=== PATIENT | male | born 1955 | race Caucasian/White ===

== ENCOUNTER 2017-07-07 16:06 | Emergency (ER) | payer SELFPAY ==
[2017-07-07 16:09] VITALS: BP 144/80; PULSE 77; RESP 12; TEMP 98.1; O2SAT 98
--- NOTE | 2017-07-07 19:18 | PD ---
HPI Chief Complaint: Skin Problem Time Seen by Provider: 19:14 Travel History International Travel<30 days: No Contact w/Intl Traveler<30days: No Traveled to known affect area: No History of Present Illness HPI The patient does smoke and drink. 61-year-old white male presents to emergency department with complains of a painful sore on his tongue now for at least 1-2 months. He states that he just decided to come in tonight because he was tired of the pain. He denies any fever chills. No difficulty swallowing. Pain is moderate. Worse with local irritation. No alleviating factors. PFSH Past Medical History Medical History: Denies Significant Hx Social History Alcohol Use: Yes Tobacco Use: Yes Review of Systems General / Constitutional: No: Fever Eyes: No: Visual changes HENT: No: Headaches Cardiovascular: No: Chest Pain or Discomfort Respiratory: No: Shortness of Breath Gastrointestinal: No: Abdominal Pain Genitourinary: No: Dysuria Musculoskeletal: No: Pain Skin: No Rash Neurologic: No: Weakness Psychiatric: No: Depression Endocrine: No: Polydipsia Hematologic/Lymphatic: No: Easy Bruising Physical Exam Narrative GENERAL: Well-developed, well-nourished in no acute distress. Nontoxic appearing. HEAD: Normocephalic, atraumatic. EYES: Pupils equal round and reactive. Extraocular motions intact. No scleral icterus. No injection or drainage. ENT: TMs clear without erythema. The external auditory canals clear. Nose: clear . Posterior pharynx is pink and moist. No tonsillar edema or exudate. Uvula midline. Airway patent. Patient has an ulcerative lesion to the lateral aspect of the mid tongue. It measures approximately 1.5 x 1.5 cm. It is hypertrophied and mildly erythematous. NECK: Trachea midline.Supple, nontender, moves head freely. No central bony tenderness or spasm. CARDIOVASCULAR: Regular rate and rhythm without murmurs, gallops, or rubs. RESPIRATORY: Clear to auscultation. Breath sounds equal bilaterally. No wheezes , rales, or rhonchi. GASTROINTESTINAL: Abdomen soft, non-tender, nondistended. No hepato-splenomegaly , or palpable masses. No guarding. EXTREMITIES: No clubbing, cyanosis, or edema. No joint tenderness, effusion, or edema noted. BACK: Nontender without deformity or crepitance. No flank tenderness. Data Data Last Documented VS Vital Signs Date Time Temp Pulse Resp B/P (MAP) Pulse Ox O2 Delivery O2 Flow Rate FiO2 07/07/17 16:09 98.1 77 12 144/80 (101) 98 MDM Medical Decision Making Medical Screen Exam Complete: Yes Emergency Medical Condition: No Medical Record Reviewed: No Differential Diagnosis MDM: High Differential diagnoses: Abscess, folliculitis, cellulitis, lymphangitis, abrasion, contact dermatitis, oral cancer Narrative Course A medical screening exam was performed: At the time of evaluation the presenting medical condition was determined not to be of an emergent nature. The patient was given the option of receiving additional care, but declined. Patient was given options for additional community resources from which to obtain care. The Patient Has Been advised to seek medical attention for their presenting complaint. The patient has been advised to return to the ER at any time if an emergent condition develops. Diagnosis Primary Impression: Encounter for medical screening examination Condition: Stable Yogesh Callaway Jul 07, 2017 19:17
== END 2017-07-07 19:19 | disposition left against medical advice (07) ==
LOC: NEPK 16:06
DX: K14.6 Glossodynia (principal)
CPT/HCPCS: 99281

== ENCOUNTER 2017-08-30 14:36 | Inpatient (IN) | payer BC ==
[~2017-08-30] VITALS: Ht 162.6 cm; Wt 55.0 kg
[2017-08-30] MEDS ORDERED: IOHEXOL 350 MG/ML 10 ML VIAL (for RAD DIAG) IVCONTRAST ONE (14:37)
[2017-08-30 16:10] VITALS: BP 147/80; PULSE 78; RESP 18; TEMP 99.7; O2SAT 97
--- NOTE | 2017-08-30 16:34 | PD ---
HPI Chief Complaint: Facial Pain or Swelling Time Seen by Provider: 16:19 Travel History International Travel<30 days: No Contact w/Intl Traveler<30days: No Traveled to known affect area: No History of Present Illness HPI This is a 61-year-old male who presents to the emergency department with 2 months of swelling in his left tongue that's extended now to involve his left neck, constant, moderate severity making it difficult for him to eat and drink. He says he's lost 10 pounds. He denies any fevers or chills. He said he was seen here in the emergency department in June and told to follow-up at [facility] which he did. There he was prescribed antibiotics and referred to [facility]. He says he has a referral to Dr. Rush who is an oncologist but he says he's never had any imaging of his neck. His insurance just set in yesterday. PFSH Social History Alcohol Use: Yes Tobacco Use: Yes Review of Systems Except as stated in HPI: all other systems reviewed are Neg Physical Exam Narrative GENERAL:Well appearing, no acute distress SKIN: Focused skin assessment warm and dry. HEAD: Atraumatic. Normocephalic. EYES: Pupils equal and round. No injection or drainage. ENT: Moist mucous membranes. Fungating mass involving the left tongue. Some hoarse voice. Speaking full sentences and handling secretions NECK: Firm fullness involving the left neck. CARDIOVASCULAR: Regular rate and rhythm. No murmur appreciated. RESPIRATORY: Clear to auscultation. Breath sounds equal bilaterally. GASTROINTESTINAL: Abdomen soft, non-tender, nondistended. MUSCULOSKELETAL: No obvious deformities. NEUROLOGICAL: Awake and alert. No obvious cranial nerve deficits. Moving all extremities PSYCHIATRIC: Appropriate mood and affect; insight and judgment normal. Data Data Orders Orders Complete Blood Count With Diff (08/30/17 16:24) Basic Metabolic Panel (Bmp) (08/30/17 16:24) ^ Insert Iv (08/30/17 16:24) Ct Soft Tiss Neck W Iv Cont (08/30/17 ) Ct Facial Bones W Iv Contrast (08/30/17 ) Labs Laboratory Tests Test 08/30/17 16:54 White Blood Count 15.5 TH/MM3 Red Blood Count 4.77 MIL/MM3 Hemoglobin 14.8 GM/DL Hematocrit 44.5 % Mean Corpuscular Volume 93.3 FL Mean Corpuscular Hemoglobin 31.1 PG Mean Corpuscular Hemoglobin Concent 33.4 % Red Cell Distribution Width 14.0 % Platelet Count 357 TH/MM3 Mean Platelet Volume 8.1 FL Neutrophils (%) (Auto) 68.0 % Lymphocytes (%) (Auto) 22.8 % Monocytes (%) (Auto) 7.7 % Eosinophils (%) (Auto) 0.8 % Basophils (%) (Auto) 0.7 % Neutrophils # (Auto) 10.6 TH/MM3 Lymphocytes # (Auto) 3.5 TH/MM3 Monocytes # (Auto) 1.2 TH/MM3 Eosinophils # (Auto) 0.1 TH/MM3 Basophils # (Auto) 0.1 TH/MM3 CBC Comment DIFF FINAL Differential Comment MDM Medical Decision Making Medical Screen Exam Complete: Yes Emergency Medical Condition: Yes Differential Diagnosis Cancer, abscess, cellulitis Narrative Course This is a 61-year-old male who presents to the emergency department with increasing swelling in his left neck and some increasing difficulty swallowing and eating. He has an impressive exam with a fungating mass on his left tongue and swelling along the left side of the neck. Plan for CT imaging to evaluate the extent of tumor. Disposition will be made based on CT results. Patient likely will be able to follow-up as an outpatient. Sally Barboza MD Aug 30, 2017 16:34
[2017-08-30 16:58] LABS: AUTOMATED NEUTROPHIL # 10.6 TH/MM3 (1.8-7.7); BASOPHIL # 0.1 TH/MM3 (0-0.2); BASOPHIL % 0.7 % (0.0-2.0); EOSINOPHIL # 0.1 TH/MM3 (0-0.4); EOSINOPHIL % 0.8 % (0.0-4.0); HEMATOCRIT 44.5 % (39.0-51.0); HEMOGLOBIN 14.8 GM/DL (13.0-17.0); LYMPH % 22.8 % (9.0-44.0); LYMPHOCYTE # 3.5 TH/MM3 (1.0-4.8); MEAN CELL VOLUME 93.3 FL (80.0-100.0); MEAN CORPUSCULAR HEMOGLOBIN 31.1 PG (27.0-34.0); MEAN CORPUSCULAR HGB CONC 33.4 % (32.0-36.0); MEAN PLATELET VOLUME 8.1 FL (7.0-11.0); MONO % 7.7 % (0.0-8.0); MONOCYTE # 1.2 TH/MM3 (0-0.9); PLATELET COUNT 357 TH/MM3 (150-450); RED BLOOD COUNT 4.77 MIL/MM3 (4.50-5.90); WHITE BLOOD COUNT 15.5 TH/MM3 (4.0-11.0)
[2017-08-30 17:15] LABS: BICARBONATE 28.8 MEQ/L (21.0-32.0); CALCIUM 10.1 MG/DL (8.5-10.1); CREATININE 0.88 MG/DL (0.60-1.30)
--- NOTE | 2017-08-30 18:19 | RADRPT ---
EXAM DATE/TIME: 08/30/2017 17:53 [facility] COMPARISON: No previous studies available for comparison. INDICATIONS : Patient complains of swelling left side of neck. IV CONTRAST: 75 cc Omnipaque 350 (iohexol) IV RADIATION DOSE: 18.0 CTDIvol (mGy) MEDICAL HISTORY : None SURGICAL HISTORY : None. ENCOUNTER: Initial ACUITY: 2 months PAIN SCALE: 0/10 LOCATION: Left neck TECHNIQUE: Volumetric scanning of the neck was performed. Using automated exposure control and a djustment of the mA and/or kV according to patient size, radiation dose was kept as low as reasonably achievable to obtain optimal diagnostic quality images. DICOM format image data is available elect ronically for review and comparison. FINDINGS: NASOPHARYNX: The nasopharyngeal airway has a normal configuration. No mucosal thickening or mass is seen. OROPHARYNX: Heterogeneous masslike density along the left side of the tongue measures 6.0 x 2.9 c m with central necrosis. LARYNX: The supraglottic, glottic, and infraglottic structures are intact. PARAPHARYNGEAL: The parapharyngeal space is intact. SALIVARY GLANDS: The parotid and submandibular glands are intact. LYMPH NODES: Large necrotic appearing lymph node along the undersurface of the left sternocleidom astoid musculature which is heterogeneous in appearance and measures 3.8 x 2.8 cm.. THYROID: Homogeneous enhancement without evidence of nodule. BONES: Unremarkable. Minimal ground glass densities in upper lobes and mild emphysema. CONCLUSION: 1. Heterogeneous masslike density along the left side of the tongue measures 6.0 x 2.9 cm. This could be mass or abscess. 2. Large necrotic lymph node underneath the sternocleidomastoid musculature measuring 3.8 x 2.8 cm li dede metastatic. This is amenable to percutaneous biopsy. Misael Boateng MD on August 30, 2017 at 18:12 Board Certified Radiologist. This report was verified electronically.
--- NOTE | 2017-08-30 19:48 | PD ---
Physical Exam Narrative Patient signed out to me by Dr. Barboza. Please see her documentation for complete details. Briefly, Patient is a 61 year old male who complains of a mass to his tongue and side of his neck. He has had this for the past 3 months, but says he is concerned because the neck mass has grown in size. He says he is unable to eat because of it and has lost 20 pounds. Exam shows fungating mass to the tongue and large swelling to the left side of the neck. No airway compromise. Data Data Last Documented VS Vital Signs Date Time Temp Pulse Resp B/P (MAP) Pulse Ox O2 Delivery O2 Flow Rate FiO2 08/30/17 16:10 99.7 78 18 147/80 (102) 97 Room Air Orders Orders Complete Blood Count With Diff (08/30/17 16:24) Basic Metabolic Panel (Bmp) (08/30/17 16:24) ^ Insert Iv (08/30/17 16:24) Ct Soft Tiss Neck W Iv Cont (08/30/17 ) Iohexol 350 Inj (Omnipaque 350 Inj) (08/30/17 14:37) Admit Order (Ed Use Only) (08/30/17 ) Labs Laboratory Tests Test 08/30/17 16:54 White Blood Count 15.5 TH/MM3 Red Blood Count 4.77 MIL/MM3 Hemoglobin 14.8 GM/DL Hematocrit 44.5 % Mean Corpuscular Volume 93.3 FL Mean Corpuscular Hemoglobin 31.1 PG Mean Corpuscular Hemoglobin Concent 33.4 % Red Cell Distribution Width 14.0 % Platelet Count 357 TH/MM3 Mean Platelet Volume 8.1 FL Neutrophils (%) (Auto) 68.0 % Lymphocytes (%) (Auto) 22.8 % Monocytes (%) (Auto) 7.7 % Eosinophils (%) (Auto) 0.8 % Basophils (%) (Auto) 0.7 % Neutrophils # (Auto) 10.6 TH/MM3 Lymphocytes # (Auto) 3.5 TH/MM3 Monocytes # (Auto) 1.2 TH/MM3 Eosinophils # (Auto) 0.1 TH/MM3 Basophils # (Auto) 0.1 TH/MM3 CBC Comment DIFF FINAL Differential Comment Blood Urea Nitrogen 17 MG/DL Creatinine 0.88 MG/DL Random Glucose 100 MG/DL Calcium Level 10.1 MG/DL Sodium Level 139 MEQ/L Potassium Level 4.8 MEQ/L Chloride Level 105 MEQ/L Carbon Dioxide Level 28.8 MEQ/L Anion Gap 5 MEQ/L Estimat Glomerular Filtration Rate 87 ML/MIN MDM Supervised Visit with MALOU: No Narrative Course CT of the neck shows a mass to the tongue and likely metastatic, necrotic lymph node to the left side of the neck. Patient states he is unable to swallow. Will be admitted for further management. Diagnosis Primary Impression: Neck mass Additional Impression: Swallowing difficulty Qualified Codes: R13.10 - Dysphagia, unspecified Admitting Information Admitting Physician Requests: it Michelle Pina MD Aug 30, 2017 19:48
[2017-08-30] MEDS ORDERED: NALOXONE HCL 0.4 MG/ML AMP IV PUSH PRN (20:15)
[2017-08-30] MEDS ORDERED: ACETAMINOPHEN 325 MG TAB PO PRN (20:15)
[2017-08-30] MEDS ORDERED: SENNOSIDES 8.6 MG TAB PO PRN (20:15)
[2017-08-30] MEDS ORDERED: ONDANSETRON HCL 4 MG/2 ML VIAL IVP PRN (20:15)
[2017-08-30] MEDS ORDERED: MAGNESIUM HYDROXIDE SUSP 30 ML CUP PO PRN (20:15)
[2017-08-30] MEDS ORDERED: LACTULOSE SYRUP 20 GM/30 ML CUP PO PRN (20:15)
[2017-08-30] MEDS ORDERED: BISACODYL 10 MG SUPP RECTAL PRN (20:15)
[2017-08-30] MEDS ORDERED: SODIUM CHLORIDE 0.9% FLUSH 10 ML FLUSH IV FLUSH PRN (20:15)
[2017-08-30] MEDS: DOCUSATE SODIUM 50 MG/SENNA 8.6 MG TAB PO SCH (21:00)
[2017-08-30] MEDS: SODIUM CHLORIDE 0.9% FLUSH 10 ML FLUSH IV FLUSH SCH (21:00)
[2017-08-30 21:16] VITALS: BP 136/72; PULSE 76; RESP 16; O2SAT 97
[2017-08-30] MEDS ORDERED: LORazepam 2 MG/ML VIAL IV PUSH PRN ×4 (22:00)
[2017-08-30] MEDS ORDERED: LORazepam 1 MG TAB PO PRN (22:00)
[2017-08-30] MEDS ORDERED: LORazepam 2 MG TAB PO PRN (22:00)
[2017-08-30] MEDS ORDERED: FLUMAZENIL 0.5 MG/5 ML VIAL IV PUSH PRN (22:00)
--- NOTE | 2017-08-30 22:08 | HHI.HP ---
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 The patient reports that he noticed a lesion on the left side of his tongue approximately 2 months ago. He states the lesion was painful and it began to progressively enlarge. He reports an increase in left-sided neck swelling with a palpable left sided neck mass. He reports associated dysphagia and states that he is unable to eat secondary to the pain and fullness he experiences. He denies any difficulty breathing. Neck CT significant for heterogeneous masslike density along the left side of the tongue with large necrotic lymph node underneath the sternocleidomastoid musculature that is likely metastatic. Review of Systems Denies fever or chills Denies blurry vision, otorrhea, rhinorrhea Denies sore throat and cough No chest pain, palpitations, shortness of breath No abdominal pain Denies constipation/diarrhea/nausea/vomiting Denies muscle pain/weakness No rashes Past Family Social History Past Medical History None Past Surgical History None Reported Medications None Allergies: Coded Allergies: No Known Allergies (Unverified , 08/30/17) Family History Denies family history of CAD/DM Social History Smokes approximately one pack per day 50 years. Drinks approximately 4-5 mixed drinks and beers daily. Denies marijuana or illicit drugs. Physical Exam Vital Signs Vital Signs Date Time Temp Pulse Resp B/P (MAP) Pulse Ox O2 Delivery O2 Flow Rate FiO2 08/30/17 21:16 76 16 136/72 (93) 97 Room Air 08/30/17 16:10 99.7 78 18 147/80 (102) 97 Room Air Physical Exam GENERAL: male lying in bed SKIN: No rashes, ecchymoses or lesions. Cool and dry. HEAD: Atraumatic. Normocephalic. No temporal or scalp tenderness. EYES: Pupils equal round and reactive. Extraocular motions intact. No scleral icterus. No injection or drainage. ENT: Nose without bleeding, purulent drainage or septal hematoma. Throat without erythema, tonsillar hypertrophy or exudate. Airway patent. 6 x 3 cm mass on the left lateral tongue. NECK: Trachea midline. No JVD or lymphadenopathy. Supple, nontender, no meningeal signs. Left-sided neck fullness with palpable mass. CARDIOVASCULAR: Regular rate and rhythm without murmurs, gallops, or rubs. RESPIRATORY: Clear to auscultation. Breath sounds equal bilaterally. No wheezes , rales, or rhonchi. GASTROINTESTINAL: Abdomen soft, non-tender, nondistended. No hepato-splenomegaly , or palpable masses. No guarding. MUSCULOSKELETAL: Extremities without clubbing, cyanosis, or edema. No joint tenderness, effusion, or edema noted. No calf tenderness. NEUROLOGICAL: Awake and alert. Cranial nerves II through XII intact. Motor and sensory grossly within normal limits. Normal speech. Laboratory Laboratory Tests Test 08/30/17 16:54 White Blood Count 15.5 Red Blood Count 4.77 Hemoglobin 14.8 Hematocrit 44.5 Mean Corpuscular Volume 93.3 Mean Corpuscular Hemoglobin 31.1 Mean Corpuscular Hemoglobin Concent 33.4 Red Cell Distribution Width 14.0 Platelet Count 357 Mean Platelet Volume 8.1 Neutrophils (%) (Auto) 68.0 Lymphocytes (%) (Auto) 22.8 Monocytes (%) (Auto) 7.7 Eosinophils (%) (Auto) 0.8 Basophils (%) (Auto) 0.7 Neutrophils # (Auto) 10.6 Lymphocytes # (Auto) 3.5 Monocytes # (Auto) 1.2 Eosinophils # (Auto) 0.1 Basophils # (Auto) 0.1 CBC Comment DIFF FINAL Differential Comment Blood Urea Nitrogen 17 Creatinine 0.88 Random Glucose 100 Calcium Level 10.1 Sodium Level 139 Potassium Level 4.8 Chloride Level 105 Carbon Dioxide Level 28.8 Anion Gap 5 Estimat Glomerular Filtration Rate 87 Result Diagram: 08/30/174 08/30/171653 Caprini VTE Risk Assessment Caprini VTE Risk Assessment: Mod/High Risk (score >= 2) Caprini Risk Assessment Model Point Value = 1 Point Value = 2 Point Value = 3 Point Value = 5 Age 41-60 Minor surgery BMI > 25 kg/m2 Swollen legs Varicose veins or History of unexplained or recurrent spontaneous Oral contraceptives or hormone replacement Sepsis (< 1 month) Serious lung disease, including pneumonia (< 1 month) Abnormal pulmonary function Acute myocardial infarction Congestive heart failure (< 1 month) History of inflammatory bowel disease Medical patient at bed rest Age 61-74 Arthroscopic surgery Major open surgery (> 45 min) Laparoscopic surgery (> 45 min) Malignancy Confined to bed (> 72 hours) Immobilizing plaster cast Central venous access Age >= 75 History of VTE Family history of VTE Factor V Leiden Prothrombin [id number] Lupus anticoagulant Anticardiolipin antibodies Elevated serum homocysteine Heparin-induced thrombocytopenia Other congenital or acquired thrombophilia Stroke (< 1 month) Elective arthroplasty Hip, pelvis, or leg fracture Acute spinal cord injury (< 1 month) Prophylaxis Regimen Total Risk Factor Score Risk Level Prophylaxis Regimen 0-1 Low Early ambulation 2 Moderate Order ONE of the following: *Sequential Compression Device (SCD) *Heparin 5000 units SQ BID 3-4 Higher Order ONE of the following medications: *Heparin 5000 units SQ TID *Enoxaparin/Lovenox 40 mg SQ daily (WT < 150 kg, CrCl > 30 mL/min) *Enoxaparin/Lovenox 30 mg SQ daily (WT < 150 kg, CrCl > 10-29 mL/min) *Enoxaparin/Lovenox 30 mg SQ BID (WT < 150 kg, CrCl > 30 mL/min) AND/OR *Sequential Compression Device (SCD) 5 or more Highest Order ONE of the following medications: *Heparin 5000 units SQ TID (Preferred with Epidurals) *Enoxaparin/Lovenox 40 mg SQ daily (WT < 150 kg, CrCl > 30 mL/min) *Enoxaparin/Lovenox 30 mg SQ daily (WT < 150 kg, CrCl > 10-29 mL/min) *Enoxaparin/Lovenox 30 mg SQ BID (WT < 150 kg, CrCl > 30 mL/min) AND *Sequential Compression Device (SCD) Assessment and Plan Assessment and Plan Assessment/plan: 1. Tongue lesion/neck mass Neck CT significant for heterogeneous masslike density along the left side of the tongue with large necrotic lymph node underneath the sternocleidomastoid musculature that is likely metastatic Consult ENT, medical oncology - appreciate recommendations Monitor for signs of airway compromise Case management consulted as patient will need close follow-up 2. Alcohol abuse CIWA protocol Folate/vitamin/multivitamins Monitor for signs of withdrawal FEN Regular diet Electrolytes: Replete when necessary Holding pharmacologic anticoagulation for possible procedure SCDs Physician Certification 2 Midnight Certification Type: Admission for Inpatient Services Order for Inpatient Services The services are ordered in accordance with Medicare regulations or non- Medicare payer requirements, as applicable. In the case of services not specified as inpatient-only, they are appropriately provided as inpatient services in accordance with the 2-midnight benchmark. Estimated LOS (days): 2 2 days is the estimated time the patient will need to remain in the hospital, assuming treatment plan goals are met and no additional complications. Post-Hospital Plan: Not yet determined Ambreen Oliver MD Aug 30, 2017 22:08
[2017-08-30 23:30] VITALS: BP 162/82; PULSE 70; RESP 15; TEMP 98.4; O2SAT 98
[2017-08-30] MEDS: THIAMINE INJ 100 MG in SODIUM CHLORIDE 0.9% INJ 100 ML IV SCH (23:32)
[2017-08-30] MEDS: MULTIVITAMIN INJ 10 ML, FOLIC ACID INJ 1 MG in SODIUM CHLORID 0.9% 500 ML INJ 500 ML IV SCH (23:32)
[2017-08-31 04:00] VITALS: BP 138/79; PULSE 66; RESP 18; TEMP 97.5; O2SAT 97
[2017-08-31 05:55] LABS: AUTOMATED NEUTROPHIL # 7.9 TH/MM3 (1.8-7.7); BASOPHIL # 0.1 TH/MM3 (0-0.2); BASOPHIL % 0.4 % (0.0-2.0); EOSINOPHIL # 0.2 TH/MM3 (0-0.4); EOSINOPHIL % 1.8 % (0.0-4.0); HEMATOCRIT 42.2 % (39.0-51.0); HEMOGLOBIN 14.5 GM/DL (13.0-17.0); LYMPHOCYTE # 3.4 TH/MM3 (1.0-4.8); MEAN CELL VOLUME 93.2 FL (80.0-100.0); MEAN CORPUSCULAR HGB CONC 34.3 % (32.0-36.0); MEAN PLATELET VOLUME 8.4 FL (7.0-11.0); MONO % 7.8 % (0.0-8.0); PLATELET COUNT 360 TH/MM3 (150-450); RED BLOOD COUNT 4.53 MIL/MM3 (4.50-5.90); RED CELL DISTRIBUTION WIDTH 14.1 % (11.6-17.2); WHITE BLOOD COUNT 12.6 TH/MM3 (4.0-11.0)
[2017-08-31 06:08] LABS: BICARBONATE 27.3 MEQ/L (21.0-32.0); CALCIUM 9.6 MG/DL (8.5-10.1); CREATININE 0.74 MG/DL (0.60-1.30)
[2017-08-31 08:00] VITALS: BP 150/86; PULSE 71; RESP 18; TEMP 96.8; O2SAT 96
[2017-08-31] MEDS: SODIUM CHLORIDE 0.9% FLUSH 10 ML FLUSH IV FLUSH SCH ×2 (08:38→21:39)
[2017-08-31] MEDS: DOCUSATE SODIUM 50 MG/SENNA 8.6 MG TAB PO SCH ×2 (08:38→21:39)
[2017-08-31] MEDS ORDERED: PNEUMOCOCCAL POLYVALENT INJ 25 MCG/0.5 ML SYR IM ONE (09:00)
[2017-08-31] MEDS ORDERED: INFLUENZA VIRUS VACCINE (QUADRIVALENT) 0.5 ML SYR IM ONE (09:00)
[2017-08-31] MEDS: MORPHINE SULFATE ORAL SOLN 10 MG/0.5 ML SYRINGE PO PRN ×2 (10:38→22:35)
[2017-08-31 12:00] VITALS: BP 142/75; PULSE 72; RESP 18; TEMP 96.7; O2SAT 98
[2017-08-31] MEDS: BENZOCAINE 6 MG/MENTHOL 10 MG LOZENGE BUCCAL PRN ×2 (12:18→22:33)
--- NOTE | 2017-08-31 13:09 | HHI.PR ---
Subjective Remarks The patient said that his mouth pain was still up to a 6 out of 10 in severity. He said he still smokes cigarettes. He said he always has a white coat on his tongue. He said that swallowing hurts. Discussed with nursing. Objective Vitals Vital Signs Date Time Temp Pulse Resp B/P (MAP) Pulse Ox O2 Delivery O2 Flow Rate FiO2 08/31/17 08:00 96.8 71 18 150/86 (107) 96 08/31/17 04:00 97.5 66 18 138/79 (98) 97 08/30/17 23:30 98.4 70 15 162/82 (108) 98 08/30/17 21:16 76 16 136/72 (93) 97 Room Air 08/30/17 16:10 99.7 78 18 147/80 (102) 97 Room Air I/O 08/30/17 08/30/17 08/30/17 08/31/17 08/31/17 08/31/17 07:00 15:00 23:00 07:00 15:00 23:00 Intake Total 610 ml Balance 610 ml Intake IV Total 610 ml Result Diagram: 08/31/17 0430 08/31/17 0430 Imaging Last Impressions Neck CT 08/30/17 0000 Signed Impressions: Service Date/Time: Wednesday, August 30, 2017 17:53 - CONCLUSION: 1. Heterogeneous masslike density along the left side of the tongue measures 6.0 x 2.9 cm. This could be mass or abscess. 2. Large necrotic lymph node underneath the sternocleidomastoid musculature measuring 3.8 x 2.8 cm likely metastatic. This is amenable to percutaneous biopsy. Misael Boateng MD Objective Remarks GENERAL: Resting comfortably. SKIN: No rashes, ecchymoses or lesions. Cool and dry. HEAD: Atraumatic. Normocephalic. No temporal or scalp tenderness. EYES: Pupils equal round and reactive. Extraocular motions intact. No scleral icterus. No injection or drainage. ENT: 6 x 3 cm mass on the left lateral tongue. Oral thrush noted. NECK: Trachea midline. No JVD or lymphadenopathy. Supple, nontender, no meningeal signs. Left-sided neck fullness with palpable mass. CARDIOVASCULAR: Regular rate and rhythm without murmurs, gallops, or rubs. RESPIRATORY: Clear to auscultation. Breath sounds equal bilaterally. No wheezes , rales, or rhonchi. GASTROINTESTINAL: Abdomen soft, non-tender, nondistended. No hepato-splenomegaly , or palpable masses. No guarding. MUSCULOSKELETAL: Extremities without clubbing, cyanosis, or edema. No joint tenderness, effusion, or edema noted. No calf tenderness. NEUROLOGICAL: Awake and alert. Cranial nerves II through XII intact. Motor and sensory grossly within normal limits. Normal speech. PSYCH: Mood and affect appropriate. Medications and IVs Current Medications Medications (Trade) Dose Ordered Sig/Shaila Route Start Time Stop Time Status Last Admin (NS Flush) 2 ml UNSCH PRN IV FLUSH 08/30/17 20:15 (NS Flush) 2 ml BID IV FLUSH 08/30/17 21:00 08/31/17 08:38 (Tylenol) 650 mg Q4H PRN PO 08/30/17 20:15 08/30/17 23:31 (Zofran Inj) 4 mg Q6H PRN IVP 08/30/17 20:15 (Narcan Inj) 0.4 mg UNSCH PRN IV PUSH 08/30/17 20:15 (Betsy-Colace) 1 tab BID PO 08/30/17 21:00 08/30/17 21:00 (Milk Of Magnesia Liq) 30 ml Q12H PRN PO 08/30/17 20:15 (Senokot) 17.2 mg Q12H PRN PO 08/30/17 20:15 (Dulcolax Supp) 10 mg DAILY PRN RECTAL 08/30/17 20:15 (Lactulose Liq) 30 ml DAILY PRN PO 08/30/17 20:15 Multivitamins 10 ml/Folic Acid 1 mg/Sodium Chloride 510.2 ml @ 125 mls/hr Q24H IV 08/30/17 23:00 09/04/17 22:59 08/30/17 23:32 Thiamine HCl 100 mg/Sodium Chloride 101 ml @ 100 mls/hr Q24H IV 08/30/17 23:00 09/02/17 22:59 08/30/17 23:32 (Vitamin B1) 100 mg DAILY PO 09/03/17 09:00 (Romazicon Inj) 0.2 mg Q1M PRN IV PUSH 08/30/17 22:00 (Ativan) 1 mg Q4H PRN PO 08/30/17 22:00 (Ativan Inj) 1 mg Q4H PRN IV PUSH 08/30/17 22:00 (Ativan) 2 mg Q2H PRN PO 08/30/17 22:00 (Ativan Inj) 2 mg Q2H PRN IV PUSH 08/30/17 22:00 (Ativan Inj) 2 mg Q1H PRN IV PUSH 08/30/17 22:00 (Ativan Inj) 2 mg Q15M PRN IV PUSH 08/30/17 22:00 (Roxanol Liq) 5 mg Q4H PRN PO 08/31/17 10:00 (Roxanol Liq) 10 mg Q4H PRN PO 08/31/17 10:00 08/31/17 10:38 (Chloraseptic Mukul) 1 lozenge UNSCH PRN BUCCAL 08/31/17 10:00 08/31/17 12:18 Clindamycin/ Sodium Chloride 50 ml @ 100 mls/hr Q8H IV 08/31/17 13:15 UNV (Lactinex Pkt) 1 gm TID PO 08/31/17 18:00 (Morphine Inj) 4 mg Q4H PRN IV PUSH 08/31/17 14:00 (Toradol Inj) 30 mg ONCE ONCE IV PUSH 08/31/17 14:00 08/31/17 14:01 UNV (Magic Mouthwash Adult Liq) 10 ml QID SWISH-SWAL 08/31/17 14:00 UNV A/P Assessment and Plan Tongue lesion/neck mass CT showed: Heterogeneous masslike density along the left side of the tongue measures 6.0 x 2.9 cm; This could be mass or abscess; Large necrotic lymph node underneath the sternocleidomastoid musculature measuring 3.8 x 2.8 cm, likely metastatic. - ENT, medical oncology consults requested. - Monitor for signs of airway compromise. - pain control. Add Toradol and Magic Mouthwash. - start IV clindamycin. - Case management consulted as patient will need close follow-up. Tobacco abuse The pt continues to smoke. - cessation instruction. - nicotine patch if needed. Alcohol abuse The pt drinks daily. - CIWA protocol. - Folate/vitamin/multivitamins. - seizure precautions. - cessation instruction. PPx: Yamil Mac DO Aug 31, 2017 13:09
[2017-08-31] MEDS ORDERED: MORPHINE SULFATE 2 MG/ML INJ IV PUSH PRN (14:00)
[2017-08-31] MEDS ORDERED: KETOROLAC TROMETHAMINE 30 MG/ML (IVP) VIAL IV PUSH ONE (14:00)
[2017-08-31] MEDS: CLINDAMYCIN 600 MG/NS PREMIX 50 ML IV SCH ×2 (14:23→21:41)
[2017-08-31] MEDS: NYSTAT/DIPHENHY/LIDO MOUTHWASH (Adult) 120ML SWISH-SWAL SCH ×3 (14:23→21:39)
[2017-08-31] MEDS: LACTOBACILLUS ACIDOPHILUS 1 GM PACKET PO SCH (17:33)
[2017-08-31 20:00] VITALS: BP 135/69; PULSE 72; RESP 17; TEMP 97.6; O2SAT 95
[2017-08-31] MEDS: MULTIVITAMIN INJ 10 ML, FOLIC ACID INJ 1 MG in SODIUM CHLORID 0.9% 500 ML INJ 500 ML IV SCH (22:42)
[2017-08-31] MEDS: THIAMINE INJ 100 MG in SODIUM CHLORIDE 0.9% INJ 100 ML IV SCH (22:42)
[2017-08-31 23:30] VITALS: BP 116/67; PULSE 63; RESP 17; TEMP 97; O2SAT 92
[2017-09-01 03:47] VITALS: BP 160/76; PULSE 79; RESP 17; TEMP 97.1; O2SAT 97
[2017-09-01] MEDS: CLINDAMYCIN 600 MG/NS PREMIX 50 ML IV SCH ×2 (05:48→14:12)
--- NOTE | 2017-09-01 05:57 | MB ---
cc: ROBIN WEISS DATE OF CONSULTATION August 31, 2017 REASON FOR CONSULTATION Patient with tongue lesion suspicious for oral cancer. HISTORY OF PRESENT ILLNESS This is a 61-year-old male who has not had medical care in the past. He has a history of tobacco abuse and alcohol abuse. He does not have a primary care physician. He presented to the emergency department with a tongue lesion and left-sided neck swelling. He noticed the tongue lesion approximately 2 months ago. It continued to grow and recently became more painful. He also experienced dysphagia, weight loss and anorexia. He has not had any hemoptysis. No chest pain, no shortness of breath, no abdominal pain. No lower extremity edema or pain. He denies any headaches. He represented in the emergency room. A CT scan of the neck was obtained which revealed a heterogeneous mass-like density along the left side of the tongue measuring 6 x 2.9 cm. There was a large necrotic lymph node under the sternocleidomastoid musculature measuring 3.8 x 2.8 cm. The patient was admitted to the hospital. REVIEW OF SYSTEMS A comprehensive 14-point review of systems was completed which is negative except as described in the HPI. PAST MEDICAL HISTORY Tobacco abuse. Alcohol abuse. PAST SURGICAL HISTORY None. MEDICATIONS He has not been taking medications at home. Inpatient medications were reviewed which include- 1. Thiamine. 2. Lactobacillus. 3. Clindamycin. 4. Morphine sulfate 4 mg IV q.4 hours p.r.n. 5. Magic mouthwash. 6. Benzocaine. 7. Menthol lozenges. 8. Ativan p.r.n. 9. Senna. 10. Docusate. 11. Magnesium hydroxide. 12. Sennosides. 13. Bisacodyl. 14. Lactulose p.r.n. ALLERGIES No known drug allergies. FAMILY HISTORY Reviewed and is noncontributory to this admission. SOCIAL HISTORY He has more than 50 pack-years of smoking. He drinks 5-6 cans of beer on a daily basis. He denies any illicit drug use. PHYSICAL EXAMINATION VITAL SIGNS: Blood pressure is 116/67, pulse in the 60s, temperature is 97, O2 sats are 92% on room air. GENERAL: Ill-appearing male in no apparent distress. HEENT: Pupils equal, round, reactive to light. EOMI. No thrush. No lesions. Tongue mass is seen in the left lateral tongue. NECK: Supple. No JVD, no bruits. Shotty lymph nodes are palpated bilaterally neck. There is a large mass which is palpated below the sternocleidomastoid. CHEST: Clear to auscultation bilaterally. CARDIAC: S1-S2. Regular rate and rhythm. ABDOMEN: Soft, nontender, nondistended. Bowel sounds are present. EXTREMITIES: No cyanosis, edema, erythema or cyanosis. SKIN: Without any petechiae, lesion or bruises. NEURO: No focal deficits. PSYCHIATRIC: Mood and affect is appropriate. LABORATORY DATA WBCs 12.6, hemoglobin is 14.5, MCV is 93.2, platelet count is 360. Serum chemistries show sodium of 141, potassium 3.9, chloride 107, CO2 27.3, anion gap is 7, BUN 15, creatinine 0.74, GFR is 107. IMAGING STUDIES Reviewed in the EMR. ASSESSMENT AND PLAN This is a 61-year-old male who presents with a large tongue mass and a cervical and sternocleidomastoid lymphadenopathy. 1. Tongue mass with regional lymphadenopathy. This is highly concerning for tongue carcinoma. His risk factors are alcohol abuse and tobacco abuse. We need to obtain biopsy of this mass. I would recommend consulting ENT. We will start staging of the disease. This would include CT of the chest, abdomen and pelvis with contrast. He may also require an outpatient PET scan depending on the findings of the CT scan. Different treatment modalities were discussed. These include surgical resection and neck dissection, the possibility of neoadjuvant chemotherapy followed by concurrent chemotherapy and radiation was also discussed. It was explained that an ENT evaluation needs to be completed first. The patient will need to follow up in the oncology clinic. Thank you for allowing me to participate in the care of this patient. I will continue to follow this patient along. MD MALOU Decker/JAGDEEP /1:06 AM /5:24 AM ARMANDO
[2017-09-01] MEDS: BENZOCAINE 6 MG/MENTHOL 10 MG LOZENGE BUCCAL PRN (06:46)
[2017-09-01] MEDS: MORPHINE SULFATE ORAL SOLN 10 MG/0.5 ML SYRINGE PO PRN ×2 (06:47→14:23)
[2017-09-01 07:26] LABS: AUTOMATED NEUTROPHIL # 14.2 TH/MM3 (1.8-7.7); BASOPHIL # 0.1 TH/MM3 (0-0.2); BASOPHIL % 0.4 % (0.0-2.0); EOSINOPHIL # 0.1 TH/MM3 (0-0.4); EOSINOPHIL % 0.8 % (0.0-4.0); HEMATOCRIT 40.3 % (39.0-51.0); HEMOGLOBIN 13.6 GM/DL (13.0-17.0); LYMPHOCYTE # 1.9 TH/MM3 (1.0-4.8); MEAN CELL VOLUME 92.8 FL (80.0-100.0); MEAN CORPUSCULAR HEMOGLOBIN 31.4 PG (27.0-34.0); MEAN CORPUSCULAR HGB CONC 33.9 % (32.0-36.0); MEAN PLATELET VOLUME 8.7 FL (7.0-11.0); MONOCYTE # 0.9 TH/MM3 (0-0.9); NEUT % 82.8 % (16.0-70.0); PLATELET COUNT 317 TH/MM3 (150-450); RED BLOOD COUNT 4.34 MIL/MM3 (4.50-5.90); RED CELL DISTRIBUTION WIDTH 13.8 % (11.6-17.2); WHITE BLOOD COUNT 17.1 TH/MM3 (4.0-11.0)
[2017-09-01 08:00] VITALS: BP 121/65; PULSE 78; RESP 18; TEMP 97; O2SAT 96
--- NOTE | 2017-09-01 09:34 | RADRPT ---
EXAM DATE/TIME: 09/01/2017 09:00 [facility] COMPARISON: No previous studies available for comparison. INDICATIONS : Tongue mass, neck mass. Evaluate for metastasis disease. IV CONTRAST: 92 cc Omnipaque 350 (iohexol) IV ; Cumulative dose for multiple exams. RADIATION DOSE: 6.55 CTDIvol (mGy) ; Combined studies - Thorax/Abdomen/Pelvis MEDICAL HISTORY : Mouth cancer SURGICAL HISTORY : ENCOUNTER: Initial ACUITY: 1 day PAIN SCALE: 0/10 LOCATION: TECHNIQUE: Volumetric scanning of the chest was performed. Using automated exposure control and adjustment of t he mA and/or kV according to patient size, radiation dose was kept as low as reasonably achievable to obtain optimal diagnostic quality images. DICOM format image data is available electronically for review and comparison. Follow-up recommendations for detected pulmonary nodules are based at a minimum on nodule size and pa tient risk factors according to Fleischner Society Guidelines. FINDINGS: The lungs are clear without infiltrate, nodule, or mass. There is no pleural effusion. No appreciab le pathological adenopathy is seen within the mediastinum. There is old healed fracture of the right distal clavicle and there is deformity of the left sixth costochondral junction probably traumatic as well. Parenchymal infiltrate is present in the left upper lobe has the appearance of pneumonia part of it appears nodular. Coronary artery calcifications are seen typically seen with CAD and need to be evaluated clinically. CONCLUSION: Left upper lobe parenchymal process characteristic of pneumonia, repeat noncontrast chest CT is suggested in 2 months as a conservative follow up after appropriate clinical therapy. Adwoa Pillai MD on September 01, 2017 at 9:27 Board Certified Radiologist. This report was verified electronically.
[2017-09-01] MEDS ORDERED: IOHEXOL 350 MG/ML 10 ML VIAL (for RAD DIAG) IVCONTRAST ONE (09:41)
--- NOTE | 2017-09-01 09:53 | RADRPT ---
EXAM DATE/TIME: 09/01/2017 09:00 [facility] COMPARISON: No previous studies available for comparison. INDICATIONS : Tongue mass, neck mass. Evaluate for metastatic disease. IV CONTRAST: 92 cc Omnipaque 350 (iohexol) IV ; Cumulative dose for multiple exams. ORAL CONTRAST: No oral contrast ingested. RADIATION DOSE: 6.55 CTDIvol (mGy) ; Combined studies - Thorax/Abdomen/Pelvis MEDICAL HISTORY : Mouth cancer SURGICAL HISTORY : None. ENCOUNTER: Initial ACUITY: 1 day PAIN SCALE: 0/10 LOCATION: TECHNIQUE: Volumetric scanning of the abdomen and pelvis was performed. Using automated exposure control and adjustment of the mA and/or kV according to patient size, radiation dose was kept as low as reasonably achievable to obtain optimal diagnostic quality images. DICOM format image data is av ailable electronically for review and comparison. FINDINGS: CT Abdomen: The liver, spleen, pancreas, adrenals are unremarkable. There are small cysts in both kid neys the largest on the left measures 1.7 cm in size and there is punctate vascular calcification in the right kidney as well. There is no evidence for any appreciable pathological adenopathy, free flui d, or bowel obstruction. There are findings in the visualized lower chest discussed on the patient's chest CT. Chronic vascular calcifications are present involving the aorta, iliac arteries without an y significant stenosis or aneurysmal dilatations for technique. CT pelvis: There is no evidence for mass, abscess formation, or any significant adenopathy within the pelvis. The prostate gland is inhomogeneous and measures 4.1 x 5.3 cm in AP and transverse diameters and nonspecific with calcifications. CONCLUSION: No evidence for metastatic disease. Adwoa Pillai MD on September 01, 2017 at 9:44 Board Certified Radiologist. This report was verified electronically.
[2017-09-01] MEDS: DOCUSATE SODIUM 50 MG/SENNA 8.6 MG TAB PO SCH ×2 (09:56→21:24)
[2017-09-01] MEDS: SODIUM CHLORIDE 0.9% FLUSH 10 ML FLUSH IV FLUSH SCH ×2 (09:57→21:00)
[2017-09-01] MEDS: LACTOBACILLUS ACIDOPHILUS 1 GM PACKET PO SCH ×3 (09:57→18:18)
[2017-09-01] MEDS: NYSTAT/DIPHENHY/LIDO MOUTHWASH (Adult) 120ML SWISH-SWAL SCH ×4 (10:45→21:25)
[2017-09-01 12:00] VITALS: BP 111/54; PULSE 84; RESP 18; TEMP 96.5; O2SAT 96
[2017-09-01] MEDS: KETOROLAC TROMETHAMINE 30 MG/ML (IVP) VIAL IV PUSH SCH ×2 (15:29→21:24)
[2017-09-01] MEDS: AMPICILLIN-SULBACTAM INJ 3 GM in SODIUM CHLORIDE 0.9% INJ 100 ML IV SCH ×2 (15:30→21:26)
[2017-09-01 16:00] VITALS: BP 116/66; PULSE 67; RESP 18; TEMP 95.6; O2SAT 97
--- NOTE | 2017-09-01 16:13 | HHI.PR ---
Subjective Remarks The patient requested extra pain medication. He said the Magic mouthwash helps a little bit. He said his cough was at baseline. Discussed with his friend and nursing at the bedside. Objective Vitals Vital Signs Date Time Temp Pulse Resp B/P (MAP) Pulse Ox O2 Delivery O2 Flow Rate FiO2 09/01/17 12:00 96.5 84 18 111/54 (73) 96 09/01/17 08:00 97.0 78 18 121/65 (83) 96 09/01/17 03:47 97.1 79 17 160/76 (104) 97 08/31/17 23:30 97.0 63 17 116/67 (83) 92 08/31/17 20:00 97.6 72 17 135/69 (91) 95 I/O 08/31/17 08/31/17 08/31/17 09/01/17 09/01/17 09/01/17 07:00 15:00 23:00 07:00 15:00 23:00 Intake Total 610 ml 720 ml 290 ml 240 ml Balance 610 ml 720 ml 290 ml 240 ml Intake Oral 720 ml 240 ml 240 ml IV Total 610 ml 50 ml # Voids 3 2 1 # Bowel Movements 0 0 Result Diagram: 09/01/17 0557 08/31/17 0430 Imaging Last Impressions Abdomen/Pelvis CT 09/01/17 0800 Signed Impressions: Service Date/Time: August 09:00 - CONCLUSION: No evidence for metastatic disease. Adwoa Pillai MD Chest CT 09/01/17 0700 Signed Impressions: Service Date/Time: August 09:00 - CONCLUSION: Left upper lobe parenchymal process characteristic of pneumonia, repeat noncontrast chest CT is suggested in 2 months as a conservative follow up after appropriate clinical therapy. Adwoa Pillai MD Neck CT 08/30/17 0000 Signed Impressions: Service Date/Time: Wednesday, August 30, 2017 17:53 - CONCLUSION: 1. Heterogeneous masslike density along the left side of the tongue measures 6.0 x 2.9 cm. This could be mass or abscess. 2. Large necrotic lymph node underneath the sternocleidomastoid musculature measuring 3.8 x 2.8 cm likely metastatic. This is amenable to percutaneous biopsy. Misael Boateng MD Objective Remarks GENERAL: Resting comfortably. SKIN: No rashes, ecchymoses or lesions. Cool and dry. HEAD: Atraumatic. Normocephalic. No temporal or scalp tenderness. EYES: Pupils equal round and reactive. Extraocular motions intact. No scleral icterus. No injection or drainage. ENT: 6 x 3 cm mass on the left lateral tongue. Oral thrush noted. NECK: Trachea midline. No JVD or lymphadenopathy. Supple, nontender, no meningeal signs. Left-sided neck fullness with palpable mass. CARDIOVASCULAR: Regular rate and rhythm without murmurs, gallops, or rubs. RESPIRATORY: Clear to auscultation. Breath sounds equal bilaterally. No wheezes , rales, or rhonchi. GASTROINTESTINAL: Abdomen soft, non-tender, nondistended. No hepato-splenomegaly , or palpable masses. No guarding. MUSCULOSKELETAL: Extremities without clubbing, cyanosis, or edema. No joint tenderness, effusion, or edema noted. No calf tenderness. NEUROLOGICAL: Awake and alert. Cranial nerves II through XII intact. Motor and sensory grossly within normal limits. Normal speech. PSYCH: Mood and affect appropriate. Procedures Tongue lesion biopsy Medications and IVs Current Medications Medications (Trade) Dose Ordered Sig/Shaila Route Start Time Stop Time Status Last Admin (NS Flush) 2 ml UNSCH PRN IV FLUSH 08/30/17 20:15 (NS Flush) 2 ml BID IV FLUSH 08/30/17 21:00 09/01/17 09:57 (Tylenol) 650 mg Q4H PRN PO 08/30/17 20:15 08/30/17 23:31 (Zofran Inj) 4 mg Q6H PRN IVP 08/30/17 20:15 (Narcan Inj) 0.4 mg UNSCH PRN IV PUSH 08/30/17 20:15 (Betsy-Colace) 1 tab BID PO 08/30/17 21:00 09/01/17 09:56 (Milk Of Magnesia Liq) 30 ml Q12H PRN PO 08/30/17 20:15 (Senokot) 17.2 mg Q12H PRN PO 08/30/17 20:15 (Dulcolax Supp) 10 mg DAILY PRN RECTAL 08/30/17 20:15 (Lactulose Liq) 30 ml DAILY PRN PO 08/30/17 20:15 Multivitamins 10 ml/Folic Acid 1 mg/Sodium Chloride 510.2 ml @ 125 mls/hr Q24H IV 08/30/17 23:00 09/04/17 22:59 08/31/17 22:42 Thiamine HCl 100 mg/Sodium Chloride 101 ml @ 100 mls/hr Q24H IV 08/30/17 23:00 09/02/17 22:59 08/31/17 22:42 (Vitamin B1) 100 mg DAILY PO 09/03/17 09:00 (Romazicon Inj) 0.2 mg Q1M PRN IV PUSH 08/30/17 22:00 (Ativan) 1 mg Q4H PRN PO 08/30/17 22:00 (Ativan Inj) 1 mg Q4H PRN IV PUSH 08/30/17 22:00 (Ativan) 2 mg Q2H PRN PO 08/30/17 22:00 (Ativan Inj) 2 mg Q2H PRN IV PUSH 08/30/17 22:00 (Ativan Inj) 2 mg Q1H PRN IV PUSH 08/30/17 22:00 (Ativan Inj) 2 mg Q15M PRN IV PUSH 08/30/17 22:00 (Roxanol Liq) 5 mg Q4H PRN PO 08/31/17 10:00 09/01/17 06:47 (Roxanol Liq) 10 mg Q4H PRN PO 08/31/17 10:00 09/01/17 14:23 (Chloraseptic Mukul) 1 lozenge UNSCH PRN BUCCAL 08/31/17 10:00 09/01/17 06:46 (Lactinex Pkt) 1 gm TID PO 08/31/17 18:00 09/01/17 14:12 (Morphine Inj) 4 mg Q4H PRN IV PUSH 08/31/17 14:00 (Magic Mouthwash Adult Liq) 10 ml QID SWISH-SWAL 08/31/17 14:00 09/01/17 14:12 Ampicillin Sodium/ Sulbactam Sodium 3 gm/Sodium Chloride 100 ml @ 200 mls/hr Q6H IV 09/01/17 15:00 09/01/17 15:30 Azithromycin 500 mg/Sodium Chloride 250 ml @ 250 mls/hr Q24H IV 09/01/17 16:00 (Toradol Inj) 30 mg Q6H IV PUSH 09/01/17 15:00 09/03/17 09:01 09/01/17 15:29 A/P Assessment and Plan Tongue lesion/neck mass CT showed: Heterogeneous masslike density along the left side of the tongue measures 6.0 x 2.9 cm; This could be mass or abscess; Large necrotic lymph node underneath the sternocleidomastoid musculature measuring 3.8 x 2.8 cm, likely metastatic. ENT, medical oncology consults appreciated. Status post biopsy 11/13. - Monitor for signs of airway compromise. - pain control. Add Toradol and Magic Mouthwash. - Antibiotics. - Case management consulted as patient will need close follow-up. Pneumonia Noted on CT of the chest. - Change antibiotics to IV Unasyn and azithromycin. - Sputum culture. - Oxygen and nebs as needed. - Incentive spirometry. Tobacco abuse The pt continues to smoke. - cessation instruction. - nicotine patch if needed. Alcohol abuse The pt drinks daily. - CIWA protocol. - Folate/vitamin/multivitamins. - seizure precautions. - cessation instruction. PPx: Yamil Mac DO Sep 01, 2017 16:13
[2017-09-01] MEDS: AZITHROMYCIN INJ 500 MG in SODIUM CHLOR 0.9% 250 ML INJ 250 ML IV SCH (16:16)
[2017-09-01] MEDS ORDERED: RESP: ALBUTEROL 2.5 MG/IPRATROPIUM 0.5 MG NEB (PRN) NEB (18:00)
[2017-09-01 20:15] VITALS: BP 110/65; PULSE 70; RESP 17; TEMP 96.6; O2SAT 95
[2017-09-01] MEDS: THIAMINE INJ 100 MG in SODIUM CHLORIDE 0.9% INJ 100 ML IV SCH (23:17)
[2017-09-01] MEDS: MULTIVITAMIN INJ 10 ML, FOLIC ACID INJ 1 MG in SODIUM CHLORID 0.9% 500 ML INJ 500 ML IV SCH (23:53)
[2017-09-02 00:40] VITALS: BP 125/55; PULSE 63; RESP 16; TEMP 97; O2SAT 95
[2017-09-02] MEDS: KETOROLAC TROMETHAMINE 30 MG/ML (IVP) VIAL IV PUSH SCH ×3 (02:13→16:33)
[2017-09-02] MEDS: AMPICILLIN-SULBACTAM INJ 3 GM in SODIUM CHLORIDE 0.9% INJ 100 ML IV SCH ×3 (02:13→16:47)
[2017-09-02 08:00] VITALS: BP 128/72; PULSE 67; RESP 18; TEMP 96.6; O2SAT 98
[2017-09-02] MEDS: LACTOBACILLUS ACIDOPHILUS 1 GM PACKET PO SCH ×3 (09:32→18:00)
[2017-09-02] MEDS: DOCUSATE SODIUM 50 MG/SENNA 8.6 MG TAB PO SCH (09:32)
[2017-09-02] MEDS: SODIUM CHLORIDE 0.9% FLUSH 10 ML FLUSH IV FLUSH SCH (09:33)
[2017-09-02] MEDS: NYSTAT/DIPHENHY/LIDO MOUTHWASH (Adult) 120ML SWISH-SWAL SCH ×3 (11:02→18:00)
[2017-09-02 12:00] VITALS: BP 112/68; PULSE 76; RESP 18; TEMP 95.7; O2SAT 96
[2017-09-02] MEDS ORDERED: AZIT500T2 PO (15:24)
[2017-09-02] MEDS ORDERED: MAGICADU2 SWISH-SWAL (15:24)
[2017-09-02] MEDS ORDERED: IBUP-232 PO (15:24)
[2017-09-02] MEDS ORDERED: CEFU1TAB20 PO (15:24)
[2017-09-02] MEDS ORDERED: MORP1SOL3 PO (15:24)
--- NOTE | 2017-09-02 15:25 | HHI.DCPOC ---
Discharge Care Plan Diagnosis: (1) Squamous cell cancer of tongue (2) Pneumonia (3) Swallowing difficulty Goals to Promote Your Health * To prevent worsening of your condition and complications * To maintain your health at the optimal level Directions to Meet Your Goals Take your medications as prescribed Follow your dietary instruction Follow activity as directed Keep your appointments as scheduled Take your immunizations and boosters as scheduled If your symptoms worsen call your PCP, if no PCP go to Urgent Care Center or Emergency Room Smoking is Dangerous to Your Health. Avoid second hand smoke Call the 24-hour hour crisis hotline for domestic abuse at Yamil Spears DO Sep 02, 2017 15:25
[2017-09-02 16:04] VITALS: BP 156/93; PULSE 68; RESP 18; TEMP 95.6; O2SAT 99
[2017-09-02 16:20] LABS: AUTOMATED NEUTROPHIL # 8.1 TH/MM3 (1.8-7.7); BASOPHIL # 0.1 TH/MM3 (0-0.2); BASOPHIL % 0.8 % (0.0-2.0); EOSINOPHIL # 0.2 TH/MM3 (0-0.4); HEMATOCRIT 37.1 % (39.0-51.0); HEMOGLOBIN 12.3 GM/DL (13.0-17.0); LYMPHOCYTE # 2.9 TH/MM3 (1.0-4.8); MEAN CELL VOLUME 92.4 FL (80.0-100.0); MEAN CORPUSCULAR HEMOGLOBIN 30.5 PG (27.0-34.0); MEAN CORPUSCULAR HGB CONC 33.1 % (32.0-36.0); MEAN PLATELET VOLUME 8.1 FL (7.0-11.0); MONO % 6.1 % (0.0-8.0); MONOCYTE # 0.7 TH/MM3 (0-0.9); NEUT % 67.1 % (16.0-70.0); PLATELET COUNT 315 TH/MM3 (150-450); RED BLOOD COUNT 4.02 MIL/MM3 (4.50-5.90); RED CELL DISTRIBUTION WIDTH 13.9 % (11.6-17.2)
[2017-09-02] MEDS: AZITHROMYCIN INJ 500 MG in SODIUM CHLOR 0.9% 250 ML INJ 250 ML IV SCH (16:33)
--- NOTE | 2017-09-02 16:34 | HHI.DS ---
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 The patient reports that he noticed a lesion on the left side of his tongue approximately 2 months ago. He states the lesion was painful and it began to progressively enlarge. He reports an increase in left-sided neck swelling with a palpable left sided neck mass. He reports associated dysphagia and states that he is unable to eat secondary to the pain and fullness he experiences. He denies any difficulty breathing. Neck CT significant for heterogeneous masslike density along the left side of the tongue with large necrotic lymph node underneath the sternocleidomastoid musculature that is likely metastatic. CBC/BMP: 09/02/17 1605 08/31/17 0430 Significant Findings Laboratory Tests Test 08/30/17 16:54 08/31/17 04:30 09/01/17 05:57 09/02/17 16:05 White Blood Count 15.5 TH/MM3 (4.0-11.0) 12.6 TH/MM3 (4.0-11.0) 17.1 TH/MM3 (4.0-11.0) 12.0 TH/MM3 (4.0-11.0) Neutrophils # (Auto) 10.6 TH/MM3 (1.8-7.7) 7.9 TH/MM3 (1.8-7.7) 14.2 TH/MM3 (1.8-7.7) 8.1 TH/MM3 (1.8-7.7) Monocytes # (Auto) 1.2 TH/MM3 (0-0.9) 1.0 TH/MM3 (0-0.9) Estimat Glomerular Filtration Rate 87 ML/MIN (>89) Red Blood Count 4.34 MIL/MM3 (4.50-5.90) 4.02 MIL/MM3 (4.50-5.90) Neutrophils (%) (Auto) 82.8 % (16.0-70.0) Hemoglobin 12.3 GM/DL (13.0-17.0) Hematocrit 37.1 % (39.0-51.0) Imaging Last Impressions Abdomen/Pelvis CT 09/01/17 0800 Signed Impressions: Service Date/Time: August 09:00 - CONCLUSION: No evidence for metastatic disease. Adwoa Pillai MD Chest CT 09/01/17 0700 Signed Impressions: Service Date/Time: August 09:00 - CONCLUSION: Left upper lobe parenchymal process characteristic of pneumonia, repeat noncontrast chest CT is suggested in 2 months as a conservative follow up after appropriate clinical therapy. Adwoa Pillai MD Neck CT 08/30/17 0000 Signed Impressions: Service Date/Time: Wednesday, August 30, 2017 17:53 - CONCLUSION: 1. Heterogeneous masslike density along the left side of the tongue measures 6.0 x 2.9 cm. This could be mass or abscess. 2. Large necrotic lymph node underneath the sternocleidomastoid musculature measuring 3.8 x 2.8 cm likely metastatic. This is amenable to percutaneous biopsy. Misael Boateng MD PE at Discharge GENERAL: Resting comfortably. SKIN: No rashes, ecchymoses or lesions. Cool and dry. HEAD: Atraumatic. Normocephalic. No temporal or scalp tenderness. EYES: Pupils equal round and reactive. Extraocular motions intact. No scleral icterus. No injection or drainage. ENT: 6 x 3 cm mass on the left lateral tongue. Oral thrush noted. NECK: Trachea midline. No JVD or lymphadenopathy. Supple, nontender, no meningeal signs. Left-sided neck fullness with palpable mass. CARDIOVASCULAR: Regular rate and rhythm without murmurs, gallops, or rubs. RESPIRATORY: Clear to auscultation. Breath sounds equal bilaterally. No wheezes , rales, or rhonchi. GASTROINTESTINAL: Abdomen soft, non-tender, nondistended. No hepato-splenomegaly , or palpable masses. No guarding. MUSCULOSKELETAL: Extremities without clubbing, cyanosis, or edema. No joint tenderness, effusion, or edema noted. No calf tenderness. NEUROLOGICAL: Awake and alert. Cranial nerves II through XII intact. Motor and sensory grossly within normal limits. Normal speech. PSYCH: Mood and affect appropriate. Pt update on day of discharge The patient said that his pain control is a lot better and he was swallowing well. He wanted to make sure he would have enough pain medications for home. Discussed with nursing at the bedside. Hospital Course Tongue lesion/neck mass CT showed: Heterogeneous masslike density along the left side of the tongue measures 6.0 x 2.9 cm; This could be mass or abscess; Large necrotic lymph node underneath the sternocleidomastoid musculature measuring 3.8 x 2.8 cm, likely metastatic. ENT and medical oncology were consulted. Status post biopsy which shows well differentiated squamous cell cancer. He received pain control with Toradol, Roxanol and Magic Mouthwash. He will follow up with oncology and ENT as an outpt. Pneumonia Noted on CT of the chest. We changed antibiotics to IV Unasyn and azithromycin. He received incentive spirometry. He will complete a course of Ceftin and azithromycin. Tobacco abuse The pt continues to smoke. He received cessation instruction. Alcohol abuse The pt drinks daily. He was placed on CIWA protocol. He received folate/ vitamin/multivitamins. He was placed on seizure precautions. He received cessation instruction. Pt Condition on Discharge: Stable Discharge Disposition: Discharge Home Discharge Time: > 30 minutes Discharge Instructions DIET: Follow Instructions for: As Tolerated, No Restrictions Activities you can perform: Regular-No Restrictions Follow up Referrals: Ear Nose Throat - [address] Lorenzana Oncology - [address] Newton PCP Follow-up - 1 Week New Medications: Azithromycin (Azithromycin) 500 Mg Tab 500 MG PO DAILY for Infection, #3 TAB 0 Refills Cefuroxime (Cefuroxime) 500 Mg Tab 500 MG PO BID for Infection for 5 Days, #10 TAB 0 Refills Ibuprofen (Ibuprofen) 600 Mg Tab 600 MG PO Q8HR PRN for PAIN, #45 TAB 0 Refills Morphine Liq (Morphine Liq) 10 Mg/5 Ml Liq 5 MG PO Q4HR PRN for Pain Management, #100 ML 0 Refills Dcoiomby-Mwchlwchyuutekc-Eompladcn Liq (Magic Mouthwash Adult Liq) 120 Ml Susp 10 ML SWISH-SWAL QID for mouth pain, #1 Yamil Greco DO Sep 02, 2017 16:34
[2017-09-03] MEDS ORDERED: THIAMINE HCL 100 MG TAB PO SCH (09:00)
--- NOTE | 2017-09-04 13:20 | MB ---
cc: LAVERNE LORENZANA M.D.,ARNAUD Santana MD DATE OF CONSULTATION: 08/31/2017. REASON FOR CONSULTATION: Neoplastic lesion of tongue with metastasis to left neck. REQUESTING PHYSICIAN: Dr. Back. HISTORY OF PRESENT ILLNESS: Harshad Barron is a 51-year-old man with a long history of tobacco use and alcohol abuse. He had noticed development of a lesion involving his left tongue over the preceding several months. He had made a few attempts for treatment at urgent care centers and mentions a facility called the [facility] where he went. At both locations, he was just given pain medicine or antibiotics and told to follow up as an outpatient. He presented to the emergency room at [facility] on August 30 with the above history and was found to have a large approximately 3 x 6 cm obvious malignant lesion involving the left lateral tongue and with a 6-cm nodule deep to the left sternocleidomastoid muscle. He complains of deep pain in the tongue and difficulty with swallowing. He has lost several pounds due to his inability to maintain normal nutritional intake. PAST MEDICAL HISTORY: He denies any significant medical history. MEDICATIONS: He takes no medications. ALLERGIES: HE DENIES DRUG ALLERGIES. PHYSICAL EXAMINATION: GENERAL: On examination, he is alert and cooperative. HEAD: Normocephalic and atraumatic. ORAL CAVITY: A large grossly malignant lesion involving the left tongue extending down into the tongue base. NECK: Large mass left lateral neck deep to the sternocleidomastoid muscle. This is firm and fixed. It is nontender. NOSE: Patent bilaterally without purulence, polyps or rhinorrhea. EARS: Normal auricles, ear canals and tympanic membranes. 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 PLAN: Discussed these findings with Mr. Barron and his associate, took a biopsy of the lesion at its anterior margin on the left side and submitted these for histology. Advised him that this almost certainly a squamous cell carcinoma that has become quite advanced. When the diagnosis is confirmed by the biopsy, can discuss treatment options. Will follow with him in-house. Laverne Lorenzana [place] [facility] [place] /12:20 PM 12:59 PM
== END 2017-09-02 19:12 | disposition home or self-care (01) | DRG 146 ==
LOC: NEPD 14:36 → NEDA 19:38 → N06B 23:09
PROVIDERS: ADMIT Hospitalist; ATTEND Hospitalist
PROC: 0CB7XZX Excision of Tongue, External Approach, Diagnostic (ICD-10-PCS; principal; 2017-08-31)
DX: C02.9 Malignant neoplasm of tongue, unspecified (principal); J18.9 Pneumonia, unspecified organism; C77.0 Secondary and unspecified malignant neoplasm of lymph nodes of head, face and neck; R13.10 Dysphagia, unspecified; R63.0 Anorexia; R63.4 Abnormal weight loss; F10.10 Alcohol abuse, uncomplicated; F17.210 Nicotine dependence, cigarettes, uncomplicated; Z23 Encounter for immunization; Z68.20 Body mass index [BMI] 20.0-20.9, adult
CPT/HCPCS: 70491; 71260; 74177; 80048; 85025; 88305; 90471; 90472; 90686; 90732; 94150; G0008; G0009; J0295; J0456; J1885; J3411; J7040; J7050; Q2038; Q9967

== ENCOUNTER 2017-09-22 06:45 | Day surgery (SDC) | payer BC ==
[~2017-09-22] VITALS: Ht 160 cm; Wt 56.8 kg
[~2017-09-22 06:45] MED LIST: AZIT500T2 PO; CEFU1TAB20 PO; IBUP-232 PO; MAGICADU2 SWISH-SWAL; MORP1SOL3 PO
[2017-09-22 06:58] VITALS: BP 137/102; PULSE 96; RESP 20; TEMP 98.7; O2SAT 95
[2017-09-22] MEDS ORDERED: SODIUM CHLORIDE 0.9% 1000 ML IV SCH (07:00)
[2017-09-22] MEDS ORDERED: HYDR-4107 PO (07:13)
[2017-09-22 07:21] LABS: AUTOMATED NEUTROPHIL # 11.1 TH/MM3 (1.8-7.7); BASOPHIL # 0.1 TH/MM3 (0-0.2); BASOPHIL % 0.5 % (0.0-2.0); EOSINOPHIL # 0.2 TH/MM3 (0-0.4); EOSINOPHIL % 0.9 % (0.0-4.0); HEMATOCRIT 41.8 % (39.0-51.0); HEMOGLOBIN 14.3 GM/DL (13.0-17.0); LYMPHOCYTE # 4.2 TH/MM3 (1.0-4.8); MEAN CELL VOLUME 90.7 FL (80.0-100.0); MEAN CORPUSCULAR HGB CONC 34.2 % (32.0-36.0); MEAN PLATELET VOLUME 7.6 FL (7.0-11.0); MONOCYTE # 1.2 TH/MM3 (0-0.9); NEUT % 66.6 % (16.0-70.0); PLATELET COUNT 526 TH/MM3 (150-450); RED BLOOD COUNT 4.61 MIL/MM3 (4.50-5.90); RED CELL DISTRIBUTION WIDTH 14.2 % (11.6-17.2); WHITE BLOOD COUNT 16.6 TH/MM3 (4.0-11.0)
[2017-09-22 07:30] LABS: INTERNATIONAL NORMALIZED RATIO 1.1 RATIO; PROTHROMBIN TIME - PATIENT 10.9 SEC (9.8-11.6)
[2017-09-22] MEDS ORDERED: POVIDONE IODINE 5% (ANTISEPSIS KIT) 4 APPLICATIONS EACH NARE SCH (07:30)
[2017-09-22] MEDS ORDERED: CHLORHEXIDINE GLUCONATE 2 % 1 PACK (2 CLOTHS) TOPICAL SCH (07:30)
[2017-09-22] MEDS ORDERED: VANCOMYCIN 1000 MG/NS 250 ML - implanted port/tunneled catheter IV SCH ×2 (07:45)
[2017-09-22] MEDS ORDERED: ceFAZolin 2 GM PREMIX 50 ML - implanted port/tunneled catheter insertion IV SCH (07:45)
[2017-09-22] MEDS ORDERED: fentaNYL CITRATE 250 MCG/5 ML AMP ONE (08:38)
[2017-09-22] MEDS ORDERED: MIDAZOLAM HCL 2 MG/2 ML VIAL ONE (08:38)
--- NOTE | 2017-09-22 09:25 | PD.RAD ---
Post Procedure Progress Note Pre Procedure Diagnosis: (1) Squamous cell cancer of tongue Post Procedure Diagnosis: (1) Squamous cell cancer of tongue Procedure Date: Sep 22, 2017 Supervising Radiologist: Greg Sanches Proceduralist/Assist: Dedra Chicas RT(R), Brian Nair RT(R) Anesthesia: Conscious Sedation Plan of Activity Patient to Unit: [facility]U Patient Condition: Good See PACS Report for procedural detail/treatment Greg Sanches MD Sep 22, 2017 09:25
[2017-09-22 09:35] VITALS: BP 151/96; PULSE 73; RESP 18; TEMP 97.9; O2SAT 96
[2017-09-22 09:50] VITALS: BP 139/91; PULSE 76; RESP 18; O2SAT 96
--- NOTE | 2017-09-22 10:03 | RADRPT ---
EXAM DATE/TIME: 09/22/2017 08:41 [facility] COMPARISON: No previous studies available for comparison. INDICATIONS : Patient with a history of tongue lesion with large neck mass. MEDICAL HISTORY : Tongue cancer SURGICAL HISTORY : None ENCOUNTER: Initial ACUITY: 2 weeks PAIN SCORE: 4/10 LOCATION: Mouth FLUORO TIME: 0.1 minutes IMAGE SERIES: 1 SEDATION TIME: 30 minutes ACCESS: Right internal jugular vein SEDATION: 1.) 2 mg midazolam (Versed) IV 2.) 100 mcg fentanyl (Sublimaze) IV Prophylactic antibiotics were administered with appropriate pre-procedure timing. Vancomycin within 2 hours of procedure, Ancef (or alternative) within 1 hour of procedure. DEVICE: 1. 8 Algerian single lumen Bard Power Port PROCEDURE : 1. Continuous pulse oximetry and EKG monitoring. 2. Intravenous conscious sedation. 3. Ultrasound guidance for venous access. 4. Fluoroscopic guided implantable central venous port placement. The patient was placed supine. The neck was prepped in sterile fashion. Full sterile technique was u sed, including cap, mask, sterile gloves and gown, and a large sterile sheet. Hand hygiene and 2% ch lorhexidine Betadine was utilized per protocol for cutaneous antisepsis with appropriate dry time for site. Sterile gel and sterile probe cover were utilized for ultrasound guidance. The skin and sub cutaneous tissues were infiltrated with local anesthetic solution. Under direct ultrasound guidance, central venous access was accomplished in the targeted vessel. The ultrasound images depicting access guidance were stored and saved to PACS for permanent record. A s ubcutaneous pocket was created using blunt dissection. The port was introduced to the pocket. The c atheter tubing was fed through a subcutaneous tunnel to the venotomy site. The catheter tubing was c ut to a suitable length and then was introduced through a valved Peel-Away sheath and positioned with catheter tubing tip at the cavo-atrial junction level. The pocket incision was closed with subcutic ular Vicryl suture. Steri-Strips were applied. The port was flushed and locked with heparin solutio n per protocol. Sterile dressing was applied to the site. The patient tolerated the procedure well. Conscious sedation was performed with the prescribed dosages and duration as above in the presence of an independent trained radiology nurse to assist in the monitoring of the patient. EKG and oximetry remained stable throughout the procedure. The patient tolerated the procedure well and there were no complications. The patient was sent to post anesthesia recovery in stable condition. CONCLUSION: Uncomplicated ultrasound and fluoroscopic guided implanted central venous port catheter placement as described in detail above. An 8 Algerian Power port was placed. Greg Sanches MD on September 22, 2017 at 10:00 Board Certified Radiologist. This report was verified electronically.
[2017-09-22 10:20] VITALS: BP 141/87; PULSE 74; RESP 18; O2SAT 93
[2017-09-22 10:50] VITALS: BP 148/81; PULSE 68; RESP 18; O2SAT 94
== END 2017-09-22 11:30 | disposition home or self-care (01) ==
LOC: HRIP 06:45 → HROP 06:45
PROVIDERS: ATTEND Internal Medicine
DX: Z45.2 Encounter for adjustment and management of vascular access device (principal); C02.9 Malignant neoplasm of tongue, unspecified
CPT/HCPCS: 36561; 76937; 77001; 85025; 85610; 85730; 99152; 99153; C1788; J0690; J1642; J2250; J3010; J3370; J7030; J7050

== ENCOUNTER 2017-09-30 07:05 | Day surgery (SDC) | payer BC ==
[2017-09-30] VITALS (7 sets, daily range): BP systolic 134–146; BP diastolic 75–86; PULSE 61–75; RESP 18–20; TEMP 98–98.3; O2SAT 89–95
[~2017-09-30] VITALS: Ht 162.6 cm; Wt 52.7 kg
[~2017-09-30 07:05] MED LIST changes: -AZIT500T2 PO; -CEFU1TAB20 PO; +HYDR-4107 PO; -MAGICADU2 SWISH-SWAL; -MORP1SOL3 PO
[2017-09-30] MEDS ORDERED: MORP1TAB24 PO (07:34)
[2017-09-30] MEDS ORDERED: SODIUM CHLORIDE 0.9% FLUSH 10 ML FLUSH IV FLUSH PRN (07:45)
[2017-09-30] MEDS ORDERED: ceFAZolin 2 GM PREMIX 50 ML ONE (08:03)
[2017-09-30] MEDS ORDERED: MIDAZOLAM HCL 2 MG/2 ML VIAL ONE (08:08)
[2017-09-30] MEDS ORDERED: GLUCAGON 1 MG/ML VIAL ONE (08:46)
[2017-09-30] MEDS ORDERED: LIDOCAINE HCL 1% 20 ML VIAL ONE (09:27)
--- NOTE | 2017-09-30 10:24 | PD.RAD ---
Post CT Procedure Prog Note Pre Procedure Diagnosis: (1) Squamous cell cancer of tongue Post Procedure Diagnosis: (1) Squamous cell cancer of tongue Procedure Date: Sep 30, 2017 Supervising Radiologist: Greg Sanches Anesthesia: Conscious Sedation Plan of Activity Patient to Unit: [facility] Patient Condition: Good See PACS Report for procedural detail/treatment Greg Sanches MD Sep 30, 2017 10:24
--- NOTE | 2017-09-30 12:42 | RADRPT ---
EXAM DATE/TIME: 09/30/2017 09:46 [facility] COMPARISON: No previous studies available for comparison. INDICATIONS : 61-year-old male with history of tongue CA and dysphagia requiring gastrostomy catheter placement. Fl uoroscopic guided placement was aborted due to difficulty with identifying a gastric window. Patient was brought to CT for potential CT-guided placement. SEDATION TIME: 20 minutes MEDICATION(S): 1.) 3.5 mg midazolam (Versed) IV 2.) 175 mcg fentanyl (Sublimaze) IV MEDICAL HISTORY : Head and neck cancer SURGICAL HISTORY : None. ENCOUNTER: Initial ACUITY: 1 day PAIN SCORE: 0/10 LOCATION: upper quadrant PROCEDURE: 1.) Conscious sedation with continuous EKG and oximetry monitoring. PROCEDURE : CT guided gastrostomy catheter placement The risks, benefits and alternatives to the procedure were explained and verbal and written consent w as obtained. Using automated exposure control and adjustment of the mA and/or kV according to patien t size, radiation dose was kept as low as reasonably achievable to obtain optimal diagnostic quality images. The site was prepped in sterile fashion. Full sterile technique was used, including cap, ma sk, sterile gloves and gown and a large sterile sheet. Hand hygiene and 2% chlorhexidine and/or beta dine/alcohol prep was utilized per protocol for cutaneous antisepsis. The skin and subcutaneous tiss ues were infiltrated with local anesthetic solution. DICOM format image data is available electronic ally for review and comparison. Patient was placed supine. Air was instilled into the stomach via the previously placed nasogastric c atheter. An appropriate window was identified with CT. Skin over this region was prepped and draped i n usual sterile fashion. 2 gastropexy T-fasteners were then deployed into the stomach under careful C T guidance. Next, an 18 gauge needle was advanced between the gastropexy fasteners into the stomach a nd a Ramirez wire was advanced through the needle. This was confirmed with CT. Tract was then sterilely dilated and an 18 Vietnamese OSCAR type gastrostomy catheter was placed. Again, position was confirmed wit h CT. Catheter was then secured into place. Patient tolerated the procedure there were no immediate post procedure palpitations. CONCLUSION: 1. Uncomplicated CT-guided placement of percutaneous gastrostomy catheter, as above. Greg Sanches MD on September 30, 2017 at 11:31 Board Certified Radiologist. This report was verified electronically.
--- NOTE | 2017-09-30 12:45 | RADRPT ---
EXAM DATE/TIME: 09/30/2017 07:54 [facility] COMPARISON: No previous studies available for comparison. INDICATIONS : Patient presents with tongue cancer in need of gastrostomy tube placement for nutrition. MEDICAL HISTORY : Tongue cancer Neck cancer Intermittent hemorrhoids SURGICAL HISTORY : Tonsillectomy Port placement ENCOUNTER: Initial ACUITY: 4-6 days PAIN SCORE: 0/10 LOCATION: N/A FLUORO TIME: 3.3 minutes IMAGE SERIES: 1 PROCEDURE : 1. Limited abdominal ultrasound. 2. Fluoroscopically guided nasogastric catheter placement The risks, benefits and alternatives to the procedure were explained and verbal and written consent w as obtained. The site was prepped in sterile fashion. Full sterile technique was used, including ca p, mask, sterile gloves and gown and a large sterile sheet. Hand hygiene and 2% chlorhexidine and/or betadine/alcohol prep was utilized per protocol for cutaneous antisepsis. The skin and subcutaneous tissues were infiltrated with local anesthetic solution. Sterile gel and sterile probe cover were u tilized for ultrasound guidance. Ultrasound was used to roberto the position of the liver. The stomach was insufflated with room air. Th ere is colonic interposition and a definite gastric window was not identified. Therefore, decision wa s made to attempt CT-guided placement. Patient was transferred to CT. CONCLUSION: 1. No definite gastrostomy window identified with fluoroscopy. Patient will be transferred to CT for potential CT-guided placement. Greg Sanches MD on September 30, 2017 at 12:40 Board Certified Radiologist. This report was verified electronically.
== END 2017-09-30 14:20 | disposition home or self-care (01) ==
LOC: HROP 07:05 → HRIP 07:08 → HROP 14:20
PROVIDERS: ATTEND Radiology Radiation Oncology
DX: C02.9 Malignant neoplasm of tongue, unspecified (principal); R13.10 Dysphagia, unspecified
CPT/HCPCS: 49440; 76000; 99152; 99153; C1769; C1887; J0690; J1610; J2250; J3010

== ENCOUNTER 2017-10-21 15:03 | Inpatient (IN) | payer BC ==
[2017-10-21] VITALS (8 sets, daily range): BP systolic 113–128; BP diastolic 63–87; PULSE 80–104; RESP 14–18; TEMP 98.6–99.4; O2SAT 95–98
[~2017-10-21] VITALS: Ht 180.3 cm; Wt 49.7 kg
[~2017-10-21 15:03] MED LIST changes: -HYDR-4107 PO; -IBUP-232 PO; +MORP1TAB24 PO
[2017-10-21] MEDS ORDERED: SODIUM CHLOR 0.9% 1000 ML INJ 1,000 ML IV SCH ×3 (15:42→21:00)
[2017-10-21 16:23] LABS: AUTOMATED NEUTROPHIL # 0.9 TH/MM3 (1.8-7.7); BASOPHIL % 0.3 % (0.0-2.0); EOSINOPHIL % 0.1 % (0.0-4.0); HEMATOCRIT 33.8 % (39.0-51.0); HEMOGLOBIN 11.7 GM/DL (13.0-17.0); LYMPH % 44.5 % (9.0-44.0); LYMPHOCYTE # 0.9 TH/MM3 (1.0-4.8); MEAN CELL VOLUME 88.1 FL (80.0-100.0); MEAN CORPUSCULAR HEMOGLOBIN 30.5 PG (27.0-34.0); MEAN CORPUSCULAR HGB CONC 34.6 % (32.0-36.0); MEAN PLATELET VOLUME 8.8 FL (7.0-11.0); MONO % 10.6 % (0.0-8.0); MONOCYTE # 0.2 TH/MM3 (0-0.9); NEUT % 44.5 % (16.0-70.0); PLATELET COUNT 118 TH/MM3 (150-450); RED BLOOD COUNT 3.84 MIL/MM3 (4.50-5.90); RED CELL DISTRIBUTION WIDTH 14.2 % (11.6-17.2); WHITE BLOOD COUNT 1.9 TH/MM3 (4.0-11.0)
--- NOTE | 2017-10-21 16:28 | RADRPT ---
EXAM DATE/TIME: 10/21/2017 16:07 [facility] COMPARISON: CT THORAX W CONTRAST, September 01, 2017, 9:00. INDICATIONS : Fever. MEDICAL HISTORY : None. SURGICAL HISTORY : Port placement. ENCOUNTER: Initial ACUITY: 1 day PAIN SCORE: Non-responsive. LOCATION: Bilateral chest FINDINGS: Right Rrctyy-z-Ozlr catheter tip projects in the right atrium. No evidence of pneumothorax stop the there are some patchy acinar opacities in the upper outer right lung which are a new finding compared to prior chest CT in August 2017. The left lung is clear. Both hemidiaphragms are well delineated . The heart is normal in size. Stable deformity of the lateral right clavicle. CONCLUSION: 1. Cbijdk-b-Hkwl catheter tip in right atrium. No evidence of pneumothorax. 2. Interval development of some patchy acinar infiltrates in the upper lateral right lung. Tashi Monique MD on October 21, 2017 at 16:19 Board Certified Radiologist. This report was verified electronically.
[2017-10-21 16:38] LABS: INTERNATIONAL NORMALIZED RATIO 1.4 RATIO; PROTHROMBIN TIME - PATIENT 13.9 SEC (9.8-11.6)
[2017-10-21] MEDS ORDERED: VANCOMYCIN INJ 1,000 MG in SODIUM CHLOR 0.9% 250 ML INJ 250 ML IV ONE (16:45)
[2017-10-21] MEDS ORDERED: PIPERACIL-TAZO 3.375 GM PREMIX 50 ML IV ONE (16:45)
[2017-10-21 16:49] LABS: BACTERIA, URINE MANY /hpf; BILIRUBIN, URINE NEG (NEG); BLOOD, URINE SMALL (NEG); GLUCOSE,URINE NEG (NEG); HYALINE CAST, URINE 24 /lpf (RARE); KETONE, URINE NEG (NEG); MUCUS URINE FEW /lpf (OCC); NITRITE,URINE NEG (NEG); PH, URINE 5.5 (5.0-8.5); SQUAMOUS EPITHELIAL CELL URINE 4 /hpf (0-5); URINE COLOR YELLOW (YELLW/STRAW); URINE LEUKOCYTE ESTERASE MOD (NEG)
[2017-10-21 16:58] LABS: ALBUMIN 2.1 GM/DL (3.4-5.0); ALT (GPT) 26 U/L (12-78); AST (GOT) 8 U/L (15-37); BICARBONATE 28.7 MEQ/L (21.0-32.0); BLOOD UREA NITROGEN 55 MG/DL (7-18); CALCIUM 8.3 MG/DL (8.5-10.1); CHLORIDE 101 MEQ/L (98-107); CREATININE 1.22 MG/DL (0.60-1.30); GLOMERULAR FILTRATION RATE 60 ML/MIN (>89); GLUCOSE,RANDOM 135 MG/DL (74-106); MAGNESIUM 2.2 MG/DL (1.5-2.5); SODIUM (NA) 139 MEQ/L (136-145)
[2017-10-21] MEDS ORDERED: SODIUM CHLOR 0.9% 1000 ML INJ 1,000 ML IV ONE (17:00)
[2017-10-21 17:10] LABS: BANDS 9 % (0-6); LYMPHOCYTES 42 % (9-44); METAMYELOCYTES 2 % (0-1); MONOCYTES 8 % (0-8); POLYS (SEG NEUTROPHILS) 39 % (16-70)
[2017-10-21 17:15] LABS: ALKALINE PHOSPHATASE 63 U/L (45-117); TOTAL BILIRUBIN ADULT 0.5 MG/DL (0.2-1.0); TOTAL PROTEIN 6.4 GM/DL (6.4-8.2)
[2017-10-21] MEDS ORDERED: POTASSIUM CHLORIDE 20 MEQ PWD PACKET PO ONE (17:30)
--- NOTE | 2017-10-21 18:31 | RADRPT ---
EXAM DATE/TIME: 10/21/2017 17:22 [facility] COMPARISON: CT THORAX W CONTRAST, September 01, 2017, 9:00. INDICATIONS : General weakness,Pneumonia, difficulty speaking, frail, home condistions poor. RADIATION DOSE: 4.39 CTDIvol (mGy) MEDICAL HISTORY : Carcinoma, oral cavity. ETOH SURGICAL HISTORY : None. ENCOUNTER: Initial ACUITY: 1 day PAIN SCALE: 0/10 LOCATION: chest TECHNIQUE: Volumetric scanning of the chest was performed. Using automated exposure control and adjustment of t he mA and/or kV according to patient size, radiation dose was kept as low as reasonably achievable to obtain optimal diagnostic quality images. DICOM format image data is available electronically for r eview and comparison. Follow-up recommendations for detected pulmonary nodules are based at a minimum on nodule size and pa tient risk factors according to Fleischner Society Guidelines. FINDINGS: LUNGS: Near interval resolution of patchy airspace disease in the left upper lobe. Interval development of p atchy nodular airspace disease throughout the right upper lobe in a tree in bud appearance but more p rominent. PLEURAE: There is no pleural thickening or pleural effusion. MEDIASTINUM: Coronary artery calcifications. Heart is grossly unremarkable without pericardial effusion. No gross adenopathy. Right IJ Iqrpbt-e-Ttma in stable position. AXILLAE: Within normal limits. No lymphadenopathy. MUSCULOSKELETAL: Redemonstration of old healed fracture of the right distal clavicle and deformity of the left sixth c ostochondral junction. MISCELLANEOUS: Gastrostomy catheter in place. Otherwise, unremarkable. CONCLUSION: 1. Near interval resolution of patchy airspace disease in the left upper lobe. 2. Interval development of patchy nodular airspace disease throughout the right upper lobe. Although this likely reflects pneumonia, consider atypical infection +/- aspiration. Followup to resolution is recommended. Greg Sanches MD on October 21, 2017 at 18:26 Board Certified Radiologist. This report was verified electronically.
--- NOTE | 2017-10-21 18:51 | PD ---
HPI Chief Complaint: General Weakness Time Seen by Provider: 15:39 Travel History International Travel<30 days: No Contact w/Intl Traveler<30days: No Traveled to known affect area: No History of Present Illness HPI 62-year-old male that presents to the ED for evaluation of generalized weakness. Patient himself is somewhat of a poor historian. He has significant history of tongue cancer that has metastasized to his lymph nodes of the neck and he had a recent feeding tube placement on his abdomen to help him eat. Patient apparently was found to be living on poor conditions. Patient himself is very tachypneic and doesn't appear to be taking care of himself well. He currently gets chemotherapy and follows with Dr. Newton the cancer. Apparently he had chemotherapy recently. He denies any abdominal pain. Has been able to use his feeding tube. No BM or urinary symptoms. History is limited mainly as the patient cannot talk secondary to his mouth cancer and mainly answers yes or no questions. PFSH Past Medical History Cancer: Yes (TONGUE AND NECK CA) Cardiovascular Problems: No Diabetes: No Endocrine: No Gastrointestinal Disorders: No Genitourinary: No Hepatitis: No Immune Disorder: No Medical other: No Musculoskeletal: No Neurologic: No Psychiatric: No Reproductive: No Respiratory: No Immunizations Current: No Thyroid Disease: No ?: Not Past Surgical History AICD: No Joint Replacement: No Oral Surgery: Yes (TONSILS REMOVED) Pacemaker: No Other Surgery: Yes Social History Alcohol Use: Yes (DAILY) Tobacco Use: Yes (1 PPD) Substance Use: No Allergies-Medications (Allergen,Severity, Reaction): Coded Allergies: No Known Allergies (Unverified , 09/22/17) Reported Meds & Prescriptions Reported Meds & Active Scripts Active Reported Morphine ER (Morphine Sulfate) 15 Mg Tab 15 Mg PO Q8H Review of Systems ROS Limitations: Poor Historian Except as stated in HPI: all other systems reviewed are Neg Physical Exam Exam Limitations: Poor Historian Narrative GENERAL: SKIN: Warm and dry. Very anorexic HEAD: Atraumatic. Normocephalic. EYES: Pupils equal and round. No scleral icterus. No injection or drainage. ENT: No nasal bleeding or discharge. Mucous membranes pink and moist. Tongue has deformity but no sign of airway compromise. NECK: Trachea midline. No JVD. CARDIOVASCULAR: Regular rate and rhythm. RESPIRATORY: No accessory muscle use. Clear to auscultation. Breath sounds equal bilaterally. GASTROINTESTINAL: Abdomen soft, non-tender, nondistended. Hepatic and splenic margins not palpable. MUSCULOSKELETAL: Extremities without clubbing, cyanosis, or edema. No obvious deformities. Full Motion of the upper and lower extremities bilaterally. 2+ pulses bilaterally. NEUROLOGICAL: Awake and alert. No obvious cranial nerve deficits. Motor grossly within normal limits. Five out of 5 muscle strength in the arms and legs. Normal speech. PSYCHIATRIC: Appropriate mood and affect; insight and judgment normal. Data Data Last Documented VS Vital Signs Date Time Temp Pulse Resp B/P (MAP) Pulse Ox O2 Delivery O2 Flow Rate FiO2 10/21/17 18:29 80 18 128/77 (94) 95 Room Air 10/21/17 15:37 98.6 Orders Orders Electrocardiogram (10/21/17 15:42) Complete Blood Count With Diff (10/21/17 15:42) Comprehensive Metabolic Panel (10/21/17 15:42) Creatine Kinase (Cpk) (10/21/17 15:42) Prothrombin Time / Inr (Pt) (10/21/17 15:42) Act Partial Throm Time (Ptt) (10/21/17 15:42) Blood Culture (10/21/17 15:42) Lipase (10/21/17 15:42) Urinalysis - C+S If Indicated (10/21/17 15:42) Magnesium (Mg) (10/21/17 15:42) Thyroid Stimulating Hormone (10/21/17 15:42) Chest, Single Ap (10/21/17 15:42) Iv Access Insert/Monitor (10/21/17 15:42) Ecg Monitoring (10/21/17 15:42) Oximetry (10/21/17 15:42) Lactic Acid (10/21/17 15:42) Sodium Chlor 0.9% 1000 Ml Inj (Ns 1000 M (10/21/17 15:42) Piperacil-Tazo 3.375 Gm Premix (Zosyn 3. (10/21/17 16:45) Vancomycin Inj (Vancomycin Inj) (10/21/17 16:45) Sodium Chlor 0.9% 1000 Ml Inj (Ns 1000 M (10/21/17 17:00) Ct Thorax/ Chest Wo Iv Contras (10/21/17 ) Urine Culture (10/21/17 16:03) Potassium Chloride Powder (Kcl Powder) (10/21/17 17:30) Admit Order (Ed Use Only) (10/21/17 18:24) Labs Laboratory Tests Test 10/21/17 16:03 White Blood Count 1.9 TH/MM3 Red Blood Count 3.84 MIL/MM3 Hemoglobin 11.7 GM/DL Hematocrit 33.8 % Mean Corpuscular Volume 88.1 FL Mean Corpuscular Hemoglobin 30.5 PG Mean Corpuscular Hemoglobin Concent 34.6 % Red Cell Distribution Width 14.2 % Platelet Count 118 TH/MM3 Mean Platelet Volume 8.8 FL Neutrophils (%) (Auto) 44.5 % Lymphocytes (%) (Auto) 44.5 % Monocytes (%) (Auto) 10.6 % Eosinophils (%) (Auto) 0.1 % Basophils (%) (Auto) 0.3 % Neutrophils # (Auto) 0.9 TH/MM3 Lymphocytes # (Auto) 0.9 TH/MM3 Monocytes # (Auto) 0.2 TH/MM3 Eosinophils # (Auto) 0.0 TH/MM3 Basophils # (Auto) 0.0 TH/MM3 CBC Comment AUTO DIFF Differential Total Cells Counted 100 Neutrophils % (Manual) 39 % Band Neutrophils % 9 % Lymphocytes % 42 % Monocytes % 8 % Neutrophils # (Manual) 1.0 TH/MM3 Metamyelocytes 2 % Differential Comment FINAL DIFF MANUAL Platelet Estimate LOW Platelet Morphology Comment NORMAL Prothrombin Time 13.9 SEC Prothromb Time International Ratio 1.4 RATIO Activated Partial Thromboplast Time 24.0 SEC Urine Color YELLOW Urine Turbidity HAZY Urine pH 5.5 Urine Specific Sherrill 1.025 Urine Protein 30 mg/dL Urine Glucose (UA) NEG mg/dL Urine Ketones NEG mg/dL Urine Occult Blood SMALL Urine Nitrite NEG Urine Bilirubin NEG Urine Urobilinogen LESS THAN 2.0 MG/DL Urine Leukocyte Esterase MOD Urine RBC 2 /hpf Urine WBC 34 /hpf Urine Squamous Epithelial Cells 4 /hpf Urine Bacteria MANY /hpf Urine Hyaline Casts 24 /lpf Urine Mucus FEW /lpf Microscopic Urinalysis Comment CULTURE INDICATED Blood Urea Nitrogen 55 MG/DL Creatinine 1.22 MG/DL Random Glucose 135 MG/DL Total Protein 6.4 GM/DL Albumin 2.1 GM/DL Calcium Level 8.3 MG/DL Magnesium Level 2.2 MG/DL Alkaline Phosphatase 63 U/L Aspartate Amino Transf (AST/SGOT) 8 U/L Alanine Aminotransferase (ALT/SGPT) 26 U/L Total Bilirubin 0.5 MG/DL Sodium Level 139 MEQ/L Potassium Level 2.7 MEQ/L Chloride Level 101 MEQ/L Carbon Dioxide Level 28.7 MEQ/L Anion Gap 9 MEQ/L Estimat Glomerular Filtration Rate 60 ML/MIN Lactic Acid Level 1.4 mmol/L Total Creatine Kinase 28 U/L Lipase 59 U/L Thyroid Stimulating Hormone 3rd Gen 1.640 uIU/ML MDM Medical Decision Making Medical Screen Exam Complete: Yes Emergency Medical Condition: Yes Medical Record Reviewed: Yes Interpretation(s) CBC & BMP Diagram 10/21/17 16:03 Total Protein 6.4, Albumin 2.1 L, Calcium Level 8.3 L, Magnesium Level 2.2, Alkaline Phosphatase 63, Aspartate Amino Transf (AST/SGOT) 8 L, Alanine Aminotransferase (ALT/SGPT) 26, Total Bilirubin 0.5 UA shows leukerase esterase with bacteria lactic acid WNL troponin and CKMB WNL Last Impressions Chest X-Ray 10/21/17 1542 Signed Impressions: Service Date/Time: Saturday, October 21, 2017 16:07 - CONCLUSION: 1. Dyqkok-z-Rxqa catheter tip in right atrium. No evidence of pneumothorax. 2. Interval development of some patchy acinar infiltrates in the upper lateral right lung. Tashi Monique MD Chest CT 10/21/17 0000 Signed Impressions: Service Date/Time: Saturday, October 21, 2017 17:22 - CONCLUSION: 1. Near interval resolution of patchy airspace disease in the left upper lobe. 2. Interval development of patchy nodular airspace disease throughout the right upper lobe. Although this likely reflects pneumonia, consider atypical infection ++/- aspiration. Followup to resolution is recommended. Greg Sanches MD Differential Diagnosis sepsis vs pneumonia vs dehydration vs neutrophenia vs inability to take care of self vs reaction to chemotherapy vs weakness Narrative Course 62-year-old male that presents to the ED for evaluation of generalized weakness and inability to take care of self. Patient was properly examined and was found to have signs and symptoms consistent appears to be ill his weakness. Indentation is very anorexic. He is not able to take care of self. He was initially tachycardic and appears to be dehydrated. Labs and imaging were ordered. Labs and imaging did show possible pneumonia and low WBCs. Urine show possible UTI as well. Patient does have elevated BUN of 50. This is new for him. This time because of patient's weakness and symptoms of possible pneumonia on chemotherapy do recommend admission for further evaluation. Patient agrees with this. Case discussed with Dr. Srinivasan who agrees to admission. Diagnosis Primary Impression: Pneumonia Qualified Codes: J18.9 - Pneumonia, unspecified organism Additional Impressions: Weakness generalized Squamous cell cancer of tongue Admitting Information Admitting Physician Requests: Admit Brian Jeffery Oct 21, 2017 18:51
[2017-10-21] MEDS ORDERED: NALOXONE HCL 0.4 MG/ML AMP IV PUSH PRN (19:30)
[2017-10-21] MEDS ORDERED: BISACODYL 10 MG SUPP RECTAL PRN (19:30)
[2017-10-21] MEDS ORDERED: LACTULOSE SYRUP 20 GM/30 ML CUP PO PRN (19:30)
[2017-10-21] MEDS ORDERED: ONDANSETRON HCL 4 MG/2 ML VIAL IVP PRN ×2 (19:30→20:00)
[2017-10-21] MEDS ORDERED: MAGNESIUM HYDROXIDE SUSP 30 ML CUP PO PRN (19:30)
[2017-10-21] MEDS ORDERED: SODIUM CHLORIDE 0.9% FLUSH 10 ML FLUSH IV FLUSH PRN ×2 (19:30→20:00)
[2017-10-21] MEDS ORDERED: SENNOSIDES 8.6 MG TAB PO PRN (19:30)
[2017-10-21] MEDS ORDERED: MORPHINE SULFATE 2 MG/ML INJ IV PUSH PRN (20:00)
[2017-10-21] MEDS ORDERED: ACETAMINOPHEN 325 MG TAB PO PRN (20:00)
[2017-10-21] MEDS ORDERED: ACETAMINOPHEN/HYDROcodone 325 MG/5 MG TAB PO PRN (20:00)
[2017-10-21] MEDS ORDERED: Vancomycin Consult Pharmacy 1 EA OTHER SCH (20:00)
[2017-10-21] MEDS ORDERED: SODIUM CHLORIDE 0.9% FLUSH 10 ML FLUSH IV FLUSH SCH (21:00)
[2017-10-21] MEDS ORDERED: VANCOMYCIN 500 MG/NS 100 ML IV ONE ×2 (21:00)
[2017-10-21] MEDS: DOCUSATE SODIUM 50 MG/SENNA 8.6 MG TAB PO SCH (21:00)
--- NOTE | 2017-10-21 21:15 | HHI.HP ---
HPI Service [facility] Primary Care Physician Unknown Admission Diagnosis Weakness, cancer patient, pneumonia, dehydration Diagnoses: (1) PNA (pneumonia) Diagnosis: Principal (2) Neutropenia Diagnosis: Principal (3) Hypokalemia Diagnosis: Principal (4) UTI (urinary tract infection) Diagnosis: Principal (5) Thrombocytopenia Diagnosis: Principal (6) Generalized weakness Diagnosis: Principal (7) Squamous cell cancer of tongue Diagnosis: Principal Travel History International Travel<30 Days: No Contact w/Intl Traveler <30 Da: No Traveled to Known Affected Are: No History of Present Illness This is a 62-year-old male with a PMH of 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 Pt poor historian due to speech difficulty, able to nod yes/no. Per report, pt found living in extremely poor conditions, lives alone, difficulty taking care of self. Follows w/ Dr. Newton as outpatient, states he recently started on Chemo approx 1wk ago. On arrival, BP 113/84, HR 104, O2 sat 96% on RA, Afebrile. WBC 1.9. Hemoglobin 11.7. Platelets 118. K= 2.7. Lactic Acid 1.4. INR 1.4. Positive for UTI. CXR with [id number] right atrium, no pneumothorax, patchy acinar infiltrates upper lateral right lung. CT Chest with patchy nodular airspace disease throughout right upper lobe likely pneumonia. S/p Vanc/Zosyn in ER. Review of Systems Except as stated in HPI: all other systems reviewed are Neg ROS: 14 point review of systems otherwise negative. Past Family Social History Past Medical History PMH: Squamous Cell CA of Tongue s/p PEG Past Surgical History PAST SURGICAL HISTORY: Tonsillectomy, PEG Tube, Xduakz-[id number] Allergies: Coded Allergies: No Known Allergies (Unverified , 09/22/17) Family History PAST FAMILY HISTORY: Reviewed. No h/o DM or CAD Social History PAST SOCIAL HISTORY: Positive for alcohol, unable to quantify. Smokes 1ppd. Negative for drugs. Physical Exam Vital Signs Vital Signs Date Time Temp Pulse Resp B/P (MAP) Pulse Ox O2 Delivery O2 Flow Rate FiO2 10/21/17 20:16 89 14 115/63 (80) 95 Room Air 10/21/17 18:29 80 18 128/77 (94) 95 Room Air 10/21/17 17:08 90 18 113/87 (96) 98 Room Air 10/21/17 16:11 96 18 98 Room Air 10/21/17 16:10 18 98 Room Air 10/21/17 15:37 98.6 104 18 113/84 (94) 96 Room Air Physical Exam PE: GENERAL: Thin, frail, chronically ill appearing middle-aged male in no acute distress. HEENT: PERRLA, EOMI. No scleral icterus or conjunctival pallor. No lid lag or facial droop. No airway compromise. CARDIOVASCULAR: Regular rate and rhythm. No obvious murmurs to auscultation. No chest tenderness to palpation. RESPIRATORY: No obvious rhonchi or wheezing. Clear to auscultation. Breath sounds equal bilaterally. GASTROINTESTINAL: Abdomen soft, non-tender, nondistended. BS normal. PEG tube MUSCULOSKELETAL: Extremities without clubbing, cyanosis, or edema. No obvious deformities. NEUROLOGICAL: Awake, alert and oriented x4. No focal neurologic deficits. Moving both upper and lower extremities spontaneously. Laboratory Laboratory Tests Test 10/21/17 16:03 White Blood Count 1.9 Red Blood Count 3.84 Hemoglobin 11.7 Hematocrit 33.8 Mean Corpuscular Volume 88.1 Mean Corpuscular Hemoglobin 30.5 Mean Corpuscular Hemoglobin Concent 34.6 Red Cell Distribution Width 14.2 Platelet Count 118 Mean Platelet Volume 8.8 Neutrophils (%) (Auto) 44.5 Lymphocytes (%) (Auto) 44.5 Monocytes (%) (Auto) 10.6 Eosinophils (%) (Auto) 0.1 Basophils (%) (Auto) 0.3 Neutrophils # (Auto) 0.9 Lymphocytes # (Auto) 0.9 Monocytes # (Auto) 0.2 Eosinophils # (Auto) 0.0 Basophils # (Auto) 0.0 CBC Comment AUTO DIFF Differential Total Cells Counted 100 Neutrophils % (Manual) 39 Band Neutrophils % 9 Lymphocytes % 42 Monocytes % 8 Neutrophils # (Manual) 1.0 Metamyelocytes 2 Differential Comment FINAL DIFF MANUAL Platelet Estimate LOW Platelet Morphology Comment NORMAL Prothrombin Time 13.9 Prothromb Time International Ratio 1.4 Activated Partial Thromboplast Time 24.0 Urine Color YELLOW Urine Turbidity HAZY Urine pH 5.5 Urine Specific [place] 1.025 Urine Protein 30 Urine Glucose (UA) NEG Urine Ketones NEG Urine Occult Blood SMALL Urine Nitrite NEG Urine Bilirubin NEG Urine Urobilinogen LESS THAN 2.0 Urine Leukocyte Esterase MOD Urine RBC 2 Urine WBC 34 Urine Squamous Epithelial Cells 4 Urine Bacteria MANY Urine Hyaline Casts 24 Urine Mucus FEW Microscopic Urinalysis Comment CULTURE INDICATED Blood Urea Nitrogen 55 Creatinine 1.22 Random Glucose 135 Total Protein 6.4 Albumin 2.1 Calcium Level 8.3 Magnesium Level 2.2 Alkaline Phosphatase 63 Aspartate Amino Transf (AST/SGOT) 8 Alanine Aminotransferase (ALT/SGPT) 26 Total Bilirubin 0.5 Sodium Level 139 Potassium Level 2.7 Chloride Level 101 Carbon Dioxide Level 28.7 Anion Gap 9 Estimat Glomerular Filtration Rate 60 Lactic Acid Level 1.4 Total Creatine Kinase 28 Lipase 59 Thyroid Stimulating Hormone 3rd Gen 1.640 Date/Time Source Procedure Growth Status 10/21/17 16:03 Blood Peripheral Aerobic Blood Culture Pending Received 10/21/17 16:03 Blood Peripheral Anaerobic Blood Culture Pending Received 10/21/17 16:03 Urine Clean Catch Urine Culture Pending Received Result Diagram: 10/21/17 1603 10/21/17 1603 Caprini VTE Risk Assessment Caprini VTE Risk Assessment: No/Low Risk (score <= 1) Caprini Risk Assessment Model Point Value = 1 Point Value = 2 Point Value = 3 Point Value = 5 Age 41-60 Minor surgery BMI > 25 kg/m2 Swollen legs Varicose veins or History of unexplained or recurrent spontaneous Oral contraceptives or hormone replacement Sepsis (< 1 month) Serious lung disease, including pneumonia (< 1 month) Abnormal pulmonary function Acute myocardial infarction Congestive heart failure (< 1 month) History of inflammatory bowel disease Medical patient at bed rest Age 61-74 Arthroscopic surgery Major open surgery (> 45 min) Laparoscopic surgery (> 45 min) Malignancy Confined to bed (> 72 hours) Immobilizing plaster cast Central venous access Age >= 75 History of VTE Family history of VTE Factor V Leiden Prothrombin [id number] Lupus anticoagulant Anticardiolipin antibodies Elevated serum homocysteine Heparin-induced thrombocytopenia Other congenital or acquired thrombophilia Stroke (< 1 month) Elective arthroplasty Hip, pelvis, or leg fracture Acute spinal cord injury (< 1 month) Prophylaxis Regimen Total Risk Factor Score Risk Level Prophylaxis Regimen 0-1 Low Early ambulation 2 Moderate Order ONE of the following: *Sequential Compression Device (SCD) *Heparin 5000 units SQ BID 3-4 Higher Order ONE of the following medications: *Heparin 5000 units SQ TID *Enoxaparin/Lovenox 40 mg SQ daily (WT < 150 kg, CrCl > 30 mL/min) *Enoxaparin/Lovenox 30 mg SQ daily (WT < 150 kg, CrCl > 10-29 mL/min) *Enoxaparin/Lovenox 30 mg SQ BID (WT < 150 kg, CrCl > 30 mL/min) AND/OR *Sequential Compression Device (SCD) 5 or more Highest Order ONE of the following medications: *Heparin 5000 units SQ TID (Preferred with Epidurals) *Enoxaparin/Lovenox 40 mg SQ daily (WT < 150 kg, CrCl > 30 mL/min) *Enoxaparin/Lovenox 30 mg SQ daily (WT < 150 kg, CrCl > 10-29 mL/min) *Enoxaparin/Lovenox 30 mg SQ BID (WT < 150 kg, CrCl > 30 mL/min) AND *Sequential Compression Device (SCD) Assessment and Plan Problem List: (1) PNA (pneumonia) ICD Code: J18.9 - Pneumonia, unspecified organism (2) UTI (urinary tract infection) ICD Code: N39.0 - Urinary tract infection, site not specified (3) Neutropenia ICD Code: D70.9 - Neutropenia, unspecified (4) Squamous cell cancer of tongue ICD Code: C02.9 - Malignant neoplasm of tongue, unspecified (5) Thrombocytopenia ICD Code: D69.6 - Thrombocytopenia, unspecified (6) Hypokalemia ICD Code: E87.6 - Hypokalemia (7) Generalized weakness ICD Code: R53.1 - Weakness Assessment and Plan A/P: 1. PNA: CXR w/ RUL infiltrates, CT Chest w/ new RUL patchy disease, images reviewed by me. S/p Vanc/Janel in ER. Follow up blood cultures, continue w/ IV Abx, DuoNeb prn, check Sputum Cultures. 2. UTI: U/a positive for UTI, follow up urine cultures, continue IV Abx, IVF for hydration. 3. Neutropenia: WBC 1.9, previously 16.6 on 09/22/17, s/p chemo approx 1wk ago. Monitor closely. Neutropenic precautions. Repeat labs in am. Consult Dr. Newton for further evaluation. 4. Thrombocytopenia: Platelets 118, previously 526 and 09/22/17. No active bleeding at this time. We will monitor closely, repeat labs in a.m. 5. Squamous Cell CA Tongue: Follows w/ Dr. Newton as outpatient, recently started on Chemo. Will consult for further eval/recommendations, likely poor prognosis, may need Palliative Care eval. 6. Hypokalemia: K+ 2.7, s/p replacement in ER, will repeat labs, replace as needed. Telemetry. 7. Generalized Weakness: likely combination of underlying malignancy w/ physical deconditioning and acute infection. PT for eval/tx. Will consult Needle Valve Operator for further recommendations due to malnutrition. 8. DVT Prophylaxis: SCD/teds. 9. Social work for DC planning as needed, will likely need assistance with placement as patient lives alone and currently unable to care for self. 10. Case discussed at length with ER physician, lab/records/imaging reviewed by me. Physician Certification 2 Midnight Certification Type: Admission for Inpatient Services Order for Inpatient Services The services are ordered in accordance with Medicare regulations or non- Medicare payer requirements, as applicable. In the case of services not specified as inpatient-only, they are appropriately provided as inpatient services in accordance with the 2-midnight benchmark. Estimated LOS (days): 2 days is the estimated time the patient will need to remain in the hospital, assuming treatment plan goals are met and no additional complications. Post-Hospital Plan: Not yet determined Bernadette Woodward MD Oct 21, 2017 21:15
[2017-10-21] MEDS: SODIUM CHLORIDE 0.9% FLUSH 10 ML FLUSH IV FLUSH SCH (22:58)
--- NOTE | 2017-10-21 23:13 | EKG ---
Date Performed: 10/21/2017 Time Performed: 16:16:37 PTAGE: 62 years EKG: Sinus rhythm NONSPECIFIC ST & T-WAVE ABNORMALITY PROLONGED QT INTERVAL ABNORMAL ECG NO PREVIOUS TRACING DOCTOR: Andrew Peralta Interpretating Date/Time 10/21/2017 23:12:35
[2017-10-22] VITALS (22 sets, daily range): BP systolic 109–118; BP diastolic 69–82; PULSE 74–105; RESP 16–22; TEMP 97.5–100; O2SAT 95–100
[2017-10-22 06:02] LABS: HEMATOCRIT 29.2 % (39.0-51.0); HEMOGLOBIN 9.9 GM/DL (13.0-17.0); MEAN CELL VOLUME 89.6 FL (80.0-100.0); MEAN CORPUSCULAR HEMOGLOBIN 30.4 PG (27.0-34.0); MEAN CORPUSCULAR HGB CONC 33.9 % (32.0-36.0); MEAN PLATELET VOLUME 8.7 FL (7.0-11.0); PLATELET COUNT 130 TH/MM3 (150-450); RED BLOOD COUNT 3.26 MIL/MM3 (4.50-5.90); RED CELL DISTRIBUTION WIDTH 13.9 % (11.6-17.2); WHITE BLOOD COUNT 1.2 TH/MM3 (4.0-11.0)
[2017-10-22 06:10] LABS: BICARBONATE 22.9 MEQ/L (21.0-32.0); CALCIUM 8.1 MG/DL (8.5-10.1); CREATININE 0.96 MG/DL (0.60-1.30)
[2017-10-22] MEDS ORDERED: POTASSIUM CHLORIDE 25 MEQ EFFERVESCENT TAB PO ONE (06:30)
[2017-10-22] MEDS: POTASSIUM CHLOR 20 MEQ PREMIX 100 ML IV SCH ×2 (06:49→09:56)
[2017-10-22 07:48] LABS: BANDS 9 % (0-6); LYMPHOCYTES 31 % (9-44); MONOCYTES 3 % (0-8); NEUTROPHIL # MANUAL DIFF 0.8 TH/MM3 (1.8-7.7); POLYS (SEG NEUTROPHILS) 57 % (16-70)
[2017-10-22] MEDS: CEFEPIME INJ 1,000 MG in SODIUM CHLORIDE 0.9% INJ 100 ML IV SCH ×2 (08:58→21:59)
[2017-10-22] MEDS: SODIUM CHLORIDE 0.9% FLUSH 10 ML FLUSH IV FLUSH SCH ×2 (09:00→20:50)
[2017-10-22] MEDS: DOCUSATE SODIUM 50 MG/SENNA 8.6 MG TAB PO SCH ×2 (09:00→20:50)
--- NOTE | 2017-10-22 12:24 | HHI.PR ---
Subjective Remarks Patient is hungry. No other complaints. Overnight platelets have increased the neutrophil counts have decreased. Hypokalemia is present this morning. Objective Vital Signs Date Time Temp Pulse Resp B/P (MAP) Pulse Ox O2 Delivery O2 Flow Rate FiO2 10/22/17 11:37 97.5 83 18 115/72 (86) 96 10/22/17 08:18 98.0 94 20 113/76 (88) 98 10/22/17 08:00 97 10/22/17 06:09 92 10/22/17 05:00 98 10/22/17 04:21 98.3 99 16 109/71 (84) 95 10/22/17 04:02 104 10/22/17 03:00 100 10/22/17 02:00 100 10/22/17 01:00 104 10/22/17 00:08 103 10/22/17 00:07 100.0 105 19 109/69 (82) 98 10/21/17 23:41 104 10/21/17 22:09 92 10/21/17 21:52 99.4 88 16 114/70 (85) 97 10/21/17 21:45 10/21/17 20:16 89 14 115/63 (80) 95 Room Air 10/21/17 18:29 80 18 128/77 (94) 95 Room Air 10/21/17 17:08 90 18 113/87 (96) 98 Room Air 10/21/17 16:11 96 18 98 Room Air 10/21/17 16:10 18 98 Room Air 10/21/17 15:37 98.6 104 18 113/84 (94) 96 Room Air I/O 10/21/17 10/21/17 10/21/17 10/22/17 10/22/17 10/22/17 06:59 14:59 22:59 06:59 14:59 22:59 Intake Total 340 ml 100 ml Balance 340 ml 100 ml Intake IV Total 100 ml Other 340 ml # Voids 3 # Bowel Movements 3 Result Diagram: 10/22/17 0506 10/22/17 0506 Objective Remarks GENERAL: NAD, A&Ox2, cachexia HEAD: Normocephalic. NECK: Supple, trachea midline. No lymphadenopathy. EYES: No scleral icterus. No injection or drainage. CARDIOVASCULAR: Regular rate and rhythm without murmurs, gallops, or rubs. RESPIRATORY: Breath sounds equal bilaterally. No accessory muscle use. GASTROINTESTINAL: Abdomen soft, non-tender, nondistended. MUSCULOSKELETAL: No cyanosis, or edema. SKIN: Warm and dry. NEURO: No focal neurological deficitis. Global weakness. A/P Problem List: (1) PNA (pneumonia) ICD Code: J18.9 - Pneumonia, unspecified organism (2) UTI (urinary tract infection) ICD Code: N39.0 - Urinary tract infection, site not specified (3) Thrombocytopenia ICD Code: D69.6 - Thrombocytopenia, unspecified (4) Neutropenia ICD Code: D70.9 - Neutropenia, unspecified (5) Generalized weakness ICD Code: R53.1 - Weakness (6) Hypokalemia ICD Code: E87.6 - Hypokalemia (7) Squamous cell cancer of tongue ICD Code: C02.9 - Malignant neoplasm of tongue, unspecified Assessment and Plan 62-year-old male admitted secondary to pneumonia and urinary tract infection with neutropenia and thrombocytopenia Pneumonia Continue vancomycin and Zosyn Follow blood cultures Follow sputum culture Monitor for improvement Caution due to immunocompromise Urinary tract infection Continue Zosyn Follow urine cultures Neutropenia Thrombocytopenia Follow CBC Hematology/oncology following Upward trend and platelets today Downward trends in neutrophils Squamous cell cancer of the tongue Follow with oncology Continue tube feeds Hypokalemia Monitor and replace as needed Generalized weakness Physical therapy Nutrition consult DVT prophylaxis SCDs Discharge planning Care facility needed at discharge Bernardo Lobo MD Oct 22, 2017 12:24
[2017-10-22] MEDS: POTASSIUM CHLORIDE INJ 40 MEQ in LACTATED RINGER'S 1000 ML INJ 1,000 ML IV SCH ×2 (14:00→14:26)
[2017-10-22] MEDS: FILGRASTIM 480 MCG/1.6 ML VIAL SQ SCH (14:34)
[2017-10-22] MEDS: VANCOMYCIN 1,000 MG/NS 250 ML IV SCH ×2 (20:46)
[2017-10-23] VITALS (18 sets, daily range): BP systolic 121–140; BP diastolic 79–92; PULSE 74–97; RESP 16–24; TEMP 97.5–99; O2SAT 97–100
[2017-10-23] MEDS: POTASSIUM CHLORIDE INJ 40 MEQ in LACTATED RINGER'S 1000 ML INJ 1,000 ML IV SCH (02:30)
[2017-10-23 06:10] LABS: AUTOMATED NEUTROPHIL # 2.4 TH/MM3 (1.8-7.7); BASOPHIL % 0.1 % (0.0-2.0); EOSINOPHIL % 0.5 % (0.0-4.0); HEMATOCRIT 26.4 % (39.0-51.0); HEMOGLOBIN 8.7 GM/DL (13.0-17.0); LYMPH % 31.4 % (9.0-44.0); LYMPHOCYTE # 1.2 TH/MM3 (1.0-4.8); MEAN CELL VOLUME 90.7 FL (80.0-100.0); MEAN CORPUSCULAR HGB CONC 33.1 % (32.0-36.0); MEAN PLATELET VOLUME 8.7 FL (7.0-11.0); MONO % 4.9 % (0.0-8.0); MONOCYTE # 0.2 TH/MM3 (0-0.9); NEUT % 63.1 % (16.0-70.0); PLATELET COUNT 149 TH/MM3 (150-450); RED BLOOD COUNT 2.91 MIL/MM3 (4.50-5.90); RED CELL DISTRIBUTION WIDTH 14.6 % (11.6-17.2); WHITE BLOOD COUNT 3.8 TH/MM3 (4.0-11.0)
--- NOTE | 2017-10-23 06:21 | MB ---
cc: ROBIN WEISS DATE OF CONSULTATION: 10/22/2017 REASON FOR CONSULTATION: History of base of the tongue carcinoma who presents to the emergency room with lethargy, nausea, poor intake. HISTORY OF PRESENT ILLNESS This is a 62-year-old male who has a history of locally advanced squamous cell carcinoma of the tongue with bulky lymphadenopathy. Initially he had presented with dysphagia, weight loss and anorexia in the fall of 2016. CT scan of the neck revealed a large mass at the base of the tongue which was at least 6 x 2.9 cm. Additional lymphadenopathy was visualized in the sternocleidomastoid musculature which was 3.8 x 2.8 cm. There was also a large left neck mass. A biopsy confirmed invasive well-differentiated squamous cell carcinoma. The malignancy was not amenable to resection due to bulky disease. He is currently getting neoadjuvant treatment consisting of the TPF regimen. He has received one cycle of treatment with significant reduction in his lymphadenopathy and primary tumor mass. He does have significant dysphagia due to bulky disease and has PEG tube in place. He now presents to the emergency department with lethargy, feeling unwell. In the emergency department a chest x-ray and CT scan of the chest was obtained which showed pneumonia in the right upper lobe. On admission he was found to be leukopenic with a neutrophil count of 900. His hemoglobin was 11.7 and platelet count was 118. He was hypokalemic with a potassium of 2.7. The patient was admitted to the hospital. He was started on antibiotics consisting of vancomycin and Zosyn. He was also found to have a UTI. Urine cultures were pending. The patient is lethargic and weak. He has had severe dysphagia. Oral intake is poor. REVIEW OF SYSTEMS A comprehensive 14-point review of systems was completed which is negative except as described in the HPI. PAST MEDICAL HISTORY Squamous cell carcinoma of the tongue. Tobacco abuse. PAST SURGICAL HISTORY: 1. History of tonsillectomy. 2. PEG tube placement. 3. Badgss-R-Lefg placement. FAMILY HISTORY: Reviewed, noncontributory to this admission. SOCIAL HISTORY: History of excessive alcohol intake. History of smoking. Denies illicit drug use. MEDICATIONS 1. Vancomycin. 2. Cefepime. 3. Docusate. 4. Zofran. 5. Tylenol. 6. Treichlers. 7. Milk of Magnesia p.r.n. 8. Senna p.r.n. 9. Bisacodyl p.r.n. ALLERGIES NO KNOWN DRUG ALLERGIES. PHYSICAL EXAMINATION: Vital signs: Blood pressure is 113/74, pulse is in the 80s, temperature is 97.6. General: Chronically ill-appearing male in no apparent distress. HEENT: Pupils are equal, round, reactive to light. EOMI. No oral thrush. There is a large mass in the base of the tongue with some ulceration. Neck: Lymphadenopathy in the cervical area, level 2 on the left. There has been significant reduction in the amount of lymphadenopathy. Chest: Clear to auscultation bilaterally. Cardiac: S1-S2, regular rate and rhythm. Abdomen: Soft, non-tender, non-distended. Bowel sounds are present. Extremities: Without edema, erythema, cyanosis. Skin: Without petechiae. No bruises. Neuro: No focal deficit. Psychiatric: Mood and affect is appropriate. LABORATORY DATA WBC 1.2, hemoglobin 9.9, platelet count 130. Serum chemistries: sodium 146, potassium 2.5, CO2 113, BUN is 39, creatinine is 0.96, GFR is 79, lactic acid is 1.4, calcium is 8.1. Coags: PT is 13.9, INR is 1.4, PTT 24. ASSESSMENT/PLAN This is a 62 year-old male with a past medical history of locally advanced squamous cell carcinoma of the tongue, history of tobacco abuse, who presents to the emergency room with lethargy and feeling unwell. 1. Pneumonia, based on the CT scan, I agree with antibiotics. He is on vancomycin and cefepime. Follow up blood cultures. 2. UTI. Urine culture shows gram-negative rods. Further speciation and susceptibility studies are pending. He is on broad-spectrum antibiotics. 3. Leukopenia with down-trending ANC. I will start him on Neupogen. 4. Anemia secondary to chemotherapy and malignancy. We will check anemia studies. 5. Mild thrombocytopenia. He is asymptomatic. We will continue to monitor. 6. Hyponatremia. Replace electrolytes. 7. Locally advanced base of the tongue carcinoma. He will resume neoadjuvant chemotherapy with TPF regimen once he is discharged from the hospital. 8. Dysphagia due to malignancy, resume tube feeds through the PEG tube. Consult dietition. Thank you for allowing me to participate in the care of this patient. I will continue to follow this patient along. MD MALOU Decker/YASMIN /12:37 AM /5:07 AM
[2017-10-23 06:34] LABS: ALBUMIN 1.6 GM/DL (3.4-5.0); ALKALINE PHOSPHATASE 53 U/L (45-117); ALT (GPT) 35 U/L (12-78); AST (GOT) 29 U/L (15-37); BICARBONATE 24.3 MEQ/L (21.0-32.0); BLOOD UREA NITROGEN 30 MG/DL (7-18); CALCIUM 8.1 MG/DL (8.5-10.1); CHLORIDE 122 MEQ/L (98-107); GLOMERULAR FILTRATION RATE 97 ML/MIN (>89); GLUCOSE,RANDOM 126 MG/DL (74-106); SODIUM (NA) 153 MEQ/L (136-145); TOTAL BILIRUBIN ADULT 0.2 MG/DL (0.2-1.0); TOTAL PROTEIN 5.2 GM/DL (6.4-8.2)
[2017-10-23] MEDS: DOCUSATE SODIUM 50 MG/SENNA 8.6 MG TAB PO SCH ×2 (09:00→21:00)
[2017-10-23] MEDS ORDERED: POTASSIUM CHLORIDE 20 MEQ PWD PACKET PO ONE (09:00)
[2017-10-23] MEDS: SODIUM CHLORIDE 0.9% FLUSH 10 ML FLUSH IV FLUSH SCH ×2 (09:00→22:21)
[2017-10-23] MEDS: CEFEPIME INJ 1,000 MG in SODIUM CHLORIDE 0.9% INJ 100 ML IV SCH ×2 (09:05→22:20)
--- NOTE | 2017-10-23 09:32 | PD.ONC.PN ---
Subjective Subjective Remarks Afebrile overnight. Patient resting in bed, asking for water. feeling fatigued, lethargic. tolerating tube feeds. Objective Data Date Time Temp Pulse Resp B/P (MAP) Pulse Ox O2 Delivery O2 Flow Rate FiO2 10/23/17 08:01 98.5 94 16 121/81 (94) 97 10/23/17 06:00 84 10/23/17 05:00 80 10/23/17 04:31 79 10/23/17 04:06 97.5 83 18 121/79 (93) 97 10/23/17 03:00 76 10/23/17 02:00 74 10/23/17 01:00 76 10/23/17 00:06 75 10/22/17 23:50 97.6 81 16 113/74 (87) 98 10/22/17 23:03 83 10/22/17 22:00 74 10/22/17 21:00 74 10/22/17 20:38 76 10/22/17 19:50 98.3 79 16 118/77 (91) 98 10/22/17 19:00 88 10/22/17 16:41 98.0 82 22 114/82 (93) 100 10/22/17 16:00 85 10/22/17 12:00 82 10/22/17 11:37 97.5 83 18 115/72 (86) 96 10/23/17 10/23/17 10/23/17 07:00 15:00 23:00 Intake Total 955 ml Balance 955 ml Result Diagram: 10/23/17 0535 10/23/17 0535 Laboratory Results Laboratory Tests Test 10/23/17 05:35 White Blood Count 3.8 TH/MM3 Red Blood Count 2.91 MIL/MM3 Hemoglobin 8.7 GM/DL Hematocrit 26.4 % Mean Corpuscular Volume 90.7 FL Mean Corpuscular Hemoglobin 30.0 PG Mean Corpuscular Hemoglobin Concent 33.1 % Red Cell Distribution Width 14.6 % Platelet Count 149 TH/MM3 Mean Platelet Volume 8.7 FL Neutrophils (%) (Auto) 63.1 % Lymphocytes (%) (Auto) 31.4 % Monocytes (%) (Auto) 4.9 % Eosinophils (%) (Auto) 0.5 % Basophils (%) (Auto) 0.1 % Neutrophils # (Auto) 2.4 TH/MM3 Lymphocytes # (Auto) 1.2 TH/MM3 Monocytes # (Auto) 0.2 TH/MM3 Eosinophils # (Auto) 0.0 TH/MM3 Basophils # (Auto) 0.0 TH/MM3 CBC Comment AUTO DIFF Blood Urea Nitrogen 30 MG/DL Creatinine 0.80 MG/DL Random Glucose 126 MG/DL Total Protein 5.2 GM/DL Albumin 1.6 GM/DL Calcium Level 8.1 MG/DL Alkaline Phosphatase 53 U/L Aspartate Amino Transf (AST/SGOT) 29 U/L Alanine Aminotransferase (ALT/SGPT) 35 U/L Total Bilirubin 0.2 MG/DL Sodium Level 153 MEQ/L Potassium Level 3.3 MEQ/L Chloride Level 122 MEQ/L Carbon Dioxide Level 24.3 MEQ/L Anion Gap 7 MEQ/L Estimat Glomerular Filtration Rate 97 ML/MIN Culture Results Microbiology Date/Time Source Procedure Growth Status 10/21/17 16:03 Blood Peripheral Aerobic Blood Culture - Preliminary NO GROWTH IN 1 DAY Resulted 10/21/17 16:03 Blood Peripheral Anaerobic Blood Culture - Preliminary NO GROWTH IN 1 DAY Resulted 10/21/17 15:55 Blood Peripheral Aerobic Blood Culture - Preliminary NO GROWTH IN 1 DAY Resulted 10/21/17 15:55 Blood Peripheral Anaerobic Blood Culture - Preliminary NO GROWTH IN 1 DAY Resulted 10/21/17 16:03 Urine Clean Catch Urine Culture - Preliminary Gram Negative Ronan Resulted Administered Medications Medications (Trade) Dose Ordered Sig/Shaila Route PRN Reason Start Time Stop Time Status Last Admin Dose Admin Sodium Chloride (NS Flush) 2 ml BID IV FLUSH 10/21/17 21:00 10/22/17 09:00 Cefepime HCl 1000 mg/Sodium Chloride 100 ml @ 200 mls/hr Q12H IV 10/22/17 09:00 10/22/17 21:59 Potassium Chloride 40 meq/ Lactated Ringer's 1,020 ml @ 100 mls/hr [id number] IV 10/22/17 06:30 10/23/17 02:30 Vancomycin HCl 1000 mg/Sodium Chloride 250 ml @ 250 mls/hr Q24H IV 10/22/17 20:00 10/22/17 20:46 Filgrastim (Neupogen Inj) 480 mcg DAILY@14 SQ 10/22/17 14:00 10/22/17 14:34 Objective Remarks GENERAL: Middle aged male, chronically ill appearing and malnourished, lying supine with bed at 45 degree incline. he appears weak and lethargic, but in nad. SKIN: Warm and dry. HEAD: Normocephalic. EYES: No injection or drainage. NECK: Supple, trachea midline. CARDIOVASCULAR: Regular rate and rhythm RESPIRATORY: Breath sounds equal bilaterally. No accessory muscle use. GASTROINTESTINAL: Abdomen concave, peg tube in place, receiving tube feeds. soft , non-tender. EXTREMITIES: No cyanosis MUSCULOSKELETAL: generalized muscle wasting. NEUROLOGICAL: awake, lethargic. no obvious focal deficit. Assessment/Plan Problem List: (1) PNA (pneumonia) ICD Codes: J18.9 - Pneumonia, unspecified organism Plan: --on vancomycin and cefepime. --BC no growth (2) UTI (urinary tract infection) ICD Codes: N39.0 - Urinary tract infection, site not specified Plan: --Urine culture shows gram-negative rods --on Vanco + Cefepime. (3) Thrombocytopenia ICD Codes: D69.6 - Thrombocytopenia, unspecified Plan: --is asymptomatic. continue to monitor. (4) Neutropenia ICD Codes: D70.9 - Neutropenia, unspecified Plan: --monitor, on Neupogen (5) Squamous cell cancer of tongue ICD Codes: C02.9 - Malignant neoplasm of tongue, unspecified Plan: --Locally advanced base of the tongue carcinoma. --will resume neoadjuvant chemotherapy with TPF regimen once he is discharged from the hospital. (6) Malnutrition ICD Codes: E46 - Unspecified protein-calorie malnutrition Plan: --d/t dysphagia from bulky disease --started on tube feeds (7) Hypernatremia ICD Codes: E87.0 - Hyperosmolality and hypernatremia Plan: --monitor IVF Assessment 62y/o male with base of the tongue carcinoma admitted with lethargy, nausea, poor intake. HPI (brought forward from initial consult for continuity of care): Initially presented with dysphagia, weight loss and anorexia in the fall of 2017. CT neck revealed a large mass at the base of the tongue 6 x 2.9 cm. Additional lymphadenopathy was visualized in the sternocleidomastoid musculature which was 3.8 x 2.8 cm. +large left neck mass. biopsy confirmed invasive well- differentiated squamous cell carcinoma. malignancy was not amenable to resection due to bulky disease. currently getting neoadjuvant treatment consisting of the TPF regimen. has received one cycle of treatment with significant reduction in his lymphadenopathy and primary tumor mass. + significant dysphagia due to bulky disease and has PEG tube in place. In the emergency department a chest x-ray and CT scan of the chest was obtained which showed pneumonia in the right upper lobe. Plan 1. await handmade tile artist consult 2. continue Neupogen 3. monitor electrolytes. Attending Statement The exam, history, and the medical decision-making described in the above note were completed with the assistance of the mid-level provider. I reviewed and agree with the findings presented. I attest that I had a [id number] encounter with the patient on the same day, and personally performed and documented my assessment and findings in the medical record. head and neck cancer neutropenia on Neupogen regular diet start tube feeds elevated sodium 1/2 NS stop lactate ringer IVF handmade tile artist consult pending aspiration risk on neck thick diet d/w rn o/n events reviewed Problem Qualifiers (1) Neutropenia: Qualified Codes: D70.1 - Agranulocytosis secondary to cancer chemotherapy; T45.1X5A - Adverse effect of antineoplastic and immunosuppressive drugs, initial encounter (2) Malnutrition: Manuela Da Silva Oct 23, 2017 09:32 Bon Newton MD Oct 23, 2017 11:40
[2017-10-23 09:57] LABS: BANDS 18 % (0-6); LYMPHOCYTES 23 % (9-44); MONOCYTES 8 % (0-8); NEUTROPHIL # MANUAL DIFF 2.6 TH/MM3 (1.8-7.7); POLYS (SEG NEUTROPHILS) 51 % (16-70); TOXIC GRANULATION 2+ (NORMAL)
[2017-10-23] MEDS: SODIUM CHLOR 0.45% 1000 ML INJ 1,000 ML IV SCH ×2 (11:00→22:26)
[2017-10-23 13:01] LABS: SODIUM,RANDOM URINE 21 MEQ/L
[2017-10-23 13:36] LABS: OSMOLALITY,URINE 833 MOSM/KG (300-1300)
--- NOTE | 2017-10-23 14:39 | HHI.PR ---
Subjective Remarks Patient tolerating tube feeds. His upper trend in neutrophils and white blood cell count. Potassium levels improved but not yet stabilized or normal. Objective Vital Signs Date Time Temp Pulse Resp B/P (MAP) Pulse Ox O2 Delivery O2 Flow Rate FiO2 10/23/17 08:01 98.5 94 16 121/81 (94) 97 10/23/17 06:00 84 10/23/17 05:00 80 10/23/17 04:31 79 10/23/17 04:06 97.5 83 18 121/79 (93) 97 10/23/17 03:00 76 10/23/17 02:00 74 10/23/17 01:00 76 10/23/17 00:06 75 10/22/17 23:50 97.6 81 16 113/74 (87) 98 10/22/17 23:03 83 10/22/17 22:00 74 10/22/17 21:00 74 10/22/17 20:38 76 10/22/17 19:50 98.3 79 16 118/77 (91) 98 10/22/17 19:00 88 10/22/17 16:41 98.0 82 22 114/82 (93) 100 10/22/17 16:00 85 I/O 10/22/17 10/22/17 10/22/17 10/23/17 10/23/17 10/23/17 07:00 15:00 23:00 07:00 15:00 23:00 Intake Total 340 ml 200 ml 955 ml Balance 340 ml 200 ml 955 ml Intake IV Total 200 ml 367 ml Tube Feeding 588 ml Other 340 ml # Voids 3 2 1 # Bowel Movements 3 2 1 Result Diagram: 10/23/17 0535 10/23/17 0535 Objective Remarks GENERAL: NAD, A&Ox2, cachexia HEAD: Normocephalic. NECK: Supple, trachea midline. No lymphadenopathy. EYES: No scleral icterus. No injection or drainage. CARDIOVASCULAR: Regular rate and rhythm without murmurs, gallops, or rubs. RESPIRATORY: Breath sounds equal bilaterally. No accessory muscle use. GASTROINTESTINAL: Abdomen soft, non-tender, nondistended. MUSCULOSKELETAL: No cyanosis, or edema. SKIN: Warm and dry. NEURO: No focal neurological deficitis. Global weakness. A/P Problem List: (1) PNA (pneumonia) ICD Code: J18.9 - Pneumonia, unspecified organism (2) UTI (urinary tract infection) ICD Code: N39.0 - Urinary tract infection, site not specified (3) Thrombocytopenia ICD Code: D69.6 - Thrombocytopenia, unspecified (4) Neutropenia ICD Code: D70.9 - Neutropenia, unspecified (5) Generalized weakness ICD Code: R53.1 - Weakness (6) Hypokalemia ICD Code: E87.6 - Hypokalemia (7) Squamous cell cancer of tongue ICD Code: C02.9 - Malignant neoplasm of tongue, unspecified Assessment and Plan 62-year-old male admitted secondary to pneumonia and urinary tract infection with neutropenia and thrombocytopenia. Patient states she does not feel well but he is having some signs of improving infection with treatment. Labs reviewed. Upward trends in neutrophils, improving potassium levels. Continue to monitor labs. Labs ordered for further monitoring. Pneumonia Continue vancomycin and Zosyn Follow blood cultures Follow sputum culture Monitor for improvement Caution due to immunocompromise Urinary tract infection Continue Zosyn Follow urine cultures Neutropenia Thrombocytopenia Follow CBC Hematology/oncology following Upward trend and platelets today Downward trends in neutrophils Squamous cell cancer of the tongue Follow with oncology Continue tube feeds Hypokalemia Monitor and replace as needed Generalized weakness Physical therapy Nutrition consult DVT prophylaxis SCDs Discharge planning Care facility needed at discharge Problem Qualifiers (1) Neutropenia: Qualified Codes: D70.1 - Agranulocytosis secondary to cancer chemotherapy; T45.1X5A - Adverse effect of antineoplastic and immunosuppressive drugs, initial encounter Bernardo Lobo MD Oct 23, 2017 14:39
[2017-10-23] MEDS: FILGRASTIM 480 MCG/1.6 ML VIAL SQ SCH (14:48)
[2017-10-23] MEDS ORDERED: ALUMINUM/MAGNESIUM/SIMETH 30 ML CUP PO ONE (17:30)
[2017-10-23] MEDS: VANCOMYCIN 1,000 MG/NS 250 ML IV SCH ×2 (20:50)
[2017-10-24] VITALS (21 sets, daily range): BP systolic 109–147; BP diastolic 60–86; PULSE 74–87; RESP 18–20; TEMP 97.3–98.5; O2SAT 98–100
[2017-10-24 05:15] LABS: BASOPHIL % 0.2 % (0.0-2.0); EOSINOPHIL % 0.6 % (0.0-4.0); HEMATOCRIT 24.7 % (39.0-51.0); HEMOGLOBIN 8.4 GM/DL (13.0-17.0); LYMPH % 27.6 % (9.0-44.0); LYMPHOCYTE # 1.7 TH/MM3 (1.0-4.8); MEAN CELL VOLUME 89.9 FL (80.0-100.0); MEAN CORPUSCULAR HEMOGLOBIN 30.5 PG (27.0-34.0); MEAN PLATELET VOLUME 8.9 FL (7.0-11.0); MONO % 5.4 % (0.0-8.0); MONOCYTE # 0.3 TH/MM3 (0-0.9); NEUT % 66.2 % (16.0-70.0); PLATELET COUNT 151 TH/MM3 (150-450); RED BLOOD COUNT 2.75 MIL/MM3 (4.50-5.90); RED CELL DISTRIBUTION WIDTH 14.8 % (11.6-17.2)
[2017-10-24 05:47] LABS: ALBUMIN 1.6 GM/DL (3.4-5.0); ALKALINE PHOSPHATASE 47 U/L (45-117); ALT (GPT) 29 U/L (12-78); AST (GOT) 15 U/L (15-37); BICARBONATE 20.7 MEQ/L (21.0-32.0); BLOOD UREA NITROGEN 20 MG/DL (7-18); CALCIUM 7.8 MG/DL (8.5-10.1); CHLORIDE 122 MEQ/L (98-107); CREATININE 0.68 MG/DL (0.60-1.30); GLOMERULAR FILTRATION RATE 117 ML/MIN (>89); GLUCOSE,RANDOM 89 MG/DL (74-106); SODIUM (NA) 150 MEQ/L (136-145); TOTAL BILIRUBIN ADULT 0.3 MG/DL (0.2-1.0); TOTAL PROTEIN 4.9 GM/DL (6.4-8.2)
[2017-10-24] MEDS ORDERED: POTASSIUM CHLORIDE 25 MEQ EFFERVESCENT TAB PO ONE (06:45)
[2017-10-24] MEDS: POTASSIUM CHLOR 10 MEQ PREMIX 100 ML IV SCH ×3 (06:51→11:00)
[2017-10-24] MEDS: CEFEPIME INJ 1,000 MG in SODIUM CHLORIDE 0.9% INJ 100 ML IV SCH ×2 (08:21→21:03)
[2017-10-24 08:54] LABS: BANDS 14 % (0-6); LYMPHOCYTES 24 % (9-44); MONOCYTES 1 % (0-8); NEUTROPHIL # MANUAL DIFF 4.5 TH/MM3 (1.8-7.7); POLYS (SEG NEUTROPHILS) 61 % (16-70)
[2017-10-24 08:55] LABS: DOHLE BODIES PRESENT (NONE SEEN); TOXIC GRANULATION 2+ (NORMAL)
[2017-10-24] MEDS: SODIUM CHLORIDE 0.9% FLUSH 10 ML FLUSH IV FLUSH SCH ×2 (09:00→21:03)
[2017-10-24] MEDS: DOCUSATE SODIUM 50 MG/SENNA 8.6 MG TAB PO SCH ×2 (09:00→21:00)
[2017-10-24] MEDS ORDERED: POTASSIUM CHLORIDE 20 MEQ PWD PACKET PEG ONE (09:45)
--- NOTE | 2017-10-24 10:27 | PD.ONC.PN ---
Subjective Subjective Remarks Afebrile Feels tired No pain Objective Data Date Time Temp Pulse Resp B/P (MAP) Pulse Ox O2 Delivery O2 Flow Rate FiO2 10/24/17 08:35 97.9 83 20 119/76 (90) 100 10/24/17 07:40 81 10/24/17 05:07 78 10/24/17 04:31 97.3 78 18 129/76 (93) 99 10/24/17 04:31 82 10/24/17 03:09 82 10/24/17 02:04 85 10/24/17 01:05 78 10/24/17 00:32 97.6 83 18 124/78 (93) 98 10/23/17 23:59 75 10/23/17 23:06 82 10/23/17 22:07 88 10/23/17 21:07 85 10/23/17 20:52 97.5 91 20 127/87 (100) 99 10/23/17 20:04 82 10/23/17 19:05 89 10/23/17 18:09 99.0 97 24 140/92 (108) 100 10/23/17 12:00 97.5 97 24 123/85 (98) 97 10/24/17 10/24/17 10/24/17 07:00 15:00 23:00 Intake Total 120 ml Balance 120 ml Result Diagram: 10/24/1743910/24/17439 Laboratory Results Laboratory Tests Test 10/23/17 12:26 10/24/17 04:40 10/24/17 09:15 Urine Osmolality 833 MOSM/KG Urine Random Sodium 21 MEQ/L White Blood Count 6.0 TH/MM3 Red Blood Count 2.75 MIL/MM3 Hemoglobin 8.4 GM/DL Hematocrit 24.7 % Mean Corpuscular Volume 89.9 FL Mean Corpuscular Hemoglobin 30.5 PG Mean Corpuscular Hemoglobin Concent 34.0 % Red Cell Distribution Width 14.8 % Platelet Count 151 TH/MM3 Mean Platelet Volume 8.9 FL Neutrophils (%) (Auto) 66.2 % Lymphocytes (%) (Auto) 27.6 % Monocytes (%) (Auto) 5.4 % Eosinophils (%) (Auto) 0.6 % Basophils (%) (Auto) 0.2 % Neutrophils # (Auto) 4.0 TH/MM3 Lymphocytes # (Auto) 1.7 TH/MM3 Monocytes # (Auto) 0.3 TH/MM3 Eosinophils # (Auto) 0.0 TH/MM3 Basophils # (Auto) 0.0 TH/MM3 CBC Comment AUTO DIFF Differential Total Cells Counted 100 Neutrophils % (Manual) 61 % Band Neutrophils % 14 % Lymphocytes % 24 % Monocytes % 1 % Neutrophils # (Manual) 4.5 TH/MM3 Differential Comment FINAL DIFF MANUAL Toxic Granulation 2+ Dohle Bodies PRESENT Platelet Estimate NORMAL Platelet Morphology Comment NORMAL Blood Urea Nitrogen 20 MG/DL Creatinine 0.68 MG/DL Random Glucose 89 MG/DL Total Protein 4.9 GM/DL Albumin 1.6 GM/DL Calcium Level 7.8 MG/DL Alkaline Phosphatase 47 U/L Aspartate Amino Transf (AST/SGOT) 15 U/L Alanine Aminotransferase (ALT/SGPT) 29 U/L Total Bilirubin 0.3 MG/DL Sodium Level 150 MEQ/L Potassium Level 2.8 MEQ/L Chloride Level 122 MEQ/L Carbon Dioxide Level 20.7 MEQ/L Anion Gap 7 MEQ/L Estimat Glomerular Filtration Rate 117 ML/MIN Culture Results Microbiology Date/Time Source Procedure Growth Status 10/21/17 16:03 Blood Peripheral Aerobic Blood Culture - Preliminary NO GROWTH IN 2 DAYS Resulted 10/21/17 16:03 Blood Peripheral Anaerobic Blood Culture - Preliminary NO GROWTH IN 2 DAYS Resulted 10/21/17 15:55 Blood Peripheral Aerobic Blood Culture - Preliminary NO GROWTH IN 2 DAYS Resulted 10/21/17 15:55 Blood Peripheral Anaerobic Blood Culture - Preliminary NO GROWTH IN 2 DAYS Resulted 10/21/17 16:03 Urine Clean Catch Urine Culture - Final Klebsiella Pneumoniae Multi-Drug Resistant Complete Administered Medications Medications (Trade) Dose Ordered Sig/Shaila Route PRN Reason Start Time Stop Time Status Last Admin Dose Admin Sodium Chloride (NS Flush) 2 ml BID IV FLUSH 10/21/17 21:00 10/23/17 22:21 Cefepime HCl 1000 mg/Sodium Chloride 100 ml @ 200 mls/hr Q12H IV 10/22/17 09:00 10/24/17 08:21 Vancomycin HCl 1000 mg/Sodium Chloride 250 ml @ 250 mls/hr Q24H IV 10/22/17 20:00 10/23/17 20:50 Sodium Chloride 1,000 ml @ 84 mls/hr [id number] IV 10/23/17 11:00 10/23/17 22:26 Objective Remarks GENERAL: Cachectic older male resting in bed asleep on approach. Awakens easily to verbal stimuli. SKIN: Warm and dry. HEAD: Normocephalic. EYES: No injection or drainage. NECK: Supple, trachea midline. CARDIOVASCULAR: Regular rate and rhythm without murmurs. RESPIRATORY: Scattered rhonchi posteriorly. Breathing unlabored at rest. GASTROINTESTINAL: Abdomen soft, PEG tube in place. Currently clamped. EXTREMITIES: No cyanosis, or edema. MUSCULOSKELETAL: Adequate muscle tone. NEUROLOGICAL: Moving all extremities. Alert. Assessment/Plan Problem List: (1) PNA (pneumonia) ICD Codes: J18.9 - Pneumonia, unspecified organism Plan: --on vancomycin and cefepime. --BC no growth (2) UTI (urinary tract infection) ICD Codes: N39.0 - Urinary tract infection, site not specified Plan: --Urine culture shows gram-negative rods --on Vanco + Cefepime. (3) Thrombocytopenia ICD Codes: D69.6 - Thrombocytopenia, unspecified Status: Resolved Plan: --is asymptomatic. continue to monitor. (4) Neutropenia ICD Codes: D70.9 - Neutropenia, unspecified Plan: --Resolved (5) Squamous cell cancer of tongue ICD Codes: C02.9 - Malignant neoplasm of tongue, unspecified Plan: --Locally advanced base of the tongue carcinoma. --will resume neoadjuvant chemotherapy with TPF regimen once he is discharged from the hospital. (6) Malnutrition ICD Codes: E46 - Unspecified protein-calorie malnutrition Plan: --d/t dysphagia from bulky disease --started on tube feeds (7) Hypernatremia ICD Codes: E87.0 - Hyperosmolality and hypernatremia Plan: --monitor IVF Assessment 62y/o male with base of the tongue carcinoma admitted with lethargy, nausea, poor intake. HPI (brought forward from initial consult for continuity of care): Initially presented with dysphagia, weight loss and anorexia in the fall of 2017. CT neck revealed a large mass at the base of the tongue 6 x 2.9 cm. Additional lymphadenopathy was visualized in the sternocleidomastoid musculature which was 3.8 x 2.8 cm. +large left neck mass. biopsy confirmed invasive well- differentiated squamous cell carcinoma. malignancy was not amenable to resection due to bulky disease. currently getting neoadjuvant treatment consisting of the TPF regimen. has received one cycle of treatment with significant reduction in his lymphadenopathy and primary tumor mass. + significant dysphagia due to bulky disease and has PEG tube in place. In the emergency department a chest x-ray and CT scan of the chest was obtained which showed pneumonia in the right upper lobe. Plan 1. Per dietitian consult will increase goal rate of Jevity 1.5 to 65 mL/h 2. Stop Neupogen 3. Stop IV fluids and start free water flushes 250 mL 4 times daily for hypernatremia 4. Encourage p.o. intake with pured diet and nectar thick liquids Attending Statement The exam, history, and the medical decision-making described in the above note were completed with the assistance of the mid-level provider. I reviewed and agree with the findings presented. I attest that I had a [id number] encounter with the patient on the same day, and personally performed and documented my assessment and findings in the medical record. Base of the tongue squamous cell carcinoma s/p 1 cycle of TPF dysphagia and aspiration risk nectar thick diet Hypernatremia---> free H2O flushes counts improving stop Neupogen case management consult--plans to d/c to rehab d/w rn o/n events reviewed Problem Qualifiers (1) Neutropenia: Qualified Codes: D70.1 - Agranulocytosis secondary to cancer chemotherapy; T45.1X5A - Adverse effect of antineoplastic and immunosuppressive drugs, initial encounter (2) Malnutrition: Yeimi Christianson Oct 24, 2017 10:27 Bon Newton MD Oct 24, 2017 20:56
--- NOTE | 2017-10-24 18:07 | HHI.PR ---
Subjective Remarks Patient did not tolerate tube feeds later in the day yesterday. He refuses further tube feeds till today. Tube feeds resumed at a lower rate. He is tolerating this so far. He has problems sleeping at night. Objective Vital Signs Date Time Temp Pulse Resp B/P (MAP) Pulse Ox O2 Delivery O2 Flow Rate FiO2 10/24/17 16:51 97.5 77 20 137/81 (99) 100 10/24/17 14:00 83 10/24/17 13:55 98.5 78 20 147/86 (106) 99 10/24/17 13:00 81 10/24/17 12:00 87 10/24/17 11:00 80 10/24/17 10:00 81 10/24/17 08:35 97.9 83 20 119/76 (90) 100 10/24/17 07:40 81 10/24/17 05:07 78 10/24/17 04:31 97.3 78 18 129/76 (93) 99 10/24/17 04:31 82 10/24/17 03:09 82 10/24/17 02:04 85 10/24/17 01:05 78 10/24/17 00:32 97.6 83 18 124/78 (93) 98 10/23/17 23:59 75 10/23/17 23:06 82 10/23/17 22:07 88 10/23/17 21:07 85 10/23/17 20:52 97.5 91 20 127/87 (100) 99 10/23/17 20:04 82 10/23/17 19:05 89 10/23/17 18:09 99.0 97 24 140/92 (108) 100 I/O 10/23/17 10/23/17 10/23/17 10/24/17 10/24/17 10/24/17 07:00 15:00 23:00 07:00 15:00 23:00 Intake Total 955 ml 2040 ml 120 ml 700 ml 575 ml Balance 955 ml 2040 ml 120 ml 700 ml 575 ml Intake Oral 1680 ml 575 ml IV Total 367 ml 360 ml 700 ml Tube Feeding 588 ml 0 ml Other 120 ml # Voids 1 2 2 4 # Bowel Movements 1 2 2 4 Result Diagram: 10/24/17 0440 2/26/18 1242 Objective Remarks GENERAL: NAD, A&Ox2, cachexia HEAD: Normocephalic. NECK: Supple, trachea midline. No lymphadenopathy. EYES: No scleral icterus. No injection or drainage. CARDIOVASCULAR: Regular rate and rhythm without murmurs, gallops, or rubs. RESPIRATORY: Breath sounds equal bilaterally. No accessory muscle use. GASTROINTESTINAL: Abdomen soft, non-tender, nondistended. MUSCULOSKELETAL: No cyanosis, or edema. SKIN: Warm and dry. NEURO: No focal neurological deficitis. Global weakness. A/P Problem List: (1) PNA (pneumonia) ICD Code: J18.9 - Pneumonia, unspecified organism (2) UTI (urinary tract infection) ICD Code: N39.0 - Urinary tract infection, site not specified (3) Thrombocytopenia ICD Code: D69.6 - Thrombocytopenia, unspecified Status: Resolved (4) Neutropenia ICD Code: D70.9 - Neutropenia, unspecified (5) Generalized weakness ICD Code: R53.1 - Weakness (6) Hypokalemia ICD Code: E87.6 - Hypokalemia (7) Squamous cell cancer of tongue ICD Code: C02.9 - Malignant neoplasm of tongue, unspecified Assessment and Plan 62-year-old male admitted secondary to pneumonia and urinary tract infection with neutropenia and thrombocytopenia. Labs reviewed. Potassium has normalized. Continue to monitor labs. Labs ordered for further monitoring. Urinary tract infection is sensitive to cefepime. Benadryl added for insomnia at night. Pneumonia Continue vancomycin and cefepime Follow blood cultures Follow sputum culture Monitor for improvement Caution due to immunocompromise Urinary tract infection Sensitive to cefepime Continue cefepime Follow urine cultures Neutropenia Thrombocytopenia Follow CBC Hematology/oncology following Upward trend and platelets today Downward trends in neutrophils Squamous cell cancer of the tongue Follow with oncology Continue tube feeds Hypokalemia Monitor and replace as needed Generalized weakness Physical therapy Nutrition consult DVT prophylaxis SCDs Discharge planning Care facility needed at discharge Problem Qualifiers (1) Neutropenia: Qualified Codes: D70.1 - Agranulocytosis secondary to cancer chemotherapy; T45.1X5A - Adverse effect of antineoplastic and immunosuppressive drugs, initial encounter Bernardo Lobo MD Oct 24, 2017 18:07
[2017-10-24] MEDS ORDERED: diphenhydrAMINE HCL ELIXIR 12.5 MG/5 ML CUP PEG PRN (18:15)
[2017-10-24] MEDS ORDERED: PHARMACY ORDERED LAB ONE (19:45)
[2017-10-24] MEDS: VANCOMYCIN 1,000 MG/NS 250 ML IV SCH ×2 (21:03)
[2017-10-25] VITALS (27 sets, daily range): BP systolic 118–123; BP diastolic 73–78; PULSE 72–87; RESP 16–20; TEMP 96.6–98.2; O2SAT 96–100
[2017-10-25] MEDS: VANCOMYCIN INJ 750 MG in SODIUM CHLOR 0.9% 250 ML INJ 250 ML IV SCH ×2 (05:24→18:09)
[2017-10-25 06:13] LABS: AUTOMATED NEUTROPHIL # 4.4 TH/MM3 (1.8-7.7); BASOPHIL % 0.3 % (0.0-2.0); EOSINOPHIL % 0.7 % (0.0-4.0); HEMATOCRIT 22.7 % (39.0-51.0); HEMOGLOBIN 7.8 GM/DL (13.0-17.0); LYMPH % 27.2 % (9.0-44.0); LYMPHOCYTE # 1.8 TH/MM3 (1.0-4.8); MEAN CORPUSCULAR HEMOGLOBIN 31.1 PG (27.0-34.0); MEAN CORPUSCULAR HGB CONC 34.5 % (32.0-36.0); MEAN PLATELET VOLUME 8.9 FL (7.0-11.0); MONO % 5.3 % (0.0-8.0); MONOCYTE # 0.3 TH/MM3 (0-0.9); NEUT % 66.5 % (16.0-70.0); PLATELET COUNT 150 TH/MM3 (150-450); RED BLOOD COUNT 2.52 MIL/MM3 (4.50-5.90); RED CELL DISTRIBUTION WIDTH 14.5 % (11.6-17.2); WHITE BLOOD COUNT 6.6 TH/MM3 (4.0-11.0)
[2017-10-25 06:42] LABS: ALBUMIN 1.5 GM/DL (3.4-5.0); AST (GOT) 14 U/L (15-37); BLOOD UREA NITROGEN 15 MG/DL (7-18); CALCIUM 7.6 MG/DL (8.5-10.1); CHLORIDE 115 MEQ/L (98-107); GLOMERULAR FILTRATION RATE 136 ML/MIN (>89); GLUCOSE,RANDOM 74 MG/DL (74-106); SODIUM (NA) 144 MEQ/L (136-145)
[2017-10-25 06:43] LABS: ALT (GPT) 23 U/L (12-78)
[2017-10-25 06:45] LABS: ALKALINE PHOSPHATASE 55 U/L (45-117); TOTAL BILIRUBIN ADULT 0.3 MG/DL (0.2-1.0); TOTAL PROTEIN 4.5 GM/DL (6.4-8.2)
[2017-10-25] MEDS: CEFEPIME INJ 1,000 MG in SODIUM CHLORIDE 0.9% INJ 100 ML IV SCH ×2 (08:55→20:10)
[2017-10-25] MEDS: SODIUM CHLORIDE 0.9% FLUSH 10 ML FLUSH IV FLUSH SCH ×2 (09:00→20:10)
[2017-10-25] MEDS: DOCUSATE SODIUM 50 MG/SENNA 8.6 MG TAB PO SCH ×2 (09:00→20:10)
[2017-10-25 09:36] LABS: BANDS 30 % (0-6); LYMPHOCYTES 14 % (9-44); MONOCYTES 3 % (0-8); NEUTROPHIL # MANUAL DIFF 5.5 TH/MM3 (1.8-7.7); POLYS (SEG NEUTROPHILS) 53 % (16-70)
[2017-10-25 09:37] LABS: TOXIC GRANULATION 3+ (NORMAL)
[2017-10-25] MEDS ORDERED: POTASSIUM CHLORIDE 20 MEQ PWD PACKET PEG ONE (10:00)
--- NOTE | 2017-10-25 10:57 | RADRPT ---
EXAM DATE/TIME: 10/25/2017 00:00 [facility] COMPARISON: No previous studies available for comparison. INDICATIONS : Dysphagia. Mass left side of neck. FLUORO TIME: 2.7 minutes IMAGE COUNT: 0 CONTRAST: Dose as prescribed by speech pathologist. MEDICAL HISTORY : Tongue CA. SURGICAL HISTORY : Peg tube, 1 month ago. ENCOUNTER: Subsequent ACUITY: 4 - 6 days PAIN SCORE: 0/10 LOCATION: Bilateral Esophagus/left neck mass. FINDINGS: A modified barium swallow was performed with speech pathology. Patient was given a variety of liquids to swallow. Aspiration occurred with thin liquids. For a full detailed report, see report by the speech pathologist. CONCLUSION: Aspiration occurred with thin liquids. Please refer to speech pathology report for further details. Kingsley Limon MD on October 25, 2017 at 10:56 Board Certified Radiologist. This report was verified electronically.
--- NOTE | 2017-10-25 13:44 | PD.ONC.PN ---
Subjective Subjective Remarks Afebrile overnight. Patient resting in bed. Feeling much better than when he initially came in. Tired of drinking thickened liquids. occasional cough. Objective Data Date Time Temp Pulse Resp B/P (MAP) Pulse Ox O2 Delivery O2 Flow Rate FiO2 10/25/17 11:42 97.2 80 20 123/78 (93) 96 10/25/17 08:36 97.4 80 18 123/77 (92) 98 10/25/17 08:00 78 10/25/17 05:22 97.5 73 16 122/73 (89) 99 10/25/17 04:04 76 10/25/17 03:00 74 10/25/17 02:00 74 10/25/17 01:00 74 10/25/17 00:04 74 10/25/17 00:00 97.5 75 16 121/73 (89) 100 10/24/17 22:00 80 10/24/17 21:00 78 10/24/17 20:05 74 10/24/17 20:00 97.6 74 20 109/60 (76) 99 10/24/17 19:00 78 10/24/17 16:51 97.5 77 20 137/81 (99) 100 10/24/17 16:00 77 10/24/17 14:00 83 10/24/17 13:55 98.5 78 20 147/86 (106) 99 10/25/17 10/25/17 10/25/17 07:00 15:00 23:00 Output Total 400 ml Balance -400 ml Result Diagram: 10/25/1752910/25/17 0530 Laboratory Results Laboratory Tests Test 10/24/17 19:42 10/25/17 05:30 Vancomycin Level Trough 8.1 MCG/ML White Blood Count 6.6 TH/MM3 Red Blood Count 2.52 MIL/MM3 Hemoglobin 7.8 GM/DL Hematocrit 22.7 % Mean Corpuscular Volume 90.0 FL Mean Corpuscular Hemoglobin 31.1 PG Mean Corpuscular Hemoglobin Concent 34.5 % Red Cell Distribution Width 14.5 % Platelet Count 150 TH/MM3 Mean Platelet Volume 8.9 FL Neutrophils (%) (Auto) 66.5 % Lymphocytes (%) (Auto) 27.2 % Monocytes (%) (Auto) 5.3 % Eosinophils (%) (Auto) 0.7 % Basophils (%) (Auto) 0.3 % Neutrophils # (Auto) 4.4 TH/MM3 Lymphocytes # (Auto) 1.8 TH/MM3 Monocytes # (Auto) 0.3 TH/MM3 Eosinophils # (Auto) 0.0 TH/MM3 Basophils # (Auto) 0.0 TH/MM3 CBC Comment AUTO DIFF Differential Total Cells Counted 100 Neutrophils % (Manual) 53 % Band Neutrophils % 30 % Lymphocytes % 14 % Monocytes % 3 % Neutrophils # (Manual) 5.5 TH/MM3 Differential Comment FINAL DIFF MANUAL Toxic Granulation 3+ Platelet Estimate NORMAL Platelet Morphology Comment ENLARGED Blood Urea Nitrogen 15 MG/DL Creatinine 0.60 MG/DL Random Glucose 74 MG/DL Total Protein 4.5 GM/DL Albumin 1.5 GM/DL Calcium Level 7.6 MG/DL Alkaline Phosphatase 55 U/L Aspartate Amino Transf (AST/SGOT) 14 U/L Alanine Aminotransferase (ALT/SGPT) 23 U/L Total Bilirubin 0.3 MG/DL Sodium Level 144 MEQ/L Potassium Level 3.2 MEQ/L Chloride Level 115 MEQ/L Carbon Dioxide Level 21.0 MEQ/L Anion Gap 8 MEQ/L Estimat Glomerular Filtration Rate 136 ML/MIN Imaging Studies Last 24 hours Impressions Modified Barium Swallow 10/25/17 0000 Signed Impressions: Service Date/Time: Wednesday, October 25, 2017 00:00 - CONCLUSION: Aspiration occurred with thin liquids. Please refer to speech pathology report for further details. Kingsley Limon MD Administered Medications Medications (Trade) Dose Ordered Sig/Shaila Route PRN Reason Start Time Stop Time Status Last Admin Dose Admin Sodium Chloride (NS Flush) 2 ml BID IV FLUSH 10/21/17 21:00 10/25/17 09:00 Cefepime HCl 1000 mg/Sodium Chloride 100 ml @ 200 mls/hr Q12H IV 10/22/17 09:00 10/25/17 08:55 Ondansetron HCl (Zofran Inj) 4 mg Q6H PRN IVP NAUSEA OR VOMITING 10/21/17 20:00 10/24/17 22:11 Acetaminophen/ Hydrocodone Bitart ([place] 5-325 Mg) 1 tab Q4H PRN PO PAIN SCALE 3 TO 5 10/21/17 20:00 10/25/17 09:38 Vancomycin HCl 750 mg/Sodium Chloride 257.5 ml @ 250 mls/hr Q12H IV 10/25/17 06:00 10/25/17 05:24 Objective Remarks GENERAL: chronically ill appearing male, sitting up in bed. appears much stronger today than when I saw him over the weekend. eyes are brighter and he is sitting up more strongly. SKIN: Warm and dry. HEAD: Normocephalic. EYES: No injection or drainage. NECK: Supple, trachea midline. CARDIOVASCULAR: Regular rate and rhythm RESPIRATORY: Breath sounds equal bilaterally. No accessory muscle use. GASTROINTESTINAL: Abdomen soft. non-tender. PEG tube clamped. EXTREMITIES: No cyanosis MUSCULOSKELETAL: generalized muscle wasting. NEUROLOGICAL: awake, alert. garbled speech. moving extremities. Assessment/Plan Problem List: (1) UTI (urinary tract infection) ICD Codes: N39.0 - Urinary tract infection, site not specified Plan: --Urine culture shows klebsiella pneumoniae --on Vanco + Cefepime. (2) Squamous cell cancer of tongue ICD Codes: C02.9 - Malignant neoplasm of tongue, unspecified Plan: --Locally advanced base of the tongue carcinoma. --will resume neoadjuvant chemotherapy with TPF regimen once he is discharged from the hospital. (3) Malnutrition ICD Codes: E46 - Unspecified protein-calorie malnutrition Plan: --d/t dysphagia from bulky disease --started on tube feeds (4) PNA (pneumonia) ICD Codes: J18.9 - Pneumonia, unspecified organism Plan: --on vancomycin and cefepime. --BC no growth Assessment 62y/o male with base of the tongue carcinoma admitted with lethargy, nausea, poor intake. HPI (brought forward from initial consult for continuity of care): Initially presented with dysphagia, weight loss and anorexia in the fall of 2016. CT neck revealed a large mass at the base of the tongue 6 x 2.9 cm. Additional lymphadenopathy was visualized in the sternocleidomastoid musculature which was 3.8 x 2.8 cm. +large left neck mass. biopsy confirmed invasive well- differentiated squamous cell carcinoma. malignancy was not amenable to resection due to bulky disease. currently getting neoadjuvant treatment consisting of the TPF regimen. has received one cycle of treatment with significant reduction in his lymphadenopathy and primary tumor mass. + significant dysphagia due to bulky disease and has PEG tube in place. In the emergency department a chest x-ray and CT scan of the chest was obtained which showed pneumonia in the right upper lobe. Plan 1. continue TF per split leather department supervisor 2. will obtain barium swallow per ST request. 3. continue antibiotics. Attending Statement The exam, history, and the medical decision-making described in the above note were completed with the assistance of the mid-level provider. I reviewed and agree with the findings presented. I attest that I had a [id number] encounter with the patient on the same day, and personally performed and documented my assessment and findings in the medical record. Base of the tongue squamous cell carcinoma--bulky disease dysphagia with aspirational risk malnutrioned with albumin 1.5 continue TF Neutropenia improved Urine culture growing Kleb. pneumo--sensitive to Cefepime and quinolone Aspiration pneumonia --on Vancomycin and Cefepime. will add Flagyl Chest Xray in am Having urinary burning and retention check UA Tamsulosin 0.4 mg daily Hb down to 7s. symptomatic with fatigue Transfuse 1 unit of pRBC replace potassium d/w rn o/n events reviewed Problem Qualifiers (1) Malnutrition: Manuela Da Silva Oct 25, 2017 13:44 Bon Newton MD Oct 25, 2017 22:45
--- NOTE | 2017-10-25 16:05 | HHI.PR ---
Subjective Remarks Patient failed his barium swallow study. Nothing is recommended by mouth. Hypokalemia is present again today. No new complaints from the patient. Objective Vital Signs Date Time Temp Pulse Resp B/P (MAP) Pulse Ox O2 Delivery O2 Flow Rate FiO2 10/25/17 15:39 96.6 79 18 118/74 (89) 99 10/25/17 13:00 73 10/25/17 12:00 75 10/25/17 11:42 97.2 80 20 123/78 (93) 96 10/25/17 10:00 78 10/25/17 09:00 87 10/25/17 08:36 97.4 80 18 123/77 (92) 98 10/25/17 08:00 78 10/25/17 08:00 78 10/25/17 07:00 77 10/25/17 05:22 97.5 73 16 122/73 (89) 99 10/25/17 04:04 76 10/25/17 03:00 74 10/25/17 02:00 74 10/25/17 01:00 74 10/25/17 00:04 74 10/25/17 00:00 97.5 75 16 121/73 (89) 100 10/24/17 22:00 80 10/24/17 21:00 78 10/24/17 20:05 74 10/24/17 20:00 97.6 74 20 109/60 (76) 99 10/24/17 19:00 78 10/24/17 16:51 97.5 77 20 137/81 (99) 100 I/O 10/24/17 10/24/17 10/24/17 10/25/17 10/25/17 10/25/17 07:00 15:00 23:00 07:00 15:00 23:00 Intake Total 120 ml 700 ml 575 ml 100 ml Output Total 400 ml Balance 120 ml 700 ml 575 ml -300 ml Intake Oral 575 ml IV Total 700 ml 100 ml Tube Feeding 0 ml Other 120 ml Output Stool Total 400 ml # Voids 2 5 2 # Bowel Movements 2 5 2 Result Diagram: 10/25/17 0530 10/25/17 0530 Objective Remarks GENERAL: NAD, A&Ox3, cachexia HEAD: Normocephalic. NECK: Supple, trachea midline. No lymphadenopathy. EYES: No scleral icterus. No injection or drainage. CARDIOVASCULAR: Regular rate and rhythm without murmurs, gallops, or rubs. RESPIRATORY: Breath sounds equal bilaterally. No accessory muscle use. GASTROINTESTINAL: Abdomen soft, non-tender, nondistended. MUSCULOSKELETAL: No cyanosis, or edema. SKIN: Warm and dry. NEURO: No focal neurological deficitis. Global weakness. A/P Problem List: (1) PNA (pneumonia) ICD Code: J18.9 - Pneumonia, unspecified organism (2) UTI (urinary tract infection) ICD Code: N39.0 - Urinary tract infection, site not specified (3) Thrombocytopenia ICD Code: D69.6 - Thrombocytopenia, unspecified Status: Resolved (4) Neutropenia ICD Code: D70.9 - Neutropenia, unspecified (5) Generalized weakness ICD Code: R53.1 - Weakness (6) Hypokalemia ICD Code: E87.6 - Hypokalemia (7) Squamous cell cancer of tongue ICD Code: C02.9 - Malignant neoplasm of tongue, unspecified Assessment and Plan 62-year-old male admitted secondary to pneumonia and urinary tract infection with neutropenia and thrombocytopenia. Labs reviewed. Potassium is low. Continue to monitor labs. Labs ordered for further monitoring. Potential discharge in 1-2 days. Pneumonia Continue vancomycin and cefepime Follow blood cultures Follow sputum culture Monitor for improvement Caution due to immunocompromise Urinary tract infection Sensitive to cefepime Continue cefepime Follow urine cultures Neutropenia Thrombocytopenia Follow CBC Hematology/oncology following Upward trend and platelets today Downward trends in neutrophils Squamous cell cancer of the tongue Follow with oncology Continue tube feeds Hypokalemia Monitor and replace as needed Generalized weakness Physical therapy Nutrition consult DVT prophylaxis SCDs Discharge planning Care facility needed at discharge Discharge planning Potassium is stabilizing Potential discharge in 1-2 days Problem Qualifiers (1) Neutropenia: Qualified Codes: D70.1 - Agranulocytosis secondary to cancer chemotherapy; T45.1X5A - Adverse effect of antineoplastic and immunosuppressive drugs, initial encounter Bernardo Lobo MD Oct 25, 2017 16:05
[2017-10-25] MEDS ORDERED: Vancomycin Consult Pharmacy 1 EA OTHER SCH (23:00)
[2017-10-25] MEDS: TAMSULOSIN HCL 0.4 MG CAP PO SCH (23:00)
[2017-10-25] MEDS: metroNIDAZOLE 500 MG TAB PO SCH (23:20)
[2017-10-26] VITALS (22 sets, daily range): BP systolic 108–130; BP diastolic 69–80; PULSE 68–129; RESP 16–22; TEMP 97.5–99; O2SAT 95–99
[2017-10-26] MEDS ORDERED: PHARMACY ORDERED LAB ONE (05:45)
[2017-10-26] MEDS: metroNIDAZOLE 500 MG TAB PO SCH ×2 (06:16→14:06)
[2017-10-26] MEDS: VANCOMYCIN INJ 750 MG in SODIUM CHLOR 0.9% 250 ML INJ 250 ML IV SCH (06:17)
[2017-10-26 06:21] LABS: AUTOMATED NEUTROPHIL # 3.6 TH/MM3 (1.8-7.7); BASOPHIL % 0.4 % (0.0-2.0); EOSINOPHIL % 0.5 % (0.0-4.0); HEMATOCRIT 26.8 % (39.0-51.0); HEMOGLOBIN 9.1 GM/DL (13.0-17.0); LYMPHOCYTE # 1.9 TH/MM3 (1.0-4.8); MEAN CORPUSCULAR HEMOGLOBIN 29.9 PG (27.0-34.0); MONO % 6.8 % (0.0-8.0); MONOCYTE # 0.4 TH/MM3 (0-0.9); NEUT % 60.3 % (16.0-70.0); PLATELET COUNT 161 TH/MM3 (150-450); RED BLOOD COUNT 3.04 MIL/MM3 (4.50-5.90); RED CELL DISTRIBUTION WIDTH 15.4 % (11.6-17.2)
[2017-10-26 06:52] LABS: ALBUMIN 1.5 GM/DL (3.4-5.0); CALCIUM 7.4 MG/DL (8.5-10.1); CREATININE 0.64 MG/DL (0.60-1.30)
[2017-10-26 07:01] LABS: CALCIUM-PROTEIN CORRECTED 8.9 MG/DL (8.5-10.1); TOTAL BILIRUBIN ADULT 0.4 MG/DL (0.2-1.0); TOTAL PROTEIN 4.5 GM/DL (6.4-8.2); VANCOMYCIN TROUGH 15.8 MCG/ML (5.0-10.0)
[2017-10-26] MEDS ORDERED: VANCOMYCIN INJ 1,000 MG in SODIUM CHLOR 0.9% 250 ML INJ 250 ML IV SCH (08:00)
--- NOTE | 2017-10-26 08:50 | PD.ONC.PN ---
Subjective Subjective Remarks Afebrile overnight. Patient resting in bed in nad. No complaints. Does not remember refusing his tube feed late last night. Objective Data Date Time Temp Pulse Resp B/P (MAP) Pulse Ox O2 Delivery O2 Flow Rate FiO2 10/26/17 08:30 97.9 80 18 130/80 (97) 96 10/26/17 06:00 80 10/26/17 05:25 98.0 78 18 120/76 98 10/26/17 05:00 82 10/26/17 04:22 77 10/26/17 03:06 76 10/26/17 02:50 98.3 78 18 115/72 98 10/26/17 02:49 18 10/26/17 02:34 97.5 77 16 114/73 98 10/26/17 02:00 80 10/26/17 01:00 68 10/26/17 00:00 76 10/26/17 00:00 99.0 79 18 124/76 (92) 99 10/25/17 23:12 77 10/25/17 22:00 78 10/25/17 21:00 74 10/25/17 20:08 78 10/25/17 20:06 98.2 72 16 119/77 (91) 99 10/25/17 19:00 80 10/25/17 18:00 74 10/25/17 17:00 78 10/25/17 16:00 76 10/25/17 15:39 96.6 79 18 118/74 (89) 99 10/25/17 15:00 86 10/25/17 14:00 74 10/25/17 13:00 73 10/25/17 12:00 75 10/25/17 11:42 97.2 80 20 123/78 (93) 96 10/25/17 10:00 78 10/25/17 09:00 87 10/26/17 10/26/17 10/26/17 07:00 15:00 23:00 Intake Total 690 ml Output Total 100 ml Balance 590 ml Result Diagram: 10/26/17 0545 10/26/17 0545 Laboratory Results Laboratory Tests Test 10/26/17 05:45 White Blood Count 6.0 TH/MM3 Red Blood Count 3.04 MIL/MM3 Hemoglobin 9.1 GM/DL Hematocrit 26.8 % Mean Corpuscular Volume 88.0 FL Mean Corpuscular Hemoglobin 29.9 PG Mean Corpuscular Hemoglobin Concent 34.0 % Red Cell Distribution Width 15.4 % Platelet Count 161 TH/MM3 Mean Platelet Volume 9.0 FL Neutrophils (%) (Auto) 60.3 % Lymphocytes (%) (Auto) 32.0 % Monocytes (%) (Auto) 6.8 % Eosinophils (%) (Auto) 0.5 % Basophils (%) (Auto) 0.4 % Neutrophils # (Auto) 3.6 TH/MM3 Lymphocytes # (Auto) 1.9 TH/MM3 Monocytes # (Auto) 0.4 TH/MM3 Eosinophils # (Auto) 0.0 TH/MM3 Basophils # (Auto) 0.0 TH/MM3 CBC Comment DIFF FINAL Differential Comment Blood Urea Nitrogen 10 MG/DL Creatinine 0.64 MG/DL Random Glucose 95 MG/DL Total Protein 4.5 GM/DL Albumin 1.5 GM/DL Calcium Level 7.4 MG/DL Alkaline Phosphatase 48 U/L Aspartate Amino Transf (AST/SGOT) 9 U/L Alanine Aminotransferase (ALT/SGPT) 18 U/L Total Bilirubin 0.4 MG/DL Sodium Level 142 MEQ/L Potassium Level 3.4 MEQ/L Chloride Level 112 MEQ/L Carbon Dioxide Level 23.0 MEQ/L Anion Gap 7 MEQ/L Estimat Glomerular Filtration Rate 126 ML/MIN Protein Corrected Calcium 8.9 MG/DL Vancomycin Level Trough 15.8 MCG/ML Administered Medications Medications (Trade) Dose Ordered Sig/Shaila Route PRN Reason Start Time Stop Time Status Last Admin Dose Admin Sodium Chloride (NS Flush) 2 ml BID IV FLUSH 10/21/17 21:00 10/25/17 20:10 Cefepime HCl 1000 mg/Sodium Chloride 100 ml @ 200 mls/hr Q12H IV 10/22/17 09:00 10/25/17 20:10 Ondansetron HCl (Zofran Inj) 4 mg Q6H PRN IVP NAUSEA OR VOMITING 10/21/17 20:00 10/24/17 22:11 Acetaminophen (Tylenol) 650 mg Q6H PRN PO FEVER/PAIN SCALE 1 TO 2 10/21/17 20:00 10/26/17 01:49 Acetaminophen/ Hydrocodone Bitart ([place] 5-325 Mg) 1 tab Q4H PRN PO PAIN SCALE 3 TO 5 10/21/17 20:00 10/25/17 09:38 Diphenhydramine HCl (Benadryl Liq) 25 mg HS PRN PEG Insomnia 10/24/17 18:15 10/26/17 01:49 Vancomycin HCl 750 mg/Sodium Chloride 257.5 ml @ 250 mls/hr Q12H IV 10/25/17 06:00 10/26/17 06:17 Metronidazole (Flagyl) 500 mg Q8HR PO 10/25/17 23:00 10/26/17 06:16 Objective Remarks GENERAL: chronically ill male, upright in bed in nad. SKIN: Warm and dry. HEAD: Normocephalic. EYES: No injection or drainage. NECK: Supple, trachea midline. CARDIOVASCULAR: Regular rate and rhythm RESPIRATORY: Breath sounds equal bilaterally. No accessory muscle use. GASTROINTESTINAL: Abdomen soft.PEG tube clamped. no tenderness to palpation. EXTREMITIES: No cyanosis MUSCULOSKELETAL: generalized muscle wasting. NEUROLOGICAL: awake, alert. moving extremities. Assessment/Plan Problem List: (1) UTI (urinary tract infection) ICD Codes: N39.0 - Urinary tract infection, site not specified Plan: --Urine culture shows klebsiella pneumoniae --on Vanco + Cefepime. (2) Squamous cell cancer of tongue ICD Codes: C02.9 - Malignant neoplasm of tongue, unspecified Plan: --Locally advanced base of the tongue carcinoma. --will resume neoadjuvant chemotherapy with TPF regimen once he is discharged from the hospital. (3) Malnutrition ICD Codes: E46 - Unspecified protein-calorie malnutrition Plan: --d/t dysphagia from bulky disease --on bolus tube feeds. (4) PNA (pneumonia) ICD Codes: J18.9 - Pneumonia, unspecified organism Plan: --on vancomycin and cefepime. --BC no growth Assessment 62y/o male with base of the tongue carcinoma admitted with lethargy, nausea, poor intake. HPI (brought forward from initial consult for continuity of care): Initially presented with dysphagia, weight loss and anorexia in the fall of 2016. CT neck revealed a large mass at the base of the tongue 6 x 2.9 cm. Additional lymphadenopathy was visualized in the sternocleidomastoid musculature which was 3.8 x 2.8 cm. +large left neck mass. biopsy confirmed invasive well- differentiated squamous cell carcinoma. malignancy was not amenable to resection due to bulky disease. currently getting neoadjuvant treatment consisting of the TPF regimen. has received one cycle of treatment with significant reduction in his lymphadenopathy and primary tumor mass. + significant dysphagia due to bulky disease and has PEG tube in place. In the emergency department a chest x-ray and CT scan of the chest was obtained which showed pneumonia in the right upper lobe. Plan 1. continue bolus tube feeds. 2. continue antibiotics. 3. monitor electrolytes Problem Qualifiers (1) Malnutrition: Manuela Da Silva Oct 26, 2017 08:50
[2017-10-26] MEDS: DOCUSATE SODIUM 50 MG/SENNA 8.6 MG TAB PO SCH (09:00)
[2017-10-26] MEDS: SODIUM CHLORIDE 0.9% FLUSH 10 ML FLUSH IV FLUSH SCH (09:00)
[2017-10-26] MEDS: CEFEPIME INJ 1,000 MG in SODIUM CHLORIDE 0.9% INJ 100 ML IV SCH (09:32)
[2017-10-26] MEDS: TAMSULOSIN HCL 0.4 MG CAP PO SCH (09:32)
[2017-10-26] MEDS ORDERED: TAMS5CAP PO (12:44)
[2017-10-26] MEDS ORDERED: HYDR-3516 PEG (12:44)
[2017-10-26] MEDS ORDERED: AUGM250S2 PEG (12:44)
--- NOTE | 2017-10-26 12:50 | HHI.PR ---
Subjective Remarks Parents says he is feeling well. Denies any chest pain shortness of breath currently. He reports intermittent epigastric pain which is chronic, however none at this time.. Objective Vital Signs Date Time Temp Pulse Resp B/P (MAP) Pulse Ox O2 Delivery O2 Flow Rate FiO2 10/26/17 11:51 97.6 82 18 128/80 (96) 99 10/26/17 11:00 82 10/26/17 10:00 82 10/26/17 09:00 80 10/26/17 08:30 97.9 80 18 130/80 (97) 96 10/26/17 08:00 81 10/26/17 07:00 74 10/26/17 06:00 80 10/26/17 05:25 98.0 78 18 120/76 98 10/26/17 05:00 82 10/26/17 04:22 77 10/26/17 03:06 76 10/26/17 02:50 98.3 78 18 115/72 98 10/26/17 02:49 18 10/26/17 02:34 97.5 77 16 114/73 98 10/26/17 02:00 80 10/26/17 01:00 68 10/26/17 00:00 76 10/26/17 00:00 99.0 79 18 124/76 (92) 99 10/25/17 23:12 77 10/25/17 22:00 78 10/25/17 21:00 74 10/25/17 20:08 78 10/25/17 20:06 98.2 72 16 119/77 (91) 99 10/25/17 19:00 80 10/25/17 18:00 74 10/25/17 17:00 78 10/25/17 16:00 76 10/25/17 15:39 96.6 79 18 118/74 (89) 99 10/25/17 15:00 86 10/25/17 14:00 74 10/25/17 13:00 73 I/O 10/25/17 10/25/17 10/25/17 10/26/17 10/26/17 10/26/17 07:00 15:00 23:00 07:00 15:00 23:00 Intake Total 100 ml 1290 ml 690 ml 100 ml Output Total 400 ml 100 ml Balance -300 ml 1290 ml 590 ml 100 ml Intake Oral 790 ml IV Total 100 ml 100 ml Tube Feeding 400 ml Packed Cells 400 ml Blood Product IV Normal Saline Flush 50 ml Tube Irrigant 100 ml Other 240 ml Output Urine Total 100 ml Stool Total 400 ml # Voids 2 6 # Bowel Movements 2 4 Result Diagram: 10/26/1745 10/26/1745 Objective Remarks GENERAL: Patient sitting up in chair at bedside. Appears comfortable. SKIN: Warm and dry. HEAD: Normocephalic. EYES: No scleral icterus. No injection or drainage. NECK: Supple, trachea midline. No JVD. CARDIOVASCULAR: Regular rate and rhythm without murmurs, gallops, or rubs. RESPIRATORY: Breath sounds equal bilaterally. No accessory muscle use. GASTROINTESTINAL: Abdomen soft, non-tender, nondistended. PEG tube in place without any surrounding erythema or leakage. MUSCULOSKELETAL: No cyanosis, or edema. BACK: Nontender without obvious deformity. No CVA tenderness. A/P Assessment and Plan 62-year-old male admitted secondary to pneumonia and urinary tract infection with neutropenia and thrombocytopenia. Labs reviewed. Potassium is low. Continue to monitor labs. Labs ordered for further monitoring. Potential discharge in 1-2 days. //Suspected aspiration pneumonia Continue vancomycin and cefepime Follow blood cultures Follow sputum culture Monitor for improvement Caution due to immunocompromise = Speech recommends n.p.o. Feeding via PEG tube only. Continue on Augmentin for suspected aspiration pneumonia. //Urinary tract infection Sensitive to cefepime Continue cefepime Follow urine cultures = Continue Augmentin for treatment of multidrug-resistant Klebsiella. Sensitive to Augmentin //Neutropenia Thrombocytopenia Follow CBC Hematology/oncology following Upward trend and platelets today Downward trends in neutrophils = Neutrophils acceptable. Follow-up with oncology as outpatient. //Squamous cell cancer of the tongue Follow with oncology Continue tube feeds //Hypokalemia Monitor and replace as needed //Generalized weakness Physical therapy Nutrition consult //DVT prophylaxis SCDs Discharge Planning Discharge to SNF. Follow-up with oncology as outpatient. Ahsan Hankins MD Oct 26, 2017 12:50
--- NOTE | 2017-10-26 12:54 | HHI.DS ---
Discharge Summary Admission Date Oct 21, 2017 at 18:29 Discharge Date: Oct 26, 2017 Admitting Diagnosis Weakness, cancer patient, pneumonia, dehydration (1) PNA (pneumonia) ICD Code: J18.9 - Pneumonia, unspecified organism (2) UTI (urinary tract infection) ICD Code: N39.0 - Urinary tract infection, site not specified (3) Neutropenia ICD Code: D70.9 - Neutropenia, unspecified (4) Squamous cell cancer of tongue ICD Code: C02.9 - Malignant neoplasm of tongue, unspecified (5) Thrombocytopenia ICD Code: D69.6 - Thrombocytopenia, unspecified Status: Resolved (6) Hypokalemia ICD Code: E87.6 - Hypokalemia (7) Generalized weakness ICD Code: R53.1 - Weakness Procedures No invasive procedures. Brief History - From Admission This is a 62-year-old male with a PMH of 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 Pt poor historian due to speech difficulty, able to nod yes/no. Per report, pt found living in extremely poor conditions, lives alone, difficulty taking care of self. Follows w/ Dr. Newton as outpatient, states he recently started on Chemo approx 1wk ago. On arrival, BP 113/84, HR 104, O2 sat 96% on RA, Afebrile. WBC 1.9. Hemoglobin 11.7. Platelets 118. K= 2.7. Lactic Acid 1.4. INR 1.4. Positive for UTI. CXR with Fufmks-m-Mgfb right atrium, no pneumothorax, patchy acinar infiltrates upper lateral right lung. CT Chest with patchy nodular airspace disease throughout right upper lobe likely pneumonia. S/p Vanc/Zosyn in ER. CBC/BMP: 10/26/17 0545 10/26/17 0545 Significant Findings Laboratory Tests Test 10/24/17 04:40 10/24/17 09:15 10/24/17 12:42 10/24/17 19:42 Red Blood Count 2.75 MIL/MM3 (4.50-5.90) Hemoglobin 8.4 GM/DL (13.0-17.0) Hematocrit 24.7 % (39.0-51.0) Band Neutrophils % 14 % (0-6) Toxic Granulation 2+ (NORMAL) Dohle Bodies PRESENT (NONE SEEN) Blood Urea Nitrogen 20 MG/DL (7-18) Total Protein 4.9 GM/DL (6.4-8.2) Albumin 1.6 GM/DL (3.4-5.0) Calcium Level 7.8 MG/DL (8.5-10.1) Sodium Level 150 MEQ/L (136-145) Potassium Level 2.8 MEQ/L (3.5-5.1) Chloride Level 122 MEQ/L (98-107) Carbon Dioxide Level 20.7 MEQ/L (21.0-32.0) Test 10/25/17 05:30 10/26/17 05:45 10/26/17 12:35 Red Blood Count 2.52 MIL/MM3 (4.50-5.90) 3.04 MIL/MM3 (4.50-5.90) Hemoglobin 7.8 GM/DL (13.0-17.0) 9.1 GM/DL (13.0-17.0) Hematocrit 22.7 % (39.0-51.0) 26.8 % (39.0-51.0) Band Neutrophils % 30 % (0-6) Toxic Granulation 3+ (NORMAL) Platelet Morphology Comment ENLARGED (NORMAL) Total Protein 4.5 GM/DL (6.4-8.2) 4.5 GM/DL (6.4-8.2) Albumin 1.5 GM/DL (3.4-5.0) 1.5 GM/DL (3.4-5.0) Calcium Level 7.6 MG/DL (8.5-10.1) 7.4 MG/DL (8.5-10.1) Aspartate Amino Transf (AST/SGOT) 14 U/L (15-37) 9 U/L (15-37) Potassium Level 3.2 MEQ/L (3.5-5.1) 3.4 MEQ/L (3.5-5.1) Chloride Level 115 MEQ/L (98-107) 112 MEQ/L (98-107) Vancomycin Level Trough 15.8 MCG/ML (5.0-10.0) Imaging Last Impressions Modified Barium Swallow 10/25/17 0000 Signed Impressions: Service Date/Time: Wednesday, October 25, 2017 00:00 - CONCLUSION: Aspiration occurred with thin liquids. Please refer to speech pathology report for further details. Kingsley Limon MD Chest X-Ray 10/21/17 1542 Signed Impressions: Service Date/Time: Saturday, October 21, 2017 16:07 - CONCLUSION: 1. Zpuldc-d-Nlwf catheter tip in right atrium. No evidence of pneumothorax. 2. Interval development of some patchy acinar infiltrates in the upper lateral right lung. Tashi Monique MD Chest CT 10/21/17 0000 Signed Impressions: Service Date/Time: Saturday, October 21, 2017 17:22 - CONCLUSION: 1. Near interval resolution of patchy airspace disease in the left upper lobe. 2. Interval development of patchy nodular airspace disease throughout the right upper lobe. Although this likely reflects pneumonia, consider atypical infection ++/- aspiration. Followup to resolution is recommended. Greg Sanches MD Hospital Course CT on admission with right upper lobe pneumonia likely secondary to aspiration. Speech therapy perform barium swallow which is positive for aspiration. Patient to be made n.p.o. status, only tube feeds via PEG tube. Pneumonia, UTI treated with broad-spectrum antibiotics. UTI is multidrug-resistant Klebsiella , however resistant to Augmentin. Patient will be continued on Augmentin to complete treatment course for aspiration pneumonia as well as UTI. Patient presented with neutropenia neutrophils 1.0. Did receive filgrastim. Appreciate oncology assistance. Follow-up with oncology as outpatient For problem based summary from most recent progress note, please see below. 62-year-old male admitted secondary to pneumonia and urinary tract infection with neutropenia and thrombocytopenia. Labs reviewed. Potassium is low. Continue to monitor labs. Labs ordered for further monitoring. Potential discharge in 1-2 days. //Suspected aspiration pneumonia Continue vancomycin and cefepime Follow blood cultures Follow sputum culture Monitor for improvement Caution due to immunocompromise = Speech recommends n.p.o. Feeding via PEG tube only. Continue on Augmentin for suspected aspiration pneumonia. //Urinary tract infection Sensitive to cefepime Continue cefepime Follow urine cultures = Continue Augmentin for treatment of multidrug-resistant Klebsiella. Sensitive to Augmentin //Neutropenia Thrombocytopenia Follow CBC Hematology/oncology following Upward trend and platelets today Downward trends in neutrophils = Neutrophils acceptable. Follow-up with oncology as outpatient. //Squamous cell cancer of the tongue Follow with oncology Continue tube feeds //Hypokalemia Monitor and replace as needed //Generalized weakness Physical therapy Nutrition consult //DVT prophylaxis SCDs Pt Condition on Discharge: Good Discharge Disposition: Discharge to SNF Discharge Time: > 30 minutes Discharge Instructions DIET: Follow Instructions for: On Tube Feeding Speech Therapy-Diet Recommends: Other Additional Diet Instructions: NPO. tube feeds only. Activities you can perform: Regular-No Restrictions Follow up Referrals: Oncology - 1 Week with Bon Newton MD New Medications: Amoxicillin-Clavulanate Liq (Augmentin Liq) 250-62.5 Mg/5 Ml Susp 875 MG PEG BID for Infection for 6 Days, #200 ML 0 Refills Hydrocodone/Acetaminophen (Hydrocodone-Acetamin 5-325 mg) 5 Mg-325 Mg Tablet 1 TAB PEG Q4H PRN for PAIN SCALE 1 TO 10, #20 TAB Tamsulosin (Flomax) 0.4 Mg Cap 0.4 MG PO DAILY for urination for 30 Days, #30 CAP Discontinued Medications: Morphine ER (Morphine ER) 15 Mg Tab 15 MG PO Q8H for Pain Management, TAB 0 Refills Ahsan Hankins MD Oct 26, 2017 12:54
[2017-10-26 12:57] LABS: BACTERIA, URINE OCC /hpf; BILIRUBIN, URINE NEG (NEG); BLOOD, URINE TRACE (NEG); GLUCOSE,URINE NEG (NEG); HYALINE CAST, URINE 3 /lpf (RARE); KETONE, URINE NEG (NEG); MUCUS URINE FEW /lpf (OCC); NITRITE,URINE NEG (NEG); PH, URINE 5.5 (5.0-8.5); SQUAMOUS EPITHELIAL CELL URINE 1 /hpf (0-5); URINE COLOR YELLOW (YELLW/STRAW); URINE LEUKOCYTE ESTERASE MOD (NEG); WHITE BLOOD CELL CLUMPS RARE
[2017-10-26] MEDS ORDERED: POTASSIUM CHLORIDE 25 MEQ EFFERVESCENT TAB PEG ONE (13:00)
[2017-10-26] MEDS ORDERED: SODIUM CHLORIDE 0.9% FLUSH 10 ML FLUSH IV FLUSH PRN (16:45)
[2017-10-28] MEDS ORDERED: PHARMACY ORDERED LAB ONE (05:45)
== END 2017-10-26 16:50 | DRG 178 ==
LOC: NEPE 15:03 → NEDA 18:29 → HCIN 21:30
PROVIDERS: ADMIT Internal Medicine; ATTEND Internal Medicine
PROC: 30233N1 Transfusion of Nonautologous Red Blood Cells into Peripheral Vein, Percutaneous Approach (ICD-10-PCS; principal; 2017-10-26)
DX: J69.0 Pneumonitis due to inhalation of food and vomit (principal); N39.0 Urinary tract infection, site not specified; D69.6 Thrombocytopenia, unspecified; E46 Unspecified protein-calorie malnutrition; C77.0 Secondary and unspecified malignant neoplasm of lymph nodes of head, face and neck; D70.9 Neutropenia, unspecified; E87.1 Hypo-osmolality and hyponatremia; C01 Malignant neoplasm of base of tongue; B96.1 Klebsiella pneumoniae [K. pneumoniae] as the cause of diseases classified elsewhere; Z68.1 Body mass index [BMI] 19.9 or less, adult; D64.81 Anemia due to antineoplastic chemotherapy; R13.10 Dysphagia, unspecified; E86.0 Dehydration; D63.0 Anemia in neoplastic disease; E87.6 Hypokalemia; G47.00 Insomnia, unspecified; T45.1X5A Adverse effect of antineoplastic and immunosuppressive drugs, initial encounter; Z16.24 Resistance to multiple antibiotics; F17.210 Nicotine dependence, cigarettes, uncomplicated; Z93.1 Gastrostomy status; R00.0 Tachycardia, unspecified
CPT/HCPCS: 36430; 71045; 71250; 74230; 80048; 80053; 80202; 81001; 82550; 83605; 83690; 83735; 83935; 84132; 84300; 84443; 85007; 85025; 85027; 85610; 85730; 86850; 86900; 86901; 86920; 87040; 87077; 87086; 87186; 87493; 93005; 96361; 96365; 96368; J0692; J1442; J1642; J2405; J2543; J3370; J3480; J7030; J7050; J7120; P9016

== ENCOUNTER 2017-11-15 14:27 | Observation (INO) | payer BC ==
[~2017-11-15] VITALS: Ht 162.6 cm; Wt 50.0 kg
[~2017-11-15 14:27] MED LIST changes: +AUGM250S2 PEG; +HYDR-3516 PEG; -MORP1TAB24 PO; +TAMS5CAP PO
[2017-11-15 14:49] VITALS: BP 113/63; PULSE 88; RESP 18; TEMP 99.4; O2SAT 100
[2017-11-15 17:33] LABS: BICARBONATE 22.3 MEQ/L (21.0-32.0); CALCIUM 8.2 MG/DL (8.5-10.1); CREATININE 0.71 MG/DL (0.60-1.30)
[2017-11-15 18:39] VITALS: BP 131/70; PULSE 98; RESP 17; O2SAT 100
--- NOTE | 2017-11-15 19:16 | PD ---
HPI Chief Complaint: Contract Consultant Problem Time Seen by Provider: 19:11 Travel History International Travel<30 days: No Contact w/Intl Traveler<30days: No Traveled to known affect area: No History of Present Illness HPI The patient is a 62 year old male who presents to the [facility] emergency department with a history of accidentally pulling his feeding tube out at 2PM today. He has had the tube in place for 2 weeks. He was sitting on the toilet and stood up when the tube got caught on the toilet. He is currently on chemotherapy by pump daily from Tuesday through Tuesday and currently has it on and infusing. He receives 1 jug of tube feeding every 3 hours while awake.He is also taking some fluids by mouth now. Additionally, he reports that he developed abdominal aching in the left lower quadrant this AM. Initially, the pain was in bilateral lower quadrants of the abdomen and then settled into the left lower quadrant. He reports that it has been constant since onset. He denies having any nausea or vomiting, however he does report having problems with diarrhea mainly on his chemotherapy. He reports that the diarrhea has improved and now his stools are more constipated. He last moved his bowels earlier today. He denies having any blood in his stool or black or tarry stools. On review of systems, he denies any fevers, cough, congestion, neck pain, chest pain, shortness of breath, new urinary symptoms, or neurologic symptoms. He reports sometimes having dysuria and difficulty urinating that has been ongoing for an extended period of time. [facility] Past Medical History Narrative Medical The patient's past medical history is significant for a locally advanced carcinoma of the tongue managed by and currently on chemotherapy. He denies having radiation therapy or any surgery for resection. Cancer: Yes (TONGUE AND NECK CA) Cardiovascular Problems: No Chemotherapy: Yes Diabetes: No Endocrine: No Gastrointestinal Disorders: No Genitourinary: No Hepatitis: No Immune Disorder: No Musculoskeletal: No Neurologic: No Psychiatric: No Reproductive: No Respiratory: No Immunizations Current: No Thyroid Disease: No Tetanus Vaccination: > 5 Years Influenza Vaccination: Yes Past Surgical History Narrative Surgical The patient's past surgical history is significant for feeding tube placement and a tonsillectomy. Abdominal Surgery: Yes (Peg tube placement) AICD: No Joint Replacement: No Oral Surgery: Yes (TONSILS REMOVED) Pacemaker: No Tonsillectomy: Yes Other Surgery: Yes Social History Alcohol Use: Yes (DAILY) Tobacco Use: Yes (1 PPD) Substance Use: No Allergies-Medications (Allergen,Severity, Reaction): Coded Allergies: No Known Allergies (Unverified , 11/15/17) Reported Meds & Prescriptions Reported Meds & Active Scripts Active Active Prescriptions or Reported Medications Unobtainable Review of Systems Except as stated in HPI: all other systems reviewed are Neg General / Constitutional: No: Fever Eyes: No: Visual changes HENT: No: Headaches Cardiovascular: No: Chest Pain or Discomfort Respiratory: No: Shortness of Breath Gastrointestinal: Positive: Diarrhea, Abdominal Pain, Constipation, Changes in Bowel Habits, No: Nausea, Vomiting, Hematemesis, Hematochezia, Indigestion, Loss of Appetite Genitourinary: No: Dysuria Musculoskeletal: No: Pain Skin: No Rash Neurologic: No: Weakness Psychiatric: No: Depression Endocrine: No: Polydipsia Hematologic/Lymphatic: No: Easy Bruising Physical Exam Narrative General: The patient is a well-developed cachectic appearing male in no acute distress. Head and Neck exam: Head is normocephalic atraumatic. Eyes: EOMI, pupils are equal round and reactive to light. Nose: Midline septum with pink mucous membranes Mouth: The patient has poor dentition throughout his mouth. No abscess formation. The patient has a irregularly-shaped tongue on exam. Moist mucus membranes. Posterior oropharynx is not erythematous. No tonsillar hypertrophy. Uvula midline. Airway patent. Neck: No palpable lymphadenopathy. No nuchal rigidity. No thyromegaly. Cardiovascular: Regular rate and rhythm without murmurs, gallops, or rubs. Lungs: Clear to auscultation bilaterally. No wheezes, rhonchi, or rales. Abdomen: Soft, with reported tenderness on palpation along the left lower quadrant of the abdomen and suprapubic area. The patient has a bandage in place in the left upper quadrant of the abdomen that was gently removed. A stoma is noted that is quite small which was the site of his PEG tube that was accidentally removed. No guarding, rebound, or rigidity. Normal bowel sounds are audible. No tenderness on palpation of McBurney's point. Negative Goldberg sign. Extremities: No clubbing, cyanosis, or edema. 2+ pulses in all 4 extremities. No calf tenderness on palpation. Back: No costovertebral angle tenderness to palpation. Neurologic Exam: Grossly nonfocal. Skin Exam: No rash noted. Intact skin that is warm and dry. Data Data Last Documented VS Vital Signs Date Time Temp Pulse Resp B/P (MAP) Pulse Ox O2 Delivery O2 Flow Rate FiO2 11/15/17 20:23 75 18 140/80 (100) 100 Room Air 11/15/17 14:49 99.4 Orders Orders Complete Blood Count With Diff (11/15/17 14:51) Basic Metabolic Panel (Bmp) (11/15/17 14:51) Coag Profile (11/15/17 14:51) Urinalysis - C+S If Indicated (11/15/17 19:29) Ct Abd/Pel W Iv Contrast(Rout) (11/15/17 19:29) Sodium Chlorid 0.9% 500 Ml Inj (Ns 500 M (11/15/17 20:45) Blood Culture (11/15/17 20:49) Lactic Acid Sepsis Protocol (11/15/17 20:49) Piperacil-Tazo 3.375 Gm Premix (Zosyn 3. (11/15/17 21:00) Vancomycin Inj (Vancomycin Inj) (11/15/17 21:00) Chest, Single Ap (11/15/17 21:09) Admit Order (Ed Use Only) (11/15/17 22:53) Labs Laboratory Tests Test 11/15/17 16:30 11/15/17 19:30 11/15/17 19:55 11/15/17 21:10 Blood Urea Nitrogen 21 MG/DL Creatinine 0.71 MG/DL Random Glucose 111 MG/DL Calcium Level 8.2 MG/DL Sodium Level 134 MEQ/L Potassium Level 4.6 MEQ/L Chloride Level 103 MEQ/L Carbon Dioxide Level 22.3 MEQ/L Anion Gap 9 MEQ/L Estimat Glomerular Filtration Rate 112 ML/MIN Urine Color LIGHT-YELLOW Urine Turbidity CLEAR Urine pH 6.5 Urine Specific [place] 1.012 Urine Protein NEG mg/dL Urine Glucose (UA) NEG mg/dL Urine Ketones NEG mg/dL Urine Occult Blood NEG Urine Nitrite NEG Urine Bilirubin NEG Urine Urobilinogen LESS THAN 2.0 MG/DL Urine Leukocyte Esterase MOD Urine RBC 1 /hpf Urine WBC 3 /hpf Urine Squamous Epithelial Cells 1 /hpf Urine Bacteria RARE /hpf Microscopic Urinalysis Comment CULT NOT INDICATED White Blood Count 19.0 TH/MM3 Red Blood Count 2.63 MIL/MM3 Hemoglobin 8.1 GM/DL Hematocrit 24.3 % Mean Corpuscular Volume 92.5 FL Mean Corpuscular Hemoglobin 30.9 PG Mean Corpuscular Hemoglobin Concent 33.4 % Red Cell Distribution Width 19.4 % Platelet Count 457 TH/MM3 Mean Platelet Volume 7.3 FL Neutrophils (%) (Auto) 92.0 % Lymphocytes (%) (Auto) 6.5 % Monocytes (%) (Auto) 1.1 % Eosinophils (%) (Auto) 0.0 % Basophils (%) (Auto) 0.4 % Neutrophils # (Auto) 17.5 TH/MM3 Lymphocytes # (Auto) 1.2 TH/MM3 Monocytes # (Auto) 0.2 TH/MM3 Eosinophils # (Auto) 0.0 TH/MM3 Basophils # (Auto) 0.1 TH/MM3 CBC Comment DIFF FINAL Differential Comment Prothrombin Time 10.5 SEC Prothromb Time International Ratio 1.0 RATIO Activated Partial Thromboplast Time 21.9 SEC Lactic Acid Level 2.2 mmol/L MDM Medical Decision Making Medical Screen Exam Complete: Yes Emergency Medical Condition: Yes Medical Record Reviewed: Yes Interpretation(s) Last Impressions Chest X-Ray 11/15/172108 Signed Impressions: Service Date/Time: Wednesday, November 15, 2017 21:21 - CONCLUSION: 1. Improved bilateral airspace disease. Right Odaxhz-n-Vxcm tip in right atrium. Yogesh Ojeda MD Abdomen/Pelvis CT 11/15/[id number] Signed Impressions: Service Date/Time: Wednesday, November 15, 2017 21:56 - CONCLUSION: 1. No acute findings. No free air or free fluid. 2. 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 3. Colonic diverticulosis. Mild constipation. Yogesh Oejda MD Differential Diagnosis Urinary tract infection, versus diverticulitis, versus colitis, versus constipation, versus kidney stone, versus accidental feeding tube dislodgment Narrative Course During the course of the patient's emergency department visit, the patient's history, examination, and differential diagnosis were reviewed with the patient. The patient was placed on a scrap sorter with oximetry and frequent blood pressure monitoring. The patient had IV access obtained and blood work sent for analysis. The patient had an 18 Cuban feeding tube that he provided that was accidentally removed and is at the bedside. A replacement tube at the same size was obtained. This was unable to be passed. A 16 Cuban Vazquez was also attempted, however this was unable to pass through the stoma, a final attempt was made with a 14 coud which could also not be passed. This is likely related to the length of time since the feeding tube was accidentally dislodged and the fact that this is a recently placed feeding tube. The patient was initially provided normal saline 500 mL bolus 1. The patient's laboratory studies were reviewed and remarkable for a white count of 19, hemoglobin 8.1, platelets 457 with 92 neutrophils, lymphocytes 6.5. This leukocytosis is new compared to yesterday when he had a white blood cell count of 11.3. Given the leukocytosis, current immunocompromise state as he is on chemotherapy, and abdominal pain the patient was covered with broad-spectrum antibiotic to include Zosyn 3.375 g IV, vancomycin 1 g IV. Hemoglobin yesterday as an outpatient was 8.5, therefore his anemia is stable, basic metabolic profile is remarkable for sodium of 134, BUN 21, glucose 111, lactic acid is elevated at 2.2. The patient will be given a second normal saline IV fluid bolus of 500 mL. PT 10.5, PTT 21.9. Urinalysis shows moderate leukocyte esterase 1 RBC WBC 3, rare bacteria, culture not indicated. Radiology studies were reviewed and remarkable for a chest x-ray that shows improved bilateral airspace disease, right Jhocmc-i-Jdqf tip in right atrium. CT scan of the abdomen and pelvis shows no acute findings, no free air or free fluid, stable mild aneurysmal dilatation of the right common iliac artery to about 2 cm, colonic diverticulosis, mild constipation. The patient's results were discussed with the patient, including the plan of care. I explained that further testing and/ or monitoring is indicated based on the patient's history, examination, and/ or laboratory findings. Therefore, I recommended admission for additional evaluation. The patient expressed understanding and was agreeable with this plan. The patient was admitted to the hospital in stable condition and sent to a bed under the care of the [facility] service Sepsis Criteria SIRS Criteria (2 or more): Heart rate over 90, WBC > 85345, < 4000 or > 10% bands Severe Sepsis (+one): Lactate >2 Physician Communication Physician Communication The patient's case including history, pertinent physical examination findings, and laboratory studies were discussed with . It was agreed that the patient would be admitted to the [facility] service. Diagnosis Primary Impression: Leukocytosis Qualified Codes: D72.829 - Elevated white blood cell count, unspecified Additional Impressions: Immunocompromised state Abdominal pain Qualified Codes: R10.32 - Left lower quadrant pain Constipation Qualified Codes: K59.00 - Constipation, unspecified Complication of feeding tube Admitting Information Admitting Physician Requests: Observation Scripts Unable to Obtain Active Prescriptions or Reported Meds Geno Lopez MD Nov 15, 2017 19:16
[2017-11-15 20:23] VITALS: BP 140/80; PULSE 75; RESP 18; O2SAT 100
[2017-11-15 20:24] LABS: BACTERIA, URINE RARE /hpf; BILIRUBIN, URINE NEG (NEG); BLOOD, URINE NEG (NEG); GLUCOSE,URINE NEG (NEG); KETONE, URINE NEG (NEG); NITRITE,URINE NEG (NEG); PH, URINE 6.5 (5.0-8.5); SQUAMOUS EPITHELIAL CELL URINE 1 /hpf (0-5); URINE COLOR LIGHT-YELLOW (YELLW/STRAW); URINE LEUKOCYTE ESTERASE MOD (NEG)
[2017-11-15 20:42] LABS: AUTOMATED NEUTROPHIL # 17.5 TH/MM3 (1.8-7.7); BASOPHIL # 0.1 TH/MM3 (0-0.2); BASOPHIL % 0.4 % (0.0-2.0); HEMATOCRIT 24.3 % (39.0-51.0); HEMOGLOBIN 8.1 GM/DL (13.0-17.0); LYMPH % 6.5 % (9.0-44.0); LYMPHOCYTE # 1.2 TH/MM3 (1.0-4.8); MEAN CELL VOLUME 92.5 FL (80.0-100.0); MEAN CORPUSCULAR HEMOGLOBIN 30.9 PG (27.0-34.0); MEAN CORPUSCULAR HGB CONC 33.4 % (32.0-36.0); MEAN PLATELET VOLUME 7.3 FL (7.0-11.0); MONO % 1.1 % (0.0-8.0); MONOCYTE # 0.2 TH/MM3 (0-0.9); PLATELET COUNT 457 TH/MM3 (150-450); RED BLOOD COUNT 2.63 MIL/MM3 (4.50-5.90); RED CELL DISTRIBUTION WIDTH 19.4 % (11.6-17.2)
[2017-11-15] MEDS ORDERED: SODIUM CHLORID 0.9% 500 ML INJ 500 ML IV ONE ×2 (20:45→23:15)
[2017-11-15 20:54] LABS: PROTHROMBIN TIME - PATIENT 10.5 SEC (9.8-11.6)
[2017-11-15] MEDS ORDERED: PIPERACIL-TAZO 3.375 GM PREMIX 50 ML IV ONE (21:00)
[2017-11-15] MEDS ORDERED: VANCOMYCIN INJ 1,000 MG in SODIUM CHLOR 0.9% 250 ML INJ 250 ML IV ONE (21:00)
--- NOTE | 2017-11-15 22:07 | RADRPT ---
EXAM DATE/TIME: 11/15/2017 21:21 [facility] COMPARISON: CT THORAX W/O CONTRAST, October 21, 2017, 17:22. INDICATIONS : Cough. MEDICAL HISTORY : Carcinoma, oral cavity. ETOH SURGICAL HISTORY : Peg tube, Infusaport ENCOUNTER: Initial ACUITY: 1 day PAIN SCORE: 3/10 LOCATION: Bilateral chest FINDINGS: Previous patchy right upper lobe airspace disease has improved. No new infiltrate or effusion. Infuse -a-Port tip in right atrium. CONCLUSION: 1. Improved bilateral airspace disease. Right Ovvwfs-p-Srtj tip in right atrium. Yogesh Ojeda MD on November 15, 2017 at 22:03 Board Certified Radiologist. This report was verified electronically.
[2017-11-15 22:27] LABS: LACTIC ACID SEPSIS PROTOCOL 2.2 mmol/L (0.4-2.0)
--- NOTE | 2017-11-15 22:38 | RADRPT ---
EXAM DATE/TIME: 11/15/2017 21:56 [facility] COMPARISON: CT ABDOMEN & PELVIS W CONTRAST, September 01, 2017, 9:00. INDICATIONS : Abdomen pain after peg tube pulled out. IV CONTRAST: 90 cc Omnipaque 350 (iohexol) IV ORAL CONTRAST: No oral contrast ingested. RADIATION DOSE: 6.64 CTDIvol (mGy) MEDICAL HISTORY : Carcinoma, not otherwise specified. Chemo SURGICAL HISTORY : Peg tube ENCOUNTER: Initial ACUITY: 1 day PAIN SCALE: 4/10 LOCATION: Bilateral abdomen TECHNIQUE: Volumetric scanning of the abdomen and pelvis was performed. Using automated exposure control and ad justment of the mA and/or kV according to patient size, radiation dose was kept as low as reasonably achievable to obtain optimal diagnostic quality images. DICOM format image data is available electro nically for review and comparison. FINDINGS: There is deformity of the left lower anterior chest wall which is similar to September 01. Lung bases ar e clear. No acute findings in the liver, spleen, adrenals, kidneys or pancreas. No calcified gallstones. There is mild constipation. Stable mild aneurysmal dilatation of the right common iliac artery since September 01. No free fluid. No bowel obstruction. Adenopathy. Colonic diverticula noted. CONCLUSION: 1. No acute findings. No free air or free fluid. 2. 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 3. Colonic diverticulosis. Mild constipation. Yogesh Ojeda MD on November 15, 2017 at 22:33 Board Certified Radiologist. This report was verified electronically.
[2017-11-15] MEDS ORDERED: IOHEXOL 350 MG/ML 50 ML BTL (for RAD DIAG) G-TUBE ONE (22:57)
[2017-11-15] MEDS ORDERED: NALOXONE HCL 0.4 MG/ML AMP IV PUSH PRN (23:15)
[2017-11-15] MEDS ORDERED: SODIUM CHLORIDE 0.9% FLUSH 10 ML FLUSH IV FLUSH PRN (23:15)
[2017-11-15] MEDS ORDERED: IOHEXOL 350 MG/ML 10 ML VIAL (for RAD DIAG) IVCONTRAST ONE (23:16)
[2017-11-15 23:41] VITALS: BP 125/74; PULSE 72; RESP 16; O2SAT 100
[2017-11-16] VITALS (9 sets, daily range): BP systolic 118–136; BP diastolic 73–88; PULSE 62–84; RESP 16–20; TEMP 97.8–98.4; O2SAT 97–99
--- NOTE | 2017-11-16 04:16 | HHI.HP ---
[facility] Service [facility] Primary Care Physician Bon Newton MD Admission Diagnosis Feeding tube dislodgement, abdominal pain, leukocytosis Diagnoses: (1) Complication of feeding tube Chief Complaint: dislodged PEG tube Travel History International Travel<30 Days: No Contact w/Intl Traveler <30 Da: No Traveled to Known Affected Are: No History of Present Illness Mr. Barron is a 62 y/o male with a history of locally advanced carcinoma of the tongue presents to the ER on 11/15/17 for evaluation after his PEG tube accidentally got caught on something and became dislodge when he stood up after using the toilet. He is admitted to the hospitalist team for medical management. The patient is seen in the CDU. He denies pain, fever, chills, SOB, cough, abdominal pain, nausea, or vomiting during my visit. He is eager to get his PEG tube replaced so that he may return home. Patient states he was treated for pneumonia about 2 weeks ago. He states he is having no trouble breathing, no cough, and doesn't feel poorly. He says he felt poorly after initiation of chemotherapy about 3 weeks ago but went to a rehabilitation center and has been feeling strong since. Review of Systems Except as stated in HPI: all other systems reviewed are Neg Past Family Social History Past Medical History Locally advanced carcinoma of the tongue being treated with chemotherapy with radiation planned after Denies diabetes mellitus, hypertension, thyroid dysfunction, bleeding problems, depression, anxiety, CVA, seizures, arthritis, heart problems, abnormal heart rhythms, COPD, or asthma . Past Surgical History PEG tube placed 2 weeks ago Chest port placement Tonsillectomy . Reported Medications Reported Meds & Active Scripts Active Active Prescriptions or Reported Medications Unobtainable Allergies: Coded Allergies: No Known Allergies (Unverified , 11/15/17) Family History No known family history of cancer -"maybe an uncle" but patient is not entirely sure Social History Tobacco: Smokes 1 pack per day for many years Alcohol: Drinks 4 drinks 3 to 4 days per week -denies history of alcohol withdrawal or any seizures Illicit Drugs: Denies . Physical Exam Vital Signs Vital Signs Date Time Temp Pulse Resp B/P (MAP) Pulse Ox O2 Delivery O2 Flow Rate FiO2 11/16/17 02:38 11/15/17 23:41 72 16 125/74 (91) 100 Room Air 11/15/17 20:23 75 18 140/80 (100) 100 Room Air 11/15/17 18:39 98 17 131/70 (90) 100 11/15/17 18:23 82 18 100 Room Air 11/15/17 14:49 99.4 88 18 113/63 (80) 100 Physical Exam GENERAL: This is an unkempt but cooperative male patient, in no apparent distress. SKIN: No rashes. Cool and dry. HEAD: Atraumatic. Normocephalic. EYES: No scleral icterus. No injection or drainage. ENT: Nose without bleeding, purulent drainage. Pale tongue with some dark discoloration. No significant mass seen. NECK: Soft large mass palpated left sternocleidomastoid area. CARDIOVASCULAR: Regular rate and rhythm without murmurs, gallops, or rubs. RESPIRATORY: Clear to auscultation. Breath sounds equal bilaterally. No wheezes , rales, or rhonchi. GASTROINTESTINAL: Abdomen soft, non-tender, nondistended. No guarding. Dressing to left upper quadrant; clean and dry. Did not remove to inspect PEG hole. MUSCULOSKELETAL: Extremities without clubbing, cyanosis, or edema. No calf tenderness. NEUROLOGICAL: Awake and alert. Motor and sensory grossly within normal limits. Minimal speech impairment. . Laboratory Laboratory Tests Test 11/15/17 16:30 11/15/17 19:30 11/15/17 19:55 11/15/17 21:10 Blood Urea Nitrogen 21 Creatinine 0.71 Random Glucose 111 Calcium Level 8.2 Sodium Level 134 Potassium Level 4.6 Chloride Level 103 Carbon Dioxide Level 22.3 Anion Gap 9 Estimat Glomerular Filtration Rate 112 Urine Color LIGHT-YELLOW Urine Turbidity CLEAR Urine pH 6.5 Urine Specific [place] 1.012 Urine Protein NEG Urine Glucose (UA) NEG Urine Ketones NEG Urine Occult Blood NEG Urine Nitrite NEG Urine Bilirubin NEG Urine Urobilinogen LESS THAN 2.0 Urine Leukocyte Esterase MOD Urine RBC 1 Urine WBC 3 Urine Squamous Epithelial Cells 1 Urine Bacteria RARE Microscopic Urinalysis Comment CULT NOT INDICATED White Blood Count 19.0 Red Blood Count 2.63 Hemoglobin 8.1 Hematocrit 24.3 Mean Corpuscular Volume 92.5 Mean Corpuscular Hemoglobin 30.9 Mean Corpuscular Hemoglobin Concent 33.4 Red Cell Distribution Width 19.4 Platelet Count 457 Mean Platelet Volume 7.3 Neutrophils (%) (Auto) 92.0 Lymphocytes (%) (Auto) 6.5 Monocytes (%) (Auto) 1.1 Eosinophils (%) (Auto) 0.0 Basophils (%) (Auto) 0.4 Neutrophils # (Auto) 17.5 Lymphocytes # (Auto) 1.2 Monocytes # (Auto) 0.2 Eosinophils # (Auto) 0.0 Basophils # (Auto) 0.1 CBC Comment DIFF FINAL Differential Comment Prothrombin Time 10.5 Prothromb Time International Ratio 1.0 Activated Partial Thromboplast Time 21.9 Lactic Acid Level 2.2 Test 11/16/17 00:10 Lactic Acid Level 2.0 Date/Time Source Procedure Growth Status 11/15/17 21:20 Blood Peripheral Aerobic Blood Culture Pending Received 11/15/17 21:20 Blood Peripheral Anaerobic Blood Culture Pending Received Result Diagram: 11/15/17195411/15/17 163 Imaging Last Impressions Chest X-Ray 11/15/172108 Signed Impressions: Service Date/Time: Wednesday, November 15, 2017 21:21 - CONCLUSION: 1. Improved bilateral airspace disease. Right [id number]-[id number] tip in right atrium. Yogesh Ojeda MD Abdomen/Pelvis CT 11/15/171928 Signed Impressions: Service Date/Time: Wednesday, November 15, 2017 21:56 - CONCLUSION: 1. No acute findings. No free air or free fluid. 2. 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 3. Colonic diverticulosis. Mild constipation. Yogesh Ojeda MD Caprini VTE Risk Assessment Caprini VTE Risk Assessment: Mod/High Risk (score >= 2) Caprini Risk Assessment Model Point Value = 1 Point Value = 2 Point Value = 3 Point Value = 5 Age 41-60 Minor surgery BMI > 25 kg/m2 Swollen legs Varicose veins or History of unexplained or recurrent spontaneous Oral contraceptives or hormone replacement Sepsis (< 1 month) Serious lung disease, including pneumonia (< 1 month) Abnormal pulmonary function Acute myocardial infarction Congestive heart failure (< 1 month) History of inflammatory bowel disease Medical patient at bed rest Age 61-74 Arthroscopic surgery Major open surgery (> 45 min) Laparoscopic surgery (> 45 min) Malignancy Confined to bed (> 72 hours) Immobilizing plaster cast Central venous access Age >= 75 History of VTE Family history of VTE Factor V Leiden Prothrombin [id number] Lupus anticoagulant Anticardiolipin antibodies Elevated serum homocysteine Heparin-induced thrombocytopenia Other congenital or acquired thrombophilia Stroke (< 1 month) Elective arthroplasty Hip, pelvis, or leg fracture Acute spinal cord injury (< 1 month) Prophylaxis Regimen Total Risk Factor Score Risk Level Prophylaxis Regimen 0-1 Low Early ambulation 2 Moderate Order ONE of the following: *Sequential Compression Device (SCD) *Heparin 5000 units SQ BID 3-4 Higher Order ONE of the following medications: *Heparin 5000 units SQ TID *Enoxaparin/Lovenox 40 mg SQ daily (WT < 150 kg, CrCl > 30 mL/min) *Enoxaparin/Lovenox 30 mg SQ daily (WT < 150 kg, CrCl > 10-29 mL/min) *Enoxaparin/Lovenox 30 mg SQ BID (WT < 150 kg, CrCl > 30 mL/min) AND/OR *Sequential Compression Device (SCD) 5 or more Highest Order ONE of the following medications: *Heparin 5000 units SQ TID (Preferred with Epidurals) *Enoxaparin/Lovenox 40 mg SQ daily (WT < 150 kg, CrCl > 30 mL/min) *Enoxaparin/Lovenox 30 mg SQ daily (WT < 150 kg, CrCl > 10-29 mL/min) *Enoxaparin/Lovenox 30 mg SQ BID (WT < 150 kg, CrCl > 30 mL/min) AND *Sequential Compression Device (SCD) Assessment and Plan Problem List: (1) Complication of feeding tube ICD Code: K94.23 - Gastrostomy malfunction Status: Acute Assessment and Plan PEG tube dislodged accidentally -Denies abdominal pain at the time of my visit -Abdomen/pelvis CT with no acute findings, no free air or fluid, stable mild aneurysmal dilatation of the right common iliac artery of approximately 2 cm, mild constipation, colonic diverticulosis -consult invasive radiology for replacement -NPO except meds Leukocytosis Immunocompromised patient -CXR shows improved bilateral airspace disease- resolving pneumonia? - Cefepime 2gm IV q8h - repeat CBC and follow results -consult medical oncology; appreciate recommendations Constipation -Mild constipation noted on abdomen/pelvis CT -Betsy-Colace twice a day -As needed constipation medication protocol -Monitor Tobacco abuse -Counseled regarding deleterious health effects of smoking cigarettes -strongly advised cessation DVT prophylaxis - SCDs/TEDs Discussed Condition With Dr. May, RN, and patient Haylee Eric Genesis WHITFIELD Nov 16, 2017 04:16
[2017-11-16] MEDS ORDERED: MAGNESIUM HYDROXIDE SUSP 30 ML CUP PO PRN (06:00)
[2017-11-16] MEDS ORDERED: BISACODYL 10 MG SUPP RECTAL PRN (06:00)
[2017-11-16] MEDS ORDERED: SENNOSIDES 8.6 MG TAB PO PRN (06:00)
[2017-11-16] MEDS: CEFEPIME INJ 2,000 MG in SODIUM CHLORIDE 0.9% INJ 100 ML IV SCH ×3 (06:03→21:31)
--- NOTE | 2017-11-16 08:44 | HHI.PR ---
Subjective Remarks Follow up for dislodged PEG tube, leukocytosis. The patient is seen ambulating his room. He has no specific medical complaints including no fever/chills, cough , congestion, chest pain, shortness of breath, abdominal pain, nausea/vomiting, diarrhea, or urinary complaints. He simply wants his PEG replaced and wants to go home. His oncologist is Dr. Newton. Vital signs reviewed and stable. Objective Vitals Vital Signs Date Time Temp Pulse Resp B/P (MAP) Pulse Ox O2 Delivery O2 Flow Rate FiO2 11/16/17 08:18 98.2 84 18 134/80 (98) 99 11/16/17 06:11 98.2 83 18 119/77 (91) 99 11/16/17 02:38 11/15/17 23:41 72 16 125/74 (91) 100 Room Air 11/15/17 20:23 75 18 140/80 (100) 100 Room Air 11/15/17 18:39 98 17 131/70 (90) 100 11/15/17 18:23 82 18 100 Room Air 11/15/17 14:49 99.4 88 18 113/63 (80) 100 I/O 11/15/17 11/15/17 11/15/17 11/16/17 11/16/17 11/16/17 07:00 15:00 23:00 07:00 15:00 23:00 Intake Total 50 ml 250 ml Balance 50 ml 250 ml Intake IV Total 50 ml 250 ml # Voids 1 Result Diagram: 11/15/17195411/15/17 1630 Imaging Last Impressions Chest X-Ray 11/15/172108 Signed Impressions: Service Date/Time: Wednesday, November 15, 2017 21:21 - CONCLUSION: 1. Improved bilateral airspace disease. Right Nuwyoj-u-Tbca tip in right atrium. Yogesh Ojeda MD Abdomen/Pelvis CT 11/15/171928 Signed Impressions: Service Date/Time: Wednesday, November 15, 2017 21:56 - CONCLUSION: 1. No acute findings. No free air or free fluid. 2. 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 3. Colonic diverticulosis. Mild constipation. Yogesh Ojeda MD Objective Remarks GENERAL: Well-nourished, well-developed pleasant middle aged male patient in [facility]. SKIN: Warm and dry. No rash. Port. HEENT: Normocephalic. Atraumatic.Pupils equal and round. Mucous membranes pink and moist. CARDIOVASCULAR: Regular rate and rhythm. No murmur appreciated. RESPIRATORY: No accessory muscle use. Clear to auscultation. Breath sounds equal bilaterally. GASTROINTESTINAL: Abdomen soft, non-tender, nondistended. Normoactive bowel sounds x4. MUSCULOSKELETAL: No obvious deformities. Extremities without clubbing, cyanosis , or edema. NEUROLOGICAL: Awake and alert. No obvious cranial nerve deficits. Motor grossly within normal limits. Normal speech. PSYCHIATRIC: Appropriate mood and affect; insight and judgment normal. Medications and IVs Current Medications Medications (Trade) Dose Ordered Sig/Shaila Route Start Time Stop Time Status Last Admin (NS Flush) 2 ml UNSCH PRN IV FLUSH 11/15/17 23:15 (NS Flush) 2 ml BID IV FLUSH 11/16/17 09:00 11/16/17 11:01 (Narcan Inj) 0.4 mg UNSCH PRN IV PUSH 11/15/17 23:15 Cefepime HCl 2000 mg/Sodium Chloride 100 ml @ 200 mls/hr Q8H IV 11/16/17 06:00 11/16/17 06:03 (Betsy-Colace) 1 tab BID PO 11/16/17 09:00 11/16/17 10:58 (Milk Of Magnesia Liq) 30 ml Q12H PRN PO 11/16/17 06:00 (Senokot) 17.2 mg Q12H PRN PO 11/16/17 06:00 (Dulcolax Supp) 10 mg DAILY PRN RECTAL 11/16/17 06:00 A/P Problem List: (1) Complication of feeding tube ICD Code: K94.23 - Gastrostomy malfunction Status: Acute Assessment and Plan 62 y/o male with a history of locally advanced carcinoma of the tongue presents to the ER on 11/15/17 after his PEG tube accidentally dislodged Accidental PEG tube dislodgement: Denies any abdominal pain. -Abdomen/pelvis CT with no acute findings, no free air or fluid, stable mild aneurysmal dilatation of the right common iliac artery of approximately 2 cm, mild constipation, colonic diverticulosis -consult invasive radiology for replacement -NPO for now Leukocytosis in a patient on Chemotherapy: unclear etiology -CXR shows improved bilateral airspace disease- resolving pneumonia? -Continue on Cefepime 2gm IV q8h for now -repeat CBC and follow results -consult medical oncology; appreciate recommendations Constipation -Mild constipation noted on abdomen/pelvis CT -Betsy-Colace twice a day -As needed constipation medication protocol -Monitor Tobacco abuse -Counseled regarding deleterious health effects of smoking cigarettes -strongly advised cessation DVT prophylaxis - SCDs/TEDs Discharge Planning Possible discharge after PEG tube replacement, if patient cleared by oncology. Nadira iGl PA-C Nov 16, 2017 8:44 am
[2017-11-16] MEDS: DOCUSATE SODIUM 50 MG/SENNA 8.6 MG TAB PO SCH ×2 (10:58→21:30)
[2017-11-16] MEDS: SODIUM CHLORIDE 0.9% FLUSH 10 ML FLUSH IV FLUSH SCH ×2 (11:01→21:00)
[2017-11-16] MEDS ORDERED: MIDAZOLAM HCL 2 MG/2 ML VIAL ONE (12:07)
--- NOTE | 2017-11-16 12:30 | HHI.DCPOC ---
Discharge Care Plan Diagnosis: (1) Dislodged gastrostomy tube (2) Leukocytosis (3) Squamous cell cancer of tongue Goals to Promote Your Health * To prevent worsening of your condition and complications * To maintain your health at the optimal level Directions to Meet Your Goals Take your medications as prescribed Follow your dietary instruction Follow activity as directed Keep your appointments as scheduled Take your immunizations and boosters as scheduled If your symptoms worsen call your PCP, if no PCP go to Urgent Care Center or Emergency Room Smoking is Dangerous to Your Health. Avoid second hand smoke Call the 24-hour hour crisis hotline for domestic abuse at Nadira Gil PA-C Nov 16, 2017 12:30 pm
--- NOTE | 2017-11-16 13:23 | RADRPT ---
EXAM DATE/TIME: 11/16/2017 12:29 [facility] COMPARISON: No previous studies available for comparison. INDICATIONS : Patient exsiting G tube pulled out. Needs to be replaced. MEDICAL HISTORY : 1. Tongue and throat cancer 2.smoker SURGICAL HISTORY : 1. Peg tube placement 2. tonsillectomy ENCOUNTER: Initial ACUITY: 2 days PAIN SCORE: 0/10 FLUORO TIME: 0.9 minutes IMAGE SERIES: 1 SEDATION TIME: 30 minutes CONTRAST: 20 cc Omnipaque (iohexol) 350 MEDICATION(S): 1.) 2 mg midazolam (Versed) IV 2.) 100 mcg Fentanyl (Sublimaze) IV DEVICE(S): 1.) 18 Fr gastrostomy tube PROCEDURE : 1. Fluoroscopically guided gastrostomy tube replacement. 2. Conscious sedation with continuous EKG and oximetry monitoring. The risks, benefits and alternatives to the procedure were explained and verbal and written consent w as obtained. The site was prepped in sterile fashion. Full sterile technique was used, including ca p, mask, sterile gloves and gown and a large sterile sheet. Hand hygiene and 2% chlorhexidine and/or betadine/alcohol prep was utilized per protocol for cutaneous antisepsis. The skin and subcutaneous tissues were infiltrated with local anesthetic solution. A 4 [place]an dilator was advanced through the previous gastrostomy tract and into the stomach with the assistance of a Glidewire. This was confirmed a small amount of contrast. The tract was dilated. The gastrostomy tube was introduced through a peel-away sheath. The position was confirmed with an injec tion of contrast. Conscious sedation was performed with the prescribed dosages and duration as above in the presence of an independent trained radiology nurse to assist in the monitoring of the patient. EKG and oximetry remained stable throughout the procedure. The patient tolerated the procedure well and there were n o complications. The patient was sent to post anesthesia recovery in stable condition. CONCLUSION: Uncomplicated gastrostomy tube replacement through existing tract as above. Greg Sanches MD on November 16, 2017 at 13:20 Board Certified Radiologist. This report was verified electronically.
[2017-11-16 17:53] LABS: AUTOMATED NEUTROPHIL # 10.4 TH/MM3 (1.8-7.7); BASOPHIL % 0.2 % (0.0-2.0); HEMATOCRIT 23.3 % (39.0-51.0); HEMOGLOBIN 8.5 GM/DL (13.0-17.0); LYMPH % 12.7 % (9.0-44.0); LYMPHOCYTE # 1.5 TH/MM3 (1.0-4.8); MEAN CELL VOLUME 91.5 FL (80.0-100.0); MEAN CORPUSCULAR HEMOGLOBIN 33.5 PG (27.0-34.0); MEAN PLATELET VOLUME 7.4 FL (7.0-11.0); MONO % 1.8 % (0.0-8.0); MONOCYTE # 0.2 TH/MM3 (0-0.9); NEUT % 85.3 % (16.0-70.0); PLATELET COUNT 414 TH/MM3 (150-450); RED BLOOD COUNT 2.55 MIL/MM3 (4.50-5.90); RED CELL DISTRIBUTION WIDTH 19.2 % (11.6-17.2); WHITE BLOOD COUNT 12.1 TH/MM3 (4.0-11.0)
[2017-11-16 17:56] LABS: MEAN CORPUSCULAR HGB CONC 36.6 % (32.0-36.0)
[2017-11-16 18:39] LABS: BICARBONATE 27.4 MEQ/L (21.0-32.0); CALCIUM 8.1 MG/DL (8.5-10.1); CREATININE 0.68 MG/DL (0.60-1.30)
[2017-11-17] VITALS (10 sets, daily range): BP systolic 103–129; BP diastolic 60–74; PULSE 73–94; RESP 14–22; TEMP 97.5–98.6; O2SAT 95–98
--- NOTE | 2017-11-17 00:23 | RADRPT ---
EXAM DATE/TIME: 11/17/2017 00:04 [facility] COMPARISON: No previous studies available for comparison. INDICATIONS : Ascites. MEDICAL HISTORY : Tongue and neck cancer. Chemotherapy. Radiation therapy. Blood transfusion. SURGICAL HISTORY : Tonsillectomy. Nose repair. Port placement. PEG tube placement and removal. ENCOUNTER: Initial ACUITY: 1 day PAIN SCORE: 5/10 LOCATION: Abdomen. AREA EVALUATED: Abdominal quadrants. FINDINGS: Limited ultrasound examination targeted to the left lower quadrant was performed. There is no eviden ce of free fluid.. CONCLUSION: No evidence of free fluid in the left lower quadrant. Tashi Monique MD on November 17, 2017 at 0:20 Board Certified Radiologist. This report was verified electronically.
--- NOTE | 2017-11-17 00:50 | MB ---
cc: Bon Newton MD DATE: 11/16/2017 REASON FOR CONSULTATION: The patient with a history of tongue carcinoma, presents to the emergency department after he accidentally pulled out his PEG tube. HISTORY OF PRESENT ILLNESS: Mr. Barron is a 62-year-old male who has a diagnosis of locally advanced bulky carcinoma of the tongue. He is currently being treated with neoadjuvant chemotherapy consisting of the TPF regimen. He presented to the emergency room after he accidentally pulled out his PEG tube. He has been having significant difficulty with oral intake due to dysphagia. The patient underwent a PEG tube exchange this morning. He is currently in the bed and appears comfortable, but states that he has been having significant amount of pain in his left lower quadrant since this morning. He did have a CT scan of the abdomen and pelvis yesterday, but states that the pain actually started today. He states that he feels that there is a "hole" under his skin in his left abdomen. On palpation, there was significant amount of tenderness in his left lower quadrant. The patient is also weak and states that he is becoming easily fatigued. His hemoglobin is low in the 8 range. He has not had any nosebleeds, gum bleeds, petechia or bruising. No bright red blood per rectum or melena. He has not had any fevers or chills. He does not have any dysuria. REVIEW OF SYSTEMS: A comprehensive review of system was completed which is negative except as stated in HPI. PAST MEDICAL HISTORY: Locally advanced carcinoma of the tongue, currently being treated with neoadjuvant TPF regimen. PAST SURGICAL HISTORY: PEG tube placement. Chemotherapy port placement. History of tonsillectomy. FAMILY HISTORY: Reviewed and is noncontributory to this admission. SOCIAL HISTORY: He has more than [id number] smoking history. Alcohol, he used to drink 3-4 alcoholic beverages per week. He says that he does not drink any alcohol since August. No illicit drug use. MEDICATIONS: Senna and Colace p.r.n., cefepime 2 grams IV q. 8 hours, milk of magnesia, bisacodyl 10 mg. ALLERGIES: NO KNOWN DRUG ALLERGIES. PHYSICAL EXAMINATION: VITAL SIGNS: Blood pressure is 136/78, pulse is in the 70s, temperature is 98.4. GENERAL: Chronically ill appearing, cachectic male in no apparent distress. HEENT: Pupils are equal, round, reactive to light. No ____ lesion. NECK: Supple. No JVD. No bruit. No lymphadenopathy. CHEST: Clear to auscultation bilaterally. CARDIAC: S1, S2. Regular rate and rhythm. ABDOMEN: Soft. There is a significant amount of tenderness in the left lower quadrant. There appears to be an abnormality in the skin in the left lower quadrant and appears to be an opening below the skin. EXTREMITIES: No edema, erythema or cyanosis. SKIN: Without any petechial lesions, or bruises. NEUROLOGIC: No focal deficits. PSYCHIATRIC: Mood and affect is appropriate. LABORATORY DATA: WBC 12.1, hemoglobin 8.5, platelet count 414. Serum chemistry shows sodium of 138, potassium 3.7, chloride 102, CO2 27.4, anion gap 9, BUN 19, creatinine 0.68, GFR is 117, glucose is 116, calcium is 8.1. Coags show PT of 10.5, INR 1, PTT 21.9. UA shows a moderate amount of leukocyte esterase. Blood cultures were drawn on admission, no growth for the past 24 hours. ASSESSMENT AND PLAN: This is a 62-year-old male who has a diagnosis of locally advanced bulky tongue cancer, who is currently being treated with neoadjuvant chemotherapy. He presents to the emergency department after he pulled out his percutaneous endoscopic gastrostomy tube accidentally. 1. Dislodging of the percutaneous endoscopic gastrostomy tube in patient with a history of dysphagia. Percutaneous endoscopic gastrostomy tube has been replaced. Tube feeds will be restarted. He does have significant dysphagia due to bulky tumor. 2. Significant abdominal pain in the left lower quadrant. This is new pain that began this morning. On physical examination, his abdomen is tender in the left lower quadrant. I will proceed with an abdominal ultrasound to assess the left lower quadrant. There appears to be some sort of defect under the skin on examination. 3. Acute anemia, which is symptomatic. This is secondary to chemotherapy. We will proceed with giving him 1 unit of packed red blood cells. 4. The patient may need further evaluation with reference to his abdominal pain. We may need to obtain a surgical consult. The patient states that this is a new pain and has never had pain in the left lower quadrant before. I did review his CT scan which was completed last night. This was a CT of the abdomen and pelvis, did not show any acute findings. There was no free air or free fluid. There was mild aneurysmal dilation of the right common iliac artery. There was colonic diverticulosis. Thank you for allowing me to participate in the care of this patient. I will continue to follow this patient along. MD NAVA Ochoa/rt , 12:13 AM , 12:49 AM
[2017-11-17] MEDS ORDERED: diphenhydrAMINE HCL 25 MG CAP PO ONE (06:00)
[2017-11-17] MEDS ORDERED: ACETAMINOPHEN 325 MG TAB PO ONE (06:00)
[2017-11-17] MEDS: CEFEPIME INJ 2,000 MG in SODIUM CHLORIDE 0.9% INJ 100 ML IV SCH ×3 (06:39→20:55)
[2017-11-17] MEDS: DOCUSATE SODIUM 50 MG/SENNA 8.6 MG TAB PO SCH ×2 (10:09→20:48)
[2017-11-17] MEDS: SODIUM CHLORIDE 0.9% FLUSH 10 ML FLUSH IV FLUSH SCH ×2 (10:09→20:59)
[2017-11-17] MEDS ORDERED: ACETAMINOPHEN/HYDROcodone 325 MG/10 MG TAB PO PRN (10:30)
[2017-11-17] MEDS ORDERED: ACETAMINOPHEN/HYDROcodone 325 MG/5 MG TAB PO PRN (10:30)
[2017-11-17 11:26] LABS: AUTOMATED NEUTROPHIL # 7.8 TH/MM3 (1.8-7.7); BASOPHIL # 0.1 TH/MM3 (0-0.2); BASOPHIL % 0.6 % (0.0-2.0); HEMATOCRIT 29.3 % (39.0-51.0); HEMOGLOBIN 10.1 GM/DL (13.0-17.0); LYMPH % 13.4 % (9.0-44.0); LYMPHOCYTE # 1.3 TH/MM3 (1.0-4.8); MEAN CELL VOLUME 91.5 FL (80.0-100.0); MEAN CORPUSCULAR HEMOGLOBIN 31.5 PG (27.0-34.0); MEAN CORPUSCULAR HGB CONC 34.4 % (32.0-36.0); MEAN PLATELET VOLUME 7.6 FL (7.0-11.0); MONO % 1.7 % (0.0-8.0); MONOCYTE # 0.2 TH/MM3 (0-0.9); NEUT % 84.3 % (16.0-70.0); PLATELET COUNT 384 TH/MM3 (150-450); WHITE BLOOD COUNT 9.3 TH/MM3 (4.0-11.0)
--- NOTE | 2017-11-17 12:04 | HHI.PR ---
Subjective Remarks Pt tells me that he has been getting abdominal pain around the PEG tube area that comes and goes. initially pain was a 0/10 then states that it went up to a 5/10. He states that it can get up to a 7/10. He also complains of suprapubic pain and admits that he has difficulty emptying his bladder. He is urinating. Denies any chest pains or SOB. Objective Vitals Vital Signs Date Time Temp Pulse Resp B/P (MAP) Pulse Ox O2 Delivery O2 Flow Rate FiO2 11/17/17 08:35 97.5 80 18 105/61 (76) 97 11/17/17 06:51 97.8 73 22 103/60 98 11/17/17 04:01 98.5 83 14 118/74 (89) 97 11/16/17 17:10 98.4 79 18 136/78 (97) 98 11/16/17 14:10 65 20 134/77 (96) 98 11/16/17 13:40 74 20 131/82 (98) 97 11/16/17 13:10 62 18 123/88 (100) 97 11/16/17 12:55 97.9 69 16 118/78 (91) 98 I/O 11/16/17 11/16/17 11/16/17 11/17/17 11/17/17 11/17/17 07:00 15:00 23:00 07:00 15:00 23:00 Intake Total 250 ml 460 ml 20 ml 400 ml Output Total 900 ml Balance 250 ml 460 ml -880 ml 400 ml Intake IV Total 250 ml 100 ml Tube Feeding 360 ml Packed Cells 400 ml Blood Product IV Normal Saline Flush 20 ml Output Urine Total 900 ml # Voids 1 2 Result Diagram: 11/17/17 1053 11/16/17 1723 Imaging Last Impressions Abdomen Ultrasound 11/16/17 0000 Signed Impressions: Service Date/Time: October 00:04 - CONCLUSION: No evidence of free fluid in the left lower quadrant. Tashi Monique MD Chest X-Ray 11/15/172108 Signed Impressions: Service Date/Time: Wednesday, November 15, 2017 21:21 - CONCLUSION: 1. Improved bilateral airspace disease. Right Pitkop-j-Mhff tip in right atrium. Yogesh Ojeda MD Abdomen/Pelvis CT 11/15/17 1929 Signed Impressions: Service Date/Time: Wednesday, November 15, 2017 21:56 - CONCLUSION: 1. No acute findings. No free air or free fluid. 2. 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 3. Colonic diverticulosis. Mild constipation. Yogesh Ojeda MD Gastrostomy Tube Placement 11/15/17 0000 Signed Impressions: Service Date/Time: Thursday, November 16, 2017 12:29 - CONCLUSION: Uncomplicated gastrostomy tube replacement through existing tract as above. Greg Sanches MD Objective Remarks GENERAL: middle aged male patient, laying in bed. CARDIOVASCULAR: Regular rate and rhythm. No murmur appreciated. RESPIRATORY: No accessory muscle use. Clear to auscultation. Breath sounds equal bilaterally. GASTROINTESTINAL: Abdomen soft, some tenderness w deep palpation in the suprapubic area and in the mid abdomen near PEG tube. MUSCULOSKELETAL: No obvious deformities. Extremities without edema. NEUROLOGICAL: Awake and alert. No obvious cranial nerve deficits. Motor grossly within normal limits. Normal speech. PSYCHIATRIC: Appropriate mood and affect; insight and judgment normal. A/P Problem List: (1) Complication of feeding tube ICD Code: K94.23 - Gastrostomy malfunction Status: Acute Assessment and Plan 62 y/o male with a history of locally advanced carcinoma of the tongue presents to the ER on 11/15/17 after his PEG tube accidentally dislodged Accidental PEG tube dislodgement: Denies any abdominal pain. -Abdomen/pelvis CT with no acute findings, no free air or fluid, stable mild aneurysmal dilatation of the right common iliac artery of approximately 2 cm, mild constipation, colonic diverticulosis -s/p PEG tube replacement. - now complaining of abdominal pain. u/s abd neg. suspect pt may not be emptying bladder completely. Perform bladder scan, RN order in place. If full, insert puga cath. prn norco ordered. Leukocytosis in a patient on Chemotherapy: unclear etiology -CXR shows improved bilateral airspace disease- resolving pneumonia? -Continue on Cefepime 2gm IV q8h for now -repeat CBC and follow results -Medical oncology following; appreciate recommendations Constipation -Mild constipation noted on abdomen/pelvis CT -Betsy-Colace twice a day -As needed constipation medication protocol -Monitor Tobacco abuse -Counseled regarding deleterious health effects of smoking cigarettes -strongly advised cessation Discharge Planning f/u bladder scan, many need urology consult. Urszula Hayden MD Nov 17, 2017 12:04
[2017-11-17] MEDS ORDERED: fentaNYL CITRATE 250 MCG/5 ML AMP ONE (14:47)
[2017-11-17] MEDS ORDERED: MIDAZOLAM HCL 2 MG/2 ML VIAL ONE ×2 (14:47)
[2017-11-17] MEDS ORDERED: IOHEXOL 350 MG/ML 50 ML BTL (for RAD DIAG) G-TUBE ONE (15:10)
--- NOTE | 2017-11-17 16:23 | RADRPT ---
EXAM DATE/TIME: 11/17/2017 14:54 [facility] COMPARISON: GASTROSTOMY TUBE PLACEMENT, November 16, 2017, 12:29. INDICATIONS : Displaced gastrostomy catheter. MEDICAL HISTORY : Carcinoma of the tongue, Chemotherapy SURGICAL HISTORY : PEG tube placement, Port placement ENCOUNTER: Subsequent ACUITY: 1 day PAIN SCORE: 0/10 FLUORO TIME: 0.2 minutes IMAGE SERIES: 1 SEDATION TIME: 15 minutes CONTRAST: 5 cc Omnipaque (iohexol) 350 MEDICATION(S): 1.) 0.5 mg midazolam (Versed) IV 2.) 25 mcg Fentanyl (Sublimaze) IV DEVICE(S): 1.) 18 Fr gastrostomy tube PROCEDURE : 1. Fluoroscopically guided gastrostomy tube replacement. 2. Conscious sedation with continuous EKG and oximetry monitoring. The risks, benefits and alternatives to the procedure were explained and verbal and written consent w as obtained. The site was prepped in sterile fashion. Full sterile technique was used, including ca p, mask, sterile gloves and gown and a large sterile sheet. Hand hygiene and 2% chlorhexidine and/or betadine/alcohol prep was utilized per protocol for cutaneous antisepsis. The skin and subcutaneous tissues were infiltrated with local anesthetic solution. A new gastrostomy catheter was advanced through the existing tract and position confirmed small amoun t contrast. Conscious sedation was performed with the prescribed dosages and duration as above in the presence of an independent trained radiology nurse to assist in the monitoring of the patient. EKG and oximetry remained stable throughout the procedure. The patient tolerated the procedure well and there were n o complications. The patient was sent to post anesthesia recovery in stable condition. CONCLUSION: Uncomplicated gastrostomy tube placement as above. Greg Sanches MD on November 17, 2017 at 16:02 Board Certified Radiologist. This report was verified electronically.
--- NOTE | 2017-11-17 22:38 | PD.ONC.PN ---
Subjective Subjective Remarks c/o LLQ abdominal pain no fevers no diarrhea pain reproducible on palpation abdo U/S and Ct scan did not show any abnormalities Objective Data Date Time Temp Pulse Resp B/P (MAP) Pulse Ox O2 Delivery O2 Flow Rate FiO2 11/17/17 21:42 98.6 90 20 103/64 (77) 96 11/17/17 16:00 98.1 77 16 122/72 (89) 98 11/17/17 16:00 76 20 117/74 (88) 95 11/17/17 15:35 75 20 116/72 (87) 95 11/17/17 15:20 98.0 76 18 120/74 (89) 96 11/17/17 13:30 79 11/17/17 12:00 98.2 80 16 129/72 (91) 97 11/17/17 08:35 97.5 80 18 105/61 (76) 97 11/17/17 06:51 97.8 73 22 103/60 98 11/17/17 04:01 98.5 83 14 118/74 (89) 97 11/17/17 11/17/17 11/17/17 07:00 15:00 23:00 Intake Total 20 ml 400 ml Output Total 900 ml Balance -880 ml 400 ml Result Diagram: 11/17/17 1053 11/16/17 1723 Laboratory Results Laboratory Tests Test 11/17/17 10:53 White Blood Count 9.3 TH/MM3 Red Blood Count 3.20 MIL/MM3 Hemoglobin 10.1 GM/DL Hematocrit 29.3 % Mean Corpuscular Volume 91.5 FL Mean Corpuscular Hemoglobin 31.5 PG Mean Corpuscular Hemoglobin Concent 34.4 % Red Cell Distribution Width 18.0 % Platelet Count 384 TH/MM3 Mean Platelet Volume 7.6 FL Neutrophils (%) (Auto) 84.3 % Lymphocytes (%) (Auto) 13.4 % Monocytes (%) (Auto) 1.7 % Eosinophils (%) (Auto) 0.0 % Basophils (%) (Auto) 0.6 % Neutrophils # (Auto) 7.8 TH/MM3 Lymphocytes # (Auto) 1.3 TH/MM3 Monocytes # (Auto) 0.2 TH/MM3 Eosinophils # (Auto) 0.0 TH/MM3 Basophils # (Auto) 0.1 TH/MM3 CBC Comment DIFF FINAL Differential Comment Culture Results Microbiology Date/Time Source Procedure Growth Status 11/15/17 21:20 Blood Peripheral Aerobic Blood Culture - Preliminary NO GROWTH IN 2 DAYS Resulted 11/15/17 21:20 Blood Peripheral Anaerobic Blood Culture - Preliminary NO GROWTH IN 2 DAYS Resulted 11/15/17 21:10 Blood Peripheral Aerobic Blood Culture - Preliminary NO GROWTH IN 2 DAYS Resulted 11/15/17 21:10 Blood Peripheral Anaerobic Blood Culture - Preliminary NO GROWTH IN 2 DAYS Resulted Imaging Studies Last 24 hours Impressions Gastrostomy Tube Placement 11/17/17 0000 Signed Impressions: Service Date/Time: October 14:54 - CONCLUSION: Uncomplicated gastrostomy tube placement as above. Greg Sanhces MD Administered Medications Medications (Trade) Dose Ordered Sig/Shaila Route PRN Reason Start Time Stop Time Status Last Admin Dose Admin Sodium Chloride (NS Flush) 2 ml BID IV FLUSH 11/16/17 09:00 11/17/17 10:09 Cefepime HCl 2000 mg/Sodium Chloride 100 ml @ 200 mls/hr Q8H IV 11/16/17 06:00 11/17/17 20:55 Senna/Docusate Sodium (Betsy-Colace) 1 tab BID PO 11/16/17 09:00 11/17/17 20:48 Acetaminophen/ Hydrocodone Bitart ([place] 10-325 Mg) 1 tab Q4H PRN PO PAIN SCALE 7 TO 10 11/17/17 10:30 11/17/17 13:41 Objective Remarks GENERAL:nad SKIN: Warm and dry. NECK: Supple, trachea midline. No JVD or lymphadenopathy. LYMPHATIC: No adenopathy. CARDIOVASCULAR: Regular rate and rhythm without murmurs. RESPIRATORY: Breath sounds equal bilaterally. No accessory muscle use. GASTROINTESTINAL: Abdomen soft, tender LLQ, peg tube in place EXTREMITIES: No cyanosis, or edema. 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 He presents to the emergency department after percutaneous endoscopic gastrostomy tube dislodged accidentally. 1. Abdominal Pain unclear etiology: - U/S and CT scan did not show any acute abnormaly - Pain is in the subcutaneous region ? free air - may need surgical evaluation 2. Symptomatic anemia - received 1 unit of pRBC 3. Leukocytosis---> improving - no clear source of infection - on IV cefepime 4. Locally Advance Tongue cancer - getting eunice-adjuvant chemotherapy outpatient Problem Qualifiers (1) Abdominal pain: Qualified Codes: R10.32 - Left lower quadrant pain (2) Leukocytosis: Qualified Codes: D72.829 - Elevated white blood cell count, unspecified Bon Newton MD Nov 17, 2017 22:38
[2017-11-18] VITALS: BP 120/60; PULSE 78; RESP 20; TEMP 97.9; O2SAT 95
[2017-11-18 04:21] VITALS: BP 129/72; PULSE 89; RESP 16; TEMP 98.7; O2SAT 98
[2017-11-18] MEDS: CEFEPIME INJ 2,000 MG in SODIUM CHLORIDE 0.9% INJ 100 ML IV SCH ×2 (07:27→15:05)
[2017-11-18 07:56] VITALS: BP 126/80; PULSE 72; RESP 20; TEMP 98.2; O2SAT 96
[2017-11-18 08:31] VITALS: PULSE 86
[2017-11-18 09:43] LABS: AUTOMATED NEUTROPHIL # 8.1 TH/MM3 (1.8-7.7); BASOPHIL % 0.3 % (0.0-2.0); EOSINOPHIL % 0.3 % (0.0-4.0); HEMATOCRIT 30.5 % (39.0-51.0); HEMOGLOBIN 10.5 GM/DL (13.0-17.0); MEAN CELL VOLUME 91.5 FL (80.0-100.0); MEAN CORPUSCULAR HEMOGLOBIN 31.4 PG (27.0-34.0); MEAN CORPUSCULAR HGB CONC 34.4 % (32.0-36.0); MONO % 1.5 % (0.0-8.0); MONOCYTE # 0.1 TH/MM3 (0-0.9); NEUT % 86.9 % (16.0-70.0); PLATELET COUNT 335 TH/MM3 (150-450); RED BLOOD COUNT 3.33 MIL/MM3 (4.50-5.90); RED CELL DISTRIBUTION WIDTH 18.3 % (11.6-17.2); WHITE BLOOD COUNT 9.3 TH/MM3 (4.0-11.0)
[2017-11-18 10:02] LABS: BICARBONATE 26.7 MEQ/L (21.0-32.0); CALCIUM 8.5 MG/DL (8.5-10.1); CREATININE 0.61 MG/DL (0.60-1.30)
[2017-11-18] MEDS: DOCUSATE SODIUM 50 MG/SENNA 8.6 MG TAB PO SCH ×2 (10:27→21:00)
[2017-11-18] MEDS: SODIUM CHLORIDE 0.9% FLUSH 10 ML FLUSH IV FLUSH SCH (10:27)
--- NOTE | 2017-11-18 11:31 | HHI.PR ---
Subjective Remarks Pt states he has been having sweats this morning, no nausea or vomiting. still complaining of left lower quadrant pain mainly w deep palpation. Pt currently states it is a 2/10 if he doesn't touch it. Overall describes the pain as crampy , comes and goes. Cannot explain why he gets it. At times they are like strong spasms. states the pain started after G-tube replacement 3 days ago and has been there since. Pt admits to small BM today. states he does get constipated Objective Vitals Vital Signs Date Time Temp Pulse Resp B/P (MAP) Pulse Ox O2 Delivery O2 Flow Rate FiO2 11/18/17 08:31 86 11/18/17 07:56 98.2 72 20 126/80 (95) 96 11/18/17 04:21 98.7 89 16 129/72 (91) 98 11/17/17 23:41 98.3 94 16 125/68 (87) 97 11/17/17 21:42 98.6 90 20 103/64 (77) 96 11/17/17 16:00 98.1 77 16 122/72 (89) 98 11/17/17 16:00 76 20 117/74 (88) 95 11/17/17 15:35 75 20 116/72 (87) 95 11/17/17 15:20 98.0 76 18 120/74 (89) 96 11/17/17 13:30 79 11/17/17 12:00 98.2 80 16 129/72 (91) 97 I/O 11/17/17 11/17/17 11/17/17 11/18/17 11/18/17 11/18/17 07:00 15:00 23:00 07:00 15:00 23:00 Intake Total 20 ml 400 ml Output Total 900 ml 300 ml Balance -880 ml 400 ml -300 ml Packed Cells 400 ml Blood Product IV Normal Saline Flush 20 ml Output Urine Total 900 ml 300 ml Bladder Scan Volume Amount 126 ml # Voids 2 Result Diagram: 11/18/17 0815 11/18/17 0815 Imaging Last Impressions Gastrostomy Tube Placement 11/17/17 0000 Signed Impressions: Service Date/Time: October 14:54 - CONCLUSION: Uncomplicated gastrostomy tube placement as above. Greg Sanches MD Abdomen Ultrasound 11/16/17 0000 Signed Impressions: Service Date/Time: October 00:04 - CONCLUSION: No evidence of free fluid in the left lower quadrant. Tashi Monique MD Chest X-Ray 11/15/172108 Signed Impressions: Service Date/Time: Wednesday, November 15, 2017 21:21 - CONCLUSION: 1. Improved bilateral airspace disease. Right Bgutga-i-Hfav tip in right atrium. Yogesh Ojeda MD Abdomen/Pelvis CT 11/15/[id number] Signed Impressions: Service Date/Time: Wednesday, November 15, 2017 21:56 - CONCLUSION: 1. No acute findings. No free air or free fluid. 2. 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 3. Colonic diverticulosis. Mild constipation. Yogesh Ojeda MD Objective Remarks GENERAL: middle aged male patient, laying in bed. CARDIOVASCULAR: Regular rate and rhythm. No murmur appreciated. RESPIRATORY: No accessory muscle use. Clear to auscultation. Breath sounds equal bilaterally. GASTROINTESTINAL: Abdomen soft, some tenderness w deep palpation in the left lower quadrant and in the mid abdomen, some voluntary guarding noted w palpation MUSCULOSKELETAL: No obvious deformities. Extremities without edema. NEUROLOGICAL: Awake and alert. Normal speech. PSYCHIATRIC: Appropriate mood and affect; insight and judgment normal. A/P Problem List: (1) Complication of feeding tube ICD Code: K94.23 - Gastrostomy malfunction Status: Acute Assessment and Plan 62 y/o male with a history of locally advanced carcinoma of the tongue presents to the ER on 11/15/17 after his PEG tube accidentally dislodged Accidental PEG tube dislodgement: -Abdomen/pelvis CT with no acute findings, no free air or fluid, stable mild aneurysmal dilatation of the right common iliac artery of approximately 2 cm, mild constipation, colonic diverticulosis -s/p PEG tube replacement x2. - now complaining of abdominal pain, left lower quadrant. u/s abd neg. initially thought to be related to not empying bladder, but bladder scan showed emptied bladder, pt's pain is the left lower quadrant, described as spasms, crampy, comes and goes and at times goes up to 7/10 pain. At this time, I will consult GI for further eval and recs. prn norco ordered. Leukocytosis in a patient on Chemotherapy: unclear etiology -CXR shows improved bilateral airspace disease- resolving pneumonia? -Continue on Cefepime 2gm IV q8h for now -repeat CBC and follow results -Medical oncology following; appreciate recommendations Constipation -Mild constipation noted on abdomen/pelvis CT -Betsy-Colace twice a day -As needed constipation medication protocol. I have added miralax daily to help w constipation -Monitor Tobacco abuse -Counseled regarding deleterious health effects of smoking cigarettes -strongly advised cessation Discharge Planning GI consult in place for abdominal pain. Awaiting recUrszula Cee MD Nov 18, 2017 11:31
[2017-11-18] MEDS ORDERED: POTASSIUM CHLORIDE 25 MEQ EFFERVESCENT TAB PO ONE (12:00)
--- NOTE | 2017-11-18 12:55 | PD.CONS ---
HPI History of Present Illness This is a 62 year old M with PMH significant for tongue cancer, currently undergoing chemotherapy with plans for radiation after. Pt initially came to ER with complaints of dislodge G-tube, states G-tube got caught on something when he stood up and dislodged. CT abdomen and pelvis was done (11/15) --> No acute findings. No free air or free fluid. 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 Colonic diverticulosis and mild constipation. G tube replaced November 16, IR reports uncomplicated placement. TF, Jevity 1.5 ordered as bolus feedings. Pt now complaining of LLQ pain, described as intermittent spasms that last from 30 seconds to a minute. Denies any aggravating factors, pain relieves on its own without any medication. Pt does report having a BM today and has not had a recurrence of the pain since. He does still report a mild pain to palpation, unable to localize this pain. States LLQ but points more to over his bladder area. Denies ever having EGD or colonoscopy. (Maria Luisa Lang) [facility] Past Medical History Locally advanced carcinoma of the tongue being treated with chemotherapy with radiation planned after Denies diabetes mellitus, hypertension, thyroid dysfunction, bleeding problems, depression, anxiety, CVA, seizures, arthritis, heart problems, abnormal heart rhythms, COPD, or asthma . Past Surgical History PEG tube placed 2 weeks ago Chest port placement Tonsillectomy . (Maria Luisa Lang) Coded Allergies: No Known Allergies (Unverified , 11/15/17) Family History No known family history of cancer -"maybe an uncle" but patient is not entirely sure Social History Tobacco: Smokes 1 pack per day for many years Alcohol: Drinks 4 drinks 3 to 4 days per week -denies history of alcohol withdrawal or any seizures Illicit Drugs: Denies . (Maria Luisa Lang) Review of Systems Gastrointestinal: COMPLAINS OF: Abdominal pain, Constipation, Difficulty Swallowing, DENIES: Black stools, Bloody stools, Diarrhea, Nausea, Vomiting, Swelling of Abdomen, Heartburn, Hematemesis (Maria Luisa Lang) GI Exam Vitals I&O Vital Signs Date Time Temp Pulse Resp B/P (MAP) Pulse Ox O2 Delivery O2 Flow Rate FiO2 11/18/17 08:31 86 11/18/17 07:56 98.2 72 20 126/80 (95) 96 11/18/17 04:21 98.7 89 16 129/72 (91) 98 11/17/17 23:41 98.3 94 16 125/68 (87) 97 11/17/17 21:42 98.6 90 20 103/64 (77) 96 11/17/17 16:00 98.1 77 16 122/72 (89) 98 11/17/17 16:00 76 20 117/74 (88) 95 11/17/17 15:35 75 20 116/72 (87) 95 11/17/17 15:20 98.0 76 18 120/74 (89) 96 11/17/17 13:30 79 I/O 11/17/17 11/17/17 11/17/17 11/18/17 11/18/17 11/18/17 07:00 15:00 23:00 07:00 15:00 23:00 Intake Total 20 ml 400 ml Output Total 900 ml 300 ml Balance -880 ml 400 ml -300 ml Packed Cells 400 ml Blood Product IV Normal Saline Flush 20 ml Output Urine Total 900 ml 300 ml Bladder Scan Volume Amount 126 ml # Voids 2 Imaging Last Impressions Gastrostomy Tube Placement 11/17/17 0000 Signed Impressions: Service Date/Time: October 14:54 - CONCLUSION: Uncomplicated gastrostomy tube placement as above. Greg Sanches MD Abdomen Ultrasound 11/16/17 0000 Signed Impressions: Service Date/Time: October 00:04 - CONCLUSION: No evidence of free fluid in the left lower quadrant. Tashi Monique MD Chest X-Ray 11/15/172108 Signed Impressions: Service Date/Time: Wednesday, November 15, 2017 21:21 - CONCLUSION: 1. Improved bilateral airspace disease. Right Flmgmb-m-Vbaa tip in right atrium. Yogesh Ojeda MD Abdomen/Pelvis CT 11/15/[id number] Signed Impressions: Service Date/Time: Wednesday, November 15, 2017 21:56 - CONCLUSION: 1. No acute findings. No free air or free fluid. 2. 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 3. Colonic diverticulosis. Mild constipation. Yogesh Ojeda MD Laboratory Test 11/18/17 08:15 White Blood Count 9.3 TH/MM3 Red Blood Count 3.33 MIL/MM3 Hemoglobin 10.5 GM/DL Hematocrit 30.5 % Mean Corpuscular Volume 91.5 FL Mean Corpuscular Hemoglobin 31.4 PG Mean Corpuscular Hemoglobin Concent 34.4 % Red Cell Distribution Width 18.3 % Platelet Count 335 TH/MM3 Mean Platelet Volume 8.0 FL Neutrophils (%) (Auto) 86.9 % Lymphocytes (%) (Auto) 11.0 % Monocytes (%) (Auto) 1.5 % Eosinophils (%) (Auto) 0.3 % Basophils (%) (Auto) 0.3 % Neutrophils # (Auto) 8.1 TH/MM3 Lymphocytes # (Auto) 1.0 TH/MM3 Monocytes # (Auto) 0.1 TH/MM3 Eosinophils # (Auto) 0.0 TH/MM3 Basophils # (Auto) 0.0 TH/MM3 CBC Comment DIFF FINAL Differential Comment Blood Urea Nitrogen 14 MG/DL Creatinine 0.61 MG/DL Random Glucose 143 MG/DL Calcium Level 8.5 MG/DL Sodium Level 133 MEQ/L Potassium Level 3.2 MEQ/L Chloride Level 97 MEQ/L Carbon Dioxide Level 26.7 MEQ/L Anion Gap 9 MEQ/L Estimat Glomerular Filtration Rate 133 ML/MIN Date/Time Source Procedure Growth Status 11/15/17 21:20 Blood Peripheral Aerobic Blood Culture - Preliminary NO GROWTH IN 3 DAYS Resulted 11/15/17 21:20 Blood Peripheral Anaerobic Blood Culture - Preliminary NO GROWTH IN 3 DAYS Resulted Physical Examination HEENT: Normocephalic; atraumatic CHEST: Even/unlabored CARDIAC: RRR ABDOMEN: Soft, cachectic, tenderness with deep palpation more so over bladder area, bowel sounds active EXTREMITIES: No clubbing, cyanosis, or edema. SKIN: Normal; no rash; no jaundice. MORTGAGE LENDER: No focal deficits; alert and oriented times three. (Maria Luisa Lang) Assessment and Plan Plan Assessment: - LLQ pain- states intermittent spasm sensation that lasts from 30 seconds to a minute, resolves on its own. Can not identify aggravating factors. Pain began after PEG tube placement [address] abdomen noted diverticulosis with constipation. Pt reports BM today, has not had recurrence in pain since then. Does report mild pain with deep palpation over bladder area. Initially concern for urinary retention, bladder scan ruled this out TF- Jevity 1.5- 120 mL @ 8am, 360 mLs at 11am, 2pm, 5pm, and 8pm - PEG tube replacement- dislodged prior to arrival, IR replaced on 11/16 with no complications. - Tongue cancer- undergoing chemotherapy - Anemia- noted since September- no indication of GIB- received 1 U PRBCs yesterday. H/H stable Symptoms seemed to improve with BM, recommend bowel regimen, Miralax added per attending. Pt on chronic opoioids likely cause of constipation. Will add antispasmodic. Pt can follow up on an outpt basis regarding further work up. Would likely benefit from a colonoscopy, has never had one, this can be done on an outpt basis Plan: Miralax Bentyl Prevent constipation Further work up can be done outpt Pt has been seen and examined by myself and Dr. Candelaria and this note is written on her behalf (Maria Luisa Lang) Physician Comments seen, examined agree with above if dc fu office colonoscopy op unless indicated otherwise mild tenderness on palpation in llq-can be dc on flagyl/cipro for 7 days (Renata Candelaria MD) Maria Luisa Lang Nov 18, 2017 12:55 Renata Candelaria MD Nov 18, 2017 20:47
[2017-11-18] MEDS: POLYETHYLENE GLYCOL 17 GM PKG PO SCH (15:04)
[2017-11-18] MEDS: DICYCLOMINE HCL 10 MG CAP PO SCH ×2 (15:04→18:38)
[2017-11-18 16:26] VITALS: BP 111/70; PULSE 70; RESP 18; TEMP 97.9; O2SAT 96
--- NOTE | 2017-11-18 18:31 | PD.ONC.PN ---
Subjective Subjective Remarks improvement in abdominal pain says he did not get his tube feed this afternoon d/w rn Objective Data Date Time Temp Pulse Resp B/P (MAP) Pulse Ox O2 Delivery O2 Flow Rate FiO2 11/18/17 16:26 97.9 70 18 111/70 (84) 96 11/18/17 08:31 86 11/18/17 07:56 98.2 72 20 126/80 (95) 96 11/18/17 04:21 98.7 89 16 129/72 (91) 98 11/18/17 00:00 97.9 78 20 120/60 (80) 95 11/17/17 23:41 98.3 94 16 125/68 (87) 97 11/17/17 21:42 98.6 90 20 103/64 (77) 96 11/18/17 11/18/17 11/18/17 06:59 14:59 22:59 Output Total 300 ml Balance -300 ml Result Diagram: 11/18/17 0815 11/18/17 0815 Laboratory Results Laboratory Tests Test 11/18/17 08:15 White Blood Count 9.3 TH/MM3 Red Blood Count 3.33 MIL/MM3 Hemoglobin 10.5 GM/DL Hematocrit 30.5 % Mean Corpuscular Volume 91.5 FL Mean Corpuscular Hemoglobin 31.4 PG Mean Corpuscular Hemoglobin Concent 34.4 % Red Cell Distribution Width 18.3 % Platelet Count 335 TH/MM3 Mean Platelet Volume 8.0 FL Neutrophils (%) (Auto) 86.9 % Lymphocytes (%) (Auto) 11.0 % Monocytes (%) (Auto) 1.5 % Eosinophils (%) (Auto) 0.3 % Basophils (%) (Auto) 0.3 % Neutrophils # (Auto) 8.1 TH/MM3 Lymphocytes # (Auto) 1.0 TH/MM3 Monocytes # (Auto) 0.1 TH/MM3 Eosinophils # (Auto) 0.0 TH/MM3 Basophils # (Auto) 0.0 TH/MM3 CBC Comment DIFF FINAL Differential Comment Blood Urea Nitrogen 14 MG/DL Creatinine 0.61 MG/DL Random Glucose 143 MG/DL Calcium Level 8.5 MG/DL Sodium Level 133 MEQ/L Potassium Level 3.2 MEQ/L Chloride Level 97 MEQ/L Carbon Dioxide Level 26.7 MEQ/L Anion Gap 9 MEQ/L Estimat Glomerular Filtration Rate 133 ML/MIN Culture Results Microbiology Date/Time Source Procedure Growth Status 11/15/17 21:20 Blood Peripheral Aerobic Blood Culture - Preliminary NO GROWTH IN 3 DAYS Resulted 11/15/17 21:20 Blood Peripheral Anaerobic Blood Culture - Preliminary NO GROWTH IN 3 DAYS Resulted 11/15/17 21:10 Blood Peripheral Aerobic Blood Culture - Preliminary NO GROWTH IN 3 DAYS Resulted 11/15/17 21:10 Blood Peripheral Anaerobic Blood Culture - Preliminary NO GROWTH IN 3 DAYS Resulted Administered Medications Medications (Trade) Dose Ordered Sig/Shaila Route PRN Reason Start Time Stop Time Status Last Admin Dose Admin Sodium Chloride (NS Flush) 2 ml BID IV FLUSH 11/16/17 09:00 11/18/17 10:27 Cefepime HCl 2000 mg/Sodium Chloride 100 ml @ 200 mls/hr Q8H IV 11/16/17 06:00 11/18/17 15:05 Senna/Docusate Sodium (Betsy-Colace) 1 tab BID PO 11/16/17 09:00 11/18/17 10:27 Acetaminophen/ Hydrocodone Bitart ([place] 10-325 Mg) 1 tab Q4H PRN PO PAIN SCALE 7 TO 10 11/17/17 10:30 11/17/17 13:41 Polyethylene Glycol (Miralax) 17 gm DAILY PO 11/18/17 12:00 11/18/17 15:04 Dicyclomine HCl (Bentyl) 10 mg TID PO 11/18/17 13:00 11/18/17 15:04 Objective Remarks GENERAL: nad SKIN: Warm and dry. NECK: Supple, trachea midline. No JVD or lymphadenopathy. LYMPHATIC: No adenopathy. CARDIOVASCULAR: Regular rate and rhythm without murmurs. RESPIRATORY: Breath sounds equal bilaterally. No accessory muscle use. GASTROINTESTINAL: Abdomen soft, nondistended. mild tenderness LLQ EXTREMITIES: No cyanosis, or edema. 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 He presents to the emergency department after percutaneous endoscopic gastrostomy tube dislodged accidentally. 1. Abdominal Pain unclear etiology: --IMPROVED - U/S and CT scan did not show any acute abnormaly - GI seeing patient 2. Symptomatic anemia - better - s/p 1 unit of prbc 3. Leukocytosis---> resolved - no clear source of infection - on IV cefepime 4. Locally Advance Tongue cancer - getting eunice-adjuvant chemotherapy outpatient OK to d/c from oncology standpoint Problem Qualifiers (1) Abdominal pain: Qualified Codes: R10.32 - Left lower quadrant pain (2) Leukocytosis: Qualified Codes: D72.829 - Elevated white blood cell count, unspecified Bon Newton MD Nov 18, 2017 18:31
[2017-11-18 19:44] VITALS: BP 112/63; PULSE 88; RESP 16; TEMP 98; O2SAT 98
[2017-11-19 00:38] VITALS: BP 124/82; PULSE 82; RESP 16; TEMP 98.4; O2SAT 99
[2017-11-19] MEDS: SODIUM CHLORIDE 0.9% FLUSH 10 ML FLUSH IV FLUSH SCH ×2 (01:03→09:38)
[2017-11-19] MEDS: CEFEPIME INJ 2,000 MG in SODIUM CHLORIDE 0.9% INJ 100 ML IV SCH ×2 (01:04→06:33)
[2017-11-19 04:42] VITALS: BP 115/68; PULSE 79; RESP 16; TEMP 98.1; O2SAT 98
[2017-11-19] MEDS ORDERED: CIPR-9 PO (09:04)
[2017-11-19] MEDS ORDERED: METR-1 PO (09:04)
--- NOTE | 2017-11-19 09:06 | HHI.DS ---
Discharge Summary Admission Date Nov 15, 2017 at 22:56 Discharge Date: Nov 19, 2017 Admitting Diagnosis Feeding tube dislodgement, abdominal pain, leukocytosis (1) Complication of feeding tube ICD Code: K94.23 - Gastrostomy malfunction Status: Acute Procedures gastrostomy tube replacement x 2 Brief History - From Admission Mr. Barron is a 62 y/o male with a history of locally advanced carcinoma of the tongue presents to the ER on 11/15/17 for evaluation after his PEG tube accidentally got caught on something and became dislodge when he stood up after using the toilet. He is admitted to the hospitalist team for medical management. The patient is seen in the CDU. He denies pain, fever, chills, SOB, cough, abdominal pain, nausea, or vomiting during my visit. He is eager to get his PEG tube replaced so that he may return home. Patient states he was treated for pneumonia about 2 weeks ago. He states he is having no trouble breathing, no cough, and doesn't feel poorly. He says he felt poorly after initiation of chemotherapy about 3 weeks ago but went to a rehabilitation center and has been feeling strong since. CBC/BMP: 11/18/17 0815 11/18/17 0815 Significant Findings Laboratory Tests Test 11/16/17 17:23 11/17/17 10:53 11/18/17 08:15 White Blood Count 12.1 TH/MM3 (4.0-11.0) Red Blood Count 2.55 MIL/MM3 (4.50-5.90) 3.20 MIL/MM3 (4.50-5.90) 3.33 MIL/MM3 (4.50-5.90) Hemoglobin 8.5 GM/DL (13.0-17.0) 10.1 GM/DL (13.0-17.0) 10.5 GM/DL (13.0-17.0) Hematocrit 23.3 % (39.0-51.0) 29.3 % (39.0-51.0) 30.5 % (39.0-51.0) Mean Corpuscular Hemoglobin Concent 36.6 % (32.0-36.0) Red Cell Distribution Width 19.2 % (11.6-17.2) 18.0 % (11.6-17.2) 18.3 % (11.6-17.2) Neutrophils (%) (Auto) 85.3 % (16.0-70.0) 84.3 % (16.0-70.0) 86.9 % (16.0-70.0) Neutrophils # (Auto) 10.4 TH/MM3 (1.8-7.7) 7.8 TH/MM3 (1.8-7.7) 8.1 TH/MM3 (1.8-7.7) Blood Urea Nitrogen 19 MG/DL (7-18) Random Glucose 116 MG/DL (74-106) 143 MG/DL (74-106) Calcium Level 8.1 MG/DL (8.5-10.1) Sodium Level 133 MEQ/L (136-145) Potassium Level 3.2 MEQ/L (3.5-5.1) Chloride Level 97 MEQ/L (98-107) Imaging Last Impressions Gastrostomy Tube Placement 11/17/17 0000 Signed Impressions: Service Date/Time: October 14:54 - CONCLUSION: Uncomplicated gastrostomy tube placement as above. Greg Sanches MD Abdomen Ultrasound 11/16/17 0000 Signed Impressions: Service Date/Time: October 00:04 - CONCLUSION: No evidence of free fluid in the left lower quadrant. Tashi Monique MD Chest X-Ray [id number] Signed Impressions: Service Date/Time: Wednesday, November 15, 2017 21:21 - CONCLUSION: 1. Improved bilateral airspace disease. Right Iflhop-p-Bynx tip in right atrium. Yogesh Ojeda MD Abdomen/Pelvis CT [id number] Signed Impressions: Service Date/Time: Wednesday, November 15, 2017 21:56 - CONCLUSION: 1. No acute findings. No free air or free fluid. 2. 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 3. Colonic diverticulosis. Mild constipation. Yogesh Ojeda MD PE at Discharge GENERAL: middle aged male patient, laying in bed. CARDIOVASCULAR: Regular rate and rhythm. No murmur appreciated. RESPIRATORY: No accessory muscle use. Clear to auscultation. Breath sounds equal bilaterally. GASTROINTESTINAL: Abdomen soft, non tender this morning, Gtube in place MUSCULOSKELETAL: No obvious deformities. Extremities without edema. NEUROLOGICAL: Awake and alert. Normal speech. PSYCHIATRIC: Appropriate mood and affect; insight and judgment normal. Pt update on day of discharge Pt feeling better. No pain, no nausea or vomiting. tolerating tube feeds. comfortable going home today Hospital Course 62 y/o male with a history of locally advanced carcinoma of the tongue presents to the ER on 11/15/17 after his PEG tube accidentally dislodged Accidental PEG tube dislodgement: -Abdomen/pelvis CT with no acute findings, no free air or fluid, stable mild aneurysmal dilatation of the right common iliac artery of approximately 2 cm, mild constipation, colonic diverticulosis -s/p PEG tube replacement x2. - post PEG tube replacement he had been experiencing left lower quadrant. u/s abd neg. GI evaluated the pt and recommended d/c on cipro/flagyl x 7 days and f/ u w them in the office in 2-3 weeks. Leukocytosis in a patient on Chemotherapy: unclear etiology, leukocytosis resolved, blood cx neg x 3 days, u/a neg. At this time will d/c cefepime. Monitor clinically and f/u w oncologist as an outpatient. -CXR shows improved bilateral airspace disease- resolving pneumonia?, however pt is asymptomatic and lungs are clear on exam Leukocytosis might be from dehydration as pt had dislodged his PEG tube? Constipation -Mild constipation noted on abdomen/pelvis CT -bentyl and miralax per GI recs. scripts in chart. Pt Condition on Discharge: Stable Discharge Disposition: Discharge Home Discharge Time: > 30 minutes Discharge Instructions DIET: Follow Instructions for: On Tube Feeding Activities you can perform: Regular-No Restrictions Follow up Referrals: Gastroenterology - 2 Weeks Oncology - 1 Week with Bon Newton MD PCP Follow-up - 1 Week New Medications: Ciprofloxacin (Cipro) 500 Mg Tab 500 MG PO BID for Infection, #13 TAB 0 Refills Docusate Sodium (Colace) 100 Mg Capsule 100 MG PO BID PRN for CONSTIPATION, #60 CAP 0 Refills Metronidazole (Flagyl) 500 Mg Tab 500 MG PO TID for Infection, #20 TAB 0 Refills Dicyclomine (Bentyl) 10 Mg Cap 10 MG PO TID, #90 CAP Polyethylene Glycol 3350 Powder (Polyethylene Glycol 3350 Powder) 17 Gram Pow 17 GM PO DAILY, #30 Urszula Hurd MD Nov 19, 2017 09:06
[2017-11-19] MEDS ORDERED: COLA100C5 PO (09:12)
[2017-11-19 09:13] VITALS: BP 125/74; PULSE 80; RESP 16; TEMP 98.2; O2SAT 98
[2017-11-19] MEDS ORDERED: POLY17S PO (09:15)
[2017-11-19] MEDS ORDERED: DICY10 PO (09:15)
[2017-11-19] MEDS: DOCUSATE SODIUM 50 MG/SENNA 8.6 MG TAB PO SCH (09:38)
[2017-11-19] MEDS: POLYETHYLENE GLYCOL 17 GM PKG PO SCH (09:38)
[2017-11-19] MEDS: DICYCLOMINE HCL 10 MG CAP PO SCH ×2 (09:38→12:24)
[2017-11-19] MEDS ORDERED: metroNIDAZOLE 500 MG TAB PO ONE (10:00)
[2017-11-19] MEDS ORDERED: CIPROFLOXACIN 500 MG TAB PO ONE (11:00)
[2017-11-19 11:05] LABS: AUTOMATED NEUTROPHIL # 6.1 TH/MM3 (1.8-7.7); BASOPHIL % 0.6 % (0.0-2.0); EOSINOPHIL # 0.1 TH/MM3 (0-0.4); EOSINOPHIL % 0.9 % (0.0-4.0); HEMATOCRIT 32.1 % (39.0-51.0); HEMOGLOBIN 10.9 GM/DL (13.0-17.0); LYMPH % 18.4 % (9.0-44.0); LYMPHOCYTE # 1.4 TH/MM3 (1.0-4.8); MEAN CELL VOLUME 92.6 FL (80.0-100.0); MEAN CORPUSCULAR HEMOGLOBIN 31.5 PG (27.0-34.0); MEAN PLATELET VOLUME 8.2 FL (7.0-11.0); MONO % 2.3 % (0.0-8.0); MONOCYTE # 0.2 TH/MM3 (0-0.9); NEUT % 77.8 % (16.0-70.0); PLATELET COUNT 315 TH/MM3 (150-450); RED BLOOD COUNT 3.47 MIL/MM3 (4.50-5.90); RED CELL DISTRIBUTION WIDTH 17.7 % (11.6-17.2); WHITE BLOOD COUNT 7.8 TH/MM3 (4.0-11.0)
[2017-11-19 11:23] LABS: BICARBONATE 26.4 MEQ/L (21.0-32.0); CALCIUM 8.8 MG/DL (8.5-10.1); CREATININE 0.55 MG/DL (0.60-1.30); MAGNESIUM 1.6 MG/DL (1.5-2.5)
[2017-11-19 11:51] VITALS: BP 134/79; PULSE 78; RESP 16; TEMP 98.1; O2SAT 96
--- NOTE | 2017-11-19 18:13 | PD.ONC.PN ---
Subjective Subjective Remarks Afebrile Patient states he noticed that his pump is still full of the medication Asking if it is possible to have home health see him Objective Data Date Time Temp Pulse Resp B/P (MAP) Pulse Ox O2 Delivery O2 Flow Rate FiO2 11/19/17 11:51 98.1 78 16 134/79 (97) 96 11/19/17 09:13 98.2 80 16 125/74 (91) 98 11/19/17 04:42 98.1 79 16 115/68 (84) 98 11/19/17 00:38 98.4 82 16 124/82 (96) 99 11/18/17 19:44 98.0 88 16 112/63 (79) 98 Result Diagram: 11/19/17 0828 11/19/17 08 Laboratory Results Laboratory Tests Test 11/19/17 08:28 White Blood Count 7.8 TH/MM3 Red Blood Count 3.47 MIL/MM3 Hemoglobin 10.9 GM/DL Hematocrit 32.1 % Mean Corpuscular Volume 92.6 FL Mean Corpuscular Hemoglobin 31.5 PG Mean Corpuscular Hemoglobin Concent 34.0 % Red Cell Distribution Width 17.7 % Platelet Count 315 TH/MM3 Mean Platelet Volume 8.2 FL Neutrophils (%) (Auto) 77.8 % Lymphocytes (%) (Auto) 18.4 % Monocytes (%) (Auto) 2.3 % Eosinophils (%) (Auto) 0.9 % Basophils (%) (Auto) 0.6 % Neutrophils # (Auto) 6.1 TH/MM3 Lymphocytes # (Auto) 1.4 TH/MM3 Monocytes # (Auto) 0.2 TH/MM3 Eosinophils # (Auto) 0.1 TH/MM3 Basophils # (Auto) 0.0 TH/MM3 CBC Comment DIFF FINAL Differential Comment Blood Urea Nitrogen 14 MG/DL Creatinine 0.55 MG/DL Random Glucose 81 MG/DL Calcium Level 8.8 MG/DL Magnesium Level 1.6 MG/DL Sodium Level 135 MEQ/L Potassium Level 3.8 MEQ/L Chloride Level 99 MEQ/L Carbon Dioxide Level 26.4 MEQ/L Anion Gap 10 MEQ/L Estimat Glomerular Filtration Rate 150 ML/MIN Administered Medications Medications (Trade) Dose Ordered Sig/Shaila Route PRN Reason Start Time Stop Time Status Last Admin Dose Admin Sodium Chloride (NS Flush) 2 ml BID IV FLUSH 11/16/17 09:00 11/19/17 09:38 Cefepime HCl 2000 mg/Sodium Chloride 100 ml @ 200 mls/hr Q8H IV 11/16/17 06:00 11/19/17 06:33 Senna/Docusate Sodium (Betsy-Colace) 1 tab BID PO 11/16/17 09:00 11/18/17 10:27 Acetaminophen/ Hydrocodone Bitart ([place] 10-325 Mg) 1 tab Q4H PRN PO PAIN SCALE 7 TO 10 11/17/17 10:30 11/17/17 13:41 Polyethylene Glycol (Miralax) 17 gm DAILY PO 11/18/17 12:00 11/18/17 15:04 Dicyclomine HCl (Bentyl) 10 mg TID PO 11/18/17 13:00 11/19/17 12:24 Objective Remarks GENERAL: Chronically ill-appearing older male resting in bed in no obvious distress SKIN: Warm and dry. Qscygf-f-[id number] to right upper chest connected to chemotherapy pump HEAD: Normocephalic. EYES: No injection or drainage. NECK: Supple, trachea midline. CARDIOVASCULAR: Regular rate and rhythm without murmurs. RESPIRATORY: Breath sounds equal bilaterally. No accessory muscle use. GASTROINTESTINAL: PEG tube in place to the left upper quadrant. Nontender. EXTREMITIES: No cyanosis, or edema. MUSCULOSKELETAL: Adequate muscle tone. NEUROLOGICAL: No obvious focal deficit. Awake, alert, and oriented x3. 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 He presents to the emergency department after percutaneous endoscopic gastrostomy tube dislodged accidentally. Plan 1. We will have patient come to oncology center on Tuesday to evaluate malfunctioning chemo pump 2. Clear for discharge from oncology standpoint Problem Qualifiers (1) Abdominal pain: Qualified Codes: R10.32 - Left lower quadrant pain (2) Leukocytosis: Qualified Codes: D72.829 - Elevated white blood cell count, unspecified Yeimi Christianson Nov 19, 2017 18:13
== END 2017-11-19 14:30 | disposition home or self-care (01) ==
LOC: NED 14:27 → NEDA 22:56 → NEPGCP 11-16 02:42
PROVIDERS: ADMIT Hospitalist; ATTEND Hospitalist
DX: K94.23 Gastrostomy malfunction (principal); D72.829 Elevated white blood cell count, unspecified; R10.32 Left lower quadrant pain; C02.9 Malignant neoplasm of tongue, unspecified; D64.81 Anemia due to antineoplastic chemotherapy; T45.1X5A Adverse effect of antineoplastic and immunosuppressive drugs, initial encounter; D63.0 Anemia in neoplastic disease; K59.00 Constipation, unspecified; F11.20 Opioid dependence, uncomplicated; F17.210 Nicotine dependence, cigarettes, uncomplicated; E46 Unspecified protein-calorie malnutrition; R13.10 Dysphagia, unspecified; K57.30 Diverticulosis of large intestine without perforation or abscess without bleeding
CPT/HCPCS: 36430; 49440; 71045; 74177; 76705; 80048; 81001; 83605; 83735; 85025; 85610; 85730; 86850; 86900; 86901; 86920; 87040; 96361; 96365; 96366; 96367; 96368; 97163; 99152; 99153; 99285; C1769; C1894; G0378; G8987; G8988; J0692; J2250; J2543; J3010; J3370; J7040; J7050; P9016; Q9967

== ENCOUNTER 2017-11-26 21:55 | Emergency (ER) | payer BC ==
[~2017-11-26] VITALS: Ht 160 cm; Wt 45.5 kg
[~2017-11-26 21:55] MED LIST changes: -AUGM250S2 PEG; +CIPR-9 PO; +COLA100C5 PO; +DICY10 PO; -HYDR-3516 PEG; +METR-1 PO; +POLY17S PO; -TAMS5CAP PO
[2017-11-26 22:16] VITALS: BP 130/62; PULSE 75; RESP 20; TEMP 97.6; O2SAT 99
[2017-11-26] MEDS ORDERED: LIDOCAINE VISCOUS 2% SOLN 15 ML UDC PO ONE (23:15)
[2017-11-26] MEDS ORDERED: ALUMINUM/MAGNESIUM/SIMETH 30 ML CUP PO ONE (23:15)
[2017-11-26] MEDS ORDERED: SODIUM CHLORIDE 0.9% FLUSH 10 ML FLUSH IV FLUSH PRN (23:15)
--- NOTE | 2017-11-26 23:51 | RADRPT ---
EXAM DATE/TIME: 11/26/2017 23:35 [facility] COMPARISON: No previous studies available for comparison. INDICATIONS : Chest pain. MEDICAL HISTORY : Carcinoma of the tongue, Chemotherapy SURGICAL HISTORY : PEG tube placement, Port placement ENCOUNTER: Initial ACUITY: 1 day PAIN SCORE: 4/10 LOCATION: Bilateral chest FINDINGS: Zwlfzj-w-Wlrx tip is in the right atrium. No consolidation or effusion. Heart size normal. No pneumot horax. Gastrostomy present left upper quadrant. CONCLUSION: 1. No acute findings. Uchqru-a-Kzvu tip in right atrium and gastrostomy in left upper quadrant. Yogesh Ojead MD on November 26, 2017 at 23:47 Board Certified Radiologist. This report was verified electronically.
[2017-11-27 00:08] LABS: AUTOMATED NEUTROPHIL # 5.6 TH/MM3 (1.8-7.7); BASOPHIL % 0.5 % (0.0-2.0); EOSINOPHIL % 0.2 % (0.0-4.0); HEMATOCRIT 31.5 % (39.0-51.0); HEMOGLOBIN 10.6 GM/DL (13.0-17.0); LYMPH % 20.2 % (9.0-44.0); LYMPHOCYTE # 1.6 TH/MM3 (1.0-4.8); MEAN CELL VOLUME 93.4 FL (80.0-100.0); MEAN CORPUSCULAR HEMOGLOBIN 31.3 PG (27.0-34.0); MEAN CORPUSCULAR HGB CONC 33.5 % (32.0-36.0); MEAN PLATELET VOLUME 7.3 FL (7.0-11.0); MONO % 7.7 % (0.0-8.0); MONOCYTE # 0.6 TH/MM3 (0-0.9); NEUT % 71.4 % (16.0-70.0); PLATELET COUNT 387 TH/MM3 (150-450); RED BLOOD COUNT 3.37 MIL/MM3 (4.50-5.90); RED CELL DISTRIBUTION WIDTH 18.2 % (11.6-17.2); WHITE BLOOD COUNT 7.9 TH/MM3 (4.0-11.0)
--- NOTE | 2017-11-27 00:13 | PD ---
HPI Chief Complaint: Abdominal Pain Time Seen by Provider: 23:10 Travel History International Travel<30 days: No Contact w/Intl Traveler<30days: No Traveled to known affect area: No History of Present Illness HPI 62-year-old man, presents to the emergency department complaining of feeling like he is choking on something. He is a history of squamous cell carcinoma of the tongue, with a PEG tube, on neoadjuvant chemotherapy now. Uses the PEG tube for most of his nutrition. He was eating some chocolate covered popcorn tonight when he swallowed any folic get stuck in his throat. He had pain in his chest that he attributes to the esophagus, the past is now more in his abdomen. He has had some nausea but this improved. Still some pain in the abdomen now. No other complaints. History Past Medical History Narrative Medical Squamous cell carcinoma of the tongue, status post PEG tube placement Tetanus Vaccination: Never Vaccinated Influenza Vaccination: Yes Social History Alcohol Use: Yes (DAILY) Tobacco Use: Yes (1 PPD) Allergies-Medications (Allergen,Severity, Reaction): Coded Allergies: No Known Allergies (Unverified , 11/15/17) Reported Meds & Prescriptions Reported Meds & Active Scripts Active Polyethylene Glycol 3350 Powder (Polyethylene Glycol) 17 Gram Pow 17 Gm PO DAILY Bentyl (Dicyclomine HCl) 10 Mg Cap 10 Mg PO TID Colace (Docusate Sodium) 100 Mg Capsule 100 Mg PO BID PRN Flagyl (Metronidazole) 500 Mg Tab 500 Mg PO TID Cipro (Ciprofloxacin HCl) 500 Mg Tab 500 Mg PO BID Review of Systems Except as stated in HPI: all other systems reviewed are Neg Physical Exam Narrative GENERAL: Well-appearing 62-year-old man, no acute distress. SKIN: Focused skin assessment warm/dry. HEAD: Atraumatic. Normocephalic. CARDIOVASCULAR: Regular rate and rhythm. No murmur appreciated. RESPIRATORY: No accessory muscle use. Clear to auscultation. Breath sounds equal bilaterally. GASTROINTESTINAL: Abdomen soft, non-tender, nondistended. PEG tube in the midabdomen. Hepatic and splenic margins not palpable. MUSCULOSKELETAL: No obvious deformities. No clubbing. No cyanosis. No edema. NEUROLOGICAL: Awake and alert. No obvious cranial nerve deficits. Motor grossly within normal limits. Normal speech. PSYCHIATRIC: Appropriate mood and affect; insight and judgment normal. Data Data Last Documented VS Vital Signs Date Time Temp Pulse Resp B/P (MAP) Pulse Ox O2 Delivery O2 Flow Rate FiO2 11/26/17 22:16 97.6 75 20 130/62 (84) 99 Orders Orders Complete Blood Count With Diff (11/26/17 23:15) Comprehensive Metabolic Panel (11/26/17 23:15) Iv Access Insert/Monitor (11/26/17 23:15) Sodium Chloride 0.9% Flush (Ns Flush) (11/26/17 23:15) Al-Mag Hy-Si 40-40-4 Mg/Ml Liq (Mag-Al P (11/26/17 23:15) Lidocaine 2% Viscous (Xylocaine 2% Visco (11/26/17 23:15) Chest, Pa & Lat (11/26/17 ) Labs Laboratory Tests Test 11/26/17 23:52 White Blood Count 7.9 TH/MM3 Red Blood Count 3.37 MIL/MM3 Hemoglobin 10.6 GM/DL Hematocrit 31.5 % Mean Corpuscular Volume 93.4 FL Mean Corpuscular Hemoglobin 31.3 PG Mean Corpuscular Hemoglobin Concent 33.5 % Red Cell Distribution Width 18.2 % Platelet Count 387 TH/MM3 Mean Platelet Volume 7.3 FL Neutrophils (%) (Auto) 71.4 % Lymphocytes (%) (Auto) 20.2 % Monocytes (%) (Auto) 7.7 % Eosinophils (%) (Auto) 0.2 % Basophils (%) (Auto) 0.5 % Neutrophils # (Auto) 5.6 TH/MM3 Lymphocytes # (Auto) 1.6 TH/MM3 Monocytes # (Auto) 0.6 TH/MM3 Eosinophils # (Auto) 0.0 TH/MM3 Basophils # (Auto) 0.0 TH/MM3 CBC Comment DIFF FINAL Differential Comment Blood Urea Nitrogen 16 MG/DL Creatinine 0.72 MG/DL Random Glucose 113 MG/DL Total Protein 6.5 GM/DL Albumin 2.8 GM/DL Calcium Level 9.0 MG/DL Alkaline Phosphatase 48 U/L Aspartate Amino Transf (AST/SGOT) 16 U/L Alanine Aminotransferase (ALT/SGPT) 15 U/L Total Bilirubin 0.2 MG/DL Sodium Level 139 MEQ/L Potassium Level 4.9 MEQ/L Chloride Level 105 MEQ/L Carbon Dioxide Level 29.0 MEQ/L Anion Gap 5 MEQ/L Estimat Glomerular Filtration Rate 110 ML/MIN MDM Medical Decision Making Medical Screen Exam Complete: Yes Emergency Medical Condition: Yes Interpretation(s) Chest x-ray unremarkable Labs unremarkable. Differential Diagnosis Esophageal foreign body, esophageal laceration, spasm, infection, pancreatitis, other Narrative Course Medical decision making INITIAL: 62 oh male presents emergency department with a foreign body sensation in throat that resolved and left with some mild abdominal pain. Abdominal exam is benign. Will check chest x-ray and ASIC labs, try GI cocktail with lidocaine , likely outpatient follow-up. Diagnosis Primary Impression: Chest pain Additional Instructions: Follow-up with her regular doctor on Tuesday for not feel completely well. Return to the emergency department for any new or worsening symptoms. Disposition: 01 DISCHARGE HOME Condition: Stable Kaushal Melendez MD Nov 27, 2017 00:13
[2017-11-27 00:42] LABS: ALKALINE PHOSPHATASE 48 U/L (45-117); TOTAL BILIRUBIN ADULT 0.2 MG/DL (0.2-1.0); TOTAL PROTEIN 6.5 GM/DL (6.4-8.2)
[2017-11-27 00:51] LABS: ALBUMIN 2.8 GM/DL (3.4-5.0); ALT (GPT) 15 U/L (12-78); AST (GOT) 16 U/L (15-37); BLOOD UREA NITROGEN 16 MG/DL (7-18); CHLORIDE 105 MEQ/L (98-107); CREATININE 0.72 MG/DL (0.60-1.30); GLOMERULAR FILTRATION RATE 110 ML/MIN (>89); GLUCOSE,RANDOM 113 MG/DL (74-106); SODIUM (NA) 139 MEQ/L (136-145)
== END 2017-11-27 01:40 | disposition home or self-care (01) ==
LOC: NEPE 21:55
DX: R07.9 Chest pain, unspecified (principal); R10.9 Unspecified abdominal pain; C02.9 Malignant neoplasm of tongue, unspecified; R11.0 Nausea; F17.200 Nicotine dependence, unspecified, uncomplicated; Z79.899 Other long term (current) drug therapy
CPT/HCPCS: 71046; 80053; 85025; 99284

== ENCOUNTER 2017-12-22 09:20 | Inpatient (IN) | payer BC ==
[2017-12-22] VITALS (10 sets, daily range): BP systolic 118–130; BP diastolic 63–90; PULSE 98–124; RESP 16–18; TEMP 97.2–102; O2SAT 95–100
[~2017-12-22] VITALS: Ht 160 cm; Wt 46.0 kg
[2017-12-22] MEDS ORDERED: SODIUM CHLOR 0.9% 1000 ML INJ 1,000 ML IV ONE (09:45)
[2017-12-22 09:50] LABS: HEMATOCRIT 36.8 % (39.0-51.0); HEMOGLOBIN 12.6 GM/DL (13.0-17.0); MEAN CELL VOLUME 95.3 FL (80.0-100.0); MEAN CORPUSCULAR HEMOGLOBIN 32.7 PG (27.0-34.0); MEAN CORPUSCULAR HGB CONC 34.3 % (32.0-36.0); MEAN PLATELET VOLUME 8.6 FL (7.0-11.0); PLATELET COUNT 175 TH/MM3 (150-450); RED BLOOD COUNT 3.86 MIL/MM3 (4.50-5.90); WHITE BLOOD COUNT 1.3 TH/MM3 (4.0-11.0)
--- NOTE | 2017-12-22 09:59 | PD ---
HPI Chief Complaint: Oral / Dental Pain or Problem Time Seen by Provider: 09:32 Travel History International Travel<30 days: No Contact w/Intl Traveler<30days: No Traveled to known affect area: No History of Present Illness HPI This is a 62-year-old male with a history of metastatic tongue cancer, presents today with complaints of severe mouth pain and diarrhea. Patient reports it is very painful for him to even talk. So the report was limited. He states that he has had diarrhea for 2-3 days. He reports difficulty swallowing secondary to the pain. He reports feeling weak. Paramedics report that his pulse was 120s. Patient reports 5 watery bowel movements per day for the last 2 days. No reported fevers. PFSH Past Medical History Blood Disorders: No Cancer: Yes (TONGUE AND NECK CA) Cardiovascular Problems: No Chemotherapy: Yes (last day 11/26/17) Diabetes: No Endocrine: No Gastrointestinal Disorders: No Genitourinary: Yes Hepatitis: No Immune Disorder: No Implanted Vascular Access Dvce: Yes Medical other: No Musculoskeletal: No Neurologic: No Psychiatric: No Reproductive: No Respiratory: No Immunizations Current: No Thyroid Disease: No Past Surgical History Abdominal Surgery: Yes (Peg tube placement) AICD: No Body Medical Devices: INFUSA PORT Joint Replacement: No Oral Surgery: Yes (TONSILS REMOVED) Pacemaker: No Tonsillectomy: Yes Other Surgery: Yes (PORT PLACEMENT, G-TUBE PLACEMENT, NOSE REPAIR) Social History Alcohol Use: Yes (DAILY) Tobacco Use: Yes (1 PPD) Substance Use: No Allergies-Medications (Allergen,Severity, Reaction): Coded Allergies: No Known Allergies (Unverified , 11/15/17) Reported Meds & Prescriptions Reported Meds & Active Scripts Active Polyethylene Glycol 3350 Powder (Polyethylene Glycol) 17 Gram Pow 17 Gm PO DAILY Bentyl (Dicyclomine HCl) 10 Mg Cap 10 Mg PO TID Colace (Docusate Sodium) 100 Mg Capsule 100 Mg PO BID PRN Flagyl (Metronidazole) 500 Mg Tab 500 Mg PO TID Cipro (Ciprofloxacin HCl) 500 Mg Tab 500 Mg PO BID Review of Systems Except as stated in HPI: all other systems reviewed are Neg General / Constitutional: No: Fever, Chills HENT: Positive: Lightheadedness, Other (Mouth pain.), No: Headaches Cardiovascular: No: Chest Pain or Discomfort, Palpitations Respiratory: No: Cough, Shortness of Breath Gastrointestinal: Positive: Diarrhea, No: Nausea, Vomiting, Abdominal Pain Genitourinary: Positive: Decreased Urinary Output, No: Dysuria Musculoskeletal: Positive: Weakness (Generalized), No: Pain Neurologic: Positive: Weakness (Generalized), No: Headache Physical Exam Narrative GENERAL: Weak ill-appearing male in no acute respiratory distress. SKIN: Focused skin assessment warm/dry. Mild tenting. HEAD: Atraumatic. Normocephalic. EYES: No scleral icterus. No injection or drainage. ENT: No nasal bleeding or discharge. Patient opens his mouth however no obvious thrush appreciated. The patient does have abnormal. NECK: Trachea midline. Supple. No stridor. CARDIOVASCULAR: Regular rate and rhythm. No murmur appreciated. RESPIRATORY: No accessory muscle use. Clear to auscultation. Breath sounds equal bilaterally. GASTROINTESTINAL: Abdomen soft, non-tender, nondistended. Hepatic and splenic margins not palpable. MUSCULOSKELETAL: No obvious deformities. No clubbing. No cyanosis. No edema. NEUROLOGICAL: Awake and alert. No obvious cranial nerve deficits. Motor grossly within normal limits. Minimal speech secondary to pain. Data Data Last Documented VS Vital Signs Date Time Temp Pulse Resp B/P (MAP) Pulse Ox O2 Delivery O2 Flow Rate FiO2 12/22/17 12:05 109 18 122/79 (93) 96 Room Air 12/22/17 09:23 98.8 Orders Orders Complete Blood Count With Diff (12/22/17 09:32) Basic Metabolic Panel (Bmp) (12/22/17 09:32) Urinalysis - C+S If Indicated (12/22/17 09:32) Wet Prep Profile (12/22/17 09:32) Chest, Single Ap (12/22/17 09:32) Iv Access Insert/Monitor (12/22/17 09:32) Ecg Monitoring (12/22/17 09:32) Oximetry (12/22/17 09:32) Sodium Chlor 0.9% 1000 Ml Inj (Ns 1000 M (12/22/17 09:45) Alve-Uhqv-Keji Liq (Magic Mouthwash Adul (12/22/17 13:00) Prochlorperazine Inj (Compazine Inj) (12/22/17 10:15) Admit To Inpatient (12/22/17 ) Vital Signs (Adult) Q4H (12/22/17 12:43) Activity Oob With Assistance (12/22/17 12:43) Survey Technologist / Telemetry .CONTINUOUS (12/22/17 12:43) Diet Heart Healthy (12/22/17 Lunch) Sodium Chloride 0.9% Flush (Ns Flush) (12/22/17 12:45) Sodium Chloride 0.9% Flush (Ns Flush) (12/22/17 21:00) Ondansetron Inj (Zofran Inj) (12/22/17 12:45) Basic Metabolic Panel (Bmp) (12/23/17 06:00) Complete Blood Count With Diff (12/23/17 06:00) Pt Request For Service (12/22/17 12:43) Case Management Consult (12/22/17 12:43) Naloxone Inj (Narcan Inj) (12/22/17 12:45) Inpatient Certification (12/22/17 ) C Diff Toxin Pcr (12/22/17 12:43) Enteric Path (Stool) (12/22/17 12:43) Stool Ova And Parasite Screen (12/22/17 12:43) Admit Order (Ed Use Only) (12/22/17 13:02) Labs Laboratory Tests Test 12/22/17 09:30 12/22/17 09:35 White Blood Count 1.3 TH/MM3 Red Blood Count 3.86 MIL/MM3 Hemoglobin 12.6 GM/DL Hematocrit 36.8 % Mean Corpuscular Volume 95.3 FL Mean Corpuscular Hemoglobin 32.7 PG Mean Corpuscular Hemoglobin Concent 34.3 % Red Cell Distribution Width 19.0 % Platelet Count 175 TH/MM3 Mean Platelet Volume 8.6 FL CBC Comment AUTO DIFF Differential Total Cells Counted 100 Neutrophils % (Manual) 22 % Band Neutrophils % 8 % Lymphocytes % 56 % Monocytes % 13 % Neutrophils # (Manual) 0.4 TH/MM3 Metamyelocytes 1 % Differential Comment FINAL DIFF MANUAL Platelet Estimate NORMAL Platelet Morphology Comment NORMAL Blood Urea Nitrogen 34 MG/DL Creatinine 1.40 MG/DL Random Glucose 181 MG/DL Calcium Level 9.2 MG/DL Sodium Level 138 MEQ/L Potassium Level 4.0 MEQ/L Chloride Level 102 MEQ/L Carbon Dioxide Level 24.5 MEQ/L Anion Gap 12 MEQ/L Estimat Glomerular Filtration Rate 51 ML/MIN Clue Cells (Wet Prep) NONE SEEN Vaginal Trichomonas (Wet Prep) NONE SEEN Vaginal Yeast (Wet Prep) NONE SEEN MDM Medical Decision Making Medical Screen Exam Complete: Yes Emergency Medical Condition: Yes Differential Diagnosis Thrush versus mouth ulcers versus metabolic derangement Narrative Course 62-year-old male with history of tongue cancer, presents today with complaints of mouth pain and diarrhea. Patient also reports weakness. Patient has a absolute neutrophil count of 0.4. He also has acute kidney injury with an elevated BUN/creatinine. He has been given 1 L of IV fluid. Given the patient' s laboratory values, he will be admitted to the medicine service. Case was discussed with Dr. Pascual, [facility], who agrees for the admission. Diagnosis Primary Impression: Severe neutropenia Additional Impressions: Acute kidney injury Diarrhea Generalized weakness Squamous cell cancer of tongue Charli Troncoso MD Dec 22, 2017 09:59
[2017-12-22] MEDS: NYSTAT/DIPHENHY/LIDO MOUTHWASH (Adult) 120ML SWISH-SWAL SCH ×3 (10:03→20:33)
[2017-12-22 10:14] LABS: BICARBONATE 24.5 MEQ/L (21.0-32.0); CALCIUM 9.2 MG/DL (8.5-10.1); CREATININE 1.4 MG/DL (0.60-1.30)
[2017-12-22] MEDS ORDERED: PROCHLORPERAZINE INJ 10 MG/2 ML VIAL IV PUSH ONE (10:15)
[2017-12-22 10:18] LABS: BANDS 8 % (0-6); LYMPHOCYTES 56 % (9-44); METAMYELOCYTES 1 % (0-1); MONOCYTES 13 % (0-8); POLYS (SEG NEUTROPHILS) 22 % (16-70)
[2017-12-22 10:20] LABS: NEUTROPHIL # MANUAL DIFF 0.4 TH/MM3 (1.8-7.7)
--- NOTE | 2017-12-22 10:53 | RADRPT ---
EXAM DATE/TIME: 12/22/2017 10:05 [place] COMPARISON: CHEST SINGLE AP, November 15, 2017, 21:21. INDICATIONS : Shortness of breath. MEDICAL HISTORY : Carcinoma, oral cavity. SURGICAL HISTORY : None. ENCOUNTER: Initial ACUITY: 1 day PAIN SCORE: 0/10 LOCATION: Bilateral chest FINDINGS: The heart and mediastinal structures are normal. The pulmonary vascular pattern is normal. The lungs are clear. Right subclavian Vuemot-[id number] has its tip in the right atrium. CONCLUSION: No acute cardiopulmonary disease. Robby Newberry MD on December 22, 2017 at 10:49 Board Certified Radiologist. This report was verified electronically.
[2017-12-22] MEDS ORDERED: SODIUM CHLORIDE 0.9% FLUSH 10 ML FLUSH IV FLUSH PRN (12:45)
[2017-12-22] MEDS ORDERED: NALOXONE HCL 0.4 MG/ML AMP IV PUSH PRN (12:45)
--- NOTE | 2017-12-22 14:43 | HHI.HP ---
[facility] Unknown Admission Diagnosis severe neutropenia, acute kidney injury, diarrhea, tongue cancer Diagnoses: Travel History International Travel<30 Days: No Contact w/Intl Traveler <30 Da: No Traveled to Known Affected Are: No History of Present Illness History from patient, and review of medical records, and ER physician. Patient is extremely weak and able to answer questions mostly by short sentences and nodding or shaking his hands. He reports he came to the hospital because he has been extremely weak. Reports dizziness and near syncope. Reports he has been short of breath as well and has been coughing a lot. Denies any fever. Reports of sore throat and some lesions in his tongue and mouth. He also reports of urinary burning and pain on urination. Denies any blood in his urine. However states that his stool has been dark. He has had diarrhea as well for the past 3 days about 5 times a day. Denies being on antibiotics. He reports of severe nausea but did not really vomit yet. 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 He is on chemotherapy. He is not able to tell me when his last chemotherapy is. He did however say that the cancer had spread to around his neck. Oncology notes from December 06, 2017 reviewed Review of Systems Except as stated in HPI: all other systems reviewed are Neg Past Family Social History Past Medical History Locally advanced squamous cell carcinoma of the tongue. Well-differentiated tumor with bulky adenopathy. HPV negative. Per records, prior history of l neutropenia requiring Neupogen. Past Surgical History None Allergies: Coded Allergies: No Known Allergies (Unverified , 11/15/17) Family History Denies any family history Per records: Mr. Barron's parents are both . Mr. Barron's maternal grandmother is . His maternal grandfather is . His paternal grandmother is . His paternal grandfather is . Social History Lives by himself. Single. Reports he is still smoking about a pack a day. Denies any alcohol abuse or drug abuse. Physical Exam Vital Signs Vital Signs Date Time Temp Pulse Resp B/P (MAP) Pulse Ox O2 Delivery O2 Flow Rate FiO2 12/22/17 14:23 98 17 127/63 (84) 96 Room Air 12/22/17 12:05 109 18 122/79 (93) 96 Room Air 12/22/17 09:30 97 12/22/17 09:23 98.8 124 18 129/90 (103) 97 Physical Exam GENERAL: This is a thin cachectic gentleman. Looks to be in distress from pain. SKIN: No rashes, ecchymoses or lesions. Cool and dry. HEAD: Atraumatic. Normocephalic. No temporal or scalp tenderness. EYES: No scleral icterus. No injection or drainage. ENT: Nose without bleeding, purulent drainage or septal hematoma. Airway patent. Tongue with some mucositis NECK: Trachea midline. No JVDSupple, nontender, no meningeal signs. CARDIOVASCULAR: Regular rate and rhythm without murmurs, gallops, or rubs. RESPIRATORY: Clear to auscultation. Breath sounds equal bilaterally. No wheezes , rales, or rhonchi. Left chest MediPort site clean GASTROINTESTINAL: Abdomen soft, non-tender, nondistended. No guarding. PEG tube site clean MUSCULOSKELETAL: Extremities without clubbing, cyanosis, or edema.. No calf tenderness. NEUROLOGICAL: Awake and alert. Motor and sensory grossly within normal limits. Normal speech. Laboratory Laboratory Tests Test 12/22/17 09:30 12/22/17 09:35 White Blood Count 1.3 Red Blood Count 3.86 Hemoglobin 12.6 Hematocrit 36.8 Mean Corpuscular Volume 95.3 Mean Corpuscular Hemoglobin 32.7 Mean Corpuscular Hemoglobin Concent 34.3 Red Cell Distribution Width 19.0 Platelet Count 175 Mean Platelet Volume 8.6 CBC Comment AUTO DIFF Differential Total Cells Counted 100 Neutrophils % (Manual) 22 Band Neutrophils % 8 Lymphocytes % 56 Monocytes % 13 Neutrophils # (Manual) 0.4 Metamyelocytes 1 Differential Comment FINAL DIFF MANUAL Platelet Estimate NORMAL Platelet Morphology Comment NORMAL Blood Urea Nitrogen 34 Creatinine 1.40 Random Glucose 181 Calcium Level 9.2 Sodium Level 138 Potassium Level 4.0 Chloride Level 102 Carbon Dioxide Level 24.5 Anion Gap 12 Estimat Glomerular Filtration Rate 51 Clue Cells (Wet Prep) NONE SEEN Vaginal Trichomonas (Wet Prep) NONE SEEN Vaginal Yeast (Wet Prep) NONE SEEN Result Diagram: 12/22/1792912/22/17929 Imaging Last 48 hours Impressions Chest X-Ray 12/22/17931 Signed Impressions: Service Date/Time: November 10:05 - CONCLUSION: No acute cardiopulmonary disease. MD Roselyn Saldivar VTE Risk Assessment Capryani VTE Risk Assessment: Mod/High Risk (score >= 2) Caprini Risk Assessment Model Point Value = 1 Point Value = 2 Point Value = 3 Point Value = 5 Age 41-60 Minor surgery BMI > 25 kg/m2 Swollen legs Varicose veins or History of unexplained or recurrent spontaneous Oral contraceptives or hormone replacement Sepsis (< 1 month) Serious lung disease, including pneumonia (< 1 month) Abnormal pulmonary function Acute myocardial infarction Congestive heart failure (< 1 month) History of inflammatory bowel disease Medical patient at bed rest Age 61-74 Arthroscopic surgery Major open surgery (> 45 min) Laparoscopic surgery (> 45 min) Malignancy Confined to bed (> 72 hours) Immobilizing plaster cast Central venous access Age >= 75 History of VTE Family history of VTE Factor V Leiden Prothrombin [id number] Lupus anticoagulant Anticardiolipin antibodies Elevated serum homocysteine Heparin-induced thrombocytopenia Other congenital or acquired thrombophilia Stroke (< 1 month) Elective arthroplasty Hip, pelvis, or leg fracture Acute spinal cord injury (< 1 month) Prophylaxis Regimen Total Risk Factor Score Risk Level Prophylaxis Regimen 0-1 Low Early ambulation 2 Moderate Order ONE of the following: *Sequential Compression Device (SCD) *Heparin 5000 units SQ BID 3-4 Higher Order ONE of the following medications: *Heparin 5000 units SQ TID *Enoxaparin/Lovenox 40 mg SQ daily (WT < 150 kg, CrCl > 30 mL/min) *Enoxaparin/Lovenox 30 mg SQ daily (WT < 150 kg, CrCl > 10-29 mL/min) *Enoxaparin/Lovenox 30 mg SQ BID (WT < 150 kg, CrCl > 30 mL/min) AND/OR *Sequential Compression Device (SCD) 5 or more Highest Order ONE of the following medications: *Heparin 5000 units SQ TID (Preferred with Epidurals) *Enoxaparin/Lovenox 40 mg SQ daily (WT < 150 kg, CrCl > 30 mL/min) *Enoxaparin/Lovenox 30 mg SQ daily (WT < 150 kg, CrCl > 10-29 mL/min) *Enoxaparin/Lovenox 30 mg SQ BID (WT < 150 kg, CrCl > 30 mL/min) AND *Sequential Compression Device (SCD) Assessment and Plan Assessment and Plan Impression: Generalized weakness/dizziness. Likely secondary to dehydration and possibly orthostatic hypotension. Dehydration Acute renal failure Poor oral intake. Patient is on complete PEG tube feeding at home which he gives himself. He is not able to tell me which formulary or how often he gives himself. He lives by himself. Diarrhea. Contributing to dehydration and renal failure. Rule out C. difficile. Reports of melena. Rule out GI bleed. Hemoglobin is stable. Absolute neutropenia in a chemo patient. Locally advanced squamous cell carcinoma of the tongue. Well-differentiated tumor with bulky adenopathy. HPV negative. Per records, prior history of l neutropenia requiring Neupogen. Plan: IV hydration with D5 half normal saline at 84 cc/h. We will follow renal function. Resume PEG tube feeding at 40 cc/h. For now, use vital Consult dietitian for tube feeding and patient education. Stool for C. difficile. Stool for guaiac. Stool for enteric pathogens. Start on lidocaine viscous for throat pain. Patient is not able to swallow anything by mouth. The for at this point difficult to give nystatin swish and swallow. Start Diflucan 200 mg IV daily. DVT prophylaxis with SCD. Resume home meds. Call patient's pharmacy [facility] [place] get med reconciliation. Discussed Condition With Patient, ER physician Physician Certification 2 Midnight Certification Type: Admission for Inpatient Services Order for Inpatient Services The services are ordered in accordance with Medicare regulations or non- Medicare payer requirements, as applicable. In the case of services not specified as inpatient-only, they are appropriately provided as inpatient services in accordance with the 2-midnight benchmark. Estimated LOS (days): 4 days is the estimated time the patient will need to remain in the hospital, assuming treatment plan goals are met and no additional complications. Post-Hospital Plan: Not yet determined Concha May MD Dec 22, 2017 14:43
[2017-12-22] MEDS: PANTOPRAZOLE SODIUM 40 MG VIAL IV PUSH SCH (16:42)
[2017-12-22] MEDS: DEXT 5%-NACL 0.45% 1000 ML INJ 1,000 ML IV SCH (16:43)
[2017-12-22] MEDS: FLUCONAZOLE 200 MG PREMIX BAG 100 ML IV SCH (18:33)
[2017-12-22] MEDS: SODIUM CHLORIDE 0.9% FLUSH 10 ML FLUSH IV FLUSH SCH (20:34)
[2017-12-22] MEDS ORDERED: ACETAMINOPHEN 325 MG TAB PO PRN (21:00)
[2017-12-22] MEDS: MORPHINE SULFATE 2 MG/ML SYRINGE IV PRN (21:25)
[2017-12-22] MEDS: CEFEPIME 2000 MG/NS 100 ML IV SCH ×2 (21:25)
[2017-12-22] MEDS: FILGRASTIM 300 MCG/ML VIAL SQ SCH (21:26)
[2017-12-22 22:37] LABS: AMORPHOUS SEDIMENT, URINE RARE; BILIRUBIN, URINE NEG (NEG); BLOOD, URINE SMALL (NEG); GLUCOSE,URINE 70 mg/dL (NEG); KETONE, URINE NEG (NEG); MUCUS URINE FEW /lpf (OCC); NITRITE,URINE NEG (NEG); PH, URINE 5.5 (5.0-8.5); SQUAMOUS EPITHELIAL CELL URINE 1 /hpf (0-5); URINE COLOR YELLOW (YELLW/STRAW); URINE LEUKOCYTE ESTERASE NEG (NEG)
[2017-12-23] VITALS (9 sets, daily range): BP systolic 115–130; BP diastolic 78–92; PULSE 99–116; RESP 16–24; TEMP 96.8–100.2; O2SAT 98–99
[2017-12-23] MEDS: CEFEPIME 2000 MG/NS 100 ML IV SCH ×6 (04:00→20:18)
[2017-12-23] MEDS: PANTOPRAZOLE SODIUM 40 MG VIAL IV PUSH SCH ×2 (04:00→15:38)
[2017-12-23] MEDS: DEXT 5%-NACL 0.45% 1000 ML INJ 1,000 ML IV SCH ×2 (04:01→15:38)
[2017-12-23 05:45] LABS: HEMOGLOBIN 11.1 GM/DL (13.0-17.0); MEAN CORPUSCULAR HEMOGLOBIN 32.3 PG (27.0-34.0); MEAN CORPUSCULAR HGB CONC 33.7 % (32.0-36.0); MEAN PLATELET VOLUME 8.7 FL (7.0-11.0); PLATELET COUNT 150 TH/MM3 (150-450); RED BLOOD COUNT 3.44 MIL/MM3 (4.50-5.90); RED CELL DISTRIBUTION WIDTH 18.5 % (11.6-17.2); WHITE BLOOD COUNT 1.8 TH/MM3 (4.0-11.0)
[2017-12-23] MEDS: ONDANSETRON HCL 4 MG/2 ML VIAL IVP PRN ×2 (05:59→15:38)
[2017-12-23 06:17] LABS: BICARBONATE 19.1 MEQ/L (21.0-32.0); CALCIUM 8.3 MG/DL (8.5-10.1); CREATININE 1.09 MG/DL (0.60-1.30)
[2017-12-23] MEDS: MORPHINE SULFATE 2 MG/ML SYRINGE IV PRN ×3 (06:49→14:25)
[2017-12-23 08:06] LABS: BANDS 17 % (0-6); LYMPHOCYTES 51 % (9-44); METAMYELOCYTES 6 % (0-1); MONOCYTES 15 % (0-8); MYELOCYTES 1 % (0-0); NEUTROPHIL # MANUAL DIFF 0.6 TH/MM3 (1.8-7.7); POLYS (SEG NEUTROPHILS) 10 % (16-70)
[2017-12-23 08:07] LABS: DOHLE BODIES PRESENT (NONE SEEN)
[2017-12-23 08:08] LABS: TOXIC GRANULATION 1+ (NORMAL)
[2017-12-23] MEDS: NYSTAT/DIPHENHY/LIDO MOUTHWASH (Adult) 120ML SWISH-SWAL SCH ×4 (08:53→20:18)
[2017-12-23] MEDS: FILGRASTIM 300 MCG/ML VIAL SQ SCH (14:25)
[2017-12-23] MEDS: SODIUM CHLORIDE 0.9% FLUSH 10 ML FLUSH IV FLUSH SCH ×2 (14:26→20:21)
[2017-12-23] MEDS: FLUCONAZOLE 200 MG PREMIX BAG 100 ML IV SCH (15:38)
--- NOTE | 2017-12-23 16:06 | HHI.PR ---
Subjective Remarks Patient writes down that he wants a new pain medication and nausea medication. He does not speak to me but just writes it instead. He looks very uncomfortable. Objective Vitals Vital Signs Date Time Temp Pulse Resp B/P (MAP) Pulse Ox O2 Delivery O2 Flow Rate FiO2 12/23/17 14:26 97.6 105 18 115/82 (93) 98 12/23/17 12:00 99 12/23/17 08:58 20 12/23/17 08:30 98.2 116 24 117/92 (100) 99 12/23/17 08:00 109 12/23/17 04:00 113 12/23/17 04:00 98.2 114 16 117/80 (92) 98 12/23/17 00:00 100.2 108 16 117/78 (91) 99 12/23/17 00:00 114 12/22/17 22:31 113 12/22/17 22:30 99.4 12/22/17 21:15 100.9 117 16 129/89 (102) 97 12/22/17 19:46 115 12/22/17 19:45 102.0 110 16 118/71 (87) 95 I/O 12/22/17 12/22/17 12/22/17 12/23/17 12/23/17 12/23/17 06:59 14:59 22:59 06:59 14:59 22:59 Intake Total 1000 ml 200 ml 1100 ml Output Total 550 ml Balance 1000 ml 200 ml 1100 ml -550 ml Intake IV Total 1000 ml 200 ml 1100 ml Output Urine Total 550 ml # Voids 1 # Bowel Movements 1 Result Diagram: 12/23/17 0400 12/23/17 0400 Imaging Last Impressions Chest X-Ray 12/22/17 0932 Signed Impressions: Service Date/Time: November 10:05 - CONCLUSION: No acute cardiopulmonary disease. Robby Newberry MD Objective Remarks GENERAL: This is a thin cachectic gentleman. Looks very uncomfortable CARDIOVASCULAR: Regular rate and rhythm without murmurs, gallops, or rubs. RESPIRATORY: Clear to auscultation. Breath sounds equal bilaterally. No wheezes , rales, or rhonchi. Left chest MediPort site clean GASTROINTESTINAL: Abdomen soft, discomfort w palpation. No guarding. PEG tube site clean MUSCULOSKELETAL: Extremities without edema.. No calf tenderness. NEUROLOGICAL: Awake and alert. Motor and sensory grossly within normal limits. Normal speech. A/P Assessment and Plan Generalized weakness/dizziness. Likely secondary to dehydration and possibly orthostatic hypotension. continue IVFs Dehydration/Acute renal failure- continue IVFs Poor oral intake. Patient is on complete PEG tube feeding at home which he gives himself. RD evaluated the pt and made recs. I have switched tube feeds per their recs pain: i have adjusted pt's pain meds. Diarrhea. c. diff neg. Contributing to dehydration and renal failure. stool cx still pending. Reports of melena. Rule out GI bleed. Hemoglobin is stable. Absolute neutropenia in a chemo patient w fever. oncology following. Had Tmax of 102 overnight. blood cx neg x 1 and on IV cefepime. Appreciate recs from onc. chest x ray and u/a neg Locally advanced squamous cell carcinoma of the tongue. Well-differentiated tumor with bulky adenopathy. HPV negative. Per records, prior history of l neutropenia requiring Neupogen. on lidocaine viscous for throat pain. on Diflucan 200 mg IV daily. DVT prophylaxis with SCD. Resume home meds. RN to Call patient's pharmacy [facility] in [facility] to get med reconciliation. Discharge Planning waiting final recs from onc. continue IV cefepime, f/u blood cx continue pain control. monitor BMP closely and make sure pt doesn't go into refeeding syndrome. Check /Urszula Slade MD Dec 23, 2017 16:06
--- NOTE | 2017-12-23 18:00 | MB ---
cc: Bon Newton MD DATE: 12/23/2017 REASON FOR CONSULTATION: Patient with locally advanced head and neck malignancy. He is currently undergoing neoadjuvant chemotherapy. HISTORY OF PRESENT ILLNESS: This is a 62-year-old male who has a diagnosis of locally advanced carcinoma of the tongue. He is being treated with the neoadjuvant TPF regimen. He now presents to the emergency room with progressive weakness, weight loss, oral pain, and a burning sensation when he urinates. The patient was admitted to the hospital. He was found to be severely neutropenic. His WBC was 1.3, but ANC was 400. He also complained of having blood in his stools, but stool Hemoccult was negative. Urine cultures are pending. UA showed small occult blood, nitrite negative, leukocyte esterase negative. The patient has significant oral mucositis. He is on PEG tube feeds. He appears quite weak and cachectic. REVIEW OF SYSTEMS: A comprehensive review of systems was completed, which is negative except as described in the HPI. PAST MEDICAL HISTORY: Locally advanced head and neck cancer, history of tobacco abuse. PAST SURGICAL HISTORY: History of port placement. FAMILY HISTORY: Reviewed and is noncontributory. SOCIAL HISTORY: He lives by himself. He smokes 1 pack per day. He denies any alcohol abuse. No illicit drug use. MEDICATIONS: 1. Percocet 7.5/325 one tablet p.o. q.4 hours p.r.n. 2. Cefepime 2 grams IV q.8 hours. 3. Morphine sulfate 1 gram IV q.3 hours. 4. Neupogen 300 mcg subcutaneous. 5. Tylenol 650 p.o. q.4 hours. 6. Pantoprazole IV q.12 hours. 7. Fluconazole IV q.24 hours. 8. Zofran p.r.n. ALLERGIES: NO KNOWN DRUG ALLERGIES. PHYSICAL EXAMINATION: VITAL SIGNS: Blood pressure is 115/82, pulse is in the 100s, temperature is 97.6, O2 saturations are 98% on room air. GENERAL: Ill-appearing and cachectic, thin male, who is not in any apparent distress. HEENT: Pupils are equal, round, and reactive to light. Oral thrush is noted. Grade 1 mucositis. NECK: Supple. No JVD. No bruits. CHEST: Clear to auscultation bilaterally. CARDIAC: S1, S2. Regular rate and rhythm. ABDOMEN: Soft, nontender, and nondistended. Bowel sounds are present. PEG tube in place. No erythema or irritation on the PEG site. No discharge. EXTREMITIES: Without any edema, erythema or cyanosis. SKIN: Without any petechia, lesion or bruises. NEUROLOGIC: No focal deficits. PSYCHIATRIC: Mood and affect is appropriate. LABORATORY DATA: WBC 1.8, hemoglobin 11.1, platelet count 150. Serum chemistry: Sodium 139, potassium 3.6, chloride 108, BUN 33, creatinine is 1.09, glucose is 162, calcium is 8.3, albumin 3. PT is 10.5, INR 1, PTT 21.9. IMAGING STUDIES: A chest x-ray was reviewed. There is no acute cardiopulmonary disease. ASSESSMENT AND PLAN: This is a 62-year-old male with locally advanced head and neck cancer. He is currently being treated with neoadjuvant chemotherapy. He presents to the emergency department with weakness, lethargy, oral pain, diarrhea and burning sensation when he urinates. 1. Febrile neutropenia. On presentation, the ANC was 400. He was spiking a fever of 100.9. The patient was initiated on IV antibiotics. Continue cefepime 2 grams IV every 8 hours. If he spikes another fever of 100.5 or greater, we will add vancomycin. We will repeat blood cultures. Continue Neupogen 300 mcg daily. Chest x-ray was reviewed and that he does not have any acute cardiopulmonary disease. 2. Oral mucositis and dysphagia. Continue Magic Mouthwash. He has oral thrush. Continue IV Diflucan. Pain control with IV morphine. 3. Malnutrition and poor oral intake. Continue tube feeds. Nutritional consult. 4. Diarrhea. He has not had any further episodes. Clostridium difficile studies were negative. Continue IV hydration. Monitor daily electrolytes. 5. Acute renal failure, likely prerenal and due to dehydration. Creatinine was 1.4. Continue IV hydration. There has been improvement in his creatinine today. 6. Fluid, electrolyte and nutrition. Continue IV hydration. Continue PEG tube. Check daily electrolytes including magnesium and phosphorus. Thank you for allowing me to participate in the care of this patient. I will continue to follow this patient along. MD NAVA Ochoa/HEYDI , 05:25 PM , 05:59 PM [email or web address]
[2017-12-23] MEDS: oxyCODONE/ACETAMINOPHEN 10 MG/325 MG TAB PO PRN (20:17)
[2017-12-23] MEDS: LIDOCAINE VISCOUS 2% SOLN 15 ML UDC SWISH-SPIT PRN (21:06)
[2017-12-24] VITALS (12 sets, daily range): BP systolic 111–131; BP diastolic 73–88; PULSE 77–96; RESP 15–18; TEMP 96.7–97.9; O2SAT 93–100
[2017-12-24] MEDS: DEXT 5%-NACL 0.45% 1000 ML INJ 1,000 ML IV SCH ×2 (00:04→11:39)
[2017-12-24] MEDS: oxyCODONE/ACETAMINOPHEN 10 MG/325 MG TAB PO PRN ×6 (00:04→23:08)
[2017-12-24] MEDS: PANTOPRAZOLE SODIUM 40 MG VIAL IV PUSH SCH ×2 (02:58→15:42)
[2017-12-24] MEDS: MORPHINE SULFATE 2 MG/ML SYRINGE IV PRN (03:00)
[2017-12-24] MEDS: CEFEPIME 2000 MG/NS 100 ML IV SCH ×6 (04:12→21:11)
[2017-12-24 05:07] LABS: AUTOMATED NEUTROPHIL # 1.4 TH/MM3 (1.8-7.7); BASOPHIL % 0.1 % (0.0-2.0); EOSINOPHIL % 0.1 % (0.0-4.0); HEMOGLOBIN 9.6 GM/DL (13.0-17.0); LYMPH % 40.7 % (9.0-44.0); LYMPHOCYTE # 1.1 TH/MM3 (1.0-4.8); MEAN CORPUSCULAR HEMOGLOBIN 32.8 PG (27.0-34.0); MEAN CORPUSCULAR HGB CONC 34.2 % (32.0-36.0); MEAN PLATELET VOLUME 8.9 FL (7.0-11.0); MONO % 6.3 % (0.0-8.0); MONOCYTE # 0.2 TH/MM3 (0-0.9); NEUT % 52.8 % (16.0-70.0); PLATELET COUNT 140 TH/MM3 (150-450); RED BLOOD COUNT 2.92 MIL/MM3 (4.50-5.90); RED CELL DISTRIBUTION WIDTH 18.9 % (11.6-17.2); WHITE BLOOD COUNT 2.6 TH/MM3 (4.0-11.0)
[2017-12-24 05:26] LABS: ALBUMIN 1.9 GM/DL (3.4-5.0); ALT (GPT) 20 U/L (12-78); AST (GOT) 7 U/L (15-37); BICARBONATE 21.5 MEQ/L (21.0-32.0); BLOOD UREA NITROGEN 37 MG/DL (7-18); CALCIUM 8.2 MG/DL (8.5-10.1); CHLORIDE 108 MEQ/L (98-107); CREATININE 1.07 MG/DL (0.60-1.30); GLOMERULAR FILTRATION RATE 70 ML/MIN (>89); GLUCOSE,RANDOM 131 MG/DL (74-106); MAGNESIUM 1.7 MG/DL (1.5-2.5); SODIUM (NA) 139 MEQ/L (136-145)
[2017-12-24 05:28] LABS: ALKALINE PHOSPHATASE 38 U/L (45-117); PHOSPHORUS 2.5 MG/DL (2.5-4.9); TOTAL BILIRUBIN ADULT 0.2 MG/DL (0.2-1.0); TOTAL PROTEIN 5.6 GM/DL (6.4-8.2)
[2017-12-24 05:57] LABS: BANDS 12 % (0-6); DOHLE BODIES PRESENT (NONE SEEN); LYMPHOCYTES 47 % (9-44); METAMYELOCYTES 4 % (0-1); MONOCYTES 5 % (0-8); NEUTROPHIL # MANUAL DIFF 1.2 TH/MM3 (1.8-7.7); POLYS (SEG NEUTROPHILS) 32 % (16-70); TOXIC GRANULATION 1+ (NORMAL)
--- NOTE | 2017-12-24 07:33 | HHI.PR ---
Subjective Remarks Patient seen and examined this morning. His vitals are stable and he is afebrile. Continues to have significant cough, concern if patient is able to tolerate his secretions. Heme/Onc ordered sputum sample and CXR. Discussed case with nurse, patient would like to speak with palliative care regarding code status and goals of care. Has a cup at bedside where he is collecting his sputum. Objective Vital Signs Date Time Temp Pulse Resp B/P (MAP) Pulse Ox O2 Delivery O2 Flow Rate FiO2 12/24/17 07:00 84 12/24/17 04:00 77 12/24/17 04:00 97.2 87 16 118/74 (89) 100 12/24/17 00:00 96.7 87 15 131/88 (102) 100 12/24/17 00:00 85 12/23/17 20:00 96.8 100 16 130/85 (100) 98 12/23/17 20:00 100 12/23/17 17:42 98.1 102 18 120/80 (93) 99 12/23/17 16:00 105 12/23/17 14:26 97.6 105 18 115/82 (93) 98 12/23/17 12:00 99 12/23/17 08:58 20 12/23/17 08:30 98.2 116 24 117/92 (100) 99 12/23/17 08:00 109 I/O 12/23/17 12/23/17 12/23/17 12/24/17 12/24/17 12/24/17 07:00 15:00 23:00 07:00 15:00 23:00 Intake Total 1100 ml Output Total 550 ml Balance 1100 ml -550 ml Intake IV Total 1100 ml Output Urine Total 550 ml # Voids 1 # Bowel Movements 1 3 Result Diagram: 12/24/17 0410 12/24/17 0410 Imaging Last Impressions Chest X-Ray 12/22/17 0932 Signed Impressions: Service Date/Time: November 10:05 - CONCLUSION: No acute cardiopulmonary disease. Robby Newberry MD Objective Remarks GENERAL: Ill-appearing, no acute distress, cachetic SKIN: Warm and dry. HEAD: Normocephalic. EYES: No scleral icterus. No injection or drainage. NECK: Supple, trachea midline. No JVD or lymphadenopathy. CARDIOVASCULAR: Regular rate and rhythm without murmurs, gallops, or rubs. RESPIRATORY: Breath sounds equal bilaterally. No accessory muscle use. GASTROINTESTINAL: Abdomen soft, non-tender, nondistended. PEG tube MUSCULOSKELETAL: No cyanosis, or edema. 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 He presented to the ER due to weakness and near syncope. Carcinoma of the tongue Febrile neutropenia Patient has been seen and evaluated by oncology Continue cefepime 2 g IV q. 8, if he spikes fevers again vancomycin will be added Blood cultures negative to date UA negative, chest x-ray negative Decreased p.o. intake Continue tube feeds, not tolerating Consult nutrition Diarrhea C. difficile negative Appears to have stabilized Stool cultures pending Acute renal failure Likely prerenal due to dehydration. Creatinine improving HypoKalemia repleated DVT proph bilat SCDs Discharge Planning DC planning recommendations by oncology. Janet Herron MD Dec 24, 2017 07:33
[2017-12-24] MEDS: SODIUM CHLORIDE 0.9% FLUSH 10 ML FLUSH IV FLUSH SCH ×2 (08:51→21:11)
[2017-12-24] MEDS: NYSTAT/DIPHENHY/LIDO MOUTHWASH (Adult) 120ML SWISH-SWAL SCH ×4 (08:51→21:00)
--- NOTE | 2017-12-24 08:57 | PD.ONC.PN ---
Subjective Subjective Remarks Afebrile overnight. Patient very weak, has wet cough and continues to have diarrhea intermittently with constipation. He communicates via speech and writing pad due to his mechanical speech difficulties. Objective Data Date Time Temp Pulse Resp B/P (MAP) Pulse Ox O2 Delivery O2 Flow Rate FiO2 12/24/17 08:30 97.1 89 18 111/79 (90) 100 12/24/17 07:00 84 12/24/17 04:00 77 12/24/17 04:00 97.2 87 16 118/74 (89) 100 12/24/17 00:00 96.7 87 15 131/88 (102) 100 12/24/17 00:00 85 12/23/17 20:00 96.8 100 16 130/85 (100) 98 12/23/17 20:00 100 12/23/17 17:42 98.1 102 18 120/80 (93) 99 12/23/17 16:00 105 12/23/17 14:26 97.6 105 18 115/82 (93) 98 12/23/17 12:00 99 12/23/17 08:58 20 Result Diagram: 12/24/17 0410 12/24/17 0410 Laboratory Results Laboratory Tests Test 12/24/17 04:10 White Blood Count 2.6 TH/MM3 Red Blood Count 2.92 MIL/MM3 Hemoglobin 9.6 GM/DL Hematocrit 28.0 % Mean Corpuscular Volume 96.0 FL Mean Corpuscular Hemoglobin 32.8 PG Mean Corpuscular Hemoglobin Concent 34.2 % Red Cell Distribution Width 18.9 % Platelet Count 140 TH/MM3 Mean Platelet Volume 8.9 FL Neutrophils (%) (Auto) 52.8 % Lymphocytes (%) (Auto) 40.7 % Monocytes (%) (Auto) 6.3 % Eosinophils (%) (Auto) 0.1 % Basophils (%) (Auto) 0.1 % Neutrophils # (Auto) 1.4 TH/MM3 Lymphocytes # (Auto) 1.1 TH/MM3 Monocytes # (Auto) 0.2 TH/MM3 Eosinophils # (Auto) 0.0 TH/MM3 Basophils # (Auto) 0.0 TH/MM3 CBC Comment AUTO DIFF Differential Total Cells Counted 100 Neutrophils % (Manual) 32 % Band Neutrophils % 12 % Lymphocytes % 47 % Monocytes % 5 % Neutrophils # (Manual) 1.2 TH/MM3 Metamyelocytes 4 % Differential Comment FINAL DIFF MANUAL Toxic Granulation 1+ Dohle Bodies PRESENT Platelet Estimate NORMAL Platelet Morphology Comment ENLARGED Blood Urea Nitrogen 37 MG/DL Creatinine 1.07 MG/DL Random Glucose 131 MG/DL Total Protein 5.6 GM/DL Albumin 1.9 GM/DL Calcium Level 8.2 MG/DL Phosphorus Level 2.5 MG/DL Magnesium Level 1.7 MG/DL Alkaline Phosphatase 38 U/L Aspartate Amino Transf (AST/SGOT) 7 U/L Alanine Aminotransferase (ALT/SGPT) 20 U/L Total Bilirubin 0.2 MG/DL Sodium Level 139 MEQ/L Potassium Level 3.0 MEQ/L Chloride Level 108 MEQ/L Carbon Dioxide Level 21.5 MEQ/L Anion Gap 10 MEQ/L Estimat Glomerular Filtration Rate 70 ML/MIN Culture Results Microbiology Date/Time Source Procedure Growth Status 12/22/17 21:06 Blood Peripheral Aerobic Blood Culture - Preliminary NO GROWTH IN 1 DAY Resulted 12/22/17 21:06 Blood Peripheral Anaerobic Blood Culture - Preliminary NO GROWTH IN 1 DAY Resulted 12/22/17 20:45 Blood Peripheral Aerobic Blood Culture - Preliminary NO GROWTH IN 1 DAY Resulted 12/22/17 20:45 Blood Peripheral Anaerobic Blood Culture - Preliminary NO GROWTH IN 1 DAY Resulted 12/23/17 01:20 Stool Stool Stool Occult Blood (OSCAR) - Final HEMOCCULT NEGATIVE Complete 12/23/17 01:20 Stool Stool Cryptosporidium Exam Pending Received 12/23/17 01:20 Stool Stool Giardia Antigen (OSCAR) Pending Received 12/23/17 01:20 Stool Stool - Final NO ENTERIC PATHOGENS DETECTED BY PCR... Complete Administered Medications Medications (Trade) Dose Ordered Sig/Shaila Route PRN Reason Start Time Stop Time Status Last Admin Dose Admin Multi-Ingredient Mouthwash/Gargle (Magic Mouthwash Adult Liq) 10 ml QID SWISH-SWAL 12/22/17 13:00 12/23/17 20:18 Sodium Chloride (NS Flush) 2 ml BID IV FLUSH 12/22/17 21:00 12/23/17 20:21 Ondansetron HCl (Zofran Inj) 4 mg Q6H PRN IVP NAUSEA OR VOMITING 12/22/17 12:45 12/23/17 15:38 Lidocaine HCl (Xylocaine 2% Viscous) 15 ml Q4H PRN SWISH-SPIT THROAT PAIN 12/22/17 15:00 12/23/17 21:06 Pantoprazole Sodium (Protonix Inj) 40 mg Q12H IV PUSH 12/22/17 16:00 12/24/17 02:58 Dextrose/Sodium Chloride 1,000 ml @ 84 mls/hr [id number] IV 12/22/17 15:00 12/24/17 00:04 Fluconazole/ Sodium Chloride 100 ml @ 100 mls/hr Q24H IV 12/22/17 16:00 12/23/17 15:38 Cefepime HCl 2000 mg/Sodium Chloride 100 ml @ 200 mls/hr Q8H IV 12/22/17 21:00 12/24/17 04:12 Morphine Sulfate (Morphine Inj) 1 mg Q3H PRN IV PAIN 1-10 12/22/17 21:00 12/24/17 03:00 Filgrastim (Neupogen Inj) 300 mcg DAILY@14 SQ 12/22/17 21:00 12/23/17 14:25 Acetaminophen (Tylenol) 650 mg Q4H PRN PO TEMP > 100.5 F 12/22/17 21:00 12/22/17 21:25 Oxycodone/ Acetaminophen (Percocet 10-325 Mg) 1 tab Q4H PRN PO pain 8-10 12/23/17 16:00 12/24/17 04:12 Objective Remarks GENERAL: Weak, cachetic male, lying in bed, resting. has intermittent very wet cough SKIN: Warm and dry. HEAD: Normocephalic. EYES: No injection or drainage. NECK: Supple, trachea midline. CARDIOVASCULAR: Regular rate and rhythm RESPIRATORY: Breath sounds equal bilaterally. No accessory muscle use. GASTROINTESTINAL: Abdomen soft, non-tender, nondistended. G-tube in place, receiving TF at 20cc/hr EXTREMITIES: No cyanosis, NEUROLOGICAL: awake and alert. moving extremities. Assessment/Plan Assessment 62y/o male with locally advanced head and neck malignancy currently undergoing neoadjuvant chemotherapy admitted with weakness, weight loss, oral pain, and a burning sensation when he urinates. +locally advanced carcinoma of the tongue. receiving neoadjuvant TPF regimen. He now presents to the emergency room with progressive Plan 1. Neutropenic fever: on Cefepime + Diflucan. BC no growth, CXR no disease 2. Wet cough: check repeat chest x-ray. ensure patient only receiving TF when he is upright in bed. 3. Oral mucositis: magic mouthwash scheduled 4. Oral thrush: continue IV diflucan 5. Malnutrition: continue tube feeds. Attending Statement The exam, history, and the medical decision-making described in the above note were completed with the assistance of the mid-level provider. I reviewed and agree with the findings presented. I attest that I had a [id number] encounter with the patient on the same day, and personally performed and documented my assessment and findings in the medical record. 62 yoM with locally advanced head and neck cancer admitted with neutropenic fever. Currently on broad spectrum antibiotics. Following cultures. Cytopenias due to chemotherapy. Manuela Da Silva Dec 24, 2017 08:57 Kristin Stern MD Dec 24, 2017 12:40
[2017-12-24] MEDS ORDERED: CEFT250S PO (09:52)
[2017-12-24] MEDS ORDERED: HYOS0.1252 PO (09:52)
[2017-12-24] MEDS ORDERED: HYDR1SOL6 (09:52)
[2017-12-24] MEDS ORDERED: MAGICADU2 SWISH-SWAL (09:52)
[2017-12-24] MEDS ORDERED: IBUP100S11 PO (09:52)
[2017-12-24] MEDS ORDERED: TAMS0.4C4 (09:52)
[2017-12-24] MEDS ORDERED: SCOP1PAT2 T-DERMAL (09:52)
[2017-12-24] MEDS ORDERED: PROM6.254 PO (09:52)
[2017-12-24] MEDS ORDERED: AZIT200S2 PO (09:52)
--- NOTE | 2017-12-24 10:12 | RADRPT ---
EXAM DATE/TIME: 12/24/2017 09:36 [facility] COMPARISON: CHEST SINGLE AP, December 22, 2017, 10:05. INDICATIONS : Cough. MEDICAL HISTORY : Head and neck CA.Carcinoma, oral cavity. SURGICAL HISTORY : ENCOUNTER: Subsequent ACUITY: 3 days PAIN SCORE: 4/10 LOCATION: Bilateral chest FINDINGS: A single view of the chest demonstrates the lungs to be symmetrically aerated without evidence of mas s, infiltrate or effusion. The cardiomediastinal contours are unremarkable. Osseous structures are intact. Right-sided portacatheter and percutaneous gastrostomy tube identified. CONCLUSION: No acute disease. Enoch Blue MD on December 24, 2017 at 10:09 Board Certified Radiologist. This report was verified electronically.
[2017-12-24] MEDS ORDERED: POTASSIUM CHLORIDE 10 MEQ CONTROLLED RELEASE TAB PO ONE (10:15)
[2017-12-24] MEDS ORDERED: POTASSIUM CHLORIDE 20 MEQ PWD PACKET PO ONE (10:30)
[2017-12-24] MEDS ORDERED: POTASSIUM CHLOR 20 MEQ PREMIX 100 ML IV ONE (10:30)
[2017-12-24] MEDS: RESP: ALBUTEROL 2.5 MG/IPRATROPIUM 0.5 MG NEB (SCH) NEB ×4 (11:17→23:43)
[2017-12-24] MEDS: FILGRASTIM 300 MCG/ML VIAL SQ SCH (13:47)
[2017-12-24] MEDS: FLUCONAZOLE 200 MG PREMIX BAG 100 ML IV SCH (15:42)
[2017-12-24] MEDS: LIDOCAINE VISCOUS 2% SOLN 15 ML UDC SWISH-SPIT PRN (21:16)
[2017-12-25] VITALS (18 sets, daily range): BP systolic 113–136; BP diastolic 72–80; PULSE 79–102; RESP 16–18; TEMP 96–97.9; O2SAT 98–100
[2017-12-25] MEDS: RESP: ALBUTEROL 2.5 MG/IPRATROPIUM 0.5 MG NEB (SCH) NEB ×6 (03:11→23:13)
[2017-12-25] MEDS: CEFEPIME 2000 MG/NS 100 ML IV SCH ×6 (04:44→21:20)
[2017-12-25] MEDS: PANTOPRAZOLE SODIUM 40 MG VIAL IV PUSH SCH ×2 (04:44→16:13)
[2017-12-25] MEDS: oxyCODONE/ACETAMINOPHEN 10 MG/325 MG TAB PO PRN ×4 (04:45→23:49)
[2017-12-25] MEDS: DEXT 5%-NACL 0.45% 1000 ML INJ 1,000 ML IV SCH ×3 (04:48→21:37)
[2017-12-25 05:56] LABS: HEMATOCRIT 25.3 % (39.0-51.0); HEMOGLOBIN 8.6 GM/DL (13.0-17.0); MEAN CELL VOLUME 95.6 FL (80.0-100.0); MEAN CORPUSCULAR HEMOGLOBIN 32.5 PG (27.0-34.0); MEAN PLATELET VOLUME 9.5 FL (7.0-11.0); PLATELET COUNT 119 TH/MM3 (150-450); RED BLOOD COUNT 2.64 MIL/MM3 (4.50-5.90); WHITE BLOOD COUNT 2.2 TH/MM3 (4.0-11.0)
[2017-12-25 06:34] LABS: BICARBONATE 20.8 MEQ/L (21.0-32.0); CALCIUM 8.3 MG/DL (8.5-10.1); CREATININE 0.83 MG/DL (0.60-1.30)
[2017-12-25] MEDS ORDERED: POTASSIUM CHLORIDE 25 MEQ EFFERVESCENT TAB PO ONE (06:45)
--- NOTE | 2017-12-25 07:06 | HHI.PR ---
Subjective Remarks Patient seen and examined this morning. His vitals are stable and he is afebrile. Slept well overnight. Asking for chapstick. Reported reflux to nurse, protonix already on board. Cough seems better. Did not tolerate tube feeds. Objective Vital Signs Date Time Temp Pulse Resp B/P (MAP) Pulse Ox O2 Delivery O2 Flow Rate FiO2 12/25/17 04:25 97.4 85 16 128/77 (94) 100 12/25/17 04:05 81 12/25/17 00:30 80 12/25/17 00:16 97.4 84 18 119/79 (92) 100 12/24/17 20:50 97.3 91 18 119/77 (91) 99 12/24/17 20:06 89 12/24/17 15:34 97.9 96 18 123/73 (90) 95 12/24/17 15:11 93 Nasal Cannula 2.00 12/24/17 15:00 92 12/24/17 11:30 97.7 94 18 124/88 (100) 99 12/24/17 11:22 94 Nasal Cannula 2.00 12/24/17 11:00 85 12/24/17 08:30 97.1 89 18 111/79 (90) 100 I/O 12/24/17 12/24/17 12/24/17 12/25/17 12/25/17 12/25/17 07:00 15:00 23:00 07:00 15:00 23:00 Intake Total 200 ml 200 ml Output Total 200 ml Balance 200 ml -200 ml 200 ml Intake Oral 0 ml IV Total 200 ml 200 ml Output Urine Total 200 ml # Voids 3 2 # Bowel Movements 3 1 3 Result Diagram: 12/25/17 0430 12/25/17 0430 Imaging Last Impressions Chest X-Ray 12/24/17 0000 Signed Impressions: Service Date/Time: Sunday, December 24, 2017 09:36 - CONCLUSION: No acute disease. Enoch Blue MD Objective Remarks GENERAL: Ill-appearing, no acute distress, cachetic Throat: mucous membranes extremely dry SKIN: Warm and dry. HEAD: Normocephalic. EYES: No scleral icterus. No injection or drainage. NECK: Supple, trachea midline. No JVD or lymphadenopathy. CARDIOVASCULAR: Regular rate and rhythm without murmurs, gallops, or rubs. RESPIRATORY: Breath sounds equal bilaterally. No accessory muscle use. GASTROINTESTINAL: Abdomen soft, non-tender, nondistended. PEG tube MUSCULOSKELETAL: No cyanosis, or edema. 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 He presented to the ER due to weakness and near syncope. Carcinoma of the tongue Febrile neutropenia Patient has been seen and evaluated by oncology Continue cefepime 2 g IV q. 8, if he spikes fevers again vancomycin will be added Blood cultures negative to date UA negative, chest x-ray negative Decreased p.o. intake Continue tube feeds, not tolerating Consult nutrition Diarrhea C. difficile negative Appears to have stabilized Stool cultures pending Acute renal failure Likely prerenal due to dehydration. Creatinine improving HypoKalemia check mag level repleated again this am DVT proph bilat SCDs Discharge Planning DC planning recommendations by oncology. Janet Herron MD Dec 25, 2017 07:06
[2017-12-25 07:10] LABS: MAGNESIUM 1.7 MG/DL (1.5-2.5)
[2017-12-25 07:34] LABS: BANDS 24 % (0-6); LYMPHOCYTES 26 % (9-44); MONOCYTES 7 % (0-8); NEUTROPHIL # MANUAL DIFF 1.5 TH/MM3 (1.8-7.7); POLYS (SEG NEUTROPHILS) 43 % (16-70)
[2017-12-25] MEDS: NYSTAT/DIPHENHY/LIDO MOUTHWASH (Adult) 120ML SWISH-SWAL SCH ×4 (07:41→21:00)
[2017-12-25] MEDS: SODIUM CHLORIDE 0.9% FLUSH 10 ML FLUSH IV FLUSH SCH ×2 (07:42→21:30)
[2017-12-25] MEDS: LOPERAMIDE HCL 2 MG CAP PO PRN ×4 (07:42→23:49)
[2017-12-25] MEDS: POTASSIUM CHLOR 20 MEQ PREMIX 100 ML IV SCH ×2 (07:42→09:30)
--- NOTE | 2017-12-25 09:53 | PD.ONC.PN ---
Subjective Subjective Remarks Afebrile overnight. Patient continuing to have diarrhea. tolerating tube feeds. reporting overall malaise, weakness. Objective Data Date Time Temp Pulse Resp B/P (MAP) Pulse Ox O2 Delivery O2 Flow Rate FiO2 12/25/17 09:17 98 Nasal Cannula 2.00 12/25/17 07:38 96.0 91 18 136/80 (98) 99 12/25/17 07:00 79 12/25/17 04:25 97.4 85 16 128/77 (94) 100 12/25/17 04:05 81 12/25/17 00:30 80 12/25/17 00:16 97.4 84 18 119/79 (92) 100 12/24/17 20:50 97.3 91 18 119/77 (91) 99 12/24/17 20:06 89 12/24/17 15:34 97.9 96 18 123/73 (90) 95 12/24/17 15:11 93 Nasal Cannula 2.00 12/24/17 15:00 92 12/24/17 11:30 97.7 94 18 124/88 (100) 99 12/24/17 11:22 94 Nasal Cannula 2.00 12/24/17 11:00 85 12/25/17 12/25/17 12/25/17 07:00 15:00 23:00 Intake Total 200 ml Balance 200 ml Result Diagram: 12/25/17 0430 12/25/17 0430 Laboratory Results Laboratory Tests Test 12/25/17 04:30 White Blood Count 2.2 TH/MM3 Red Blood Count 2.64 MIL/MM3 Hemoglobin 8.6 GM/DL Hematocrit 25.3 % Mean Corpuscular Volume 95.6 FL Mean Corpuscular Hemoglobin 32.5 PG Mean Corpuscular Hemoglobin Concent 34.0 % Red Cell Distribution Width 19.0 % Platelet Count 119 TH/MM3 Mean Platelet Volume 9.5 FL CBC Comment AUTO DIFF Differential Total Cells Counted 100 Neutrophils % (Manual) 43 % Band Neutrophils % 24 % Lymphocytes % 26 % Monocytes % 7 % Neutrophils # (Manual) 1.5 TH/MM3 Differential Comment FINAL DIFF MANUAL Platelet Estimate LOW Platelet Morphology Comment NORMAL Red Cell Morphology Comment NORMAL Blood Urea Nitrogen 26 MG/DL Creatinine 0.83 MG/DL Random Glucose 137 MG/DL Calcium Level 8.3 MG/DL Magnesium Level 1.7 MG/DL Sodium Level 141 MEQ/L Potassium Level 2.6 MEQ/L Chloride Level 110 MEQ/L Carbon Dioxide Level 20.8 MEQ/L Anion Gap 10 MEQ/L Estimat Glomerular Filtration Rate 93 ML/MIN Culture Results Microbiology Date/Time Source Procedure Growth Status 12/22/17 21:06 Blood Peripheral Aerobic Blood Culture - Preliminary NO GROWTH IN 2 DAYS Resulted 12/22/17 21:06 Blood Peripheral Anaerobic Blood Culture - Preliminary NO GROWTH IN 2 DAYS Resulted 12/22/17 20:45 Blood Peripheral Aerobic Blood Culture - Preliminary NO GROWTH IN 2 DAYS Resulted 12/22/17 20:45 Blood Peripheral Anaerobic Blood Culture - Preliminary NO GROWTH IN 2 DAYS Resulted 12/23/17 01:20 Stool Stool Stool Occult Blood (OSCAR) - Final HEMOCCULT NEGATIVE Complete 12/23/17 01:20 Stool Stool Cryptosporidium Exam Pending Received 12/23/17 01:20 Stool Stool Giardia Antigen (OSCAR) Pending Received 12/23/17 01:20 Stool Stool - Final NO ENTERIC PATHOGENS DETECTED BY PCR... Complete Administered Medications Medications (Trade) Dose Ordered Sig/Shaila Route PRN Reason Start Time Stop Time Status Last Admin Dose Admin Multi-Ingredient Mouthwash/Gargle (Magic Mouthwash Adult Liq) 10 ml QID SWISH-SWAL 12/22/17 13:00 12/25/17 07:41 Sodium Chloride (NS Flush) 2 ml BID IV FLUSH 12/22/17 21:00 12/25/17 07:42 Ondansetron HCl (Zofran Inj) 4 mg Q6H PRN IVP NAUSEA OR VOMITING 12/22/17 12:45 12/23/17 15:38 Lidocaine HCl (Xylocaine 2% Viscous) 15 ml Q4H PRN SWISH-SPIT THROAT PAIN 12/22/17 15:00 12/24/17 21:16 Pantoprazole Sodium (Protonix Inj) 40 mg Q12H IV PUSH 12/22/17 16:00 12/25/17 04:44 Dextrose/Sodium Chloride 1,000 ml @ 84 mls/hr [id number] IV 12/22/17 15:00 12/25/17 04:48 Fluconazole/ Sodium Chloride 100 ml @ 100 mls/hr Q24H IV 12/22/17 16:00 12/24/17 15:42 Cefepime HCl 2000 mg/Sodium Chloride 100 ml @ 200 mls/hr Q8H IV 12/22/17 21:00 12/25/17 04:44 Morphine Sulfate (Morphine Inj) 1 mg Q3H PRN IV PAIN 1-10 12/22/17 21:00 12/24/17 03:00 Filgrastim (Neupogen Inj) 300 mcg DAILY@14 SQ 12/22/17 21:00 12/24/17 13:47 Acetaminophen (Tylenol) 650 mg Q4H PRN PO TEMP > 100.5 F 12/22/17 21:00 12/22/17 21:25 Oxycodone/ Acetaminophen (Percocet 10-325 Mg) 1 tab Q4H PRN PO pain 8-10 12/23/17 16:00 12/25/17 09:30 Albuterol/ Ipratropium (Duoneb Neb) 1 ampule Q4HR NEB NEB 12/24/17 12:00 12/25/17 09:17 Potassium Chloride 100 ml @ 50 mls/hr Q2H IV 12/25/17 07:00 12/25/17 10:59 12/25/17 09:30 Loperamide HCl (Imodium) 2 mg UNSCH PRN PO DIARRHEA 12/25/17 07:00 12/25/17 07:42 Objective Remarks GENERAL: Middle aged male, chronically ill appearing head of bed at 90 degrees. SKIN: Warm and dry. HEAD: Normocephalic. EYES: No injection or drainage. NECK: Supple, trachea midline CARDIOVASCULAR: +S1/S2 RESPIRATORY: scattered rhonchi all lung danielson. GASTROINTESTINAL: Abdomen soft, G-tube clamped. EXTREMITIES: No cyanosis NEUROLOGICAL: awake and alert. Assessment/Plan Assessment 62y/o male with locally advanced head and neck malignancy currently undergoing neoadjuvant chemotherapy admitted with weakness, weight loss, oral pain, and a burning sensation when he urinates. +locally advanced carcinoma of the tongue. receiving neoadjuvant TPF regimen. He now presents to the emergency room with progressive Plan 1. Neutropenic fever: continue Cefepime + Diflucan. monitor blood cultures. 2. Wet cough: scheduled duonebs. CXR showed no disease. 3. Oral mucositis: continue magic mouthwash. 4. Oral thrush: continue IV diflucan 5. Malnutrition: continue tube feeds. 6. Diarrhea: Imodium PRN Attending Statement The exam, history, and the medical decision-making described in the above note were completed with the assistance of the mid-level provider. I reviewed and agree with the findings presented. I attest that I had a [id number] encounter with the patient on the same day, and personally performed and documented my assessment and findings in the medical record. 1. Head and neck cancer: s/p neoadjuvant TPF. Patient is uncertain if he would like to receive further chemotherapy and treatment of his head and neck cancer. Palliative care consult in place. He would like to talk with primary oncologist Dr. Newton thiscoming week. 2. Cytopenias: due to chemotherapy. continue to follow 3. Neutropenic fever: continue antibiotic therapy 4. Diet: tube feeds. Swallow evaluation. 5. Continue supportive care. Manuela Da Silva Dec 25, 2017 09:53 Kristin Stern MD Dec 25, 2017 11:01
[2017-12-25] MEDS: FILGRASTIM 300 MCG/ML VIAL SQ SCH (13:19)
[2017-12-25] MEDS ORDERED: PADIMATE (CHAPSTICK) 4.5 GM TUBE TOPICAL PRN (14:15)
[2017-12-25] MEDS: FLUCONAZOLE 200 MG PREMIX BAG 100 ML IV SCH (16:13)
[2017-12-25] MEDS: TAMSULOSIN HCL 0.4 MG CAP PO SCH (21:30)
[2017-12-26] VITALS (22 sets, daily range): BP systolic 104–118; BP diastolic 55–75; PULSE 81–106; RESP 18; TEMP 97.4–97.8; O2SAT 97–100
[2017-12-26] MEDS: RESP: ALBUTEROL 2.5 MG/IPRATROPIUM 0.5 MG NEB (SCH) NEB ×6 (03:04→23:47)
[2017-12-26] MEDS ORDERED: SODIUM CHLORIDE 0.9% FLUSH 10 ML FLUSH IV FLUSH PRN (03:30)
[2017-12-26] MEDS: PANTOPRAZOLE SODIUM 40 MG VIAL IV PUSH SCH ×2 (04:21→15:53)
[2017-12-26] MEDS: CEFEPIME 2000 MG/NS 100 ML IV SCH ×6 (04:31→22:36)
[2017-12-26] MEDS: oxyCODONE/ACETAMINOPHEN 7.5 MG/325 MG TAB PO PRN (04:31)
[2017-12-26 05:32] LABS: HEMATOCRIT 25.1 % (39.0-51.0); HEMOGLOBIN 8.6 GM/DL (13.0-17.0); MEAN CELL VOLUME 96.4 FL (80.0-100.0); MEAN CORPUSCULAR HGB CONC 34.3 % (32.0-36.0); MEAN PLATELET VOLUME 9.4 FL (7.0-11.0); PLATELET COUNT 122 TH/MM3 (150-450); RED BLOOD COUNT 2.61 MIL/MM3 (4.50-5.90); RED CELL DISTRIBUTION WIDTH 18.9 % (11.6-17.2); WHITE BLOOD COUNT 3.1 TH/MM3 (4.0-11.0)
[2017-12-26 07:22] LABS: BANDS 20 % (0-6); LYMPHOCYTES 38 % (9-44); METAMYELOCYTES 1 % (0-1); MONOCYTES 8 % (0-8); NEUTROPHIL # MANUAL DIFF 1.7 TH/MM3 (1.8-7.7); POLYS (SEG NEUTROPHILS) 33 % (16-70)
[2017-12-26 07:23] LABS: DOHLE BODIES PRESENT (NONE SEEN)
[2017-12-26] MEDS: SODIUM CHLORIDE 0.9% FLUSH 10 ML FLUSH IV FLUSH SCH ×2 (09:00→22:36)
[2017-12-26] MEDS: NYSTAT/DIPHENHY/LIDO MOUTHWASH (Adult) 120ML SWISH-SWAL SCH ×4 (09:00→21:00)
[2017-12-26] MEDS: ONDANSETRON HCL 4 MG/2 ML VIAL IVP PRN (09:43)
--- NOTE | 2017-12-26 10:01 | PD.ONC.PN ---
Subjective Subjective Remarks Afebrile overnight. Patient states he is not sure he wants to pursue any further treatment. would like to speak with palliative care. Feeling fatigued and tired. continuing to have diarrhea. tolerating tube feeds. Objective Data Date Time Temp Pulse Resp B/P (MAP) Pulse Ox O2 Delivery O2 Flow Rate FiO2 12/26/17 08:14 97 Nasal Cannula 3.00 12/26/17 06:03 81 12/26/17 05:04 100 12/26/17 04:03 98 12/26/17 04:02 97.6 89 18 118/55 (76) 100 12/26/17 03:01 96 12/26/17 02:04 82 12/26/17 01:03 98 12/25/17 23:54 97.9 97 18 122/72 (89) 100 12/25/17 23:54 99 12/25/17 23:01 100 12/25/17 22:02 96 12/25/17 21:10 97.5 95 18 113/79 (90) 100 12/25/17 21:01 91 12/25/17 20:00 91 12/25/17 19:05 87 12/25/17 15:05 99 Nasal Cannula 2.00 12/25/17 15:00 102 12/25/17 11:24 97.9 100 18 120/77 (91) 99 12/25/17 11:00 99 12/26/17 12/26/17 12/26/17 07:00 15:00 23:00 Intake Total 960 ml Output Total 200 ml Balance 760 ml Result Diagram: 12/26/17 0415 12/25/17 0430 Laboratory Results Laboratory Tests Test 12/26/17 04:15 White Blood Count 3.1 TH/MM3 Red Blood Count 2.61 MIL/MM3 Hemoglobin 8.6 GM/DL Hematocrit 25.1 % Mean Corpuscular Volume 96.4 FL Mean Corpuscular Hemoglobin 33.0 PG Mean Corpuscular Hemoglobin Concent 34.3 % Red Cell Distribution Width 18.9 % Platelet Count 122 TH/MM3 Mean Platelet Volume 9.4 FL CBC Comment AUTO DIFF Differential Total Cells Counted 100 Neutrophils % (Manual) 33 % Band Neutrophils % 20 % Lymphocytes % 38 % Monocytes % 8 % Neutrophils # (Manual) 1.7 TH/MM3 Metamyelocytes 1 % Differential Comment FINAL DIFF MANUAL Dohle Bodies PRESENT Platelet Estimate LOW Platelet Morphology Comment NORMAL Administered Medications Medications (Trade) Dose Ordered Sig/Shaila Route PRN Reason Start Time Stop Time Status Last Admin Dose Admin Multi-Ingredient Mouthwash/Gargle (Magic Mouthwash Adult Liq) 10 ml QID SWISH-SWAL 12/22/17 13:00 12/25/17 07:41 Sodium Chloride (NS Flush) 2 ml BID IV FLUSH 12/22/17 21:00 12/25/17 21:30 Ondansetron HCl (Zofran Inj) 4 mg Q6H PRN IVP NAUSEA OR VOMITING 12/22/17 12:45 12/23/17 15:38 Lidocaine HCl (Xylocaine 2% Viscous) 15 ml Q4H PRN SWISH-SPIT THROAT PAIN 12/22/17 15:00 12/24/17 21:16 Pantoprazole Sodium (Protonix Inj) 40 mg Q12H IV PUSH 12/22/17 16:00 12/26/17 04:21 Dextrose/Sodium Chloride 1,000 ml @ 84 mls/hr [id number] IV 12/22/17 15:00 12/25/17 21:28 Fluconazole/ Sodium Chloride 100 ml @ 100 mls/hr Q24H IV 12/22/17 16:00 12/25/17 16:13 Cefepime HCl 2000 mg/Sodium Chloride 100 ml @ 200 mls/hr Q8H IV 12/22/17 21:00 12/26/17 04:31 Morphine Sulfate (Morphine Inj) 1 mg Q3H PRN IV PAIN 1-10 12/22/17 21:00 12/24/17 03:00 Filgrastim (Neupogen Inj) 300 mcg DAILY@14 SQ 12/22/17 21:00 12/25/17 13:19 Acetaminophen (Tylenol) 650 mg Q4H PRN PO TEMP > 100.5 F 12/22/17 21:00 12/22/17 21:25 Oxycodone/ Acetaminophen (Percocet 7.5-325 Mg) 1 tab Q4H PRN PO PAIN SCALE 4 TO 7 12/23/17 16:00 12/26/17 04:31 Oxycodone/ Acetaminophen (Percocet 10-325 Mg) 1 tab Q4H PRN PO pain 8-10 12/23/17 16:00 12/25/17 23:49 Albuterol/ Ipratropium (Duoneb Neb) 1 ampule Q4HR NEB NEB 12/24/17 12:00 12/26/17 08:00 Loperamide HCl (Imodium) 2 mg UNSCH PRN PO DIARRHEA 12/25/17 07:00 12/25/17 23:49 Tamsulosin HCl (Flomax) 0.4 mg HS PO 12/25/17 21:00 12/25/17 21:30 Padimate O (Chapstick) 1 applic UNSCH PRN TOPICAL DRY/CHAPPED LIPS 12/25/17 14:15 12/25/17 16:13 Objective Remarks GENERAL: chronically ill male, sitting up in bed watching TV, appears cachetic and weak. SKIN: Warm and dry. HEAD: Normocephalic. EYES: No injection or drainage. NECK: Supple, trachea midline CARDIOVASCULAR: +S1/S2 RESPIRATORY: scattered rhonchi anterior danielson GASTROINTESTINAL: Abdomen soft, receiving TF via PEG tube EXTREMITIES: No cyanosis NEUROLOGICAL: no obvious focal deficit. Assessment/Plan Assessment 62y/o male with locally advanced head and neck malignancy currently undergoing neoadjuvant chemotherapy admitted with weakness, weight loss, oral pain, and a burning sensation when he urinates. +locally advanced carcinoma of the tongue. receiving neoadjuvant TPF regimen. He now presents to the emergency room with progressive Plan 1. Neutropenic fever: continue Neupogen. continue Cefepime + Diflucan. has been afebrile x 3 days. 2. Oral mucositis/thrush: continue magic mouthwash +IV diflucan 3. Malnutrition: continue tube feeds. replace electrolytes as needed. 4. Diarrhea: C. diff negative. continue supportive management, Imodium PRN 5. DVT prophylaxis: start Lovenox. Manuela Da Silva Dec 26, 2017 10:00
--- NOTE | 2017-12-26 10:26 | PD.CONS ---
Consult Service Palliative Care Consult Requested By Dr Herron Primary Care Physician Unknown Reason for Consultation a. To assist with evaluation and management of symptoms including: Dysphagia , oral pain, malnutrition, diarrhea b. To assist medical decision maker(s) with: better understanding of current medical conditions; weighing benefits/burdens of medical treatment options; making medical treatment decisions. HPI History of Present Illness Patient presented to the ED on 12/22/17, with complaints of severe mouth pain and diarrhea. He has a known history of metastatic tongue cancer. He reports it is very painful even to talk so speech was limited. He reported diarrhea for 2-3 days. He reports difficulty swallowing secondary to pain. Patient reporting 5 watery bowel movements per day 2 days. No fever. He reports weakness. EMS recorded pulse 120. * ED: BUN 34, creatinine 1.40. GFR 51. He was given IV fluids. WBC 1.3, absolute neutrophil 0.4. Stool negative for C. difficile. He was admitted for further evaluation and management. * He reports dizziness and near syncope, shortness of breath, cough, sore throat , tongue and throat lesions. Also reports urinary burning. Reports nausea. No recent antibiotics. CXR no acute process. Patient not able to report type of tube feeding he gives himself, dietitian consulted. UA negative. Started on Diflucan for oral thrush. * Oncology consulted. Patient with febrile neutropenia initiated on IV antibiotics recommend continue cefepime 2 g every 8 hours. If spikes another fever greater then or equal to 100.5 will add Vanco.Continue Neupogen. Repeat blood cultures.+ Oral mucositis: Continue Magic mouthwash and IV Diflucan. Lidocaine jelly to the throat as needed. Continue IV hydration, monitor chemistry * Palliative care consulted to assist with clarification of goals of treatment patient reports wishing to discuss goals and CODE STATUS. He is not certain if he wants to continue to undergo further chemotherapy. He also wants to talk to his primary oncologist Dr. Worrell. * Speech therapy consulted: Speech therapy notes patient reporting able to swallow just fine and that he has been eating and drinking. Of note per speech therapy evaluation September 2017 during modified barium swallow he was recommended as n.p.o. with trials of pure and honey thickened with speech therapy. During this evaluation on 12/25 speech therapy note patient taking tiny amounts of pure with wet vocal quality, further trials deferred due to risk for aspiration recommended maintain n.p.o. Patient refused to allow speech therapist to remove water from bedside. * Dietitian evaluated patient notes patient reluctant to discuss. Recommendations made to continue tube feeding at 10 mL's an hour to avoid refeeding syndrome continue to evaluate labs etc. Patient seen in room no visitors present. + Foul odor present in room. Patient is alert, oriented and appropriate. Initially guarded however with ongoing conversation more conversant with provider. Exploration of additional psychosocial, medical history. following exam discuss at length w oncology PA Oncology history per review of EMR: Fall 2016 he had developed a dysphasia, weight loss and anorexia. He has not had regular medical care up until that point, no primary care provider. He apparently reported a few attempts for treatment at the urgent care centers and was given antibiotics, pain medications and told to follow-up outpatient. He presented to [facility] emergency department August [address] findings indicated mass in density along left tongue measuring 6 x 2.9 cm. Biopsy confirmed invasive well- differentiated squamous cell carcinoma. He was recommended for neoadjuvant chemotherapy. [ Weight 08/31/17 55 kg, 09/2017 53.3 kg, 12/06/17 48 kg ]. Static disease was noted to group 2 lymph nodes on the left area of concern in the right upper lobe though thought to be inflammatory. PEG was placed for dysphagia. Radiation oncology was consulted at that time: Noted discussion regarding teeth extraction, feeding tube. Discussed neoadjuvant chemotherapy to allow time for tooth extraction, definitive chemoradiation therapy. Lung lesion felt to be likely inflammatory nonmetastatic.Planned to reevaluate in 7 weeks; during that time patient to have tooth extraction, PEG tube placement and neoadjuvant chemotherapy Function/Cognitive Trajectory lived home alone, independent w adls. Review of Systems Constitutional: COMPLAINS OF: Weight loss, Dizziness, Change in appetite, Pain , Generalized weakness, DENIES: Chills Eyes: DENIES: Vision loss Ears, nose, mouth, throat: DENIES: Hearing loss Respiratory: COMPLAINS OF: Cough, Sputum production, Shortness of breath Cardiovascular: DENIES: Chest pain, Dyspnea on Exertion Gastrointestinal: COMPLAINS OF: Abdominal pain (Epigastric pain comes and goes) , Diarrhea, Nausea, Difficulty Swallowing Genitourinary: COMPLAINS OF: Urgency, DENIES: Urinary incontinence Musculoskeletal: DENIES: Back pain Integumentary: DENIES: Rash Neurologic: COMPLAINS OF: Speech Problems (relates 2/2 to mass), DENIES: Headache Past Family Social History Coded Allergies: No Known Allergies (Unverified , 11/15/17) Past Medical History Locally advanced squamous cell carcinoma of the tongue. Well-differentiated tumor with bulky adenopathy. HPV negative. On neoadjuvant chemo TPF. ? Metastasis to neck history of l neutropenia requiring Neupogen. Past Surgical History PEG tube placement Port placement Tongue biopsy August 2017 . Reported Medications Percocet Liquid morphine PRN? . Current Medications Medications (Trade) Dose Ordered Sig/Shaila Route Start Time Stop Time Status Last Admin (Magic Mouthwash Adult Liq) 10 ml QID SWISH-SWAL 12/22/17 13:00 12/25/17 07:41 (NS Flush) 2 ml UNSCH PRN IV FLUSH 12/22/17 12:45 (NS Flush) 2 ml BID IV FLUSH 12/22/17 21:00 12/25/17 21:30 (Zofran Inj) 4 mg Q6H PRN IVP 12/22/17 12:45 12/23/17 15:38 (Narcan Inj) 0.4 mg UNSCH PRN IV PUSH 12/22/17 12:45 (Xylocaine 2% Viscous) 15 ml Q4H PRN SWISH-SPIT 12/22/17 15:00 12/24/17 21:16 (Protonix Inj) 40 mg Q12H IV PUSH 12/22/17 16:00 12/26/17 04:21 Dextrose/Sodium Chloride 1,000 ml @ 84 mls/hr [id number] IV 12/22/17 15:00 12/25/17 21:28 Fluconazole/ Sodium Chloride 100 ml @ 100 mls/hr Q24H IV 12/22/17 16:00 12/25/17 16:13 Cefepime HCl 2000 mg/Sodium Chloride 100 ml @ 200 mls/hr Q8H IV 12/22/17 21:00 12/26/17 04:31 (Morphine Inj) 1 mg Q3H PRN IV 12/22/17 21:00 12/24/17 03:00 (Neupogen Inj) 300 mcg DAILY@14 SQ 12/22/17 21:00 12/25/17 13:19 (Tylenol) 650 mg Q4H PRN PO 12/22/17 21:00 12/22/17 21:25 (Percocet 7.5-325 Mg) 1 tab Q4H PRN PO 12/23/17 16:00 12/26/17 04:31 (Percocet 10-325 Mg) 1 tab Q4H PRN PO 12/23/17 16:00 12/25/17 23:49 (Duoneb Neb) 1 ampule Q4HR NEB NEB 12/24/17 12:00 12/26/17 08:00 (Imodium) 2 mg UNSCH PRN PO 12/25/17 07:00 12/25/17 23:49 (Flomax) 0.4 mg HS PO 12/25/17 21:00 12/25/17 21:30 (Chapstick) 1 applic UNSCH PRN TOPICAL 12/25/17 14:15 12/25/17 16:13 (Heparin Central Flush) 250 units UNSCH PRN IV FLUSH 12/26/17 03:30 (Heparin Central Flush) 500 units UNSCH IV FLUSH 12/26/17 03:30 (NS Flush) 5 ml UNSCH PRN IV FLUSH 12/26/17 03:30 Family History No family history of cancers Substance Use Tobacco: Smokes 1 PPD x 47 years Alcohol: Daily alcohol though amount varies from 1 drinks to multiple, " whatever he feels like" Prescription med abuse: None Illicits: None . Psychosocial History Originally from [place], though has lived in [place] for 18+ years. Moved here when a friend in the [employer] business here moved and offered him the opportunity to participate. Lives alone. . Has a few adult children who live in [place]. He intermittently remains in communication with them. 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 Retired currently. Supported by very close friend Chacho who is like a brother to him. . Spiritual/Cultural Factors . No particular jain affiliation does not want manager of loss prevention operations visits . Living Will: Never completed Health Care Surrogate: Never completed Durable Power of Rn Orthopaedics: Never completed Date completed: 12/26/17 Health Care Surrogate(s): Completed healthcare surrogate naming friend Chacho Person Ethical and Legal Issues Patient alert, oriented appears capacitated and able to make some decisions. He agreed to complete healthcare surrogate today designating his friend Chacho Person as his healthcare surrogate. Copies provided to patient, and faxed to medical records. Physical Exam Vital Signs Date Time Temp Pulse Resp B/P (MAP) Pulse Ox O2 Delivery O2 Flow Rate FiO2 12/26/17 08:14 97 Nasal Cannula 3.00 12/26/17 06:03 81 12/26/17 05:04 100 12/26/17 04:03 98 12/26/17 04:02 97.6 89 18 118/55 (76) 100 12/26/17 03:01 96 12/26/17 02:04 82 12/26/17 01:03 98 12/25/17 23:54 97.9 97 18 122/72 (89) 100 12/25/17 23:54 99 12/25/17 23:01 100 12/25/17 22:02 96 12/25/17 21:10 97.5 95 18 113/79 (90) 100 12/25/17 21:01 91 12/25/17 20:00 91 12/25/17 19:05 87 12/25/17 15:05 99 Nasal Cannula 2.00 12/25/17 15:00 102 12/25/17 11:24 97.9 100 18 120/77 (91) 99 12/25/17 11:00 99 Exam CONSTITUTIONAL/GENERAL: Frail, cachectic, ill-appearing male. No apparent distress. TUBES/LINES/DRAINS: Peripheral IV left upper extremity. PEG tube to abdomen. SCDs bilateral lower extremities. SKIN: No jaundice, rashes, or lesions. Multiple tattoos upper extremities. No wounds seen anteriorly. Skin warm/dry. HEAD: Atraumatic. Normocephalic. EYES: Pupils equal and round and reactive. Extraocular motions intact. No scleral icterus. No injection or drainage. Fundi not examined. ENT: Hearing grossly normal. Nose without bleeding or purulent drainage. + Left tongue mass.+ Lymphadenopathy left submandibular. NECK: Trachea midline. Supple, nontender. or nodularity. CARDIOVASCULAR: Regular rate and rhythm, no murmur. No JVD. Peripheral pulses symmetric. RESPIRATORY/CHEST: Symmetric, unlabored respirations. On room air. Faint scattered rhonchi.+ Occasional cough during exam bringing up clear and beige sputum. GASTROINTESTINAL: Abdomen soft, non-tender, nondistended, Flat. PEG site asymptomatic. Tube feed infusing. No palpable masses. No guarding. Bowel sounds present. GENITOURINARY: Without palpable bladder distension. MUSCULOSKELETAL: Extremities without clubbing, cyanosis, or edema. No joint tenderness or effusion noted. No calf tenderness. + Muscle atrophy to all 4 extremities LYMPHATICS: + Lymphadenopathy left submandibular. NEUROLOGICAL: Awake and alert oriented 3. Motor and sensory grossly within normal limits. Follows commands. Cognitively sharp. Moves all extremities. PSYCHIATRIC: No obvious anxiety/depression. no apparent hallucinations or other psychotic thought process. Diagnostic Tests Laboratory Laboratory Tests Test 12/24/17 04:10 12/25/17 04:30 12/26/17 04:15 White Blood Count 2.6 TH/MM3 (4.0-11.0) 2.2 TH/MM3 (4.0-11.0) 3.1 TH/MM3 (4.0-11.0) Red Blood Count 2.92 MIL/MM3 (4.50-5.90) 2.64 MIL/MM3 (4.50-5.90) 2.61 MIL/MM3 (4.50-5.90) Hemoglobin 9.6 GM/DL (13.0-17.0) 8.6 GM/DL (13.0-17.0) 8.6 GM/DL (13.0-17.0) Hematocrit 28.0 % (39.0-51.0) 25.3 % (39.0-51.0) 25.1 % (39.0-51.0) Mean Corpuscular Volume 96.0 FL (80.0-100.0) 95.6 FL (80.0-100.0) 96.4 FL (80.0-100.0) Mean Corpuscular Hemoglobin 32.8 PG (27.0-34.0) 32.5 PG (27.0-34.0) 33.0 PG (27.0-34.0) Mean Corpuscular Hemoglobin Concent 34.2 % (32.0-36.0) 34.0 % (32.0-36.0) 34.3 % (32.0-36.0) Red Cell Distribution Width 18.9 % (11.6-17.2) 19.0 % (11.6-17.2) 18.9 % (11.6-17.2) Platelet Count 140 TH/MM3 (150-450) 119 TH/MM3 (150-450) 122 TH/MM3 (150-450) Mean Platelet Volume 8.9 FL (7.0-11.0) 9.5 FL (7.0-11.0) 9.4 FL (7.0-11.0) Neutrophils (%) (Auto) 52.8 % (16.0-70.0) Lymphocytes (%) (Auto) 40.7 % (9.0-44.0) Monocytes (%) (Auto) 6.3 % (0.0-8.0) Eosinophils (%) (Auto) 0.1 % (0.0-4.0) Basophils (%) (Auto) 0.1 % (0.0-2.0) Neutrophils # (Auto) 1.4 TH/MM3 (1.8-7.7) Lymphocytes # (Auto) 1.1 TH/MM3 (1.0-4.8) Monocytes # (Auto) 0.2 TH/MM3 (0-0.9) Eosinophils # (Auto) 0.0 TH/MM3 (0-0.4) Basophils # (Auto) 0.0 TH/MM3 (0-0.2) CBC Comment AUTO DIFF AUTO DIFF AUTO DIFF Differential Total Cells Counted 100 100 100 Neutrophils % (Manual) 32 % (16-70) 43 % (16-70) 33 % (16-70) Band Neutrophils % 12 % (0-6) 24 % (0-6) 20 % (0-6) Lymphocytes % 47 % (9-44) 26 % (9-44) 38 % (9-44) Monocytes % 5 % (0-8) 7 % (0-8) 8 % (0-8) Neutrophils # (Manual) 1.2 TH/MM3 (1.8-7.7) 1.5 TH/MM3 (1.8-7.7) 1.7 TH/MM3 (1.8-7.7) Metamyelocytes 4 % (0-1) 1 % (0-1) Differential Comment FINAL DIFF MANUAL FINAL DIFF MANUAL FINAL DIFF MANUAL Toxic Granulation 1+ (NORMAL) Dohle Bodies PRESENT (NONE SEEN) PRESENT (NONE SEEN) Platelet Estimate NORMAL (NORMAL) LOW (NORMAL) LOW (NORMAL) Platelet Morphology Comment ENLARGED (NORMAL) NORMAL (NORMAL) NORMAL (NORMAL) Blood Urea Nitrogen 37 MG/DL (7-18) 26 MG/DL (7-18) Creatinine 1.07 MG/DL (0.60-1.30) 0.83 MG/DL (0.60-1.30) Random Glucose 131 MG/DL (74-106) 137 MG/DL (74-106) Total Protein 5.6 GM/DL (6.4-8.2) Albumin 1.9 GM/DL (3.4-5.0) Calcium Level 8.2 MG/DL (8.5-10.1) 8.3 MG/DL (8.5-10.1) Phosphorus Level 2.5 MG/DL (2.5-4.9) Magnesium Level 1.7 MG/DL (1.5-2.5) 1.7 MG/DL (1.5-2.5) Alkaline Phosphatase 38 U/L (45-117) Aspartate Amino Transf (AST/SGOT) 7 U/L (15-37) Alanine Aminotransferase (ALT/SGPT) 20 U/L (12-78) Total Bilirubin 0.2 MG/DL (0.2-1.0) Sodium Level 139 MEQ/L (136-145) 141 MEQ/L (136-145) Potassium Level 3.0 MEQ/L (3.5-5.1) 2.6 MEQ/L (3.5-5.1) Chloride Level 108 MEQ/L (98-107) 110 MEQ/L (98-107) Carbon Dioxide Level 21.5 MEQ/L (21.0-32.0) 20.8 MEQ/L (21.0-32.0) Anion Gap 10 MEQ/L (5-15) 10 MEQ/L (5-15) Estimat Glomerular Filtration Rate 70 ML/MIN (>89) 93 ML/MIN (>89) Red Cell Morphology Comment NORMAL (NORMAL) Result Diagram: 12/26/17 0415 12/25/17 0430 Microbiology Microbiology Date/Time Source Procedure Growth Status 12/22/17 21:06 Blood Peripheral Aerobic Blood Culture - Preliminary NO GROWTH IN 4 DAYS Resulted 12/22/17 21:06 Blood Peripheral Anaerobic Blood Culture - Preliminary NO GROWTH IN 4 DAYS Resulted 12/23/17 01:20 Stool Stool Stool Occult Blood (OSCAR) - Final HEMOCCULT NEGATIVE Complete Imaging Last Impressions Chest X-Ray 12/24/17 0000 Signed Impressions: Service Date/Time: Sunday, December 24, 2017 09:36 - CONCLUSION: No acute disease. Enoch Blue MD Patient/Family Conference Family Conference Time (mins): 45 Family Conference Location: Bedside Issues Discussed: Met with patient at bedside. He was initially guarded upon conversation, however opened up more, extensive discussion with him including the following: * Palliative care role, purpose, approach * Additional medical, psychosocial, and spiritual history * Patients general health, functional status, and cognitive changes in the months leading up to the current hospitalization * Patient/family understanding of the current medical problems * Patient/family understanding of prognosis * Patients goals of care as best understood from advance directives and/or conversations and/or values * Current medical treatment options and benefits/burdens of those options * Likely scenarios comparing ongoing aggressive care with a transition to comfort measures only//exploration of hospice role, services * CODE STATUS-benefits/burdens of CPR, possible outcomes--patient elects DNR status * Legal decision makers and healthcare surrogate, patient wishes to discuss further he indicates that he would want his close friend Chacho who was like a brother to him to serve as his healthcare surrogate, and he involves him in his ongoing oncology conversations. * Questions answered to the best of my ability * Palliative care contact information provided Patient appears to have a reasonable, though very simple understanding of underlying conditions and treatment options going forward. He details initial small lump last fall with progression to larger tumor, he feels like "they could have taking care of it last fall ", though he did not seek follow-up. Upon review of initial oncology and radiation oncology consultation he reports discussions regarding initial chemo, with teeth removal, feeding tube and then eventually radiation. It is his understanding that the radiation could be " ones apt to take care of it ", and he tells me that it "may even get rid of it completely." Further he tells me that each chemotherapy has "knocked him down "and made him feel terrible, and each time he then has to recuperate and build himself back up again he tells me he does he does not want to go through that again. He wonders if there is a way he can proceed directly to radiation, without completing the one remaining chemotherapy, he wonders if the doctors would consider radiating it which she thinks might help him feel better. ( Not clear that it would only be 1 XRT treatment I explained this to him, also advised that in the meantime he is very debilitated and it may not initially make him "feel "much better.) He indicates the chemo makes him feel like he is dying and if he had to undergo more of that he would rather . Explore with him alternative of hospice, hospice role, services provided. He indicates he may be interested in this if continuing chemotherapy as his only option. He wants his pain to be managed and "if its time to go then let him go ". On the other hand if he could proceed with getting XRT and it might make him feel better or eradicate his cancer he also would want to do that. He asked questions about some of the cancer treatment Centers he sees on the TV that seem to be able to cure and help anyone, advised that these have very specific cancers, patient criteria and generally patients would need to be of good performance status to pursue many of those options. Exploration of ST recommendations and the significant dysphasia he is experiencing. he indicates that he just wants to be able to take small amounts orally for pleasure, Because though he does not feel hungry he misses the taste of food. He expresses understanding of aspiration risk. All questions answered to the best of my ability. Ultimately he wants to be able to discuss further with his known oncologist about the possibility of skipping further chemotherapy and attempting radiation. He wants to know if this would be an option, and if completing radiation would be single or short treatments that may begin to improve his quality of life. If he would not be able to go directly to radiation without further chemotherapy, he has expressed that he does not want additional chemotherapy. If radiation will not be offered , or would not offer significant improvement over a very short course he would be interested in hospice for comfort measures only. Assessment and Plan Disease Oriented Problem List: (1) Diarrhea (2) Severe neutropenia (3) Generalized weakness (4) Squamous cell cancer of tongue (5) Mucositis oral Symptom Scale: (1) Dysphagia 0-10 Scale: Unable to quantify (2) Pain 0-10 Scale: Unable to quantify (3) Malnutrition 0-10 Scale: Unable to quantify Pertinent Non-Medical Issues Psychosocial:Originally from [place], though has lived in [place] for 18+ years. Moved here when a friend in the restaurant business here moved and offered him the opportunity to participate. Lives alone. . Has a few adult children who live in [place]. He intermittently remains in communication with them. 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 Retired currently. Supported by very close friend Chacho who is like a brother to him. Spiritual:No particular jain affiliation does not want manager of loss prevention operations visits Legal:Patient alert, oriented appears capacitated and able to make his own decisions. He completed healthcare surrogate designation 12/16/17, naming his friend Chacho Person as his healthcare surrogate. Copies provided to patient, and faxed to medical records. Ethical issues impacting care:no ethical issues identified. . Important Contacts Close friend and healthcare surrogate Chacho Person: [phone] . Prognosis This patient was admitted for oral mucositis, diarrhea. He has a known history of squamous cell carcinoma of the tongue. He is very debilitated, and has had significant weight loss. He has been undergoing chemotherapy with the hopes of obtaining radiation therapy. Likely he will continue to decline. appropriate for hospice if goals compatible. . Code Status: No Code Plan * Legal decision maker: Patient alert, oriented appears capacitated and able to make some decisions. He agreed to complete healthcare surrogate today designating his friend Chacho Person as his healthcare surrogate. Copies provided to patient, and faxed to medical records. * Goals: Lengthy discussion with patient at bedside. see family conference for additional detail. in summary: he wants to be able to discuss further with his known oncologist about the possibility of skipping further chemotherapy and attempting radiation. He wants to know if this would be an option, and if completing radiation would be single or short treatments that may begin to improve his quality of life. If he would not be able to go directly to radiation without further chemotherapy, he has expressed that he does not want additional chemotherapy. If radiation will not be offered, or would not offer significant improvement over a very short course he would be interested in hospice for comfort measures only. * CODE STATUS: DNR * SYMPTOMS: --Dysphasia-has had ongoing dysphasia secondary to tongue cancer; status post barium swallow evaluation which recommended n.p.o. status for patient. Currently receiving bypass feeding via PEG tube. He understands aspiration risks but wishes to continue to take oral food and fluids for pleasure in small amounts. If goals comfort oriented would recommend oral food and fluids as desired however if goals still aggressive and restorative would recommend continue n.p.o. --Oral pain--indicates ongoing oral and throat pain secondary to underlying malignancy.+ Mucositis, has had multiple chemotherapy treatments. Currently being treated with Magic mouthwash, viscous lidocaine, + IV Diflucan. He feels the Percocet when crushed and given via the PEG helped keep pain at a "stable "tolerable level. He tells me he does not like the "liquid "pain medicine that they had been putting in him. He is not certain if the IV medication has helped or not. He indicates to me that the Percocet has made his pain tolerable and he feels is "good as it will be ". Advised we would continue to monitor pain levels as well as ongoing treatments for mucositis and hopefully his pain can remain well managed. No recommendations for changes at this time --Malnutrition- 2/2 disease process. Has a PEG tube though not clear how much tube feeding he was actually receiving at home. Dietitian has evaluated this admission recommend continue vital 1.5 at 10 mL's an hour to avoid refeeding syndrome. Albumin 1.9. Continue to monitor chemistry. Weight recorded in August admission 55 kg, current weight to this admission 46 kg//== total weight loss of 9 kg/19 pounds in the past 4 months.] --diarrhea- ongoing x several days. Stool neg for c diff, GI parasites. Hemoccult neg. ?etiology. on PRN Imodium, electrolyte replacement PRN * Palliative care will continue to follow during hospital course as condition evolves, to assist patient/decision-maker with understanding of medical conditions, weighing benefits/burdens of treatment options, for clarification of goals of treatment. Additionally will assist with any symptoms of palliative concern Time Spent Total Floor Time (mins): 75 (Chart review, PE, discussion with nursing, discussion with patient, discussion with oncology ASHLEY Da Silva) Thank you for the opportunity to participate in the care of Mr. Barron. Attestation To help prompt me to consider important information that might be impacting today's encounter and assessment, information from prior notes written by myself or my colleagues may have been "brought forward" into today's note. My signature on this note, however, is an attestation that I personally performed the exam, history, and/or decision-making noted today, and, unless otherwise indicated, the interactions with patient, family, and staff as well as the review of records all occurred today. I also attest that the listed assessment and stated plan reflect my best clinical judgment today based on the combination of historical information, prior notes, and today's exam/ interactions. When time spent is documented, it refers only to time spent today by the signer, or if indicated, combined time spent today by collaborating physician/nurse practitioner. Legiha Candelaria Dec 26, 2017 10:26
[2017-12-26] MEDS: FILGRASTIM 300 MCG/ML VIAL SQ SCH (14:03)
[2017-12-26] MEDS: oxyCODONE/ACETAMINOPHEN 10 MG/325 MG TAB PO PRN (14:03)
[2017-12-26] MEDS: DEXT 5%-NACL 0.45% 1000 ML INJ 1,000 ML IV SCH (14:04)
[2017-12-26 14:07] LABS: BICARBONATE 17.7 MEQ/L (21.0-32.0); CALCIUM 8.1 MG/DL (8.5-10.1); CREATININE 0.79 MG/DL (0.60-1.30)
[2017-12-26] MEDS: ENOXAPARIN SODIUM 40 MG/0.4 ML SYRINGE SQ SCH (15:52)
[2017-12-26] MEDS: FLUCONAZOLE 200 MG PREMIX BAG 100 ML IV SCH (15:53)
[2017-12-26] MEDS ORDERED: POTASSIUM CHLOR 40 MEQ PREMIX 100 ML IV ONE (16:00)
--- NOTE | 2017-12-26 16:37 | HHI.PR ---
Subjective Remarks Currently getting a breathing treatment. No complaints at this time. Denied any worsening shortness of breath Objective Vitals Vital Signs Date Time Temp Pulse Resp B/P (MAP) Pulse Ox O2 Delivery O2 Flow Rate FiO2 12/26/17 12:52 97.8 94 18 116/75 (89) 100 12/26/17 12:00 98 12/26/17 09:55 97.8 102 18 104/63 (77) 100 12/26/17 08:14 97 Nasal Cannula 3.00 12/26/17 08:00 87 12/26/17 06:03 81 12/26/17 05:04 100 12/26/17 04:03 98 12/26/17 04:02 97.6 89 18 118/55 (76) 100 12/26/17 03:01 96 12/26/17 02:04 82 12/26/17 01:03 98 12/25/17 23:54 97.9 97 18 122/72 (89) 100 12/25/17 23:54 99 12/25/17 23:01 100 12/25/17 22:02 96 12/25/17 21:10 97.5 95 18 113/79 (90) 100 12/25/17 21:01 91 12/25/17 20:00 91 12/25/17 19:05 87 I/O 12/25/17 12/25/17 12/25/17 12/26/17 12/26/17 12/26/17 07:00 15:00 23:00 07:00 15:00 23:00 Intake Total 200 ml 100 ml 1100 ml 960 ml Output Total 150 ml 200 ml Balance 200 ml 100 ml 950 ml 760 ml Intake Oral 0 ml IV Total 200 ml 100 ml 1100 ml Tube Feeding 480 ml Other 480 ml Output Urine Total 150 ml 200 ml # Voids 2 1 3 # Bowel Movements 3 4 4 Result Diagram: 12/26/17 0415 12/26/17 0415 Imaging Last Impressions Chest X-Ray 12/24/17 0000 Signed Impressions: Service Date/Time: Sunday, December 24, 2017 09:36 - CONCLUSION: No acute disease. Enoch Blue MD Objective Remarks GENERAL: This is a thin cachectic gentleman. Getting breathing treatment CARDIOVASCULAR: Regular rate and rhythm without murmurs RESPIRATORY: Clear to auscultation. Breath sounds equal bilaterally. No wheezes. GASTROINTESTINAL: Abdomen soft, discomfort w palpation. No guarding. PEG tube site clean MUSCULOSKELETAL: Extremities without edema.. No calf tenderness. NEUROLOGICAL: Awake and alert. Motor and sensory grossly within normal limits. Normal speech. 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 He presented to the ER due to weakness and near syncope. Carcinoma of the tongue Febrile neutropenia Patient has been seen and evaluated by oncology Continue Jacqueline. Cefepime + Diflucan, if he spikes fevers again vancomycin will be added Blood cultures negative to date UA negative, chest x-ray negative Decreased p.o. intake Continue tube feeds, not tolerating Consult nutrition Diarrhea C. difficile negative Appears to have stabilized Stool cultures negative Acute renal failure Likely prerenal due to dehydration. Resolved HypoKalemia mag level wnl Continue to replace. DVT proph bilat SCDs Discharge Planning DC planning recommendations by oncology. Urszula Hayden MD Dec 26, 2017 16:36
[2017-12-26] MEDS ORDERED: POTASSIUM CHLOR 20 MEQ PREMIX 100 ML IV ONE (17:00)
[2017-12-26] MEDS: TAMSULOSIN HCL 0.4 MG CAP PO SCH (21:00)
[2017-12-26] MEDS: LOPERAMIDE HCL 2 MG CAP PO PRN (22:34)
[2017-12-27] VITALS (22 sets, daily range): BP systolic 103–118; BP diastolic 67–73; PULSE 82–101; RESP 16–20; TEMP 96.8–98.5; O2SAT 99–100
[2017-12-27] MEDS: oxyCODONE/ACETAMINOPHEN 7.5 MG/325 MG TAB PO PRN (00:32)
[2017-12-27] MEDS: DEXT 5%-NACL 0.45% 1000 ML INJ 1,000 ML IV SCH ×3 (02:15→14:10)
[2017-12-27] MEDS: LOPERAMIDE HCL 2 MG CAP PO PRN ×2 (03:19→16:38)
[2017-12-27] MEDS: PANTOPRAZOLE SODIUM 40 MG VIAL IV PUSH SCH ×2 (03:22→16:39)
[2017-12-27] MEDS: RESP: ALBUTEROL 2.5 MG/IPRATROPIUM 0.5 MG NEB (SCH) NEB ×6 (03:51→23:07)
[2017-12-27] MEDS: CEFEPIME 2000 MG/NS 100 ML IV SCH ×6 (04:38→20:56)
[2017-12-27 05:29] LABS: AUTOMATED NEUTROPHIL # 3.1 TH/MM3 (1.8-7.7); BASOPHIL % 0.1 % (0.0-2.0); EOSINOPHIL % 0.1 % (0.0-4.0); HEMATOCRIT 23.9 % (39.0-51.0); HEMOGLOBIN 8.3 GM/DL (13.0-17.0); LYMPH % 33.4 % (9.0-44.0); LYMPHOCYTE # 1.7 TH/MM3 (1.0-4.8); MEAN CELL VOLUME 96.8 FL (80.0-100.0); MEAN CORPUSCULAR HEMOGLOBIN 33.4 PG (27.0-34.0); MEAN CORPUSCULAR HGB CONC 34.5 % (32.0-36.0); MEAN PLATELET VOLUME 9.5 FL (7.0-11.0); MONO % 4.7 % (0.0-8.0); MONOCYTE # 0.2 TH/MM3 (0-0.9); NEUT % 61.7 % (16.0-70.0); PLATELET COUNT 131 TH/MM3 (150-450); RED BLOOD COUNT 2.47 MIL/MM3 (4.50-5.90)
[2017-12-27 05:58] LABS: ALBUMIN 1.8 GM/DL (3.4-5.0); ALKALINE PHOSPHATASE 38 U/L (45-117); ALT (GPT) 11 U/L (12-78); AST (GOT) 9 U/L (15-37); BICARBONATE 16.9 MEQ/L (21.0-32.0); BLOOD UREA NITROGEN 19 MG/DL (7-18); CALCIUM 8.1 MG/DL (8.5-10.1); CHLORIDE 120 MEQ/L (98-107); CREATININE 0.79 MG/DL (0.60-1.30); GLOMERULAR FILTRATION RATE 99 ML/MIN (>89); GLUCOSE,RANDOM 125 MG/DL (74-106); MAGNESIUM 1.4 MG/DL (1.5-2.5); SODIUM (NA) 146 MEQ/L (136-145); TOTAL BILIRUBIN ADULT 0.2 MG/DL (0.2-1.0); TOTAL PROTEIN 5.2 GM/DL (6.4-8.2)
[2017-12-27] MEDS ORDERED: POTASSIUM CHLORIDE 25 MEQ EFFERVESCENT TAB PO ONE (06:30)
[2017-12-27] MEDS: POTASSIUM CHLOR 20 MEQ PREMIX 100 ML IV SCH ×3 (07:18→15:26)
[2017-12-27] MEDS ORDERED: POTASSIUM CHLORIDE 20 MEQ PWD PACKET G-TUBE ONE (07:30)
[2017-12-27 08:58] LABS: BANDS 15 % (0-6); LYMPHOCYTES 32 % (9-44); MONOCYTES 4 % (0-8); NEUTROPHIL # MANUAL DIFF 3.2 TH/MM3 (1.8-7.7); POLYS (SEG NEUTROPHILS) 49 % (16-70)
[2017-12-27 08:59] LABS: DOHLE BODIES PRESENT (NONE SEEN)
[2017-12-27 09:00] LABS: ACANTHOCYTES 1+ (NORMAL)
[2017-12-27] MEDS: NYSTAT/DIPHENHY/LIDO MOUTHWASH (Adult) 120ML SWISH-SWAL SCH ×4 (09:00→20:59)
[2017-12-27] MEDS ORDERED: ALUMINUM/MAGNESIUM/SIMETH 30 ML CUP PO PRN (09:00)
--- NOTE | 2017-12-27 11:07 | PD.ONC.PN ---
Subjective Subjective Remarks Afebrile Patient reports he has intense oral pain Does not want any future chemotherapy at this point States he is tired of the roller coaster that chemo brings He is complaining of indigestion Objective Data Date Time Temp Pulse Resp B/P (MAP) Pulse Ox O2 Delivery O2 Flow Rate FiO2 12/27/17 09:13 99 21 12/27/17 07:51 97.9 87 20 103/69 (80) 100 12/27/17 07:14 85 12/27/17 06:05 98 12/27/17 05:03 98 12/27/17 04:27 98.5 97 16 106/67 (80) 99 12/27/17 04:02 92 12/27/17 03:01 84 12/27/17 02:08 88 12/27/17 01:05 101 12/27/17 00:03 97.8 101 18 107/69 (82) 99 12/26/17 23:58 97 12/26/17 23:02 95 12/26/17 22:01 95 12/26/17 21:06 98 12/26/17 20:55 97.4 99 18 106/66 (79) 100 12/26/17 20:05 106 12/26/17 19:51 98 Nasal Cannula 1.00 12/26/17 19:04 99 12/26/17 18:16 96 12/26/17 16:42 97.6 101 18 115/73 (87) 100 12/26/17 12:52 97.8 94 18 116/75 (89) 100 12/26/17 12:00 98 12/27/17 12/27/17 12/27/17 07:00 15:00 23:00 Intake Total 1680 ml Output Total 100 ml Balance 1580 ml Result Diagram: 12/27/17 0440 12/27/17 0440 Laboratory Results Laboratory Tests Test 12/27/17 04:40 White Blood Count 5.0 TH/MM3 Red Blood Count 2.47 MIL/MM3 Hemoglobin 8.3 GM/DL Hematocrit 23.9 % Mean Corpuscular Volume 96.8 FL Mean Corpuscular Hemoglobin 33.4 PG Mean Corpuscular Hemoglobin Concent 34.5 % Red Cell Distribution Width 19.0 % Platelet Count 131 TH/MM3 Mean Platelet Volume 9.5 FL Neutrophils (%) (Auto) 61.7 % Lymphocytes (%) (Auto) 33.4 % Monocytes (%) (Auto) 4.7 % Eosinophils (%) (Auto) 0.1 % Basophils (%) (Auto) 0.1 % Neutrophils # (Auto) 3.1 TH/MM3 Lymphocytes # (Auto) 1.7 TH/MM3 Monocytes # (Auto) 0.2 TH/MM3 Eosinophils # (Auto) 0.0 TH/MM3 Basophils # (Auto) 0.0 TH/MM3 CBC Comment AUTO DIFF Differential Total Cells Counted 100 Neutrophils % (Manual) 49 % Band Neutrophils % 15 % Lymphocytes % 32 % Monocytes % 4 % Neutrophils # (Manual) 3.2 TH/MM3 Differential Comment FINAL DIFF MANUAL Dohle Bodies PRESENT Platelet Estimate LOW Platelet Morphology Comment NORMAL Acanthocytes 1+ Blood Urea Nitrogen 19 MG/DL Creatinine 0.79 MG/DL Random Glucose 125 MG/DL Total Protein 5.2 GM/DL Albumin 1.8 GM/DL Calcium Level 8.1 MG/DL Magnesium Level 1.4 MG/DL Alkaline Phosphatase 38 U/L Aspartate Amino Transf (AST/SGOT) 9 U/L Alanine Aminotransferase (ALT/SGPT) 11 U/L Total Bilirubin 0.2 MG/DL Sodium Level 146 MEQ/L Potassium Level 2.3 MEQ/L Chloride Level 120 MEQ/L Carbon Dioxide Level 16.9 MEQ/L Anion Gap 9 MEQ/L Estimat Glomerular Filtration Rate 99 ML/MIN Administered Medications Medications (Trade) Dose Ordered Sig/Shaila Route PRN Reason Start Time Stop Time Status Last Admin Dose Admin Multi-Ingredient Mouthwash/Gargle (Magic Mouthwash Adult Liq) 10 ml QID SWISH-SWAL 12/22/17 13:00 12/25/17 07:41 Sodium Chloride (NS Flush) 2 ml BID IV FLUSH 12/22/17 21:00 12/26/17 22:36 Ondansetron HCl (Zofran Inj) 4 mg Q6H PRN IVP NAUSEA OR VOMITING 12/22/17 12:45 12/26/17 09:43 Lidocaine HCl (Xylocaine 2% Viscous) 15 ml Q4H PRN SWISH-SPIT THROAT PAIN 12/22/17 15:00 12/24/17 21:16 Pantoprazole Sodium (Protonix Inj) 40 mg Q12H IV PUSH 12/22/17 16:00 12/27/17 03:22 Dextrose/Sodium Chloride 1,000 ml @ 84 mls/hr [id number] IV 12/22/17 15:00 12/27/17 03:29 Fluconazole/ Sodium Chloride 100 ml @ 100 mls/hr Q24H IV 12/22/17 16:00 12/26/17 15:53 Cefepime HCl 2000 mg/Sodium Chloride 100 ml @ 200 mls/hr Q8H IV 12/22/17 21:00 12/27/17 04:38 Morphine Sulfate (Morphine Inj) 1 mg Q3H PRN IV PAIN 1-10 12/22/17 21:00 12/24/17 03:00 Acetaminophen (Tylenol) 650 mg Q4H PRN PO TEMP > 100.5 F 12/22/17 21:00 12/22/17 21:25 Oxycodone/ Acetaminophen (Percocet 7.5-325 Mg) 1 tab Q4H PRN PO PAIN SCALE 4 TO 7 12/23/17 16:00 12/27/17 00:32 Oxycodone/ Acetaminophen (Percocet 10-325 Mg) 1 tab Q4H PRN PO pain 8-10 12/23/17 16:00 12/26/17 14:03 Albuterol/ Ipratropium (Duoneb Neb) 1 ampule Q4HR NEB NEB 12/24/17 12:00 12/27/17 03:51 Loperamide HCl (Imodium) 2 mg UNSCH PRN PO DIARRHEA 12/25/17 07:00 12/27/17 03:19 Tamsulosin HCl (Flomax) 0.4 mg HS PO 12/25/17 21:00 12/25/17 21:30 Padimate O (Chapstick) 1 applic UNSCH PRN TOPICAL DRY/CHAPPED LIPS 12/25/17 14:15 12/25/17 16:13 Enoxaparin Sodium (Lovenox Inj) 40 mg Q24H SQ 12/26/17 15:00 12/26/17 15:52 Potassium Chloride 100 ml @ 50 mls/hr Q2H IV 12/27/17 07:00 12/27/17 12:59 12/27/17 07:18 Objective Remarks GENERAL: Chronically ill-appearing older male resting in bed applying chapstick SKIN: Warm and dry. HEAD: Normocephalic. EYES: No injection or drainage. NECK: Trachea midline. XRT changes noted. CARDIOVASCULAR: Regular rate and rhythm without murmurs. RESPIRATORY: Clear but diminished anteriorly. GASTROINTESTINAL: PEG tube in place. Nontender to palpation. EXTREMITIES: No cyanosis, or edema. MUSCULOSKELETAL: Generalized weakness NEUROLOGICAL: Awake and alert. Moving all extremities. Assessment/Plan Assessment 62y/o male with locally advanced head and neck malignancy currently undergoing neoadjuvant chemotherapy admitted with weakness, weight loss, oral pain, and a burning sensation when he urinates. +locally advanced carcinoma of the tongue. receiving neoadjuvant TPF regimen. He now presents to the emergency room with progressive Plan 1. Neutropenic fever: Stop Neupogen after last dose today as he is no longer neutropenic 2 days and his white count is up to 5000. 2. Oral mucositis/thrush: Patient has IV Diflucan and Magic mouthwash. 3. Malnutrition: Attending has ordered potassium replacement. Continue tube feeds. 4. Diarrhea: Continue Imodium as needed 5. DVT prophylaxis: start Lovenox. 6. It should be noted that the patient has a potentially curable disease. Attending Statement The exam, history, and the medical decision-making described in the above note were completed with the assistance of the mid-level provider. I reviewed and agree with the findings presented. I attest that I had a [id number] encounter with the patient on the same day, and personally performed and documented my assessment and findings in the medical record. locally advanced head and neck cancer -potentially curable. Receiving TPF regimen experiencing excessive toxicity after ccyle # 3 long discussion with patient no further treatments at this time focus will be on pain control, nutrition, PT and recovery will consider combined modality XRT with possible cetuximab in the future continue supportive care. Yeimi Christianson December 27, 2017 11:07 Bon Newton MD December 27, 2017 22:41
[2017-12-27] MEDS: SODIUM CHLORIDE 0.9% FLUSH 10 ML FLUSH IV FLUSH SCH ×2 (12:45→20:59)
[2017-12-27] MEDS ORDERED: FILGRASTIM 300 MCG/ML VIAL SQ ONE (14:00)
[2017-12-27] MEDS: ENOXAPARIN SODIUM 40 MG/0.4 ML SYRINGE SQ SCH (15:24)
--- NOTE | 2017-12-27 15:52 | HHI.HCPN ---
Reason for visit a. To assist with evaluation and management of symptoms including: Dysphagia , oral pain, malnutrition, diarrhea b. To assist medical decision maker(s) with: better understanding of current medical conditions; weighing benefits/burdens of medical treatment options; making medical treatment decisions. Subjective/Interval History Patient seen today to follow-up on pain, goals following conversation with oncology. Stable overnight no acute events. H&H low but stable 8.3/23.9. Platelets 131. K+ 2.3, mag 1.4, repletion per medical attending. Nursing reports cont to brenna TF , residual <30ml, however c/o reflux, antacids given, TF temporarily held. Pt seen in room, nurse present. He is alert, oriented, appropriate. completing resp treatment. He remembers me from yesterday. Endorses feeling "ok" today, about the same as yesterday. Still feels some pain to mouth and throat, feels pain medication is effective, however doesn't like that the medication makes him feel like he is "tripping". Explore balancing pain relief w side effects of opiates. He endorses some reflux discomfort, burning/cough feeling to epigastric region. Denies nausea. Denies shortness of breath. Endorses cough from the reflux in which he brings up packer secretions, feels this is gastric not from his lungs. Denies head ache or other pain. Review of discussion yesterday, HCS etc. He recalls our discussion. He has not spoken to Dr Worrell yet today. Review of conditions, chemo then radiation option. He endorses that he does NOT want additional chemo, but still wishes to discuss possibility of doing radiation without chemo. Review that if he did not want more chemo and there were no additional tx option, then hospice consultation would be an option to de d/c with comfort measures only. He dia like to discuss with Dr Worrell before making decisions. D/w nurse, medical attending. Advance Directives Living Will: Never completed Health Care Surrogate: Never completed Durable Power of Slag Dumper: Never completed Advance Directive Specifics Date completed: 12/26/17 Health Care Surrogate(s): Completed healthcare surrogate naming friend Chacho Person Objective Vital Signs Date Time Temp Pulse Resp B/P (MAP) Pulse Ox O2 Delivery O2 Flow Rate FiO2 12/27/17 15:13 99 21 12/27/17 12:55 98.2 95 18 118/73 (88) 100 12/27/17 09:13 99 Nasal Cannula 1.00 12/27/17 07:51 97.9 87 20 103/69 (80) 100 12/27/17 07:14 85 12/27/17 06:05 98 12/27/17 05:03 98 12/27/17 04:27 98.5 97 16 106/67 (80) 99 12/27/17 04:02 92 12/27/17 03:01 84 12/27/17 02:08 88 12/27/17 01:05 101 12/27/17 00:03 97.8 101 18 107/69 (82) 99 12/26/17 23:58 97 12/26/17 23:02 95 12/26/17 22:01 95 12/26/17 21:06 98 12/26/17 20:55 97.4 99 18 106/66 (79) 100 12/26/17 20:05 106 12/26/17 19:51 98 Nasal Cannula 1.00 12/26/17 19:04 99 12/26/17 18:16 96 12/26/17 16:42 97.6 101 18 115/73 (87) 100 Intake & Output 12/27/17 12/27/17 07:00 19:00 Intake Total 2270 ml Output Total 250 ml 200 ml Balance 2020 ml -200 ml IV Total 1300 ml Tube Feeding 610 ml Other 360 ml Output Urine Total 250 ml 200 ml # Voids 2 # Bowel Movements 4 Physical Exam CONSTITUTIONAL/GENERAL: Frail, cachectic, ill-appearing male. No apparent distress. TUBES/LINES/DRAINS: Peripheral IV left upper extremity. PEG tube to abdomen. SCDs bilateral lower extremities.NC SKIN: No jaundice, rashes, or lesions. Multiple tattoos upper extremities. No wounds seen anteriorly. Skin warm/dry. CARDIOVASCULAR: Regular rate and rhythm, no murmur. No JVD. Peripheral pulses symmetric. RESPIRATORY/CHEST: Symmetric, unlabored respirations. On NC 1 L, completing resp tx. Faint scattered rhonchi. no wheezes. + Occasional cough during exam bringing up beige sputum. GASTROINTESTINAL: Abdomen soft, non-tender, nondistended, Flat. PEG site asymptomatic. Tube feed infusing. No palpable masses. No guarding. Bowel sounds present. GENITOURINARY: Without palpable bladder distension. MUSCULOSKELETAL: Extremities without clubbing, cyanosis, or edema. No joint tenderness or effusion noted. No calf tenderness. + Muscle atrophy to all 4 extremities NEUROLOGICAL: Awake and alert oriented 3. Motor and sensory grossly within normal limits. Follows commands. Cognitively sharp. Moves all extremities. PSYCHIATRIC: No obvious anxiety/depression. no apparent hallucinations or other psychotic thought process. Diagnostic Tests Laboratory Laboratory Tests Test 12/25/17 04:30 12/26/17 04:15 12/27/17 04:40 White Blood Count 2.2 TH/MM3 (4.0-11.0) 3.1 TH/MM3 (4.0-11.0) 5.0 TH/MM3 (4.0-11.0) Red Blood Count 2.64 MIL/MM3 (4.50-5.90) 2.61 MIL/MM3 (4.50-5.90) 2.47 MIL/MM3 (4.50-5.90) Hemoglobin 8.6 GM/DL (13.0-17.0) 8.6 GM/DL (13.0-17.0) 8.3 GM/DL (13.0-17.0) Hematocrit 25.3 % (39.0-51.0) 25.1 % (39.0-51.0) 23.9 % (39.0-51.0) Mean Corpuscular Volume 95.6 FL (80.0-100.0) 96.4 FL (80.0-100.0) 96.8 FL (80.0-100.0) Mean Corpuscular Hemoglobin 32.5 PG (27.0-34.0) 33.0 PG (27.0-34.0) 33.4 PG (27.0-34.0) Mean Corpuscular Hemoglobin Concent 34.0 % (32.0-36.0) 34.3 % (32.0-36.0) 34.5 % (32.0-36.0) Red Cell Distribution Width 19.0 % (11.6-17.2) 18.9 % (11.6-17.2) 19.0 % (11.6-17.2) Platelet Count 119 TH/MM3 (150-450) 122 TH/MM3 (150-450) 131 TH/MM3 (150-450) Mean Platelet Volume 9.5 FL (7.0-11.0) 9.4 FL (7.0-11.0) 9.5 FL (7.0-11.0) CBC Comment AUTO DIFF AUTO DIFF AUTO DIFF Differential Total Cells Counted 100 100 100 Neutrophils % (Manual) 43 % (16-70) 33 % (16-70) 49 % (16-70) Band Neutrophils % 24 % (0-6) 20 % (0-6) 15 % (0-6) Lymphocytes % 26 % (9-44) 38 % (9-44) 32 % (9-44) Monocytes % 7 % (0-8) 8 % (0-8) 4 % (0-8) Neutrophils # (Manual) 1.5 TH/MM3 (1.8-7.7) 1.7 TH/MM3 (1.8-7.7) 3.2 TH/MM3 (1.8-7.7) Differential Comment FINAL DIFF MANUAL FINAL DIFF MANUAL FINAL DIFF MANUAL Platelet Estimate LOW (NORMAL) LOW (NORMAL) LOW (NORMAL) Platelet Morphology Comment NORMAL (NORMAL) NORMAL (NORMAL) NORMAL (NORMAL) Red Cell Morphology Comment NORMAL (NORMAL) Blood Urea Nitrogen 26 MG/DL (7-18) 20 MG/DL (7-18) 19 MG/DL (7-18) Creatinine 0.83 MG/DL (0.60-1.30) 0.79 MG/DL (0.60-1.30) 0.79 MG/DL (0.60-1.30) Random Glucose 137 MG/DL (74-106) 126 MG/DL (74-106) 125 MG/DL (74-106) Calcium Level 8.3 MG/DL (8.5-10.1) 8.1 MG/DL (8.5-10.1) 8.1 MG/DL (8.5-10.1) Magnesium Level 1.7 MG/DL (1.5-2.5) 1.4 MG/DL (1.5-2.5) Sodium Level 141 MEQ/L (136-145) 143 MEQ/L (136-145) 146 MEQ/L (136-145) Potassium Level 2.6 MEQ/L (3.5-5.1) 2.6 MEQ/L (3.5-5.1) 2.3 MEQ/L (3.5-5.1) Chloride Level 110 MEQ/L (98-107) 115 MEQ/L (98-107) 120 MEQ/L (98-107) Carbon Dioxide Level 20.8 MEQ/L (21.0-32.0) 17.7 MEQ/L (21.0-32.0) 16.9 MEQ/L (21.0-32.0) Anion Gap 10 MEQ/L (5-15) 10 MEQ/L (5-15) 9 MEQ/L (5-15) Estimat Glomerular Filtration Rate 93 ML/MIN (>89) 99 ML/MIN (>89) 99 ML/MIN (>89) Metamyelocytes 1 % (0-1) Dohle Bodies PRESENT (NONE SEEN) PRESENT (NONE SEEN) Neutrophils (%) (Auto) 61.7 % (16.0-70.0) Lymphocytes (%) (Auto) 33.4 % (9.0-44.0) Monocytes (%) (Auto) 4.7 % (0.0-8.0) Eosinophils (%) (Auto) 0.1 % (0.0-4.0) Basophils (%) (Auto) 0.1 % (0.0-2.0) Neutrophils # (Auto) 3.1 TH/MM3 (1.8-7.7) Lymphocytes # (Auto) 1.7 TH/MM3 (1.0-4.8) Monocytes # (Auto) 0.2 TH/MM3 (0-0.9) Eosinophils # (Auto) 0.0 TH/MM3 (0-0.4) Basophils # (Auto) 0.0 TH/MM3 (0-0.2) Acanthocytes 1+ (NORMAL) Total Protein 5.2 GM/DL (6.4-8.2) Albumin 1.8 GM/DL (3.4-5.0) Alkaline Phosphatase 38 U/L (45-117) Aspartate Amino Transf (AST/SGOT) 9 U/L (15-37) Alanine Aminotransferase (ALT/SGPT) 11 U/L (12-78) Total Bilirubin 0.2 MG/DL (0.2-1.0) Result Diagram: 12/27/17 0440 12/27/17 0440 Microbiology Microbiology Date/Time Source Procedure Growth Status 12/22/17 21:06 Blood Peripheral Aerobic Blood Culture - Final NO GROWTH IN 5 DAYS Complete 12/22/17 21:06 Blood Peripheral Anaerobic Blood Culture - Final NO GROWTH IN 5 DAYS Complete 12/23/17 01:20 Stool Stool Stool Occult Blood (OSCAR) - Final HEMOCCULT NEGATIVE Complete Imaging Last Impressions Chest X-Ray 12/24/17 0000 Signed Impressions: Service Date/Time: Sunday, December 24, 2017 09:36 - CONCLUSION: No acute disease. Enoch Blue MD Assessment and Plan Disease Oriented Problem List: (1) Diarrhea (2) Severe neutropenia (3) Generalized weakness (4) Squamous cell cancer of tongue (5) Mucositis oral Symptom Scale: (1) Dysphagia 0-10 Scale: Unable to quantify (2) Pain 0-10 Scale: Unable to quantify (3) Malnutrition 0-10 Scale: Unable to quantify Pertinent Non-Medical Issues Psychosocial:Originally from [place], though has lived in [place] for 18+ years. Moved here when a friend in the [employer] business here moved and offered him the opportunity to participate. Lives alone. . Has a few adult children who live in [place]. He intermittently remains in communication with them. 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 Retired currently. Supported by very close friend Chacho who is like a brother to him. Spiritual:No particular latter day affiliation does not want director private music therapy agency visits Legal:Patient alert, oriented appears capacitated and able to make his own decisions. He completed healthcare surrogate designation 12/16/17, naming his friend Chacho Person as his healthcare surrogate. Copies provided to patient, and faxed to medical records. Ethical issues impacting care:no ethical issues identified. Important Contacts Close friend and healthcare surrogate Chacho Person: [phone] . Prognosis This patient was admitted for oral mucositis, diarrhea. He has a known history of squamous cell carcinoma of the tongue. He is very debilitated, and has had significant weight loss. He has been undergoing chemotherapy with the hopes of obtaining radiation therapy. Likely he will continue to decline. appropriate for hospice if goals compatible. . Code Status: No Code Plan * Legal decision maker: Patient alert, oriented appears capacitated and able to make his own decisions. He agreed to complete healthcare surrogate today designating his friend Chacho Person as his healthcare surrogate. Copies provided to patient, and faxed to medical records. * Goals: Lengthy discussion with patient at bedside on 12/26/17. see family conference for additional detail. in summary: he wants to be able to discuss further with his known oncologist about the possibility of skipping further chemotherapy and attempting radiation. He wants to know if this would be an option, and if completing radiation would be single or short treatments that may begin to improve his quality of life. If he would not be able to go directly to radiation without further chemotherapy, he has expressed that he does NOT want additional chemotherapy. If radiation will not be offered, or would not offer significant improvement over a very short course he would be interested in hospice for comfort measures only. * CODE STATUS: DNR * SYMPTOMS: --Dysphasia-has had ongoing dysphasia secondary to tongue cancer; status post barium swallow evaluation which recommended n.p.o. status for patient. Currently receiving bypass feeding via PEG tube. He understands aspiration risks but wishes to continue to take oral food and fluids for pleasure in small amounts. If goals comfort oriented would recommend oral food and fluids as desired however if goals still aggressive and restorative would recommend continue n.p.o. --Oral pain--indicates ongoing oral and throat pain secondary to underlying malignancy.+ Mucositis, has had multiple chemotherapy treatments. Currently being treated with Magic mouthwash, viscous lidocaine, + IV Diflucan. He feels the Percocet when crushed and given via the PEG helped keep pain at a "stable "tolerable level. He tells me he does not like the "liquid "pain medicine that they had been putting in him. He is not certain if the IV medication has helped or not. He indicates to me that the Percocet has made his pain tolerable and he feels is "good as it will be ". Used PRN percocet 7.5mg x1 today, x1 yesterday. Used PRN percocet 10mg x 4 yesterday, no 10mg doses today. He does not like the side effect of feeling "tripping", we explored balancing side effects w pain relief. Advised we would continue to monitor pain levels as well as ongoing treatments for mucositis and hopefully his pain can remain well managed. No recommendations for changes at this time --Malnutrition- 2/2 disease process. Has a PEG tube though not clear how much tube feeding he was actually receiving at home. Dietitian has evaluated this admission recommend continue vital 1.5 at 10 mL's an hour to avoid refeeding syndrome. Albumin 1.8. Continue to monitor chemistry. Weight recorded in August admission 55 kg, current weight to this admission 46 kg//== total weight loss of 9 kg/19 pounds in the past 4 months.] TF held temporarily today 2/2 reflux. residuals <30ml. --diarrhea- ongoing x several days. Stool neg for c diff, GI parasites. Hemoccult neg. ?etiology. on PRN Imodium, electrolyte replacement PRN * Palliative care will continue to follow during hospital course as condition evolves, to assist patient/decision-maker with understanding of medical conditions, weighing benefits/burdens of treatment options, for clarification of goals of treatment. Additionally will assist with any symptoms of palliative concern Attestation To help prompt me to consider important information that might be impacting today's encounter and assessment, information from prior notes written by myself or my colleagues may have been "brought forward" into today's note. My signature on this note, however, is an attestation that I personally performed the exam, history, and/or decision-making noted today, and, unless otherwise indicated, the interactions with patient, family, and staff as well as the review of records all occurred today. I also attest that the listed assessment and stated plan reflect my best clinical judgment today based on the combination of historical information, prior notes, and today's exam/ interactions. When time spent is documented, it refers only to time spent today by the signer, or if indicated, combined time spent today by collaborating physician/nurse practitioner. Leigha Candelaria December 27, 2017 15:52
--- NOTE | 2017-12-27 16:30 | HHI.PR ---
Subjective Remarks Patient currently state pain is controlled. Waiting to speak with Dr. Newton. No other complaints. Objective Vitals Vital Signs Date Time Temp Pulse Resp B/P (MAP) Pulse Ox O2 Delivery O2 Flow Rate FiO2 12/27/17 16:03 96 12/27/17 15:13 99 21 12/27/17 12:55 98.2 95 18 118/73 (88) 100 12/27/17 09:13 99 Nasal Cannula 1.00 12/27/17 07:51 97.9 87 20 103/69 (80) 100 12/27/17 07:14 85 12/27/17 06:05 98 12/27/17 05:03 98 12/27/17 04:27 98.5 97 16 106/67 (80) 99 12/27/17 04:02 92 12/27/17 03:01 84 12/27/17 02:08 88 12/27/17 01:05 101 12/27/17 00:03 97.8 101 18 107/69 (82) 99 12/26/17 23:58 97 12/26/17 23:02 95 12/26/17 22:01 95 12/26/17 21:06 98 12/26/17 20:55 97.4 99 18 106/66 (79) 100 12/26/17 20:05 106 12/26/17 19:51 98 Nasal Cannula 1.00 12/26/17 19:04 99 12/26/17 18:16 96 12/26/17 16:42 97.6 101 18 115/73 (87) 100 I/O 12/26/17 12/26/17 12/26/17 12/27/17 12/27/17 12/27/17 07:00 15:00 23:00 07:00 15:00 23:00 Intake Total 960 ml 790 ml 1680 ml Output Total 200 ml 150 ml 100 ml 200 ml Balance 760 ml 640 ml 1580 ml -200 ml IV Total 200 ml 1300 ml Tube Feeding 480 ml 390 ml 220 ml Other 480 ml 200 ml 160 ml Output Urine Total 200 ml 150 ml 100 ml 200 ml # Voids 3 5 1 # Bowel Movements 4 4 3 Result Diagram: 12/27/17 0440 12/27/17 0440 Imaging Last Impressions Chest X-Ray 12/24/17 0000 Signed Impressions: Service Date/Time: Sunday, December 24, 2017 09:36 - CONCLUSION: No acute disease. Enoch Blue MD Objective Remarks GENERAL: This is a thin cachectic gentleman. keeps eyes closed but does open them CARDIOVASCULAR: Regular rate and rhythm without murmurs RESPIRATORY: Clear to auscultation. Breath sounds equal bilaterally. No wheezes. GASTROINTESTINAL: Abdomen soft, discomfort w palpation. No guarding. 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 He presented to the ER due to weakness and near syncope. Carcinoma of the tongue Febrile neutropenia Patient has been seen and [facility] + Diflucan, if he spikes fevers again vancomycin will be added Blood cultures negative to date UA negative, chest x-ray negative Decreased p.o. intake Continue tube feeds, not tolerating Consult nutrition Diarrhea C. difficile negative Appears to have stabilized Stool cultures negative Acute renal failure Likely prerenal due to dehydration. Resolved HypoKalemia mag level wnl Continue to replace. DVT proph bilat SCDs Discharge Planning DC planning recommendations by oncology. Pt wishes to speak w Dr. Newton to make decision regarding not getting chemo vs radiation vs transitioning to hospice care Urszula Hayden MD December 27, 2017 16:30
[2017-12-27] MEDS: FLUCONAZOLE 200 MG PREMIX BAG 100 ML IV SCH (16:39)
[2017-12-27 17:44] LABS: BICARBONATE 17.3 MEQ/L (21.0-32.0); CALCIUM 8.1 MG/DL (8.5-10.1); CREATININE 0.73 MG/DL (0.60-1.30)
[2017-12-27] MEDS ORDERED: POTASSIUM CHLOR 20 MEQ PREMIX 100 ML IV SCH (19:00)
[2017-12-27] MEDS: MAGNESIUM SULFATE 1 GM PREMIX 100 ML IV SCH ×2 (19:07→21:59)
[2017-12-27] MEDS ORDERED: POTASSIUM CHLOR 40 MEQ PREMIX 100 ML IV ONE (20:00)
[2017-12-27] MEDS: TAMSULOSIN HCL 0.4 MG CAP PO SCH (20:59)
[2017-12-28] VITALS (17 sets, daily range): BP systolic 90–123; BP diastolic 54–75; PULSE 70–87; RESP 16–20; TEMP 97.4–98.3; O2SAT 95–100
[2017-12-28] MEDS: RESP: ALBUTEROL 2.5 MG/IPRATROPIUM 0.5 MG NEB (SCH) NEB ×3 (02:52→11:39)
[2017-12-28] MEDS: DEXT 5%-NACL 0.45% 1000 ML INJ 1,000 ML IV SCH ×2 (02:59→19:12)
[2017-12-28] MEDS: PANTOPRAZOLE SODIUM 40 MG VIAL IV PUSH SCH ×2 (05:03→19:08)
[2017-12-28] MEDS: CEFEPIME 2000 MG/NS 100 ML IV SCH ×6 (05:18→22:20)
[2017-12-28 06:21] LABS: AUTOMATED NEUTROPHIL # 4.9 TH/MM3 (1.8-7.7); BASOPHIL % 0.2 % (0.0-2.0); HEMATOCRIT 22.8 % (39.0-51.0); HEMOGLOBIN 7.8 GM/DL (13.0-17.0); LYMPH % 24.9 % (9.0-44.0); LYMPHOCYTE # 1.8 TH/MM3 (1.0-4.8); MEAN CELL VOLUME 97.1 FL (80.0-100.0); MEAN CORPUSCULAR HEMOGLOBIN 33.3 PG (27.0-34.0); MEAN CORPUSCULAR HGB CONC 34.3 % (32.0-36.0); MEAN PLATELET VOLUME 9.6 FL (7.0-11.0); MONO % 5.9 % (0.0-8.0); MONOCYTE # 0.4 TH/MM3 (0-0.9); PLATELET COUNT 143 TH/MM3 (150-450); RED BLOOD COUNT 2.35 MIL/MM3 (4.50-5.90); RED CELL DISTRIBUTION WIDTH 18.9 % (11.6-17.2); WHITE BLOOD COUNT 7.1 TH/MM3 (4.0-11.0)
[2017-12-28 07:03] LABS: ALBUMIN 1.7 GM/DL (3.4-5.0); ALKALINE PHOSPHATASE 39 U/L (45-117); ALT (GPT) 14 U/L (12-78); AST (GOT) 5 U/L (15-37); BICARBONATE 16.1 MEQ/L (21.0-32.0); BLOOD UREA NITROGEN 18 MG/DL (7-18); CALCIUM 7.5 MG/DL (8.5-10.1); CHLORIDE 123 MEQ/L (98-107); GLOMERULAR FILTRATION RATE 114 ML/MIN (>89); GLUCOSE,RANDOM 101 MG/DL (74-106); MAGNESIUM 1.7 MG/DL (1.5-2.5); SODIUM (NA) 148 MEQ/L (136-145); TOTAL BILIRUBIN ADULT 0.3 MG/DL (0.2-1.0)
[2017-12-28 08:44] LABS: BANDS 20 % (0-6); LYMPHOCYTES 14 % (9-44); MONOCYTES 6 % (0-8); MYELOCYTES 1 % (0-0); NEUTROPHIL # MANUAL DIFF 5.7 TH/MM3 (1.8-7.7); POLYS (SEG NEUTROPHILS) 59 % (16-70)
[2017-12-28 08:46] LABS: OVALOCYTES 1+ (NORMAL); TOXIC GRANULATION 2+ (NORMAL)
[2017-12-28] MEDS: NYSTAT/DIPHENHY/LIDO MOUTHWASH (Adult) 120ML SWISH-SWAL SCH ×4 (09:53→21:00)
[2017-12-28] MEDS: oxyCODONE/ACETAMINOPHEN 10 MG/325 MG TAB PO PRN ×3 (09:54→22:52)
[2017-12-28] MEDS: SODIUM CHLORIDE 0.9% FLUSH 10 ML FLUSH IV FLUSH SCH ×2 (09:54→21:00)
[2017-12-28] MEDS ORDERED: POTASSIUM CHLOR 40 MEQ PREMIX 100 ML IV ONE (12:15)
[2017-12-28] MEDS ORDERED: POTASSIUM CHLORIDE 20 MEQ PWD PACKET PO ONE (12:15)
--- NOTE | 2017-12-28 12:24 | HHI.HCPN ---
Reason for visit a. To assist with evaluation and management of symptoms including: Dysphagia , oral pain, malnutrition, diarrhea b. To assist medical decision maker(s) with: better understanding of current medical conditions; weighing benefits/burdens of medical treatment options; making medical treatment decisions. Subjective/Interval History Patient seen today to follow-up on pain, goals following conversation with oncology. Stable overnight no acute events. WBC7.1. H&H low but stable 7.8/22.8, slightly down from yesterday. K+ 2.7, repletion per medical attending. Tf resumed today. Dr Newton notes discussion w pt yesterday regarding possible XRT without chemo. Pt seen in room, no visitors present. He is alert, oriented, pleasant, seems in better spirits than during prior interactions. ST just worked with him, he indicates he did ok, he swallowing is a little better and they have given exercises to cont to do. He says his mouth is still painful like "pins and needles" he is not sure if the pain medication helps. Review benefits/burdens of pain medications, side effects. He feels that is makes him feel "trippy" right after taking and does not want further increase or adjustment to meds. His friend has brought an athletic mouth guard which he is wearing states makes his mouth feel better. Explore his d/w oncology yesterday, he indicates he was able to discuss w Dr Worrell the possibility of doing radiation without further chemo. He wants to get stronger, get out of the hospital and proceed with radiation as soon as possible. He does not think that he would do any additional chemo, even after XRT. He shares that in the past rehab helped him maintain/restore strength after hospitalization, thinks he may need this again. He is not interested in hospice at this time, though tells me that will still be an option when he has no other options or feels to ill to continue with any treatment. denies shortness of breath. denies GI discomfort today, endorses reflux feeling is much improved. Has icebag on his head, no headache, indicates it "just feels good". D/w nurse, oncology GOLD LETTERER. Advance Directives Living Will: Never completed Health Care Surrogate: Never completed Durable Power of Fixture Fabricator Repairer: Never completed Advance Directive Specifics Date completed: 12/26/17 Health Care Surrogate(s): Completed healthcare surrogate naming friend Chacho Person Objective Vital Signs Date Time Temp Pulse Resp B/P (MAP) Pulse Ox O2 Delivery O2 Flow Rate FiO2 12/28/17 09:15 97.4 78 123/74 (90) 95 12/28/17 07:33 100 Nasal Cannula 2.00 12/28/17 06:02 81 12/28/17 05:14 80 12/28/17 04:50 85 16 112/75 (87) 100 12/28/17 04:02 80 12/28/17 03:06 81 12/28/17 02:02 79 12/28/17 01:06 83 12/28/17 00:55 97.8 84 16 90/54 (66) 100 12/28/17 00:01 87 12/27/17 23:00 93 12/27/17 22:05 82 12/27/17 21:04 98 12/27/17 20:03 84 12/27/17 19:47 98.0 91 18 108/68 (81) 99 12/27/17 19:09 84 12/27/17 17:00 96.8 94 20 114/71 (85) 100 12/27/17 16:03 96 12/27/17 15:13 99 21 12/27/17 12:55 98.2 95 18 118/73 (88) 100 Intake & Output 12/28/17 12/28/17 07:00 19:00 Intake Total 600 ml Output Total 800 ml 200 ml Balance -200 ml -200 ml IV Total 600 ml Tube Feeding 0 ml Output Urine Total 800 ml 200 ml # Voids 1 # Bowel Movements 2 Physical Exam CONSTITUTIONAL/GENERAL: Frail, cachectic, ill-appearing male. No apparent distress. TUBES/LINES/DRAINS: Peripheral IV left upper extremity. +port accessed right chest PEG tube to abdomen. SCDs bilateral lower extremities.NC SKIN: No jaundice, rashes, or lesions. Multiple tattoos upper extremities. No wounds seen anteriorly. Skin warm/dry. CARDIOVASCULAR: Regular rate and rhythm, no murmur. No JVD. Peripheral pulses symmetric. RESPIRATORY/CHEST: Symmetric, unlabored respirations. On NC 1 L, Faint scattered rhonchi. no wheezes. GASTROINTESTINAL: Abdomen soft, non-tender, nondistended, Flat. PEG site asymptomatic. No palpable masses. No guarding. Bowel sounds present. GENITOURINARY: Without palpable bladder distension. MUSCULOSKELETAL: Extremities without clubbing, cyanosis, or edema. No joint tenderness or effusion noted. No calf tenderness. + Muscle atrophy to all 4 extremities NEUROLOGICAL: Awake and alert oriented 3. Motor and sensory grossly within normal limits. Follows commands. Cognitively sharp. Moves all extremities. PSYCHIATRIC: No obvious anxiety/depression. no apparent hallucinations or other psychotic thought process. Diagnostic Tests Laboratory Laboratory Tests Test 12/26/17 04:15 12/27/17 04:40 12/27/17 16:50 12/28/17 05:00 White Blood Count 3.1 TH/MM3 (4.0-11.0) 5.0 TH/MM3 (4.0-11.0) 7.1 TH/MM3 (4.0-11.0) Red Blood Count 2.61 MIL/MM3 (4.50-5.90) 2.47 MIL/MM3 (4.50-5.90) 2.35 MIL/MM3 (4.50-5.90) Hemoglobin 8.6 GM/DL (13.0-17.0) 8.3 GM/DL (13.0-17.0) 7.8 GM/DL (13.0-17.0) Hematocrit 25.1 % (39.0-51.0) 23.9 % (39.0-51.0) 22.8 % (39.0-51.0) Mean Corpuscular Volume 96.4 FL (80.0-100.0) 96.8 FL (80.0-100.0) 97.1 FL (80.0-100.0) Mean Corpuscular Hemoglobin 33.0 PG (27.0-34.0) 33.4 PG (27.0-34.0) 33.3 PG (27.0-34.0) Mean Corpuscular Hemoglobin Concent 34.3 % (32.0-36.0) 34.5 % (32.0-36.0) 34.3 % (32.0-36.0) Red Cell Distribution Width 18.9 % (11.6-17.2) 19.0 % (11.6-17.2) 18.9 % (11.6-17.2) Platelet Count 122 TH/MM3 (150-450) 131 TH/MM3 (150-450) 143 TH/MM3 (150-450) Mean Platelet Volume 9.4 FL (7.0-11.0) 9.5 FL (7.0-11.0) 9.6 FL (7.0-11.0) CBC Comment AUTO DIFF AUTO DIFF AUTO DIFF Differential Total Cells Counted 100 100 100 Neutrophils % (Manual) 33 % (16-70) 49 % (16-70) 59 % (16-70) Band Neutrophils % 20 % (0-6) 15 % (0-6) 20 % (0-6) Lymphocytes % 38 % (9-44) 32 % (9-44) 14 % (9-44) Monocytes % 8 % (0-8) 4 % (0-8) 6 % (0-8) Neutrophils # (Manual) 1.7 TH/MM3 (1.8-7.7) 3.2 TH/MM3 (1.8-7.7) 5.7 TH/MM3 (1.8-7.7) Metamyelocytes 1 % (0-1) Differential Comment FINAL DIFF MANUAL FINAL DIFF MANUAL FINAL DIFF MANUAL Dohle Bodies PRESENT (NONE SEEN) PRESENT (NONE SEEN) Platelet Estimate LOW (NORMAL) LOW (NORMAL) NORMAL (NORMAL) Platelet Morphology Comment NORMAL (NORMAL) NORMAL (NORMAL) ENLARGED (NORMAL) Blood Urea Nitrogen 20 MG/DL (7-18) 19 MG/DL (7-18) 19 MG/DL (7-18) 18 MG/DL (7-18) Creatinine 0.79 MG/DL (0.60-1.30) 0.79 MG/DL (0.60-1.30) 0.73 MG/DL (0.60-1.30) 0.70 MG/DL (0.60-1.30) Random Glucose 126 MG/DL (74-106) 125 MG/DL (74-106) 103 MG/DL (74-106) 101 MG/DL (74-106) Calcium Level 8.1 MG/DL (8.5-10.1) 8.1 MG/DL (8.5-10.1) 8.1 MG/DL (8.5-10.1) 7.5 MG/DL (8.5-10.1) Sodium Level 143 MEQ/L (136-145) 146 MEQ/L (136-145) 147 MEQ/L (136-145) 148 MEQ/L (136-145) Potassium Level 2.6 MEQ/L (3.5-5.1) 2.3 MEQ/L (3.5-5.1) 2.8 MEQ/L (3.5-5.1) 2.7 MEQ/L (3.5-5.1) Chloride Level 115 MEQ/L (98-107) 120 MEQ/L (98-107) 122 MEQ/L (98-107) 123 MEQ/L (98-107) Carbon Dioxide Level 17.7 MEQ/L (21.0-32.0) 16.9 MEQ/L (21.0-32.0) 17.3 MEQ/L (21.0-32.0) 16.1 MEQ/L (21.0-32.0) Anion Gap 10 MEQ/L (5-15) 9 MEQ/L (5-15) 8 MEQ/L (5-15) 9 MEQ/L (5-15) Estimat Glomerular Filtration Rate 99 ML/MIN (>89) 99 ML/MIN (>89) 108 ML/MIN (>89) 114 ML/MIN (>89) Neutrophils (%) (Auto) 61.7 % (16.0-70.0) 69.0 % (16.0-70.0) Lymphocytes (%) (Auto) 33.4 % (9.0-44.0) 24.9 % (9.0-44.0) Monocytes (%) (Auto) 4.7 % (0.0-8.0) 5.9 % (0.0-8.0) Eosinophils (%) (Auto) 0.1 % (0.0-4.0) 0.0 % (0.0-4.0) Basophils (%) (Auto) 0.1 % (0.0-2.0) 0.2 % (0.0-2.0) Neutrophils # (Auto) 3.1 TH/MM3 (1.8-7.7) 4.9 TH/MM3 (1.8-7.7) Lymphocytes # (Auto) 1.7 TH/MM3 (1.0-4.8) 1.8 TH/MM3 (1.0-4.8) Monocytes # (Auto) 0.2 TH/MM3 (0-0.9) 0.4 TH/MM3 (0-0.9) Eosinophils # (Auto) 0.0 TH/MM3 (0-0.4) 0.0 TH/MM3 (0-0.4) Basophils # (Auto) 0.0 TH/MM3 (0-0.2) 0.0 TH/MM3 (0-0.2) Acanthocytes 1+ (NORMAL) Total Protein 5.2 GM/DL (6.4-8.2) 5.0 GM/DL (6.4-8.2) Albumin 1.8 GM/DL (3.4-5.0) 1.7 GM/DL (3.4-5.0) Magnesium Level 1.4 MG/DL (1.5-2.5) 1.7 MG/DL (1.5-2.5) Alkaline Phosphatase 38 U/L (45-117) 39 U/L (45-117) Aspartate Amino Transf (AST/SGOT) 9 U/L (15-37) 5 U/L (15-37) Alanine Aminotransferase (ALT/SGPT) 11 U/L (12-78) 14 U/L (12-78) Total Bilirubin 0.2 MG/DL (0.2-1.0) 0.3 MG/DL (0.2-1.0) Myelocytes 1 % (0-0) Toxic Granulation 2+ (NORMAL) Ovalocytes 1+ (NORMAL) Result Diagram: 12/28/17 0500 12/28/17 0500 Imaging Last Impressions Chest X-Ray 12/24/17 0000 Signed Impressions: Service Date/Time: Sunday, December 24, 2017 09:36 - CONCLUSION: No acute disease. Enoch Blue MD Assessment and Plan Disease Oriented Problem List: (1) Diarrhea (2) Severe neutropenia (3) Generalized weakness (4) Squamous cell cancer of tongue (5) Mucositis oral Symptom Scale: (1) Dysphagia 0-10 Scale: Unable to quantify (2) Pain 0-10 Scale: Unable to quantify (3) Malnutrition 0-10 Scale: Unable to quantify Pertinent Non-Medical Issues Psychosocial:Originally from [place], though has lived in [place] for 18+ years. Moved here when a friend in the restaurant business here moved and offered him the opportunity to participate. Lives alone. . Has a few adult children who live in [place]. He intermittently remains in communication with them. 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 Retired currently. Supported by very close friend Chacho who is like a brother to him. Spiritual:No particular scientologist affiliation does not want park interpretive specialist visits Legal:Patient alert, oriented appears capacitated and able to make his own decisions. He completed healthcare surrogate designation 12/16/17, naming his friend Chacho Person as his healthcare surrogate. Copies provided to patient, and faxed to medical records. Ethical issues impacting care:no ethical issues identified. . Important Contacts Close friend and healthcare surrogate Chacho Person: [phone] . Prognosis This patient was admitted for oral mucositis, diarrhea. He has a known history of squamous cell carcinoma of the tongue. He is very debilitated, and has had significant weight loss. He has been undergoing chemotherapy with the hopes of obtaining radiation therapy. Likely he will continue to decline. appropriate for hospice if goals compatible. . Code Status: No Code Plan * Legal decision maker: Patient alert, oriented appears capacitated and able to make his own decisions. He agreed to complete healthcare surrogatedesignating his friend Chacho Person as his healthcare surrogate. Copies provided to patient, and faxed to medical records. * Goals: pt has met w his oncologist. he wishes to pursue radiation, with NO ADDITIONAL CHEMOTHERAPY. He is not interested in hospice at this time, though is aware of services. He wishes to try to restore strength, and continue to try to treat his cancer with radiation. * CODE STATUS: DNR * SYMPTOMS: --Dysphasia-has had ongoing dysphasia secondary to tongue cancer; status post barium swallow evaluation which recommended n.p.o. status for patient.Ongoing ST eval--pt report improving some, dictation from todays assessment not available at time of my visit. Currently receiving bypass feeding via PEG tube. He understands aspiration risks but wishes to continue to take oral food and fluids for pleasure in small amounts. --Oral pain--indicates ongoing oral and throat pain secondary to underlying malignancy.+ Mucositis, has had multiple chemotherapy treatments. Currently being treated with Magic mouthwash, viscous lidocaine, + IV Diflucan. He feels the Percocet when crushed and given via the PEG helped keep pain at a "stable "tolerable level. He tells me he does not like the "liquid "pain medicine that they had been putting in him. He is not certain if the prn med helps. He does not like the side effect of feeling "tripping", we explored balancing side effects w pain relief. He does not want adjustments at this time. Advised we would continue to monitor pain levels as well as ongoing treatments for mucositis and hopefully his pain can remain well managed. No recommendations for changes at this time --Malnutrition- 2/2 disease process. Has a PEG tube though not clear how much tube feeding he was actually receiving at home. Dietitian has evaluated this admission recommend continue vital 1.5 at 10 mL's an hour to avoid refeeding syndrome. Albumin 1.8. Continue to monitor chemistry. Weight recorded in August admission 55 kg, current weight to this admission 46 kg//== total weight loss of 9 kg/19 pounds in the past 4 months.] TF held temporarily yesterday 2/2 reflux. residuals <30ml. resumed today per nursing, reflux sx improved. --diarrhea- ongoing x several days. Stool neg for c diff, GI parasites. Hemoccult neg. ?etiology. on PRN Imodium, electrolyte replacement PRN * Palliative care will continue to follow during hospital course as condition evolves, to assist patient/decision-maker with understanding of medical conditions, weighing benefits/burdens of treatment options, for clarification of goals of treatment. Additionally will assist with any symptoms of palliative concern Time Spent Total Floor Time (mins): 25 (chart review, PE, d/w nurse, d/c oncology GOLD LETTERER, d/ w pt) Attestation To help prompt me to consider important information that might be impacting today's encounter and assessment, information from prior notes written by myself or my colleagues may have been "brought forward" into today's note. My signature on this note, however, is an attestation that I personally performed the exam, history, and/or decision-making noted today, and, unless otherwise indicated, the interactions with patient, family, and staff as well as the review of records all occurred today. I also attest that the listed assessment and stated plan reflect my best clinical judgment today based on the combination of historical information, prior notes, and today's exam/ interactions. When time spent is documented, it refers only to time spent today by the signer, or if indicated, combined time spent today by collaborating physician/nurse practitioner. Leigha Candelaria December 28, 2017 12:24
--- NOTE | 2017-12-28 16:11 | HHI.PR ---
Subjective Remarks Patient was asleep when I came in however he does wake up when I call his name. He opened his eyes. When asked if he has pain he shakes his head "no". Objective Vitals Vital Signs Date Time Temp Pulse Resp B/P (MAP) Pulse Ox O2 Delivery O2 Flow Rate FiO2 12/28/17 13:00 98.3 70 16 106/70 (82) 100 12/28/17 12:00 74 12/28/17 09:15 97.4 78 123/74 (90) 95 12/28/17 08:00 81 12/28/17 07:33 100 Nasal Cannula 2.00 12/28/17 06:02 81 12/28/17 05:14 80 12/28/17 04:50 85 16 112/75 (87) 100 12/28/17 04:02 80 12/28/17 03:06 81 12/28/17 02:02 79 12/28/17 01:06 83 12/28/17 00:55 97.8 84 16 90/54 (66) 100 12/28/17 00:01 87 12/27/17 23:00 93 12/27/17 22:05 82 12/27/17 21:04 98 12/27/17 20:03 84 12/27/17 19:47 98.0 91 18 108/68 (81) 99 12/27/17 19:09 84 12/27/17 17:00 96.8 94 20 114/71 (85) 100 I/O 12/27/17 12/27/17 12/27/17 12/28/17 12/28/17 12/28/17 07:00 15:00 23:00 07:00 15:00 23:00 Intake Total 1680 ml 300 ml 300 ml Output Total 100 ml 1500 ml 150 ml 650 ml 200 ml Balance 1580 ml -1500 ml 150 ml -350 ml -200 ml IV Total 1300 ml 300 ml 300 ml Tube Feeding 220 ml 0 ml Other 160 ml Output Urine Total 100 ml 500 ml 150 ml 650 ml 200 ml Stool Total 1000 ml # Voids 1 1 # Bowel Movements 3 1 1 Result Diagram: 12/28/17 0500 12/28/17 0500 Imaging Last Impressions Chest X-Ray 12/24/17 0000 Signed Impressions: Service Date/Time: Sunday, December 24, 2017 09:36 - CONCLUSION: No acute disease. Enoch Blue MD Objective Remarks GENERAL: This is a thin cachectic gentleman. keeps eyes closed but does open them CARDIOVASCULAR: Regular rate and rhythm without murmurs RESPIRATORY: Clear to auscultation. Breath sounds equal bilaterally. No wheezes. GASTROINTESTINAL: Abdomen soft, discomfort w palpation. No guarding. 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 He presented to the ER due to weakness and near syncope. Carcinoma of the tongue Febrile neutropenia Patient has been seen and evaluated by oncology Continue Neupogen. Cefepime + Diflucan, if he spikes fevers again vancomycin will be added Blood cultures negative to date UA negative, chest x-ray negative Decreased p.o. intake On tube feeds. RD evaluated the patient recommended Vital 1.5 @ 45mls/hr Speech therapy following the patient and continues to recommend n.p.o. status Diarrhea C. difficile negative Appears to have stabilized Stool cultures negative Acute renal failure Likely prerenal due to dehydration. Resolved HypoKalemia-severe: Continue to replete aggressively and replace mag as needed. Repeat BMP later tonight and replace electrolyte as needed. mag level wnl Severe protein malnutrition: RD following. DVT proph bilat SCDs Discharge Planning DC planning recommendations by oncology. Pt did speak with Dr. Newton and would like to proceed with radiation therapy only. At this time, recommendations from oncology would be no further treatments at this time, focus on pain control, nutrition, PT and recovery. Once improved, they will consider combined modality XRT with possible cetuximab in the future. Patient with severe hypokalemia. Needs aggressive replacement. Once cleared by oncology, and potassium levels back to normal, consider discharge to rehab/ SNF Urszula Hayden MD December 28, 2017 16:11
--- NOTE | 2017-12-28 17:21 | PD.ONC.PN ---
Subjective Subjective Remarks Afebrile Pt reports he is feeling much better today Still has diarrhea but his stomach feels more settled and he has a mouth guard in place that is helping with his oral pain. Objective Data Date Time Temp Pulse Resp B/P (MAP) Pulse Ox O2 Delivery O2 Flow Rate FiO2 12/28/17 13:00 98.3 70 16 106/70 (82) 100 12/28/17 12:00 74 12/28/17 09:15 97.4 78 123/74 (90) 95 12/28/17 08:00 81 12/28/17 07:33 100 Nasal Cannula 2.00 12/28/17 06:02 81 12/28/17 05:14 80 12/28/17 04:50 85 16 112/75 (87) 100 12/28/17 04:02 80 12/28/17 03:06 81 12/28/17 02:02 79 12/28/17 01:06 83 12/28/17 00:55 97.8 84 16 90/54 (66) 100 12/28/17 00:01 87 12/27/17 23:00 93 12/27/17 22:05 82 12/27/17 21:04 98 12/27/17 20:03 84 12/27/17 19:47 98.0 91 18 108/68 (81) 99 12/27/17 19:09 84 12/28/17 12/28/17 12/28/17 07:00 15:00 23:00 Intake Total 300 ml Output Total 650 ml 200 ml Balance -350 ml -200 ml Result Diagram: 12/28/17 0500 12/28/17 0500 Laboratory Results Laboratory Tests Test 12/28/17 05:00 White Blood Count 7.1 TH/MM3 Red Blood Count 2.35 MIL/MM3 Hemoglobin 7.8 GM/DL Hematocrit 22.8 % Mean Corpuscular Volume 97.1 FL Mean Corpuscular Hemoglobin 33.3 PG Mean Corpuscular Hemoglobin Concent 34.3 % Red Cell Distribution Width 18.9 % Platelet Count 143 TH/MM3 Mean Platelet Volume 9.6 FL Neutrophils (%) (Auto) 69.0 % Lymphocytes (%) (Auto) 24.9 % Monocytes (%) (Auto) 5.9 % Eosinophils (%) (Auto) 0.0 % Basophils (%) (Auto) 0.2 % Neutrophils # (Auto) 4.9 TH/MM3 Lymphocytes # (Auto) 1.8 TH/MM3 Monocytes # (Auto) 0.4 TH/MM3 Eosinophils # (Auto) 0.0 TH/MM3 Basophils # (Auto) 0.0 TH/MM3 CBC Comment AUTO DIFF Differential Total Cells Counted 100 Neutrophils % (Manual) 59 % Band Neutrophils % 20 % Lymphocytes % 14 % Monocytes % 6 % Neutrophils # (Manual) 5.7 TH/MM3 Myelocytes 1 % Differential Comment FINAL DIFF MANUAL Toxic Granulation 2+ Platelet Estimate NORMAL Platelet Morphology Comment ENLARGED Ovalocytes 1+ Blood Urea Nitrogen 18 MG/DL Creatinine 0.70 MG/DL Random Glucose 101 MG/DL Total Protein 5.0 GM/DL Albumin 1.7 GM/DL Calcium Level 7.5 MG/DL Magnesium Level 1.7 MG/DL Alkaline Phosphatase 39 U/L Aspartate Amino Transf (AST/SGOT) 5 U/L Alanine Aminotransferase (ALT/SGPT) 14 U/L Total Bilirubin 0.3 MG/DL Sodium Level 148 MEQ/L Potassium Level 2.7 MEQ/L Chloride Level 123 MEQ/L Carbon Dioxide Level 16.1 MEQ/L Anion Gap 9 MEQ/L Estimat Glomerular Filtration Rate 114 ML/MIN Administered Medications Medications (Trade) Dose Ordered Sig/Shaila Route PRN Reason Start Time Stop Time Status Last Admin Dose Admin Multi-Ingredient Mouthwash/Gargle (Magic Mouthwash Adult Liq) 10 ml QID SWISH-SWAL 12/22/17 13:00 12/28/17 12:58 Sodium Chloride (NS Flush) 2 ml BID IV FLUSH 12/22/17 21:00 12/28/17 09:54 Ondansetron HCl (Zofran Inj) 4 mg Q6H PRN IVP NAUSEA OR VOMITING 12/22/17 12:45 12/26/17 09:43 Lidocaine HCl (Xylocaine 2% Viscous) 15 ml Q4H PRN SWISH-SPIT THROAT PAIN 12/22/17 15:00 12/24/17 21:16 Pantoprazole Sodium (Protonix Inj) 40 mg Q12H IV PUSH 12/22/17 16:00 12/28/17 05:03 Dextrose/Sodium Chloride 1,000 ml @ 84 mls/hr [id number] IV 12/22/17 15:00 12/28/17 02:59 Fluconazole/ Sodium Chloride 100 ml @ 100 mls/hr Q24H IV 12/22/17 16:00 12/27/17 16:39 Cefepime HCl 2000 mg/Sodium Chloride 100 ml @ 200 mls/hr Q8H IV 12/22/17 21:00 12/28/17 12:57 Morphine Sulfate (Morphine Inj) 1 mg Q3H PRN IV PAIN 1-10 12/22/17 21:00 12/24/17 03:00 Acetaminophen (Tylenol) 650 mg Q4H PRN PO TEMP > 100.5 F 12/22/17 21:00 12/22/17 21:25 Oxycodone/ Acetaminophen (Percocet 7.5-325 Mg) 1 tab Q4H PRN PO PAIN SCALE 4 TO 7 12/23/17 16:00 12/27/17 00:32 Oxycodone/ Acetaminophen (Percocet 10-325 Mg) 1 tab Q4H PRN PO pain 8-10 12/23/17 16:00 12/28/17 09:54 Loperamide HCl (Imodium) 2 mg UNSCH PRN PO DIARRHEA 12/25/17 07:00 12/27/17 16:38 Tamsulosin HCl (Flomax) 0.4 mg HS PO 12/25/17 21:00 12/25/17 21:30 Padimate O (Chapstick) 1 applic UNSCH PRN TOPICAL DRY/CHAPPED LIPS 12/25/17 14:15 12/25/17 16:13 Enoxaparin Sodium (Lovenox Inj) 40 mg Q24H SQ 12/26/17 15:00 12/27/17 15:24 Al Hydrox/Mg Hydrox/Simethicone (Mag-Al Plus Susp Liq) 30 ml Q6H PRN PO indigestion 12/27/17 09:00 12/27/17 15:23 Objective Remarks GENERAL: Chronically ill-appearing older male resting in bed with ice pack on his head SKIN: Warm and dry. HEAD: Normocephalic. EYES: No injection or drainage. NECK: Trachea midline. CARDIOVASCULAR: Regular rate and rhythm without murmurs. RESPIRATORY: Clear but diminished anteriorly. GASTROINTESTINAL: PEG tube in place. Nontender to palpation. EXTREMITIES: No cyanosis, or edema. MUSCULOSKELETAL: Generalized weakness NEUROLOGICAL: Awake and alert. Moving all extremities. Assessment/Plan Assessment 62y/o male with locally advanced head and neck malignancy currently undergoing neoadjuvant chemotherapy admitted with weakness, weight loss, oral pain, and a burning sensation when he urinates. +locally advanced carcinoma of the tongue. receiving neoadjuvant TPF regimen. He now presents to the emergency room with progressive Plan 1. Overall counts improving. 2. Continue supportive care for oral mucositis. 3. Potassium replacement per attending. 4. Start free water flushes for hypernatremia. Attending Statement The exam, history, and the medical decision-making described in the above note were completed with the assistance of the mid-level provider. I reviewed and agree with the findings presented. I attest that I had a [id number] encounter with the patient on the same day, and personally performed and documented my assessment and findings in the medical record locally advanced Head and neck cancer s/p neoadjuvant chemotherapy Nutrition/PT Hypernatremia --free water flushes 200cc every 6 hours pain better controlled anemia worsening due to myelosuppression physically weak transfuse 1 unit of pRBC premeds before transfusion supportive care Yeimi Christianson December 28, 2017 17:21 Bon Newton MD December 28, 2017 21:30
[2017-12-28] MEDS: FLUCONAZOLE 200 MG PREMIX BAG 100 ML IV SCH (18:59)
[2017-12-28] MEDS: ENOXAPARIN SODIUM 40 MG/0.4 ML SYRINGE SQ SCH (19:11)
[2017-12-28 20:01] LABS: BICARBONATE 16.2 MEQ/L (21.0-32.0); CALCIUM 7.8 MG/DL (8.5-10.1); CREATININE 0.64 MG/DL (0.60-1.30)
[2017-12-28] MEDS: TAMSULOSIN HCL 0.4 MG CAP PO SCH (22:20)
[2017-12-28] MEDS ORDERED: ACETAMINOPHEN 325 MG TAB PO PRN (23:30)
[2017-12-28] MEDS ORDERED: diphenhydrAMINE HCL 25 MG CAP PO PRN (23:30)
[2017-12-29] VITALS (10 sets, daily range): BP systolic 105–153; BP diastolic 60–93; PULSE 67–82; RESP 16–18; TEMP 97.4–98.6; O2SAT 98–100
[2017-12-29] MEDS: DEXT 5%-NACL 0.45% 1000 ML INJ 1,000 ML IV SCH ×2 (01:55→19:27)
[2017-12-29] MEDS: CEFEPIME 2000 MG/NS 100 ML IV SCH ×6 (04:46→21:14)
[2017-12-29] MEDS: PANTOPRAZOLE SODIUM 40 MG VIAL IV PUSH SCH ×2 (04:47→16:00)
[2017-12-29] MEDS: oxyCODONE/ACETAMINOPHEN 10 MG/325 MG TAB PO PRN ×3 (04:47→19:29)
[2017-12-29 07:09] LABS: ALBUMIN 1.6 GM/DL (3.4-5.0); CALCIUM 7.2 MG/DL (8.5-10.1); CALCIUM-PROTEIN CORRECTED 8.6 MG/DL (8.5-10.1); CREATININE 0.6 MG/DL (0.60-1.30); TOTAL BILIRUBIN ADULT 0.3 MG/DL (0.2-1.0); TOTAL PROTEIN 4.6 GM/DL (6.4-8.2)
[2017-12-29] MEDS: SODIUM CHLORIDE 0.9% FLUSH 10 ML FLUSH IV FLUSH SCH ×2 (08:58→21:15)
[2017-12-29] MEDS: NYSTAT/DIPHENHY/LIDO MOUTHWASH (Adult) 120ML SWISH-SWAL SCH ×4 (09:00→21:00)
--- NOTE | 2017-12-29 11:12 | HHI.PR ---
Subjective Remarks Says he had 3 times diarrhea. Feels very weak. Says Imodium did not help much with diarrhea. With persistent low potassium. No nausea or vomiting. Denies chest pain or shortness of breath. He does not have any abdominal pain. Objective Vitals Vital Signs Date Time Temp Pulse Resp B/P (MAP) Pulse Ox O2 Delivery O2 Flow Rate FiO2 12/29/17 09:02 97.7 76 18 117/76 (90) 100 12/29/17 04:00 82 12/29/17 03:52 97.5 76 18 131/60 100 12/29/17 01:34 97.4 73 18 105/62 (76) 100 12/29/17 01:34 97.4 73 18 105/62 100 12/29/17 01:17 98.4 70 18 120/74 100 12/29/17 01:17 98.4 70 18 120/77 (91) 100 12/29/17 00:03 75 12/28/17 22:29 98.2 75 18 115/70 (85) 100 12/28/17 20:28 79 12/28/17 18:00 97.4 77 20 100 12/28/17 13:00 98.3 70 16 106/70 (82) 100 12/28/17 12:00 74 I/O 12/28/17 12/28/17 12/28/17 12/29/17 12/29/17 12/29/17 07:00 15:00 23:00 07:00 15:00 23:00 Intake Total 300 ml 400 ml Output Total 650 ml 200 ml 200 ml Balance -350 ml -200 ml -200 ml 400 ml IV Total 300 ml Tube Feeding 0 ml Packed Cells 400 ml Output Urine Total 650 ml 200 ml 200 ml # Voids 1 # Bowel Movements 1 1 Result Diagram: 12/28/17 0500 12/29/17 0420 Imaging Last Impressions Chest X-Ray 12/24/17 0000 Signed Impressions: Service Date/Time: Sunday, December 24, 2017 09:36 - CONCLUSION: No acute disease. Enoch Blue MD Objective Remarks GENERAL: This is a thin cachectic gentleman. keeps eyes closed but does open them CARDIOVASCULAR: Regular rate and rhythm without murmurs RESPIRATORY: Clear to auscultation. Breath sounds equal bilaterally. No wheezes. GASTROINTESTINAL: Abdomen soft, discomfort w palpation. No guarding. 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 He presented to the ER due to weakness and near syncope. Carcinoma of the tongue Febrile neutropenia Patient has been seen and evaluated by oncology Continue Neupogen. Cefepime + Diflucan, if he spikes fevers again vancomycin will be added Blood cultures negative to date UA negative, chest x-ray negative Decreased p.o. intake On tube feeds. RD evaluated the patient recommended Vital 1.5 @ 45mls/hr Speech therapy following the patient and continues to recommend n.p.o. status Diarrhea C. difficile negative Stool cultures negative Started on immodium Start lactinex Acute renal failure Likely prerenal due to dehydration. Resolved Hypokalemia-severe: Continue to replete aggressively and replace mag as needed. Repeat BMP later tonight and replace electrolyte as needed. mag level wnl Severe protein malnutrition: RD following. DVT proph bilat SCDs Discharge Planning DC planning recommendations by oncology. Pt did speak with Dr. Newton and would like to proceed with radiation therapy only. At this time, recommendations from oncology would be no further treatments at this time, focus on pain control, nutrition, PT and recovery. Once improved, they will consider combined modality XRT with possible cetuximab in the future. Patient with severe hypokalemia. Needs aggressive replacement. Once cleared by oncology, and potassium levels back to normal, consider discharge to rehab/ SNF With persistent diarrhea and electrolyte imbalance started on Imodium and add Lactinex Jaqueline Pedraza MD December 29, 2017 11:12
[2017-12-29 11:28] LABS: AUTOMATED NEUTROPHIL # 4.9 TH/MM3 (1.8-7.7); BASOPHIL # 0.1 TH/MM3 (0-0.2); BASOPHIL % 0.8 % (0.0-2.0); HEMATOCRIT 26.9 % (39.0-51.0); HEMOGLOBIN 9.3 GM/DL (13.0-17.0); LYMPH % 26.6 % (9.0-44.0); MEAN CELL VOLUME 94.1 FL (80.0-100.0); MEAN CORPUSCULAR HEMOGLOBIN 32.5 PG (27.0-34.0); MEAN CORPUSCULAR HGB CONC 34.5 % (32.0-36.0); MEAN PLATELET VOLUME 9.5 FL (7.0-11.0); MONO % 7.3 % (0.0-8.0); MONOCYTE # 0.5 TH/MM3 (0-0.9); NEUT % 65.3 % (16.0-70.0); PLATELET COUNT 152 TH/MM3 (150-450); RED BLOOD COUNT 2.86 MIL/MM3 (4.50-5.90); RED CELL DISTRIBUTION WIDTH 19.8 % (11.6-17.2); WHITE BLOOD COUNT 7.5 TH/MM3 (4.0-11.0)
--- NOTE | 2017-12-29 11:51 | PD.ONC.PN ---
Subjective Subjective Remarks Afebrile Patient reports he has been feeling better every day Still with relentless diarrhea however he reports that this has been unchanged indeterminant of when he gets chemotherapy Reports that he does not think the Imodium helps much Objective Data Date Time Temp Pulse Resp B/P (MAP) Pulse Ox O2 Delivery O2 Flow Rate FiO2 12/29/17 09:02 97.7 76 18 117/76 (90) 100 12/29/17 04:00 82 12/29/17 03:52 97.5 76 18 131/60 100 12/29/17 01:34 97.4 73 18 105/62 (76) 100 12/29/17 01:34 97.4 73 18 105/62 100 12/29/17 01:17 98.4 70 18 120/74 100 12/29/17 01:17 98.4 70 18 120/77 (91) 100 12/29/17 00:03 75 12/28/17 22:29 98.2 75 18 115/70 (85) 100 12/28/17 20:28 79 12/28/17 18:00 97.4 77 20 100 12/28/17 13:00 98.3 70 16 106/70 (82) 100 12/28/17 12:00 74 12/29/17 12/29/17 12/29/17 07:00 15:00 23:00 Intake Total 400 ml Balance 400 ml Result Diagram: 12/29/17 1116 12/29/17 0420 Laboratory Results Laboratory Tests Test 12/28/17 19:17 12/29/17 04:20 12/29/17 11:16 Blood Urea Nitrogen 18 MG/DL 19 MG/DL Creatinine 0.64 MG/DL 0.60 MG/DL Random Glucose 87 MG/DL 90 MG/DL Calcium Level 7.8 MG/DL 7.2 MG/DL Sodium Level 148 MEQ/L 148 MEQ/L Potassium Level 3.2 MEQ/L 2.8 MEQ/L Chloride Level 123 MEQ/L 122 MEQ/L Carbon Dioxide Level 16.2 MEQ/L 19.0 MEQ/L Anion Gap 9 MEQ/L 7 MEQ/L Estimat Glomerular Filtration Rate 126 ML/MIN 136 ML/MIN Total Protein 4.6 GM/DL Albumin 1.6 GM/DL Alkaline Phosphatase 42 U/L Aspartate Amino Transf (AST/SGOT) 7 U/L Alanine Aminotransferase (ALT/SGPT) 10 U/L Total Bilirubin 0.3 MG/DL Protein Corrected Calcium 8.6 MG/DL White Blood Count 7.5 TH/MM3 Red Blood Count 2.86 MIL/MM3 Hemoglobin 9.3 GM/DL Hematocrit 26.9 % Mean Corpuscular Volume 94.1 FL Mean Corpuscular Hemoglobin 32.5 PG Mean Corpuscular Hemoglobin Concent 34.5 % Red Cell Distribution Width 19.8 % Platelet Count 152 TH/MM3 Mean Platelet Volume 9.5 FL Neutrophils (%) (Auto) 65.3 % Lymphocytes (%) (Auto) 26.6 % Monocytes (%) (Auto) 7.3 % Eosinophils (%) (Auto) 0.0 % Basophils (%) (Auto) 0.8 % Neutrophils # (Auto) 4.9 TH/MM3 Lymphocytes # (Auto) 2.0 TH/MM3 Monocytes # (Auto) 0.5 TH/MM3 Eosinophils # (Auto) 0.0 TH/MM3 Basophils # (Auto) 0.1 TH/MM3 CBC Comment AUTO DIFF Administered Medications Medications (Trade) Dose Ordered Sig/Shaila Route PRN Reason Start Time Stop Time Status Last Admin Dose Admin Multi-Ingredient Mouthwash/Gargle (Magic Mouthwash Adult Liq) 10 ml QID SWISH-SWAL 12/22/17 13:00 12/28/17 18:59 Sodium Chloride (NS Flush) 2 ml BID IV FLUSH 12/22/17 21:00 12/29/17 08:58 Ondansetron HCl (Zofran Inj) 4 mg Q6H PRN IVP NAUSEA OR VOMITING 12/22/17 12:45 12/26/17 09:43 Lidocaine HCl (Xylocaine 2% Viscous) 15 ml Q4H PRN SWISH-SPIT THROAT PAIN 12/22/17 15:00 12/24/17 21:16 Pantoprazole Sodium (Protonix Inj) 40 mg Q12H IV PUSH 12/22/17 16:00 12/29/17 04:47 Dextrose/Sodium Chloride 1,000 ml @ 84 mls/hr [id number] IV 12/22/17 15:00 12/28/17 19:12 Fluconazole/ Sodium Chloride 100 ml @ 100 mls/hr Q24H IV 12/22/17 16:00 12/28/17 18:59 Cefepime HCl 2000 mg/Sodium Chloride 100 ml @ 200 mls/hr Q8H IV 12/22/17 21:00 12/29/17 04:46 Morphine Sulfate (Morphine Inj) 1 mg Q3H PRN IV PAIN 1-10 12/22/17 21:00 12/24/17 03:00 Acetaminophen (Tylenol) 650 mg Q4H PRN PO TEMP > 100.5 F 12/22/17 21:00 12/22/17 21:25 Oxycodone/ Acetaminophen (Percocet 7.5-325 Mg) 1 tab Q4H PRN PO PAIN SCALE 4 TO 7 12/23/17 16:00 12/27/17 00:32 Oxycodone/ Acetaminophen (Percocet 10-325 Mg) 1 tab Q4H PRN PO pain 8-10 12/23/17 16:00 12/29/17 08:58 Loperamide HCl (Imodium) 2 mg UNSCH PRN PO DIARRHEA 12/25/17 07:00 12/27/17 16:38 Tamsulosin HCl (Flomax) 0.4 mg HS PO 12/25/17 21:00 12/28/17 22:20 Padimate O (Chapstick) 1 applic UNSCH PRN TOPICAL DRY/CHAPPED LIPS 12/25/17 14:15 12/25/17 16:13 Enoxaparin Sodium (Lovenox Inj) 40 mg Q24H SQ 12/26/17 15:00 12/28/17 19:11 Al Hydrox/Mg Hydrox/Simethicone (Mag-Al Plus Susp Liq) 30 ml Q6H PRN PO indigestion 12/27/17 09:00 12/27/17 15:23 Acetaminophen (Tylenol) 650 mg UNSCH PRN PO PRIOR TO BLOOD PRODUCT 12/28/17 23:30 12/29/17 00:05 Diphenhydramine HCl (Benadryl) 25 mg UNSCH PRN PO PRIOR TO BLOOD PRODUCT 12/28/17 23:30 12/29/17 00:05 Objective Remarks GENERAL: Chronically ill-appearing older male resting in bed in no obvious distress SKIN: Warm and dry. HEAD: Normocephalic. EYES: No injection or drainage. NECK: Trachea midline. CARDIOVASCULAR: Regular rate and rhythm without murmurs. RESPIRATORY: Clear but diminished anteriorly. GASTROINTESTINAL: PEG tube in place. Nontender to palpation. EXTREMITIES: No cyanosis, or edema. MUSCULOSKELETAL: Generalized weakness NEUROLOGICAL: Awake and alert. Moving all extremities. Assessment/Plan Assessment 62y/o male with locally advanced head and neck malignancy currently undergoing neoadjuvant chemotherapy admitted with weakness, weight loss, oral pain, and a burning sensation when he urinates. +locally advanced carcinoma of the tongue. receiving neoadjuvant TPF regimen. Plan 1. Patient received 1 unit packed red blood cells last night and his hemoglobin is up to 9.3 2. Start patient on Lomotil for persistent diarrhea 3. Potassium replacement per attending. 4. Supportive care 5. Patient is clear for discharge from oncology standpoint once his electrolytes are somewhat more normalized. He will likely need rehab placement to gain strength Attending Statement The exam, history, and the medical decision-making described in the above note were completed with the assistance of the mid-level provider. I reviewed and agree with the findings presented. I attest that I had a [id number] encounter with the patient on the same day, and personally performed and documented my assessment and findings in the medical record Replace electrolytes anti-diarrheal IV fluids Once diarrhea subsides then ok to d/c to rehab/SNF Yeimi Christianson December 29, 2017 11:51 Bon Newton MD December 29, 2017 22:57
[2017-12-29 12:24] LABS: BANDS 25 % (0-6); LYMPHOCYTES 26 % (9-44); MONOCYTES 2 % (0-8); NEUTROPHIL # MANUAL DIFF 5.4 TH/MM3 (1.8-7.7); POLYS (SEG NEUTROPHILS) 47 % (16-70)
[2017-12-29 12:25] LABS: TOXIC GRANULATION 1+ (NORMAL)
[2017-12-29] MEDS: ENOXAPARIN SODIUM 40 MG/0.4 ML SYRINGE SQ SCH (15:00)
[2017-12-29] MEDS ORDERED: LACTOBACILLUS ACIDOPHILUS TAB PO ONE (15:30)
[2017-12-29] MEDS: DIPHENOXYLATE/ATROPINE 2.5 MG/0.025 MG/5 ML CUP PO SCH ×3 (18:00→23:12)
[2017-12-29] MEDS: FLUCONAZOLE 200 MG PREMIX BAG 100 ML IV SCH (19:24)
[2017-12-29] MEDS ORDERED: POTASSIUM BICARBONATE 25 MEQ EFFERVESCENT TAB PO ONE ×2 (20:00→22:00)
[2017-12-29] MEDS: TAMSULOSIN HCL 0.4 MG CAP PO SCH (20:21)
[2017-12-29] MEDS: LACTOBACILLUS ACIDOPHILUS TAB PO SCH (21:14)
[2017-12-30 03:01] VITALS: BP 114/80; PULSE 67; PULSE 70; RESP 20; TEMP 98.3; O2SAT 100
[2017-12-30 04:00] VITALS: BP 116/72; PULSE 68; PULSE 72; RESP 20; TEMP 98.8; O2SAT 99
[2017-12-30] MEDS: PANTOPRAZOLE SODIUM 40 MG VIAL IV PUSH SCH ×2 (04:53→20:53)
[2017-12-30] MEDS: DIPHENOXYLATE/ATROPINE 2.5 MG/0.025 MG/5 ML CUP PO SCH ×4 (04:53→23:18)
[2017-12-30] MEDS: CEFEPIME 2000 MG/NS 100 ML IV SCH ×6 (04:53→22:01)
[2017-12-30] MEDS: ONDANSETRON HCL 4 MG/2 ML VIAL IVP PRN ×2 (05:06→22:01)
[2017-12-30] MEDS: DEXT 5%-NACL 0.45% 1000 ML INJ 1,000 ML IV SCH ×3 (05:07→22:01)
[2017-12-30 06:19] LABS: AUTOMATED NEUTROPHIL # 3.6 TH/MM3 (1.8-7.7); BASOPHIL % 0.3 % (0.0-2.0); EOSINOPHIL % 0.1 % (0.0-4.0); HEMATOCRIT 26.6 % (39.0-51.0); HEMOGLOBIN 9.2 GM/DL (13.0-17.0); LYMPH % 40.8 % (9.0-44.0); LYMPHOCYTE # 2.9 TH/MM3 (1.0-4.8); MEAN CORPUSCULAR HEMOGLOBIN 32.7 PG (27.0-34.0); MEAN CORPUSCULAR HGB CONC 34.8 % (32.0-36.0); MEAN PLATELET VOLUME 9.7 FL (7.0-11.0); MONO % 8.7 % (0.0-8.0); MONOCYTE # 0.6 TH/MM3 (0-0.9); NEUT % 50.1 % (16.0-70.0); PLATELET COUNT 165 TH/MM3 (150-450); RED BLOOD COUNT 2.83 MIL/MM3 (4.50-5.90); RED CELL DISTRIBUTION WIDTH 19.6 % (11.6-17.2); WHITE BLOOD COUNT 7.2 TH/MM3 (4.0-11.0)
[2017-12-30 06:41] LABS: BICARBONATE 20.3 MEQ/L (21.0-32.0); CALCIUM 6.8 MG/DL (8.5-10.1); CREATININE 0.57 MG/DL (0.60-1.30)
[2017-12-30 07:08] LABS: CALCIUM-PROTEIN CORRECTED 8.1 MG/DL (8.5-10.1); TOTAL PROTEIN 4.6 GM/DL (6.4-8.2)
--- NOTE | 2017-12-30 07:56 | HHI.PR ---
Subjective Remarks Pt feels tired. Had multiple bouts of diarrhea today. With severe electrolyte abnormalities replaced. Plan to administer octreotide to see if it helps. Patient denies any fever or chills no nausea vomiting. Objective Vitals Vital Signs Date Time Temp Pulse Resp B/P (MAP) Pulse Ox O2 Delivery O2 Flow Rate FiO2 12/30/17 04:00 98.8 72 20 116/72 (87) 99 12/30/17 04:00 68 12/30/17 03:01 98.3 70 20 114/80 (91) 100 12/30/17 03:01 67 12/29/17 20:00 98.3 71 16 136/87 (103) 100 12/29/17 20:00 67 12/29/17 17:58 98.6 73 18 126/78 (94) 100 12/29/17 13:07 97.9 68 18 126/77 (93) 98 12/29/17 09:58 18 12/29/17 09:02 97.7 76 18 117/76 (90) 100 I/O 12/29/17 12/29/17 12/29/17 12/30/17 12/30/17 12/30/17 07:00 15:00 23:00 07:00 15:00 23:00 Intake Total 400 ml Output Total 500 ml Balance 400 ml -500 ml Packed Cells 400 ml Output Urine Total 500 ml # Voids 1 # Bowel Movements 1 Result Diagram: 12/30/17 0500 12/30/17 0500 Imaging Last Impressions Chest X-Ray 12/24/17 0000 Signed Impressions: Service Date/Time: Sunday, December 24, 2017 09:36 - CONCLUSION: No acute disease. Enoch Blue MD Objective Remarks GENERAL: This is a thin cachectic gentleman. keeps eyes closed but does open them CARDIOVASCULAR: Regular rate and rhythm without murmurs RESPIRATORY: Clear to auscultation. Breath sounds equal bilaterally. No wheezes. GASTROINTESTINAL: Abdomen soft, discomfort w palpation. No guarding. 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 He presented to the ER due to weakness, near syncope, weight loss, oral pain, and a burning sensation when he urinates. With locally advanced carcinoma of the tongue. The patient is receiving neoadjuvant TPF regimen. The patient is with severe diarrhea, severe electrolyte abn, replaced. 1. Give octreotide 1 dose for diarrhea 2. Continue scheduled Lomotil 3. Potassium replacement per attending. 4. Monitor CBC, electrolytes Carcinoma of the tongue Febrile neutropenia Patient has been seen and evaluated by oncology Continue Neupogen. Cefepime + Diflucan, if he spikes fevers again vancomycin will be added Blood cultures negative to date UA negative, chest x-ray negative Decreased p.o. intake On tube feeds. RD evaluated the patient recommended Vital 1.5 @ 45mls/hr Speech therapy following the patient and continues to recommend n.p.o. status Diarrhea C. difficile negative Stool cultures negative Started on immodium Start lactinex Acute renal failure Likely prerenal due to dehydration. Resolved Hypokalemia-severe: Continue to replete aggressively and replace mag as needed. Monitor and replace electrolyte as needed. mag level wnl Severe protein malnutrition: RD following. DVT proph she is yearis isvery well there wears my just to get a simple test 6 hours as is more see because of the system change inis sugar care3 sisters years and the TV is [id number] there is no air to bilat SCDs Discharge Planning DC planning recommendations by oncology. Pt did speak with Dr. Newton and would like to proceed with radiation therapy only. At this time, recommendations from oncology would be no further treatments at this time, focus on pain control, nutrition, PT and recovery. Once improved, they will consider combined modality XRT with possible cetuximab in the future. Patient with severe hypokalemia. Needs aggressive replacement. Once cleared by oncology, and potassium levels back to normal, consider discharge to rehab/ SNF With persistent diarrhea and electrolyte imbalance, started on Imodium and add Lactinex Jaqueline Pedraza MD December 30, 2017 07:55
[2017-12-30] MEDS ORDERED: CALCIUM CARBONATE 500 MG CHEWABLE TAB CHEW ONE (08:00)
[2017-12-30] MEDS ORDERED: POTASSIUM BICARBONATE 25 MEQ EFFERVESCENT TAB PO ONE (08:00)
[2017-12-30] MEDS ORDERED: POTASSIUM CHLORIDE 25 MEQ EFFERVESCENT TAB PO ONE (08:00)
[2017-12-30] MEDS ORDERED: CALCIUM GLUCONATE INJ 1 GM in SODIUM CHLORIDE 0.9% INJ 100 ML IV ONE (08:00)
[2017-12-30 08:09] LABS: BANDS 7 % (0-6); LYMPHOCYTES 21 % (9-44); METAMYELOCYTES 2 % (0-1); MONOCYTES 7 % (0-8); MYELOCYTES 3 % (0-0); NEUTROPHIL # MANUAL DIFF 5.2 TH/MM3 (1.8-7.7); POLYS (SEG NEUTROPHILS) 60 % (16-70); TOXIC GRANULATION 2+ (NORMAL)
[2017-12-30 08:31] VITALS: BP 111/56; PULSE 71; RESP 18; TEMP 98.8; O2SAT 100
[2017-12-30] MEDS: NYSTAT/DIPHENHY/LIDO MOUTHWASH (Adult) 120ML SWISH-SWAL SCH ×4 (09:00→21:00)
[2017-12-30] MEDS: LACTOBACILLUS ACIDOPHILUS TAB PO SCH ×2 (09:00→22:01)
[2017-12-30] MEDS: POTASSIUM CHLOR 20 MEQ PREMIX 100 ML IV SCH ×2 (11:02→13:29)
[2017-12-30] MEDS: oxyCODONE/ACETAMINOPHEN 10 MG/325 MG TAB PO PRN ×2 (11:09→20:41)
[2017-12-30 12:00] VITALS: BP 127/78; PULSE 73; RESP 20; TEMP 97.8; O2SAT 97
--- NOTE | 2017-12-30 12:26 | PD.ONC.PN ---
Subjective Subjective Remarks Afebrile Patient reports he continues to have diarrhea 2-3 times per day He did get up yesterday with physical therapy for a while Reports overall he is still feeling better Objective Data Date Time Temp Pulse Resp B/P (MAP) Pulse Ox O2 Delivery O2 Flow Rate FiO2 12/30/17 08:31 98.8 71 18 111/56 (74) 100 12/30/17 04:00 98.8 72 20 116/72 (87) 99 12/30/17 04:00 68 12/30/17 03:01 98.3 70 20 114/80 (91) 100 12/30/17 03:01 67 12/29/17 20:00 98.3 71 16 136/87 (103) 100 12/29/17 20:00 67 12/29/17 17:58 98.6 73 18 126/78 (94) 100 12/29/17 13:07 97.9 68 18 126/77 (93) 98 12/30/17 12/30/17 12/30/17 07:00 15:00 23:00 Output Total 500 ml 275 ml Balance -500 ml -275 ml Result Diagram: 12/30/17 0500 12/30/17 0500 Laboratory Results Laboratory Tests Test 12/30/17 05:00 White Blood Count 7.2 TH/MM3 Red Blood Count 2.83 MIL/MM3 Hemoglobin 9.2 GM/DL Hematocrit 26.6 % Mean Corpuscular Volume 94.0 FL Mean Corpuscular Hemoglobin 32.7 PG Mean Corpuscular Hemoglobin Concent 34.8 % Red Cell Distribution Width 19.6 % Platelet Count 165 TH/MM3 Mean Platelet Volume 9.7 FL Neutrophils (%) (Auto) 50.1 % Lymphocytes (%) (Auto) 40.8 % Monocytes (%) (Auto) 8.7 % Eosinophils (%) (Auto) 0.1 % Basophils (%) (Auto) 0.3 % Neutrophils # (Auto) 3.6 TH/MM3 Lymphocytes # (Auto) 2.9 TH/MM3 Monocytes # (Auto) 0.6 TH/MM3 Eosinophils # (Auto) 0.0 TH/MM3 Basophils # (Auto) 0.0 TH/MM3 CBC Comment AUTO DIFF Differential Total Cells Counted 100 Neutrophils % (Manual) 60 % Band Neutrophils % 7 % Lymphocytes % 21 % Monocytes % 7 % Neutrophils # (Manual) 5.2 TH/MM3 Metamyelocytes 2 % Myelocytes 3 % Differential Comment FINAL DIFF MANUAL Atypical Lymphocytes % Toxic Granulation 2+ Platelet Estimate NORMAL Platelet Morphology Comment ENLARGED Blood Urea Nitrogen 16 MG/DL Creatinine 0.57 MG/DL Random Glucose 83 MG/DL Total Protein 4.6 GM/DL Calcium Level 6.8 MG/DL Sodium Level 144 MEQ/L Potassium Level 2.6 MEQ/L Chloride Level 113 MEQ/L Carbon Dioxide Level 20.3 MEQ/L Anion Gap 11 MEQ/L Estimat Glomerular Filtration Rate 144 ML/MIN Protein Corrected Calcium 8.1 MG/DL Phosphorus Level 1.0 MG/DL Magnesium Level 1.0 MG/DL Administered Medications Medications (Trade) Dose Ordered Sig/Shaila Route PRN Reason Start Time Stop Time Status Last Admin Dose Admin Multi-Ingredient Mouthwash/Gargle (Magic Mouthwash Adult Liq) 10 ml QID SWISH-SWAL 12/22/17 13:00 12/28/17 18:59 Sodium Chloride (NS Flush) 2 ml BID IV FLUSH 12/22/17 21:00 12/29/17 21:15 Ondansetron HCl (Zofran Inj) 4 mg Q6H PRN IVP NAUSEA OR VOMITING 12/22/17 12:45 12/30/17 05:06 Lidocaine HCl (Xylocaine 2% Viscous) 15 ml Q4H PRN SWISH-SPIT THROAT PAIN 12/22/17 15:00 12/24/17 21:16 Pantoprazole Sodium (Protonix Inj) 40 mg Q12H IV PUSH 12/22/17 16:00 12/30/17 04:53 Dextrose/Sodium Chloride 1,000 ml @ 84 mls/hr [id number] IV 12/22/17 15:00 12/30/17 05:07 Fluconazole/ Sodium Chloride 100 ml @ 100 mls/hr Q24H IV 12/22/17 16:00 12/29/17 19:24 Cefepime HCl 2000 mg/Sodium Chloride 100 ml @ 200 mls/hr Q8H IV 12/22/17 21:00 12/30/17 04:53 Morphine Sulfate (Morphine Inj) 1 mg Q3H PRN IV PAIN 1-10 12/22/17 21:00 12/24/17 03:00 Acetaminophen (Tylenol) 650 mg Q4H PRN PO TEMP > 100.5 F 4/26/18 21:00 12/22/17 21:25 Oxycodone/ Acetaminophen (Percocet 7.5-325 Mg) 1 tab Q4H PRN PO PAIN SCALE 4 TO 7 12/23/17 16:00 12/27/17 00:32 Oxycodone/ Acetaminophen (Percocet 10-325 Mg) 1 tab Q4H PRN PO pain 8-10 12/23/17 16:00 12/30/17 11:09 Tamsulosin HCl (Flomax) 0.4 mg HS PO 12/25/17 21:00 12/28/17 22:20 Padimate O (Chapstick) 1 applic UNSCH PRN TOPICAL DRY/CHAPPED LIPS 12/25/17 14:15 12/25/17 16:13 Enoxaparin Sodium (Lovenox Inj) 40 mg Q24H SQ 12/26/17 15:00 12/28/17 19:11 Al Hydrox/Mg Hydrox/Simethicone (Mag-Al Plus Susp Liq) 30 ml Q6H PRN PO indigestion 12/27/17 09:00 12/27/17 15:23 Acetaminophen (Tylenol) 650 mg UNSCH PRN PO PRIOR TO BLOOD PRODUCT 12/28/17 23:30 12/29/17 00:05 Diphenhydramine HCl (Benadryl) 25 mg UNSCH PRN PO PRIOR TO BLOOD PRODUCT 12/28/17 23:30 12/29/17 00:05 Diphenoxylate HCl/ Atropine (Lomotil 2.5-0.025 Mg Liq) 5 ml Q6HR PO 12/29/17 13:00 12/30/17 04:53 Lactobacillus Acidophilus (Lactinex) 1 tab Q12HR PO 12/29/17 21:00 12/30/17 09:00 Objective Remarks GENERAL: Chronically ill-appearing older male resting in bed in no obvious distress SKIN: Warm and dry. HEAD: Normocephalic. EYES: No injection or drainage. NECK: Trachea midline. CARDIOVASCULAR: Regular rate and rhythm without murmurs. RESPIRATORY: Clear but diminished anteriorly. GASTROINTESTINAL: PEG tube in place. Nontender to palpation. EXTREMITIES: No cyanosis, or edema. MUSCULOSKELETAL: Generalized weakness NEUROLOGICAL: Awake and alert. Moving all extremities. Assessment/Plan Assessment 62y/o male with locally advanced head and neck malignancy currently undergoing neoadjuvant chemotherapy admitted with weakness, weight loss, oral pain, and a burning sensation when he urinates. +locally advanced carcinoma of the tongue. receiving neoadjuvant TPF regimen. Plan 1. Give octreotide 1 dose for diarrhea 2. Continue scheduled Lomotil 3. Potassium replacement per attending. 4. Monitor CBC, electrolytes Attending Statement The exam, history, and the medical decision-making described in the above note were completed with the assistance of the mid-level provider. I reviewed and agree with the findings presented. I attest that I had a [id number] encounter with the patient on the same day, and personally performed and documented my assessment and findings in the medical record Persistent diarrhea 2-3 episodes despite receiving Lomotil and Imodium C.diff negative Octreotide 50 mcg X 1 replace potassium not ready to be discharged may be able to go to the SNF over the weekend , if diarrhea resolves and no electrolyte abnormalities f/u in clinic in 2-3 weeks Yeimi Christianson December 30, 2017 12:26 Bon Newton MD December 30, 2017 21:19
[2017-12-30] MEDS: SODIUM CHLORIDE 0.9% FLUSH 10 ML FLUSH IV FLUSH SCH ×2 (13:29→22:02)
[2017-12-30] MEDS ORDERED: OCTREOTIDE INJ 50 MCG/ML AMP SQ ONE ×2 (14:00→15:00)
[2017-12-30] MEDS: ENOXAPARIN SODIUM 40 MG/0.4 ML SYRINGE SQ SCH (15:00)
[2017-12-30 16:00] VITALS: BP 129/62; PULSE 70; RESP 20; TEMP 97.5; O2SAT 99
[2017-12-30 20:00] VITALS: BP 115/77; PULSE 71; PULSE 73; RESP 20; TEMP 98.5; O2SAT 99
[2017-12-30] MEDS: TAMSULOSIN HCL 0.4 MG CAP PO SCH (21:00)
[2017-12-30] MEDS: FLUCONAZOLE 200 MG PREMIX BAG 100 ML IV SCH (21:59)
[2017-12-30] MEDS: CALCIUM CARBONATE 500 MG CHEWABLE TAB CHEW SCH (22:01)
[2017-12-31] VITALS (9 sets, daily range): BP systolic 109–120; BP diastolic 69–87; PULSE 62–97; RESP 18–20; TEMP 98–98.8; O2SAT 98–100
[2017-12-31] MEDS: CEFEPIME 2000 MG/NS 100 ML IV SCH ×6 (04:29→21:26)
[2017-12-31] MEDS: PANTOPRAZOLE SODIUM 40 MG VIAL IV PUSH SCH ×2 (04:29→16:10)
[2017-12-31] MEDS: DIPHENOXYLATE/ATROPINE 2.5 MG/0.025 MG/5 ML CUP PO SCH (04:34)
--- NOTE | 2017-12-31 08:09 | HHI.PR ---
Subjective Remarks Thinks the diarrhea is improving. No abdominal pain. No fever or chills. Feels very weak. No nausea vomiting. There is no cough fever chills Objective Vitals Vital Signs Date Time Temp Pulse Resp B/P (MAP) Pulse Ox O2 Delivery O2 Flow Rate FiO2 12/31/17 08:00 98.0 68 18 118/77 (91) 98 12/31/17 04:00 70 12/31/17 04:00 98.3 97 20 120/84 (96) 99 12/31/17 00:00 66 12/31/17 00:00 98.8 86 18 109/69 (82) 98 12/30/17 20:00 73 12/30/17 20:00 98.5 71 20 115/77 (90) 99 12/30/17 16:00 97.5 70 20 129/62 (84) 99 12/30/17 12:10 20 12/30/17 12:00 97.8 73 20 127/78 (94) 97 12/30/17 08:31 98.8 71 18 111/56 (74) 100 I/O 12/30/17 12/30/17 12/30/17 12/31/17 12/31/17 12/31/17 07:00 15:00 23:00 07:00 15:00 23:00 Intake Total 200 ml Output Total 500 ml 275 ml 900 ml Balance -500 ml -275 ml 200 ml -900 ml IV Total 200 ml Output Urine Total 500 ml 275 ml 900 ml Result Diagram: 12/30/17 0500 12/30/17 0500 Imaging Last Impressions Chest X-Ray 12/24/17 0000 Signed Impressions: Service Date/Time: Sunday, December 24, 2017 09:36 - CONCLUSION: No acute disease. Enoch Blue MD Objective Remarks GENERAL: This is a thin cachectic gentleman. keeps eyes closed but does open them CARDIOVASCULAR: Regular rate and rhythm without murmurs RESPIRATORY: Clear to auscultation. Breath sounds equal bilaterally. No wheezes. GASTROINTESTINAL: Abdomen soft, discomfort w palpation. No guarding. 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 He presented to the ER due to weakness, near syncope, weight loss, oral pain, and a burning sensation when he urinates. With locally advanced carcinoma of the tongue. The patient is receiving neoadjuvant TPF regimen. The patient is with severe diarrhea, severe electrolyte abn, replaced. Patient with persistent diarrhea and severe electrolyte abnormality Received octreotide 1 dose for diarrhea with some improvement Poss refeeding sdr Continue scheduled Lomotil and lactinex very low potassium, mag, phos, Ca. Replaced by IV and by feeding tube Monitor CBC, electrolytes replace electrolytes as need. Carcinoma of the tongue Febrile neutropenia Patient has been seen and evaluated by oncology Continue Neupogen. Cefepime + Diflucan, if he spikes fevers again vancomycin will be added Blood cultures negative to date UA negative, chest x-ray negative Decreased p.o. intake On tube feeds. RD evaluated the patient recommended Vital 1.5 @ 45mls/hr Speech therapy following the patient and continues to recommend n.p.o. status Diarrhea C. difficile negative Stool cultures negative Started on immodium Start lactinex Acute renal failure Likely prerenal due to dehydration. Resolved Hypokalemia-severe: Continue to replete aggressively and replace mag as needed. Monitor and replace electrolyte as needed. mag level wnl Severe protein malnutrition: RD following. DVT proph she is yearis isvery well there wears my just to get a simple test 6 hours as is more see because of the system change inis [facility] sisters years and the TV is 2415 there is no air to bilat SCDs Discharge Planning DC planning recommendations by oncology. Pt did speak with Dr. Newton and would like to proceed with radiation therapy only. At this time, recommendations from oncology would be no further treatments at this time, focus on pain control, nutrition, PT and recovery. Once improved, they will consider combined modality XRT with possible cetuximab in the future. Patient with severe hypokalemia. Needs aggressive replacement. Once cleared by oncology, and potassium levels back to normal, consider discharge to rehab/ SNF With persistent diarrhea and electrolyte imbalance, started on Imodium, Lactinex, reeived octreotide. Replace lytes and Ca, continue monitoring. Poss refeeding sdr Jaqueline Pedraza MD December 31, 2017 08:09
[2017-12-31] MEDS ORDERED: POTASSIUM PHOSPHATE INJ 30 MMOL in SODIUM CHLOR 0.9% 250 ML INJ 250 ML IV ONE (08:15)
[2017-12-31] MEDS: SODIUM CHLORIDE 0.9% FLUSH 10 ML FLUSH IV FLUSH SCH ×2 (09:00→21:27)
[2017-12-31] MEDS: LACTOBACILLUS ACIDOPHILUS TAB PO SCH (09:00)
[2017-12-31] MEDS ORDERED: POTASSIUM BICARBONATE 25 MEQ EFFERVESCENT TAB PO SCH ×2 (09:00)
[2017-12-31] MEDS: NYSTAT/DIPHENHY/LIDO MOUTHWASH (Adult) 120ML SWISH-SWAL SCH ×5 (09:00→21:00)
[2017-12-31] MEDS ORDERED: MAGNESIUM OXIDE 400 MG TAB PO SCH (09:00)
[2017-12-31] MEDS: CALCIUM CARBONATE 500 MG CHEWABLE TAB CHEW SCH (09:00)
[2017-12-31] MEDS: MAGNESIUM SULFATE 1 GM PREMIX 100 ML IV SCH ×2 (09:45→10:50)
[2017-12-31] MEDS: MORPHINE SULFATE 2 MG/ML SYRINGE IV PRN ×2 (10:05→16:11)
--- NOTE | 2017-12-31 10:26 | PD.ONC.PN ---
Subjective Subjective Remarks Afebrile Patient reports he thinks his diarrhea is improved today No acute complaints Anxious to go to rehab Objective Data Date Time Temp Pulse Resp B/P (MAP) Pulse Ox O2 Delivery O2 Flow Rate FiO2 12/31/17 08:00 98.0 68 18 118/77 (91) 98 12/31/17 04:00 70 12/31/17 04:00 98.3 97 20 120/84 (96) 99 12/31/17 00:00 66 12/31/17 00:00 98.8 86 18 109/69 (82) 98 12/30/17 20:00 73 12/30/17 20:00 98.5 71 20 115/77 (90) 99 12/30/17 16:00 97.5 70 20 129/62 (84) 99 12/30/17 12:10 20 12/30/17 12:00 97.8 73 20 127/78 (94) 97 12/31/17 12/31/17 12/31/17 07:00 15:00 23:00 Output Total 900 ml Balance -900 ml Result Diagram: 12/30/17 0500 12/30/17 0500 Administered Medications Medications (Trade) Dose Ordered Sig/Shaila Route PRN Reason Start Time Stop Time Status Last Admin Dose Admin Multi-Ingredient Mouthwash/Gargle (Magic Mouthwash Adult Liq) 10 ml QID SWISH-SWAL 12/22/17 13:00 12/28/17 18:59 Sodium Chloride (NS Flush) 2 ml BID IV FLUSH 12/22/17 21:00 12/30/17 22:02 Ondansetron HCl (Zofran Inj) 4 mg Q6H PRN IVP NAUSEA OR VOMITING 12/22/17 12:45 12/30/17 22:01 Lidocaine HCl (Xylocaine 2% Viscous) 15 ml Q4H PRN SWISH-SPIT THROAT PAIN 12/22/17 15:00 12/24/17 21:16 Pantoprazole Sodium (Protonix Inj) 40 mg Q12H IV PUSH 12/22/17 16:00 12/31/17 04:29 Dextrose/Sodium Chloride 1,000 ml @ 84 mls/hr [id number] IV 12/22/17 15:00 12/30/17 22:01 Fluconazole/ Sodium Chloride 100 ml @ 100 mls/hr Q24H IV 12/22/17 16:00 12/30/17 21:59 Cefepime HCl 2000 mg/Sodium Chloride 100 ml @ 200 mls/hr Q8H IV 12/22/17 21:00 12/31/17 04:29 Morphine Sulfate (Morphine Inj) 1 mg Q3H PRN IV PAIN 1-10 12/22/17 21:00 12/31/17 10:05 Acetaminophen (Tylenol) 650 mg Q4H PRN PO TEMP > 100.5 F 12/22/17 21:00 12/22/17 21:25 Oxycodone/ Acetaminophen (Percocet 7.5-325 Mg) 1 tab Q4H PRN PO PAIN SCALE 4 TO 7 12/23/17 16:00 12/27/17 00:32 Oxycodone/ Acetaminophen (Percocet 10-325 Mg) 1 tab Q4H PRN PO pain 8-10 12/23/17 16:00 12/30/17 20:41 Tamsulosin HCl (Flomax) 0.4 mg HS PO 12/25/17 21:00 12/28/17 22:20 Padimate O (Chapstick) 1 applic UNSCH PRN TOPICAL DRY/CHAPPED LIPS 12/25/17 14:15 12/25/17 16:13 Enoxaparin Sodium (Lovenox Inj) 40 mg Q24H SQ 12/26/17 15:00 12/28/17 19:11 Al Hydrox/Mg Hydrox/Simethicone (Mag-Al Plus Susp Liq) 30 ml Q6H PRN PO indigestion 12/27/17 09:00 12/27/17 15:23 Acetaminophen (Tylenol) 650 mg UNSCH PRN PO PRIOR TO BLOOD PRODUCT 12/28/17 23:30 12/29/17 00:05 Diphenhydramine HCl (Benadryl) 25 mg UNSCH PRN PO PRIOR TO BLOOD PRODUCT 12/28/17 23:30 12/29/17 00:05 Diphenoxylate HCl/ Atropine (Lomotil 2.5-0.025 Mg Liq) 5 ml Q6HR PO 12/29/17 13:00 12/31/17 04:34 Lactobacillus Acidophilus (Lactinex) 1 tab Q12HR PO 12/29/17 21:00 12/30/17 22:01 Calcium Carbonate (Tums Chew) 500 mg Q12HR CHEW 12/30/17 21:00 12/30/17 22:01 Objective Remarks GENERAL: Chronically ill-appearing older male resting in bed in no obvious distress SKIN: Warm and dry. HEAD: Normocephalic. EYES: No injection or drainage. NECK: Trachea midline. CARDIOVASCULAR: Regular rate and rhythm without murmurs. RESPIRATORY: Clear but diminished anteriorly. GASTROINTESTINAL: PEG tube in place. Nontender to palpation. EXTREMITIES: No cyanosis, or edema. MUSCULOSKELETAL: Generalized weakness NEUROLOGICAL: Awake and alert. Moving all extremities. Assessment/Plan Assessment 62y/o male with locally advanced head and neck malignancy currently undergoing neoadjuvant chemotherapy admitted with weakness, weight loss, oral pain, and a burning sensation when he urinates. +locally advanced carcinoma of the tongue. receiving neoadjuvant TPF regimen. Plan Patient received octreotide yesterday for diarrhea. Scheduled Lomotil continues. We are currently awaiting the results of today's chemistry panel. As soon as his electrolytes begin to normalize we can clear him for discharge. He will need to follow-up with Dr. Newton in clinic to discuss future chemo versus radiation Attending Statement The exam, history, and the medical decision-making described in the above note were completed with the assistance of the mid-level provider. I reviewed and agree with the findings presented. I attest that I had a [id number] encounter with the patient on the same day, and personally performed and documented my assessment and findings in the medical record. doing better today. node in left neck 90% gone. will continue G tube feedings and K supplementation. will follow [facility] and hopefully home in a few days. he understands he will need XRT and will most likely receive low dose weekly chemo during tx. Yeimi Christianson December 31, 2017 10:26 Rich Dang MD December 31, 2017 13:35
[2017-12-31] MEDS ORDERED: diphenhydrAMINE HCL ELIXIR 12.5 MG/5 ML CUP PO PRN (10:45)
[2017-12-31] MEDS ORDERED: ACETAMINOPHEN 650 MG/20.3 ML UDC PEG PRN ×2 (10:45)
[2017-12-31] MEDS ORDERED: oxyCODONE/ACETAMINOPHEN 7.5 MG/325 MG TAB PEG PRN (10:45)
[2017-12-31] MEDS ORDERED: ACETAMINOPHEN 650 MG/20.3 ML UDC PO PRN (10:45)
[2017-12-31] MEDS ORDERED: diphenhydrAMINE HCL ELIXIR 12.5 MG/5 ML CUP PEG PRN (10:45)
[2017-12-31] MEDS: DIPHENOXYLATE/ATROPINE 2.5 MG/0.025 MG/5 ML CUP PEG SCH ×2 (11:49→16:23)
[2017-12-31] MEDS: DEXT 5%-NACL 0.45% 1000 ML INJ 1,000 ML IV SCH (13:41)
[2017-12-31 14:36] LABS: CALCIUM 6.4 MG/DL (8.5-10.1); CREATININE 0.53 MG/DL (0.60-1.30); MAGNESIUM 1.4 MG/DL (1.5-2.5); PHOSPHORUS 2.2 MG/DL (2.5-4.9)
[2017-12-31 14:51] LABS: CALCIUM-PROTEIN CORRECTED 7.7 MG/DL (8.5-10.1); TOTAL PROTEIN 4.5 GM/DL (6.4-8.2)
[2017-12-31] MEDS: ENOXAPARIN SODIUM 40 MG/0.4 ML SYRINGE SQ SCH (15:00)
[2017-12-31] MEDS: FLUCONAZOLE 200 MG PREMIX BAG 100 ML IV SCH (16:09)
[2017-12-31] MEDS: oxyCODONE/ACETAMINOPHEN 10 MG/325 MG TAB PEG PRN (16:22)
[2017-12-31] MEDS: TAMSULOSIN HCL 0.4 MG CAP PO SCH (21:00)
[2017-12-31] MEDS: MAGNESIUM OXIDE 400 MG TAB PEG SCH (21:26)
[2017-12-31] MEDS: CALCIUM CARBONATE 500 MG CHEWABLE TAB PEG SCH (21:26)
[2017-12-31] MEDS: LACTOBACILLUS ACIDOPHILUS TAB PEG SCH (21:27)
[2018-01-01] VITALS (9 sets, daily range): BP systolic 106–135; BP diastolic 59–82; PULSE 58–87; RESP 16–20; TEMP 98.2–99; O2SAT 99–100
[2018-01-01] MEDS: DIPHENOXYLATE/ATROPINE 2.5 MG/0.025 MG/5 ML CUP PEG SCH ×5 (00:04→23:22)
[2018-01-01] MEDS: PANTOPRAZOLE SODIUM 40 MG VIAL IV PUSH SCH ×2 (03:57→16:04)
[2018-01-01] MEDS: CEFEPIME 2000 MG/NS 100 ML IV SCH ×6 (03:57→21:02)
[2018-01-01 06:51] LABS: BICARBONATE 23.9 MEQ/L (21.0-32.0); CALCIUM 6.7 MG/DL (8.5-10.1); CREATININE 0.51 MG/DL (0.60-1.30); MAGNESIUM 1.2 MG/DL (1.5-2.5); PHOSPHORUS 1.9 MG/DL (2.5-4.9)
[2018-01-01 07:35] LABS: CALCIUM-PROTEIN CORRECTED 8.1 MG/DL (8.5-10.1); TOTAL PROTEIN 4.5 GM/DL (6.4-8.2)
--- NOTE | 2018-01-01 07:50 | HHI.PR ---
Subjective Remarks Diarrhea is improving and he feels a little bit better. Still with severe electrolyte abnormality replaced. Denies any chest pain or shortness of breath no palpitations. No nausea or vomiting. Passing gas. Objective Vitals Vital Signs Date Time Temp Pulse Resp B/P (MAP) Pulse Ox O2 Delivery O2 Flow Rate FiO2 01/01/18 04:00 98.9 63 20 120/69 (86) 99 01/01/18 04:00 87 01/01/18 00:00 98.2 75 18 115/77 (90) 99 01/01/18 00:00 67 12/31/17 20:00 98.3 66 20 111/69 (83) 99 12/31/17 20:00 63 12/31/17 17:16 62 12/31/17 16:00 98.2 66 18 115/87 (96) 100 12/31/17 12:21 68 12/31/17 12:00 98.2 80 18 116/75 (89) 12/31/17 08:00 98.0 68 18 118/77 (91) 98 12/31/17 07:53 69 I/O 12/31/17 12/31/17 12/31/17 01/01/18 01/01/18 01/01/18 07:00 15:00 23:00 07:00 15:00 23:00 Intake Total 100 ml 100 ml Output Total 900 ml 400 ml 1050 ml 1000 ml Balance -900 ml -400 ml -950 ml -900 ml Intake Oral 0 ml IV Total 100 ml 100 ml Output Urine Total 900 ml 400 ml 1050 ml 1000 ml Result Diagram: 12/30/17 0500 01/01/18 0505 Imaging Last Impressions Chest X-Ray 12/24/17 0000 Signed Impressions: Service Date/Time: Sunday, December 24, 2017 09:36 - CONCLUSION: No acute disease. Enoch Blue MD Objective Remarks GENERAL: This is a thin cachectic gentleman. keeps eyes closed but does open them CARDIOVASCULAR: Regular rate and rhythm without murmurs RESPIRATORY: Clear to auscultation. Breath sounds equal bilaterally. No wheezes. GASTROINTESTINAL: Abdomen soft, discomfort w palpation. No guarding. 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 He presented to the ER due to weakness, near syncope, weight loss, oral pain, and a burning sensation when he urinates. With locally advanced carcinoma of the tongue. The patient is receiving neoadjuvant TPF regimen. The patient is with severe diarrhea, severe electrolyte abn, replaced. Patient with severe electrolyte abnormality Received octreotide 1 dose for diarrhea with some improvement Poss refeeding sdr Continue scheduled Lomotil and lactinex very low potassium, mag, phos, Ca. Replaced by IV and by feeding tube Monitor CBC, electrolytes replace electrolytes as need. Carcinoma of the tongue Febrile neutropenia Patient has been seen and evaluated by oncology Continue Neupogen. Cefepime + Diflucan, if he spikes fevers again vancomycin will be added Blood cultures negative to date UA negative, chest x-ray negative Decreased p.o. intake On tube feeds. RD evaluated the patient recommended Vital 1.5 @ 45mls/hr Speech therapy following the patient and continues to recommend n.p.o. status Diarrhea improved C. difficile negative Stool cultures negative Started on immodium Start lactinex Acute renal failure Likely prerenal due to dehydration. Resolved With severe electrolytes abnormality: Hypokalemia Hypomagnesemia Hypocalcemia Hypophosphatemia continue to replete aggressively and replace K, Mag, phos and Ca. Monitor and replace electrolyte as needed. mag level wnl Severe protein malnutrition: RD following. DVT proph she is yearis isvery well there wears my just to get a simple test 6 hours as is more see because of the system change inis sugar [facility] sisters years and the TV is 2415 there is no air to bilat SCDs Discharge Planning DC planning recommendations by oncology. Pt did speak with Dr. Newton and would like to proceed with radiation therapy only. At this time, recommendations from oncology would be no further treatments at this time, focus on pain control, nutrition, PT and recovery. Once improved, they will consider combined modality XRT with possible cetuximab in the future. Patient with severe hypokalemia. Needs aggressive replacement. Once cleared by oncology, and potassium levels back to normal, consider discharge to rehab/ SNF With persistent diarrhea and electrolyte imbalance, started on Imodium, Lactinex, reeived octreotide. Replace lytes and Ca, continue monitoring. Poss refeeding sdr monitor and replace lytes Jaqueline Pedraza MD January 01, 2018 07:50
[2018-01-01] MEDS ORDERED: POTASSIUM PHOSPHATE MONOBASIC 500 MG TAB PO ONE (08:00)
[2018-01-01] MEDS: NYSTAT/DIPHENHY/LIDO MOUTHWASH (Adult) 120ML SWISH-SWAL SCH ×4 (09:00→21:01)
[2018-01-01] MEDS: SODIUM CHLORIDE 0.9% FLUSH 10 ML FLUSH IV FLUSH SCH ×2 (09:00→21:08)
[2018-01-01] MEDS: CALCIUM CARBONATE 500 MG CHEWABLE TAB PEG SCH ×2 (09:31→21:00)
[2018-01-01] MEDS: POTASSIUM BICARBONATE 25 MEQ EFFERVESCENT TAB PEG SCH (09:32)
[2018-01-01] MEDS: MAGNESIUM OXIDE 400 MG TAB PEG SCH ×2 (09:32→21:01)
[2018-01-01] MEDS: oxyCODONE/ACETAMINOPHEN 10 MG/325 MG TAB PEG PRN ×3 (09:33→21:01)
[2018-01-01] MEDS: MAGNESIUM SULFATE 1 GM PREMIX 100 ML IV SCH ×2 (09:40→12:21)
[2018-01-01] MEDS ORDERED: CALCIUM GLUCONATE INJ 1 GM in SODIUM CHLORIDE 0.9% INJ 100 ML IV ONE (10:00)
[2018-01-01] MEDS: LACTOBACILLUS ACIDOPHILUS TAB PEG SCH ×2 (12:21→21:07)
[2018-01-01] MEDS: DEXT 5%-NACL 0.45% 1000 ML INJ 1,000 ML IV SCH ×2 (13:20→15:49)
[2018-01-01] MEDS: ENOXAPARIN SODIUM 40 MG/0.4 ML SYRINGE SQ SCH (15:00)
[2018-01-01] MEDS: FLUCONAZOLE 200 MG PREMIX BAG 100 ML IV SCH (16:03)
[2018-01-01] MEDS: TAMSULOSIN HCL 0.4 MG CAP PO SCH (20:59)
[2018-01-02] VITALS (13 sets, daily range): BP systolic 109–136; BP diastolic 59–78; PULSE 65–141; RESP 15–20; TEMP 97.5–98.8; O2SAT 95–100
[2018-01-02] MEDS: DEXT 5%-NACL 0.45% 1000 ML INJ 1,000 ML IV SCH ×2 (00:34→18:19)
[2018-01-02] MEDS: oxyCODONE/ACETAMINOPHEN 10 MG/325 MG TAB PEG PRN ×5 (02:17→21:04)
[2018-01-02] MEDS: PANTOPRAZOLE SODIUM 40 MG VIAL IV PUSH SCH ×2 (03:49→15:46)
[2018-01-02] MEDS: CEFEPIME 2000 MG/NS 100 ML IV SCH ×6 (03:50→21:06)
[2018-01-02] MEDS: DIPHENOXYLATE/ATROPINE 2.5 MG/0.025 MG/5 ML CUP PEG SCH ×3 (05:09→18:00)
[2018-01-02 06:09] LABS: AUTOMATED NEUTROPHIL # 3.5 TH/MM3 (1.8-7.7); BASOPHIL % 0.4 % (0.0-2.0); EOSINOPHIL % 0.2 % (0.0-4.0); HEMATOCRIT 24.8 % (39.0-51.0); HEMOGLOBIN 8.5 GM/DL (13.0-17.0); LYMPH % 31.4 % (9.0-44.0); LYMPHOCYTE # 1.7 TH/MM3 (1.0-4.8); MEAN CORPUSCULAR HEMOGLOBIN 32.6 PG (27.0-34.0); MEAN CORPUSCULAR HGB CONC 34.3 % (32.0-36.0); MEAN PLATELET VOLUME 9.4 FL (7.0-11.0); MONO % 4.8 % (0.0-8.0); MONOCYTE # 0.3 TH/MM3 (0-0.9); NEUT % 63.2 % (16.0-70.0); PLATELET COUNT 174 TH/MM3 (150-450); RED BLOOD COUNT 2.62 MIL/MM3 (4.50-5.90); RED CELL DISTRIBUTION WIDTH 19.1 % (11.6-17.2); WHITE BLOOD COUNT 5.6 TH/MM3 (4.0-11.0)
[2018-01-02 06:30] LABS: BICARBONATE 30.6 MEQ/L (21.0-32.0); CALCIUM 6.9 MG/DL (8.5-10.1); CREATININE 0.54 MG/DL (0.60-1.30); MAGNESIUM 1.5 MG/DL (1.5-2.5); PHOSPHORUS 1.3 MG/DL (2.5-4.9)
[2018-01-02 06:46] LABS: CALCIUM-PROTEIN CORRECTED 8.2 MG/DL (8.5-10.1); TOTAL PROTEIN 4.6 GM/DL (6.4-8.2)
[2018-01-02 07:30] LABS: BANDS 2 % (0-6); LYMPHOCYTES 22 % (9-44); METAMYELOCYTES 2 % (0-1); MONOCYTES 2 % (0-8); MYELOCYTES 1 % (0-0); NEUTROPHIL # MANUAL DIFF 4.3 TH/MM3 (1.8-7.7); POLYS (SEG NEUTROPHILS) 71 % (16-70); TOXIC GRANULATION 1+ (NORMAL)
--- NOTE | 2018-01-02 08:11 | HHI.PR ---
Subjective Remarks With V tach last night Replace electrolytes aggressively Patient however denies having any palpitations, lightheadedness, chest pain or sob. No diaphoresis, nausea. Headache, n/v/d/c. Objective Vitals Vital Signs Date Time Temp Pulse Resp B/P (MAP) Pulse Ox O2 Delivery O2 Flow Rate FiO2 01/02/18 05:18 97.7 66 15 109/70 (83) 99 01/02/18 05:08 141 01/02/18 05:07 122 01/02/18 04:07 98.2 69 16 111/65 (80) 98 01/02/18 04:00 70 01/02/18 00:37 98.7 68 18 125/73 (90) 95 01/02/18 00:00 67 01/01/18 20:50 99.0 74 16 135/82 (99) 100 01/01/18 20:50 74 01/01/18 17:42 62 01/01/18 16:12 98.4 63 18 114/66 (82) 99 01/01/18 14:08 58 01/01/18 12:00 98.2 66 18 106/59 (75) 100 01/01/18 08:21 65 I/O 01/01/18 01/01/18 01/01/18 01/02/18 01/02/18 01/02/18 07:00 15:00 23:00 07:00 15:00 23:00 Intake Total 100 ml 410 ml 1100 ml 724 ml Output Total 1000 ml 1500 ml 100 ml 1975 ml Balance -900 ml -1090 ml 1000 ml -1251 ml Intake Oral 0 ml 120 ml IV Total 100 ml 410 ml 1100 ml 604 ml Output Urine Total 1000 ml 1500 ml 100 ml 1975 ml Tube Feeding Residual Discard 0 ml # Bowel Movements 1 Result Diagram: 01/02/18 0520 01/02/18 0520 Imaging Last Impressions Chest X-Ray 12/24/17 0000 Signed Impressions: Service Date/Time: Sunday, December 24, 2017 09:36 - CONCLUSION: No acute disease. Enoch Blue MD Objective Remarks GENERAL: This is a thin cachectic gentleman. keeps eyes closed but does open them CARDIOVASCULAR: Regular rate and rhythm without murmurs RESPIRATORY: Clear to auscultation. Breath sounds equal bilaterally. No wheezes. GASTROINTESTINAL: Abdomen soft, discomfort w palpation. No guarding. 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 He presented to the ER due to weakness, near syncope, weight loss, oral pain, and a burning sensation when he urinates. With locally advanced carcinoma of the tongue. The patient is receiving neoadjuvant TPF regimen. The patient is with severe diarrhea, severe electrolyte abn, replaced. Patient with severe electrolyte abnormality Received octreotide 1 dose for diarrhea with improvement Poss refeeding sdr Continue scheduled Lomotil and lactinex very low potassium, mag, phos, Ca. Replaced by IV and by feeding tube Monitor CBC, electrolytes replace electrolytes as need. Noted with Vtach last night 01/01, patient asymptomatic. Aggressive replacement of lytes, Replace today and will check labs in the afternoon. Also vit D deficiency, start Vit D supplement Carcinoma of the tongue Febrile neutropenia Patient has been seen and evaluated by oncology Continue Neupogen. Cefepime + Diflucan, if he spikes fevers again vancomycin will be added Blood cultures negative to date UA negative, chest x-ray negative Decreased p.o. intake On tube feeds. RD evaluated the patient recommended Vital 1.5 @ 45mls/hr Speech therapy following the patient and continues to recommend n.p.o. status Diarrhea improved C. difficile negative Stool cultures negative Started on immodium Start lactinex Acute renal failure Likely prerenal due to dehydration. Resolved With severe electrolytes abnormality: Hypokalemia Hypomagnesemia Hypocalcemia Hypophosphatemia continue to replete aggressively and replace K, Mag, phos and Ca. Monitor and replace electrolyte as needed. mag level wnl Severe protein malnutrition: RD following. DVT proph she is yearis isvery well there wears my just to get a simple test 6 hours as is more see because of the system change inis sugar care3 sisters years and the TV is 2415 there is no air to bilat SCDs Discharge Planning DC planning recommendations by oncology. Pt did speak with Dr. Newton and would like to proceed with radiation therapy only. At this time, recommendations from oncology would be no further treatments at this time, focus on pain control, nutrition, PT and recovery. Once improved, they will consider combined modality XRT with possible cetuximab in the future. Patient with severe hypokalemia. Needs aggressive replacement. Once cleared by oncology, and potassium levels back to normal, consider discharge to rehab/ SNF With persistent diarrhea and electrolyte imbalance, started on Imodium, Lactinex, reeived octreotide. Replace lytes and Ca, continue monitoring. Poss refeeding sdr monitor and replace lytes Jaqueline Pedraza MD January 02, 2018 08:11
[2018-01-02] MEDS ORDERED: ERGOCALCIFEROL (VIT D2) 8,000 UNITS/ML 60 ML BTL PO SCH (08:15)
[2018-01-02] MEDS ORDERED: CALCIUM CARBONATE 500 MG CHEWABLE TAB CHEW ONE (08:15)
[2018-01-02] MEDS: LACTOBACILLUS ACIDOPHILUS TAB PEG SCH ×2 (08:21→21:05)
[2018-01-02] MEDS: POTASSIUM BICARBONATE 25 MEQ EFFERVESCENT TAB PEG SCH (08:21)
[2018-01-02] MEDS: MAGNESIUM OXIDE 400 MG TAB PEG SCH ×2 (08:21→21:04)
[2018-01-02] MEDS: CALCIUM CARBONATE 500 MG CHEWABLE TAB PEG SCH ×2 (08:21→21:06)
[2018-01-02] MEDS: NYSTAT/DIPHENHY/LIDO MOUTHWASH (Adult) 120ML SWISH-SWAL SCH ×4 (08:22→21:00)
[2018-01-02 08:47] LABS: % SATURATION IRON PROFILE 13.8 % (20-50); IRON (FE) 21 MCG/DL (65-175); TOTAL IRON BINDING CAPACITY 153 MCG/DL (250-450)
[2018-01-02] MEDS ORDERED: POTASSIUM PHOSPHATE MONOBASIC 500 MG TAB PO ONE (09:00)
[2018-01-02 09:12] LABS: FERRITIN 955 NG/ML (26-388)
[2018-01-02] MEDS ORDERED: CALCIUM GLUCONATE INJ 1 GM in DEXTROSE 5% IN WATER 100ML INJ 100 ML IV ONE ×2 (10:00)
[2018-01-02] MEDS ORDERED: MAGNESIUM OXIDE 400 MG TAB PO ONE (10:00)
--- NOTE | 2018-01-02 13:20 | PD.ONC.PN ---
Subjective Subjective Remarks Afebrile overnight. Patient resting in room. Feeling much better. wants to know when he can go to rehab. Objective Data Date Time Temp Pulse Resp B/P (MAP) Pulse Ox O2 Delivery O2 Flow Rate FiO2 01/02/18 08:19 98.8 68 20 121/77 (92) 99 01/02/18 08:13 68 01/02/18 05:18 97.7 66 15 109/70 (83) 99 01/02/18 05:08 141 01/02/18 05:07 122 01/02/18 04:07 98.2 69 16 111/65 (80) 98 01/02/18 04:00 70 01/02/18 00:37 98.7 68 18 125/73 (90) 95 01/02/18 00:00 67 01/01/18 20:50 99.0 74 16 135/82 (99) 100 01/01/18 20:50 74 01/01/18 17:42 62 01/01/18 16:12 98.4 63 18 114/66 (82) 99 01/01/18 14:08 58 01/02/18 01/02/18 01/02/18 07:00 15:00 23:00 Intake Total 724 ml Output Total 1975 ml Balance -1251 ml Result Diagram: 01/02/1851901/02/18 05 Laboratory Results Laboratory Tests Test 01/02/18 05:20 01/02/18 11:10 White Blood Count 5.6 TH/MM3 Red Blood Count 2.62 MIL/MM3 Hemoglobin 8.5 GM/DL Hematocrit 24.8 % Mean Corpuscular Volume 95.0 FL Mean Corpuscular Hemoglobin 32.6 PG Mean Corpuscular Hemoglobin Concent 34.3 % Red Cell Distribution Width 19.1 % Platelet Count 174 TH/MM3 Mean Platelet Volume 9.4 FL Neutrophils (%) (Auto) 63.2 % Lymphocytes (%) (Auto) 31.4 % Monocytes (%) (Auto) 4.8 % Eosinophils (%) (Auto) 0.2 % Basophils (%) (Auto) 0.4 % Neutrophils # (Auto) 3.5 TH/MM3 Lymphocytes # (Auto) 1.7 TH/MM3 Monocytes # (Auto) 0.3 TH/MM3 Eosinophils # (Auto) 0.0 TH/MM3 Basophils # (Auto) 0.0 TH/MM3 CBC Comment AUTO DIFF Differential Total Cells Counted 100 Neutrophils % (Manual) 71 % Band Neutrophils % 2 % Lymphocytes % 22 % Monocytes % 2 % Neutrophils # (Manual) 4.3 TH/MM3 Metamyelocytes 2 % Myelocytes 1 % Differential Comment FINAL DIFF MANUAL Toxic Granulation 1+ Platelet Estimate NORMAL Platelet Morphology Comment NORMAL Blood Urea Nitrogen 10 MG/DL Creatinine 0.54 MG/DL Random Glucose 122 MG/DL Total Protein 4.6 GM/DL Calcium Level 6.9 MG/DL Phosphorus Level 1.3 MG/DL Magnesium Level 1.5 MG/DL Sodium Level 141 MEQ/L Potassium Level 3.2 MEQ/L Chloride Level 106 MEQ/L Carbon Dioxide Level 30.6 MEQ/L Anion Gap 4 MEQ/L Estimat Glomerular Filtration Rate 153 ML/MIN Protein Corrected Calcium 8.2 MG/DL Iron Level 21 MCG/DL Total Iron Binding Capacity 153 MCG/DL Percent Iron Saturation 13.8 % Ferritin 955 NG/ML Vitamin B12 Level GREATER THAN 2000 PG/ML Administered Medications Medications (Trade) Dose Ordered Sig/Shaila Route PRN Reason Start Time Stop Time Status Last Admin Dose Admin Multi-Ingredient Mouthwash/Gargle (Magic Mouthwash Adult Liq) 10 ml QID SWISH-SWAL 12/22/17 13:00 12/28/17 18:59 Sodium Chloride (NS Flush) 2 ml BID IV FLUSH 12/22/17 21:00 01/01/18 21:08 Ondansetron HCl (Zofran Inj) 4 mg Q6H PRN IVP NAUSEA OR VOMITING 12/22/17 12:45 12/30/17 22:01 Lidocaine HCl (Xylocaine 2% Viscous) 15 ml Q4H PRN SWISH-SPIT THROAT PAIN 12/22/17 15:00 12/24/17 21:16 Pantoprazole Sodium (Protonix Inj) 40 mg Q12H IV PUSH 12/22/17 16:00 01/02/18 03:49 Dextrose/Sodium Chloride 1,000 ml @ 84 mls/hr [id number] IV 12/22/17 15:00 01/02/18 00:34 Fluconazole/ Sodium Chloride 100 ml @ 100 mls/hr Q24H IV 12/22/17 16:00 01/01/18 16:03 Cefepime HCl 2000 mg/Sodium Chloride 100 ml @ 200 mls/hr Q8H IV 12/22/17 21:00 01/02/18 11:54 Morphine Sulfate (Morphine Inj) 1 mg Q3H PRN IV PAIN 1-10 12/22/17 21:00 12/31/17 10:05 Tamsulosin HCl (Flomax) 0.4 mg HS PO 12/25/17 21:00 12/28/17 22:20 Padimate O (Chapstick) 1 applic UNSCH PRN TOPICAL DRY/CHAPPED LIPS 12/25/17 14:15 12/25/17 16:13 Enoxaparin Sodium (Lovenox Inj) 40 mg Q24H SQ 12/26/17 15:00 12/28/17 19:11 Al Hydrox/Mg Hydrox/Simethicone (Mag-Al Plus Susp Liq) 30 ml Q6H PRN PO indigestion 12/27/17 09:00 12/27/17 15:23 Calcium Carbonate (Tums Chew) 500 mg Q12HR PEG 12/31/17 21:00 01/02/18 08:21 Potassium Bicarbonate (Effer-K Eff) 50 meq DAILY PEG 01/01/18 09:00 01/02/18 08:21 Lactobacillus Acidophilus (Lactinex) 1 tab Q12HR PEG 12/31/17 21:00 01/02/18 08:21 Magnesium Oxide (Mag-Ox) 400 mg Q12HR PEG 12/31/17 21:00 01/02/18 08:21 Diphenoxylate HCl/ Atropine (Lomotil 2.5-0.025 Mg Liq) 5 ml Q6HR PEG 12/31/17 12:00 01/01/18 05:01 Oxycodone/ Acetaminophen (Percocet 10-325 Mg) 1 tab Q4H PRN PEG pain 8-10 12/31/17 10:45 01/02/18 11:54 Objective Remarks GENERAL: Middle aged male, sitting up in bed resting. SKIN: Warm and dry. HEAD: Normocephalic. EYES: No injection or drainage. NECK: Supple, trachea midline. CARDIOVASCULAR: Regular rate and rhythm RESPIRATORY: scattered rhonchi, anterior danielson. GASTROINTESTINAL: Abdomen soft, non-tender, nondistended. G-tube in place, receiving tube feeds EXTREMITIES: No cyanosis NEUROLOGICAL: awake and alert. normal speech Assessment/Plan Problem List: (1) Malnutrition ICD Codes: E46 - Unspecified protein-calorie malnutrition (2) Dysphagia ICD Codes: R13.10 - Dysphagia, unspecified (3) Squamous cell cancer of tongue ICD Codes: C02.9 - Malignant neoplasm of tongue, unspecified Assessment 62y/o male with locally advanced head and neck malignancy currently undergoing neoadjuvant chemotherapy admitted with weakness, weight loss, oral pain, and a burning sensation when he urinates. +locally advanced carcinoma of the tongue. receiving neoadjuvant TPF regimen. Plan 1. continue scheduled Lomotil 2. monitor electrolytes and replace as needed. 3. patient clear for discharge from oncology perspective, follow up in clinic upon discharge Manuela Da Silva January 02, 2018 13:20 Bon Newton MD January 02, 2018 21:51
[2018-01-02] MEDS ORDERED: POTASSIUM PHOSPHATE INJ 15 MMOL in SODIUM CHLORIDE 0.9% INJ 150 ML IV ONE (14:00)
[2018-01-02] MEDS: ENOXAPARIN SODIUM 40 MG/0.4 ML SYRINGE SQ SCH (15:00)
[2018-01-02] MEDS: ERGOCALCIFEROL (VIT D2) 8,000 UNITS/ML 60 ML BTL PO SCH (15:36)
[2018-01-02] MEDS: FLUCONAZOLE 200 MG PREMIX BAG 100 ML IV SCH (18:19)
[2018-01-02 20:36] LABS: BICARBONATE 29.5 MEQ/L (21.0-32.0); CALCIUM 7.3 MG/DL (8.5-10.1); CREATININE 0.55 MG/DL (0.60-1.30); MAGNESIUM 1.2 MG/DL (1.5-2.5); PHOSPHORUS 2.1 MG/DL (2.5-4.9)
[2018-01-02 20:55] LABS: FOLATE 8.8 NG/ML (3.1-17.5)
[2018-01-02] MEDS: TAMSULOSIN HCL 0.4 MG CAP PO SCH (21:05)
[2018-01-02] MEDS: SODIUM CHLORIDE 0.9% FLUSH 10 ML FLUSH IV FLUSH SCH ×2 (21:06→21:07)
[2018-01-02 21:18] LABS: CALCIUM-PROTEIN CORRECTED 8.6 MG/DL (8.5-10.1); TOTAL PROTEIN 4.8 GM/DL (6.4-8.2)
[2018-01-03 00:22] VITALS: BP 116/66; PULSE 69; RESP 18; TEMP 98.8; O2SAT 98
[2018-01-03] MEDS: DIPHENOXYLATE/ATROPINE 2.5 MG/0.025 MG/5 ML CUP PEG SCH ×3 (05:01→12:00)
[2018-01-03] MEDS: CEFEPIME 2000 MG/NS 100 ML IV SCH ×2 (05:02)
[2018-01-03] MEDS: DEXT 5%-NACL 0.45% 1000 ML INJ 1,000 ML IV SCH ×2 (05:03→07:48)
[2018-01-03] MEDS: PANTOPRAZOLE SODIUM 40 MG VIAL IV PUSH SCH ×2 (05:03→15:28)
[2018-01-03 05:07] VITALS: BP 110/67; PULSE 76; RESP 16; TEMP 99.1; O2SAT 97
[2018-01-03] MEDS: oxyCODONE/ACETAMINOPHEN 10 MG/325 MG TAB PEG PRN ×3 (05:15→15:28)
[2018-01-03] MEDS ORDERED: MAGN400T2 PEG (07:26)
[2018-01-03] MEDS ORDERED: LACT PEG (07:26)
[2018-01-03] MEDS ORDERED: KPHOS250 PO (07:26)
[2018-01-03] MEDS ORDERED: PANT40TA3 PO (07:26)
[2018-01-03] MEDS ORDERED: [UNRECOGNIZED DRUG - CODE] PO (07:26)
[2018-01-03] MEDS ORDERED: OXYC1TAB35 PEG (07:28)
--- NOTE | 2018-01-03 07:28 | HHI.DS ---
Discharge Summary Admission Date Dec 22, 2017 at 13:07 Discharge Date: January 03, 2018 Admitting Diagnosis severe neutropenia, acute kidney injury, diarrhea, tongue cancer (1) Vitamin D deficiency ICD Code: E55.9 - Vitamin D deficiency, unspecified (2) Squamous cell cancer of tongue ICD Code: C02.9 - Malignant neoplasm of tongue, unspecified (3) PNA (pneumonia) ICD Code: J18.9 - Pneumonia, unspecified organism (4) Malnutrition ICD Code: E46 - Unspecified protein-calorie malnutrition (5) Hypophosphatemia ICD Code: E83.39 - Other disorders of phosphorus metabolism (6) Thrombocytopenia ICD Code: D69.6 - Thrombocytopenia, unspecified Status: Resolved (7) Hypernatremia ICD Code: E87.0 - Hyperosmolality and hypernatremia (8) Dysphagia ICD Code: R13.10 - Dysphagia, unspecified (9) Hypomagnesemia ICD Code: E83.42 - Hypomagnesemia (10) Hypokalemia ICD Code: E87.6 - Hypokalemia Procedures none Brief History - From Admission History from patient, and review of medical records, and ER physician. Patient is extremely weak and able to answer questions mostly by short sentences and nodding or shaking his hands. He reports he came to the hospital because he has been extremely weak. Reports dizziness and near syncope. Reports he has been short of breath as well and has been coughing a lot. Denies any fever. Reports of sore throat and some lesions in his tongue and mouth. He also reports of urinary burning and pain on urination. Denies any blood in his urine. However states that his stool has been dark. He has had diarrhea as well for the past 3 days about 5 times a day. Denies being on antibiotics. He reports of severe nausea but did not really vomit yet. 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 He is on chemotherapy. He is not able to tell me when his last chemotherapy is. He did however say that the cancer had spread to around his neck. Oncology notes from December 06, 2017 reviewed CBC/BMP: 01/02/18 0520 01/02/18 2000 Significant Findings Laboratory Tests Test 12/31/17 14:00 01/01/18 05:05 01/02/18 05:20 01/02/18 11:10 Creatinine 0.53 MG/DL (0.60-1.30) 0.51 MG/DL (0.60-1.30) 0.54 MG/DL (0.60-1.30) Random Glucose 112 MG/DL (74-106) 122 MG/DL (74-106) Total Protein 4.5 GM/DL (6.4-8.2) 4.5 GM/DL (6.4-8.2) 4.6 GM/DL (6.4-8.2) Calcium Level 6.4 MG/DL (8.5-10.1) 6.7 MG/DL (8.5-10.1) 6.9 MG/DL (8.5-10.1) Phosphorus Level 2.2 MG/DL (2.5-4.9) 1.9 MG/DL (2.5-4.9) 1.3 MG/DL (2.5-4.9) Magnesium Level 1.4 MG/DL (1.5-2.5) 1.2 MG/DL (1.5-2.5) Potassium Level 3.4 MEQ/L (3.5-5.1) 3.0 MEQ/L (3.5-5.1) 3.2 MEQ/L (3.5-5.1) Chloride Level 109 MEQ/L (98-107) Protein Corrected Calcium 7.7 MG/DL (8.5-10.1) 8.1 MG/DL (8.5-10.1) 8.2 MG/DL (8.5-10.1) 25-Hydroxy Vitamin D Total 16.7 ng/ML (30-100) Red Blood Count 2.62 MIL/MM3 (4.50-5.90) Hemoglobin 8.5 GM/DL (13.0-17.0) Hematocrit 24.8 % (39.0-51.0) Red Cell Distribution Width 19.1 % (11.6-17.2) Neutrophils % (Manual) 71 % (16-70) Metamyelocytes 2 % (0-1) Myelocytes 1 % (0-0) Toxic Granulation 1+ (NORMAL) Anion Gap 4 MEQ/L (5-15) Iron Level 21 MCG/DL (65-175) Total Iron Binding Capacity 153 MCG/DL (250-450) Percent Iron Saturation 13.8 % (20-50) Ferritin 955 NG/ML (26-388) Vitamin B12 Level GREATER THAN 2000 PG/ML Test 01/02/18 20:00 Creatinine 0.55 MG/DL (0.60-1.30) Total Protein 4.8 GM/DL (6.4-8.2) Calcium Level 7.3 MG/DL (8.5-10.1) Phosphorus Level 2.1 MG/DL (2.5-4.9) Magnesium Level 1.2 MG/DL (1.5-2.5) Imaging Last Impressions Chest X-Ray 12/24/17 0000 Signed Impressions: Service Date/Time: Sunday, December 24, 2017 09:36 - CONCLUSION: No acute disease. Enoch Blue MD PE at Discharge GENERAL: This is a thin cachectic gentleman. keeps eyes closed but does open them CARDIOVASCULAR: Regular rate and rhythm without murmurs RESPIRATORY: Clear to auscultation. Breath sounds equal bilaterally. No wheezes. GASTROINTESTINAL: Abdomen soft, discomfort w palpation. No guarding. PEG tube site clean Pt update on day of discharge Patient says diarrhea resolved and he feels much better. No pain . No n/v/. Wants to go to snf [facility]ris./ Cleared by hem/onc. Lytes improved. Asymptomatic. 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 He presented to the ER due to weakness, near syncope, weight loss, oral pain, and a burning sensation when he urinates. With locally advanced carcinoma of the tongue. The patient is receiving neoadjuvant TPF regimen. The patient is with severe diarrhea, severe electrolyte abn, replaced. Patient improved, was cleared by oncology for discharge. Discharged to SNF in stable condition to follow-up as outpatient with PCP and consultants. Patient with severe electrolyte abnormality Received octreotide 1 dose for diarrhea with improvement. Noted with Vtach 5/ 6, patient asymptomatic. Aggressive replacement of lytes, Replaced Poss refeeding sdr Continue scheduled Lomotil and lactinex low potassium, mag, phos, Ca. Replaced by IV and by feeding tube. Imprpved continue supplement [patient without diarrhea Monitor CBC, electrolytes replace electrolytes as need. Also vit D deficiency, start Vit D supplement Carcinoma of the tongue Febrile neutropenia Patient has been seen and evaluated by oncology Continue Neupogen. Cefepime + Diflucan, if he spikes fevers again vancomycin will be added Blood cultures negative to date UA negative, chest x-ray negative Decreased p.o. intake On tube feeds. RD evaluated the patient recommended Vital 1.5 @ 45mls/hr Speech therapy following the patient and continues to recommend n.p.o. status Diarrhea improved C. difficile negative Stool cultures negative Started on immodium Start lactinex Acute renal failure Likely prerenal due to dehydration. Resolved With severe electrolytes abnormality: Hypokalemia Hypomagnesemia Hypocalcemia Hypophosphatemia continue to replete aggressively and replace K, Mag, phos and Ca. Monitor and replace electrolyte as needed. mag level wnl Severe protein malnutrition: RD following. DVT proph she is yearis isvery well there wears my just to get a simple test 6 hours as is more see because of the system change inis sugar care3 sisters years and the TV is 2415 there is no air to bilat SCDs Discharge Planning DC planning recommendations by oncology. Pt did speak with Dr. Newton and would like to proceed with radiation therapy only. At this time, recommendations from oncology would be no further treatments at this time, focus on pain control, nutrition, PT and recovery. Once improved, they will consider combined modality XRT with possible cetuximab in the future. Patient with severe hypokalemia. Needs aggressive replacement. Cleared by oncology, and potassium levels back to normal, discharge to rehab/SNF. Continue nutritional supplement at snf With persistent diarrhea and electrolyte imbalance, started on Imodium, Lactinex, received octreotide and diarrhea resolved. Replace lytes and Ca. Pt Condition on Discharge: Stable Discharge Disposition: Discharge to SNF Discharge Time: > 30 minutes Discharge Instructions DIET: Follow Instructions for: On Tube Feeding Additional Diet Instructions: Vital 1.5 goal of 45 Activities you can perform: Regular-No Restrictions Follow up Referrals: Oncology - 1 Week PCP Follow-up - 2-3 Days New Medications: Ergocalciferol Liq Drops (Ergocalciferol Liq Drops) 8,000 Unit/Ml Drops 8000 UNITS PO DAILY for Nutritional Supplement, #1 BOTTLE 0 Refills Pantoprazole (Pantoprazole) 40 Mg Tab 40 MG PO DAILY for Reflux, #30 TAB 0 Refills Potassium Phosphate-Sodium Phosphate (K-Phos Neutral) 155-852-130 Mg Tab 250 MG PO PCHS for Electrolyte Replacement, #120 TAB 0 Refills Lactobacillus Acidophilus (Acidophilus/l-Sporogenes) 35 Million Cell-25 Million Cell Tab 1 TAB PEG Q12HR for probiotic , #30 TAB Magnesium Oxide (Magnesium Oxide) 400 Mg Tab 400 MG PEG DAILY for Nutritional Supplement, #10 TAB Oxycodone HCl/Acetaminophen (Oxycodon-Acetaminophen 7.5-325) 7.5 Mg-325 Mg Tablet 1 TAB PEG Q4H PRN for pain for 10 Days, #60 TAB Continued Medications: Dicyclomine (Bentyl) 10 Mg Cap 10 MG PO TID, #90 CAP Docusate Sodium (Colace) 100 Mg Capsule 100 MG PO BID PRN for CONSTIPATION, #60 CAP 0 Refills Hyoscyamine Liq (Hyoscyamine Liq) 0.125 Mg/5 Ml Elix 0.125 MG PO Q8H for Gastrointestinal disorders, #2 ML 0 Refills Ibuprofen Liq (Ibuprofen Liq) 100 Mg/5 Ml Susp 600 MG PO Q8H PRN for PAIN SCALE 1 TO 2, ML 0 Refills Hikbhnmq-Usmcbcvureqcdte-Fvkxrhhwn Liq (Magic Mouthwash Adult Liq) 120 Ml Susp 10 ML SWISH-SWAL ACHS for Mouth sores, #120 ML 0 Refills Each 5mL contains: Nystatin 200,000units, Diphenhydramine 4.25mg, Viscous Lidocaine 10mg, Eid syrup 0.8 mL Polyethylene Glycol 3350 Powder (Polyethylene Glycol 3350 Powder) 17 Gram Pow 17 GM PO DAILY, #30 PACK Promethazine Liq (Promethazine Liq) 6.25 Mg/5 Ml Syrp 6.25 MG PO Q6H PRN for NAUSEA OR VOMITING, #120 ML 0 Refills Scopolamine Patch 72 HR (Scopolamine Patch 72 HR) 1 Mg Patch 1 PATCH T-DERMAL Q72H, #10 PATCH 0 Refills Tamsulosin (Tamsulosin) 0.4 Mg Cap 0.4 MG HS for Manage Prostate Problems, #30 CAP 0 Refills Discontinued Medications: Azithromycin Liq (Azithromycin Liq) 200 Mg/5 Ml Susp 500 MG PO DAILY for Pharyngitis/Tonsillitis, #60 ML 0 Refills for 5 days. Cefuroxime Liq (Ceftin Liq) 250 Mg/5 Ml Susp 500 MG PO BID for Infection, #100 ML 0 Refills Ciprofloxacin (Cipro) 500 Mg Tab 500 MG PO BID for Infection, #13 TAB 0 Refills Hydrocodone/Acetaminophen (Hydrocodon-Acetamin 7.5-325/15) 7.5 Mg-325 Mg/15 Ml ( 15 Ml) Solution Q8HR Metronidazole (Flagyl) 500 Mg Tab 500 MG PO TID for Infection, #20 TAB 0 Refills Jaqueline Pedraza MD January 03, 2018 07:28
[2018-01-03 08:30] VITALS: PULSE 80
[2018-01-03 08:45] VITALS: BP 121/72; PULSE 76; RESP 18; TEMP 97.8; O2SAT 98
[2018-01-03] MEDS: SODIUM CHLORIDE 0.9% FLUSH 10 ML FLUSH IV FLUSH SCH (09:00)
[2018-01-03] MEDS: NYSTAT/DIPHENHY/LIDO MOUTHWASH (Adult) 120ML SWISH-SWAL SCH ×2 (09:00→13:00)
[2018-01-03] MEDS ORDERED: POTASSIUM PHOSPHATE MONOBASIC 500 MG TAB PO SCH (09:00)
[2018-01-03] MEDS: MAGNESIUM SULFATE 1 GM PREMIX 100 ML IV SCH ×2 (09:44→14:27)
[2018-01-03] MEDS: LACTOBACILLUS ACIDOPHILUS TAB PEG SCH (10:22)
[2018-01-03] MEDS: CALCIUM CARBONATE 500 MG CHEWABLE TAB PEG SCH (10:22)
[2018-01-03] MEDS: MAGNESIUM OXIDE 400 MG TAB PEG SCH (10:22)
[2018-01-03] MEDS: ERGOCALCIFEROL (VIT D2) 8,000 UNITS/ML 60 ML BTL PO SCH (10:23)
[2018-01-03 12:00] VITALS: PULSE 84
[2018-01-03 12:30] VITALS: BP 110/69; PULSE 69; RESP 16; TEMP 97.9; O2SAT 100
[2018-01-03] MEDS: ENOXAPARIN SODIUM 40 MG/0.4 ML SYRINGE SQ SCH ×2 (14:29→14:30)
[2018-01-03] MEDS: LIDOCAINE VISCOUS 2% SOLN 15 ML UDC SWISH-SPIT PRN (15:28)
== END 2018-01-03 16:40 | DRG 808 ==
LOC: NEPE 09:20 → NEDA 13:07 → HCIN 15:05
PROVIDERS: ADMIT Hospitalist; ATTEND Hospitalist
PROC: 30253N1 (ICD-10-PCS; principal; 2017-12-29)
DX: D70.1 Agranulocytosis secondary to cancer chemotherapy (principal); E43 Unspecified severe protein-calorie malnutrition; I47.2 Ventricular tachycardia; N17.9 Acute kidney failure, unspecified; C77.0 Secondary and unspecified malignant neoplasm of lymph nodes of head, face and neck; E87.0 Hyperosmolality and hypernatremia; B37.0 Candidal stomatitis; D69.6 Thrombocytopenia, unspecified; Z68.1 Body mass index [BMI] 19.9 or less, adult; R13.11 Dysphagia, oral phase; C02.9 Malignant neoplasm of tongue, unspecified; Z93.1 Gastrostomy status; T45.1X5A Adverse effect of antineoplastic and immunosuppressive drugs, initial encounter; R19.7 Diarrhea, unspecified; F17.210 Nicotine dependence, cigarettes, uncomplicated; E86.0 Dehydration; I95.1 Orthostatic hypotension; K12.30 Oral mucositis (ulcerative), unspecified; R50.81 Fever presenting with conditions classified elsewhere; R47.02 Dysphasia; E87.6 Hypokalemia; K59.00 Constipation, unspecified; K21.9 Gastro-esophageal reflux disease without esophagitis; K30 Functional dyspepsia; D63.0 Anemia in neoplastic disease; E83.42 Hypomagnesemia; E83.51 Hypocalcemia; E83.39 Other disorders of phosphorus metabolism; E55.9 Vitamin D deficiency, unspecified; Z66 Do not resuscitate
CPT/HCPCS: 36430; 71045; 80048; 80053; 81001; 82272; 82306; 82607; 82728; 82746; 82747; 83540; 83550; 83735; 84100; 84155; 85007; 85025; 85027; 86850; 86900; 86901; 86920; 87040; 87210; 87328; 87329; 87493; 87506; 94640; 94664; 96361; 96374; C9113; J0610; J0692; J0780; J1442; J1450; J1642; J1650; J2270; J2354; J2405; J3475; J3480; J7030; J7050; P9016